=== PATIENT | female | born 1955 | race Caucasian/White ===

== ENCOUNTER 2019-02-25 08:10 | Day surgery (SDC) | payer MEDICARE ==
[2019-02-24 08:35] VITALS: BMI 23.2
[~2019-02-25 08:10] MED LIST: LACTATED RINGERS 1,000 ML IV SCH; TOBRA-DEXAMET 0.3-0.1% OPHTH OINT 3.5 GM TUBE OPHTHALMIC ONE
[2019-02-25] MEDS: CYCLOPENTOLATE 1% OPHTH SOLN 2 ML BTL OP ONE ×3 (09:25→09:44)
[2019-02-25 09:28] VITALS: TEMP 97.8
[2019-02-25] MEDS: PHENYLEPHRINE 10% OPHTH DROPS 5 ML BTL OP ONE ×3 (09:29→09:47)
[2019-02-25] MEDS: KETOROLAC 0.5% OPHTH DROPS 5 ML BTL OP ONE ×3 (09:32→09:50)
[2019-02-25] MEDS ORDERED: PROPOFOL 10 MG/ML 20 ML VIAL IV ONE (09:54)
[2019-02-25] MEDS ORDERED: BALANCED SALT IRRIG SOLN COMB2 15 ML IRRIG.SOLN INTRAOCULA ONE (10:13)
[2019-02-25] MEDS ORDERED: HYALURONATE SODIUM INTRAOCULAR 1 EACH SYRINGE (10MG/ML) INTRAOCULA ONE (10:13)
[2019-02-25] MEDS ORDERED: EPINEPHrine (PF) 0.5 ML in BALANCED SALT IRRIG SOLN COMB2 500 ML IRRIGATION ONE (10:14)
--- NOTE | 2019-02-25 10:25 | P.OP ---
Date of Procedure: 02/25/19 Procedure(s) Performed: PREOPERATIVE DIAGNOSIS: Cataract, left eye. POSTOPERATIVE DIAGNOSIS: Cataract, left eye. OPERATION: Phacoemulsification of cataract, intraocular lens placement, left eye. DESCRIPTION OF PROCEDURE: The patient was taken to the operating room. Intravenous Propofol was given so as to bring about sedation. The following mixture was given for local anesthesia: 5 mL of 2% lidocaine, 5 mL of 0.75% Marcaine, and 1 mL of Wydase. Approximately 4 mL was injected in the retrobulbar space of the surgical eye. Additional 1 mL was then directed to the temporal area of the surgical eye. This was performed to allow adequate neurological block of the facial muscles. The patient was revived. The patient was prepped and draped in the usual sterile manner for the operative eye. A lid speculum was put into position. The conjunctiva was resected back from the limbus in the 12 o'clock position. Bleeding was controlled with electrocautery. A #69 blade was then used and a half-thickness scleral incision approximately 1-mm posterior to the limbus was made on bare sclera. This was shelved in the clear cornea using a crescent knife. Next a 15-degree blade was used to make a stab incision at the 3 o'clock position at the corneolimbal interface. A keratome blade was then used and the superior wound was extended into the anterior chamber. Viscoelastic was injected into the anterior chamber to maintain its form. A cystotome was used and a continuous anterior capsulot sin was made. Hydrodissection of the lens cortex using a blunt cannula and BSS was performed. A phaco probe was then introduced and a groove extending from 12 to 6 o'clock in the lens was created. A Berhane wand was used through the stab incision and used to perform a divide and conquer dismantling of the cataract. An irrigation aspiration probe was utilized and any residual cortex was removed from the eye. Again, viscoelastic was injected into the anterior chamber. An Ian posterior chamber lens implant was placed in a delivery cartridge and injected into the anterior chamber. A Sinskey hook was utilized to spin the lens into position within the capsular bag. The irrigation and aspiration probe was again introduced and any residual viscoelastic was removed from the eye. BSS was injected via blunt canula into the limbal stab incision and the anterior chamber was re-inflated. The conjunctiva was reapproximated using electrocautery. One drop of 0.25% Timoptic was placed over the corneal along with an antibiotic ophthalmic ointment. Two sterile patches and a Fabian eye shield were taped into position. The patient was transported to the recovery room in stable condition. Pathology: none sent Condition: stable Disposition: same day
[2019-02-25 10:43] VITALS: BP 124/74; PULSE 50; RESP 18
[2019-02-25] MEDS ORDERED: TIMOLOL 0.5% OPHTH DROPS 5 ML BTL OP ONE (23:00)
[2019-02-25] MEDS ORDERED: GENTAMICIN/PREDNISOL AC OPHTH OINT 3.5GM OPHTHALMIC ONE (23:00)
[2019-02-25] MEDS ORDERED: BUPIVACAINE (PF) 0.75% 5 ML, HYALURONIDASE, HUMAN RECOMB 150 UNIT, LIDOCAINE 2% (PF) 10... MISCELLANE ONE ×3 (23:00)
== END 2019-02-25 10:54 | disposition home or self-care (01) ==
LOC: OR 08:10
PROVIDERS: ATTEND Ophthalmology
DX: H25.13 Age-related nuclear cataract, bilateral (principal); I47.1 Supraventricular tachycardia; E07.9 Disorder of thyroid, unspecified; F31.9 Bipolar disorder, unspecified; G03.8 Meningitis due to other specified causes; Z79.890 Hormone replacement therapy; Z79.899 Other long term (current) drug therapy; Z90.89 Acquired absence of other organs; Z98.51 Tubal ligation status; Z91.040 Latex allergy status; Z88.5 Allergy status to narcotic agent; Z87.891 Personal history of nicotine dependence
CPT/HCPCS: 66984; V2632; J3470; J2001; J0171; J2704

== ENCOUNTER 2020-06-09 15:19 | Emergency (ER) | payer MEDICARE ==
[2020-06-09 15:29] VITALS: BP 124/64; PULSE 52; RESP 18; TEMP 97.7
--- NOTE | 2020-06-09 15:41 | ED ---
Extremity Problem HPI - General Chief complaint: Extremity Problem,Nontraumatic Stated complaint: left leg pain Time Seen by Provider: 06/09/20 15:31 Source: patient Mode of arrival: ambulatory Limitations: no limitations - History of Present Illness Initial comments: Patient is a 65-year-old female with history of SVT, thyroid disorder, presenting to the emergency Department with complaints of pain in her left calf over the past week. Patient denies any injuries or trauma to her knee or calf. She states the pain seemed to come out of nowhere, located in her upper left calf, behind her left knee. She states over the past week it seems to be increasing and yesterday she felt like she could barely walk on it secondary to the pain. She denies any previous surgeries or injuries of her left lower extremity. She denies any chest pain or shortness of breath. She denies history of blood clots. She is not on a blood thinner. She states only thing that is changed recently as over the past few months she has put on a lot of weight. She denies any other complaints at this time. Upon arrival to the ER, her vitals are stable. - Related Data Home Medications Medication Instructions Recorded Confirmed Cholecalciferol [Vitamin D3 (25 1,000 unit PO DAILY 02/24/19 02/24/19 Mcg = 1000 Iu)] Levothyroxine Sodium [Synthroid] 125 mcg PO MOTUWETHFRSA 02/24/19 02/24/19 Multivitamins, Thera [Multivitamin 1 tab PO DAILY 02/24/19 02/24/19 (formulary)] Oxybutynin Chloride [Ditropan] 5 mg PO DAILY 02/24/19 02/24/19 QUEtiapine [SEROquel] 150 mg PO HS 02/24/19 02/24/19 Allergies Allergy/AdvReac Type Severity Reaction Status Date / Time pentazocine [From Jana] Allergy Swelling Verified 06/09/20 15:29 Review of Systems ROS Statement: Those systems with pertinent positive or pertinent negative responses have been documented in the HPI. ROS Other: All systems not noted in ROS Statement are negative. Past Medical History Past Medical History: Supraventricular Tachycardia (SVT), Thyroid Disorder Additional Past Medical History / Comment(s): spinal meningitis 25 yrs. ago, used to take BB for SVT-no longer needed per pt. History of Any Multi-Drug Resistant Organisms: None Reported Past Surgical History: Tonsillectomy, Tubal Ligation Past Anesthesia/Blood Transfusion Reactions: No Reported Reaction Past Psychological History: Bipolar Smoking Status: Never smoker Past Alcohol Use History: Rare Past Drug Use History: None Reported General Exam - General Exam Comments Initial Comments: GENERAL: Patient is well-developed and well-nourished. Patient is nontoxic and in no acute distress. HEAD: Atraumatic, normocephalic. EYES: Pupils equal round and reactive to light, extraocular movements intact, sclera anicteric, conjunctiva are normal. Eyelids were unremarkable. ENT: TMs normal, nares patent, oropharynx clear without exudates. Moist mucous membranes. NECK: Normal range of motion, supple without lymphadenopathy or JVD. LUNGS: Unlabored respirations. Breath sounds clear to auscultation bilaterally and e qual. No wheezes rales or rhonchi. HEART: Regular rate and rhythm without murmurs, rubs or gallops. ABDOMEN: Soft, nontender, normoactive bowel sounds. No guarding, no rebound. No masses appreciated. : Deferred MUSCULOSKELETAL: Normal extremities with adequate strength and normal range of motion, no pitting or edema. No clubbing or cyanosis. Patient has pain with palpation of the posterior left upper calf area, behind left knee. There is no obvious erythema or swelling noted. She does have varicose veins. NEUROLOGICAL: Patient is alert and oriented x 3. Motor and sensory are also intact. Cranial nerves II through XII grossly intact. Symmetrical smile. Normal speech, normal gait. PSYCH: Normal mood, normal affect. SKIN: Warm, Dry, normal turgor, no rashes or lesions noted. Limitations: no limitations Course Vital Signs 06/09/20 15:27 Temperature 97.7 F Pulse Rate 52 L Respiratory 18 Rate Blood Pressure 124/64 O2 Sat by Pulse 99 Oximetry Medical Decision Making - Medical Decision Making Patient is 65-year-old female here with left lower extremity pain has been increasing over the past week. No history of injuries or trauma, no previous surgeries. No history of blood clots, she is not on a blood thinner. Ultrasound of the left lower extremity reveals no evidence of DVT, she does have a Moon cyst behind the left knee. I discussed these findings with the patient. Recommended ice or heat to the area, ibuprofen or Aleve for any discomfort. I will give her orthopedic follow-up. Patient is stable for discharge. Patient is in agreement with this plan of care. Return parameters were discussed with the patient and they verbalized understanding. Case discussed with Dr. Westbrook. Disposition Clinical Impression: Synovial cyst of popliteal space [Moon], left knee, Pain of left calf Disposition: HOME SELF-CARE Condition: Stable Instructions (If sedation given, give patient instructions): Bakers Cyst (ED) Additional Instructions: Please return to the Emergency Department if symptoms worsen or any other concerns. Trial of ibuprofen or Aleve for any discomfort, may try heat and/or ice to the area. If symptoms persists follow up with orthopedics as discussed. Is patient prescribed a controlled substance at d/c from ED?: No Referrals: Pk Salazar MD [Primary Care Provider] - 1-2 days Giovanny Sotelo MD [STAFF PHYSICIAN] - 1-2 days
--- NOTE | 2020-06-09 16:38 | US ---
EXAMINATION TYPE: US venous doppler duplex LE LT DATE OF EXAM: 06/09/2020 4:10 PM COMPARISON: NONE CLINICAL HISTORY: pain behind the knee x 1 weeks. Pain left leg SIDE PERFORMED: left TECHNIQUE: The lower extremity deep venous system is examined utilizing real time linear array sonog maribel with graded compression, doppler sonography and color-flow sonography. VESSELS IMAGED: Common Femoral Vein Deep Femoral Vein Greater Saphenous Vein * Femoral Vein Popliteal Vein Small Saphenous Vein * Proximal Calf Veins (* superficial vessels) There is normal flow, compressibility, vascular waveforms. Left Leg: no evidence of DVT. complex anechoic area left popliteal fossa = 5.6 x 1.5 x 2.8cm, Moon 's cyst IMPRESSION: No evident deep venous thrombosis at or above the left knee. Incidental note made of prob able semimembranosus gastrocnemius cyst, alternate imaging may be confirmatory.
== END 2020-06-09 17:08 | disposition home or self-care (01) ==
LOC: EC 15:19
DX: M71.22 Synovial cyst of popliteal space [Baker], left knee (principal); E07.9 Disorder of thyroid, unspecified; Z90.09 Acquired absence of other part of head and neck; Z98.51 Tubal ligation status
CPT/HCPCS: 99283

== ENCOUNTER → 2023-11-08 | Outpatient (CLI) | payer MEDICARE ==
[2023-11-08 18:39] LABS: T4, Free (Free Thyroxine) 1.65 ng/dL (0.80-1.80)
== END | disposition home or self-care (01) ==
LOC: LABWHC1 11:29
PROVIDERS: ATTEND Family Medicine
DX: E03.9 Hypothyroidism, unspecified (principal)
CPT/HCPCS: 36415; 84439; 84443

== ENCOUNTER 2024-04-04 12:19 | Emergency (ER) | payer MEDICARE ==
[2024-04-04] MEDS: SODIUM CHLORIDE 0.9% 1,000 ML IV STA (12:58)
[2024-04-04 13:31] LABS: Basophils % (A) 1 %; Eosinophils # (A) 0.1 k/uL (0-0.7); Eosinophils % (A) 3 %; HCT 44.4 % (34.0-46.0); HGB 14.6 gm/dL (11.4-16.0); Lymphocytes # (A) 0.6 k/uL (1.0-4.8); Lymphocytes % (A) 14 %; MCH 32.7 pg (25.0-35.0); MCHC 32.9 g/dL (31.0-37.0); MCV 99.4 fL (80.0-100.0); Mean Platelet Volume 8.4; Monocytes # (A) 0.5 k/uL (0-1.0); Monocytes % (A) 11 %; Neutrophils # (A) 3.3 k/uL (1.3-7.7); Neutrophils % (A) 69 %; Platelet Count 192 k/uL (150-450); RBC 4.46 m/uL (3.80-5.40); RDW 12.6 % (11.5-15.5); WBC 4.8 k/uL (3.8-10.6)
--- NOTE | 2024-04-04 13:31 | ED ---
General Adult HPI - General Chief complaint: Nausea/Vomiting/Diarrhea Stated complaint: Diarrhea Time Seen by Provider: 04/04/24 13:23 Source: patient, RN notes reviewed Mode of arrival: wheelchair Limitations: no limitations - History of Present Illness Initial comments: Patient is a 69-year-old female present to the emergency department with concerns with diarrhea. Onset of symptoms was 3 days ago. Patient is having multiple episodes of watery diarrhea daily. Patient also has nausea without vomiting. Patient has some mild abdominal discomfort with diarrhea. Unclear if she has had fever or not. Patient did have bariatric surgery in November. Patient called her doctor who informed her he did not think this was from the surgery. - Related Data Home Medications Medication Instructions Recorded Confirmed Levothyroxine Sodium [Synthroid] 125 mcg PO DAILY 02/24/19 11/23/21 ALPRAZolam [Xanax] 0.5 mg PO HS 11/23/21 11/23/21 Metoprolol Tartrate [Lopressor] 25 mg PO BID 11/23/21 11/23/21 PARoxetine [Paxil] 10 mg PO DAILY 11/23/21 11/23/21 QUEtiapine [SEROquel] 300 mg PO HS 11/23/21 11/23/21 Previous Rx's Medication Instructions Recorded Amiodarone [Cordarone] 400 mg PO BID 15 Days #30 tab 11/26/21 Apixaban [Eliquis] 10 mg PO BID 7 Days #14 tab 11/26/21 Dicyclomine [Bentyl] 20 mg PO QID PRN #15 tablet 04/04/24 Allergies Allergy/AdvReac Type Severity Reaction Status Date / Time pentazocine [From Jana] Allergy Swelling Verified 04/04/24 12:27 Review of Systems ROS Statement: Those systems with pertinent positive or pertinent negative responses have been documented in the HPI. ROS Other: All systems not noted in ROS Statement are negative. Constitutional: Denies: fever Eyes: Denies: eye pain ENT: Denies: ear pain Respiratory: Denies: cough, dyspnea Cardiovascular: Denies: chest pain Gastrointestinal: Reports: as per HPI, nausea, diarrhea. Denies: vomiting Musculoskeletal: Denies: back pain Skin: Denies: rash Past Medical History Past Medical History: Atrial Fibrillation, Supraventricular Tachycardia (SVT), Thyroid Disorder Additional Past Medical History / Comment(s): spinal meningitis 25 yrs. ago, used to take BB for SVT-no longer needed per pt. History of Any Multi-Drug Resistant Organisms: None Reported Past Surgical History: Bariatric Surgery, Tonsillectomy, Tubal Ligation Past Anesthesia/Blood Transfusion Reactions: No Reported Reaction Past Psychological History: Bipolar Smoking Status: Former smoker Past Alcohol Use History: None Reported Past Drug Use History: None Reported General Exam Limitations: no limitations General appearance: alert, in no apparent distress Head exam: Present: normocephalic Eye exam: Present: normal appearance Neck exam: Present: normal inspection Respiratory exam: Present: normal lung sounds bilaterally Cardiovascular Exam: Present: irregular rhythm GI/Abdominal exam: Present: soft. Absent: distended, tenderness, guarding, rebound, rigid Extremities exam: Present: normal inspection Neurological exam: Present: alert Psychiatric exam: Present: normal affect, normal mood Skin exam: Present: normal color Course Vital Signs 04/04/24 04/04/24 12:27 13:49 Temperature 97.2 F L Pulse Rate 105 H 100 Respiratory 18 17 Rate Blood Pressure 85/54 95/66 O2 Sat by Pulse 98 97 Oximetry EKG Findings - EKG Results: EKG: interpreted by ERMDenise (Nonspecific ST-T), normal axis, normal QRS EKG shows: atrial fibrillation Medical Decision Making - Medical Decision Making Was pt. sent in by a medical professional or institution (TENZIN Aden, FINANCE VICE PRESIDENT, urgent care, hospital, or snf...) When possible be specific @ -No Did you speak to anyone other than the patient for history (EMS, parent, family, police, friend...)? What history was obtained from this source @ -No Did you review nursing and triage notes (agree or disagree)? Why? @ -I reviewed and agree with nursing and triage notes Were old charts reviewed (outside hosp., previous admission, EMS record, old EKG, old radiological studies, urgent care reports/EKG's, snf records)? Report findings @ -No old charts were reviewed Differential Diagnosis (chest pain, altered mental status, abdominal pain women, abdominal pain men, vaginal bleeding, weakness, fever, dyspnea, syncope, headache, dizziness, GI bleed, back pain, seizure, CVA, palpatations, mental he alth, musculoskeletal)? @ -Differential Abdominal Pain Women: Appendicitis, Cholecystitis, diverticulosis, ischemic bowel, pancreatitis, hepatitis, UTI, gastroenteritis, AAA, incarcerated hernia, bowel obstruction, constipation, inflammatory bowel, hepatitis, peptic ulcer disease, splenic infarction, perforated viscus, vulvitis, ovarian torsion, PID, kidney stone, placenta abruption, this is not meant to be an all-inclusive list EKG interpreted by me (3pts min.). @ -As above X-rays interpreted by me (1pt min.). @ -None done CT interpreted by me (1pt min.). @ -None done U/S interpreted by me (1pt. min.). @ -None done What testing was considered but not performed or refused? (CT, X-rays, U/S, labs)? Why? @ -None What meds were considered but not given or refused? Why? @ -None Did you discuss the management of the patient with other professionals (professionals i.e. , PA, FINANCE VICE PRESIDENT, lab, RT, psych nurse, director social, emt dispatcher, teacher, control officer, classification case manager)? Give summary @ -No Was smoking cessation discussed for >3mins.? @ -No Was critical care preformed (if so, how long)? @ -No Were there social determinants of health that impacted care today? How? (Homelessness, low income, unemployed, alcoholism, drug addiction, transportation, low edu. Level, literacy, decrease access to med. care, assisted, rehab)? @ -No Was there de-escalation of care discussed even if they declined (Discuss DNR or withdrawal of care, Hospice)? DNR status @ -No What co-morbidities impacted this encounter? (DM, HTN, Smoking, COPD, CAD, Cancer, CVA, ARF, Chemo, Hep., AIDS, mental health diagnosis, sleep apnea, morbid obesity)? @ -None Was patient admitted / discharged? Hospital course, mention meds given and route, prescriptions, significant lab abnormalities, going to OR and other perti nent info. @ -Patient presents with diarrhea for the past several days. On evaluation patient has mild dehydration and hypokalemia. Patient reevaluated and updated. Abdomen soft and nontender on reevaluation. Patient feels much better and is comfortable with discharge home. Patient will be given additional small fluid bolus prior to discharge. Blood pressure has been stable in the 90s. Undiagnosed new problem with uncertain prognosis? @ -No Drug Therapy requiring intensive monitoring for toxicity (Heparin, Nitro, Insulin, Cardizem)? @ -No Were any procedures done? @ -No Diagnosis/symptom? @ -Diarrhea Acute, or Chronic, or Acute on Chronic? @ -Acute Uncomplicated (without systemic symptoms) or Complicated (systemic symptoms)? @ -Complicated with hypokalemia Side effects of treatment? @ -No Exacerbation, Progression, or Severe Exacerbation? @ -No Poses a threat to life or bodily function? How? (Chest pain, [place], [place], pneumonia, PE, COPD, DKA, ARF, appy, cholecystitis, CVA, Diverticulitis, Homicidal, Suicidal, threat to staff... and all critical care pts) @ -No - Lab Data Result diagrams: 04/04/24 12:57 04/04/24 12:57 Lab Results 04/04/24 04/04/24 04/04/24 Range/Units 12:57 12:57 12:57 WBC 4.8 (3.8-10.6) k/uL RBC 4.46 (3.80-5.40) m/uL Hgb 14.6 (11.4-16.0) gm/dL Hct 44.4 (34.0-46.0) % MCV 99.4 (80.0-100.0) fL MCH 32.7 (25.0-35.0) pg MCHC 32.9 (31.0-37.0) g/dL RDW 12.6 (11.5-15.5) % Plt Count 192 (150-450) k/uL MPV 8.4 Neutrophils % 69 % Lymphocytes % 14 % Monocytes % 11 % Eosinophils % 3 % Basophils % 1 % Neutrophils # 3.3 (1.3-7.7) k/uL Lymphocytes # 0.6 L (1.0-4.8) k/uL Monocytes # 0.5 (0-1.0) k/uL Eosinophils # 0.1 (0-0.7) k/uL Basophils # 0.0 (0-0.2) k/uL Sodium 140 (137-145) mmol/L Potassium 3.2 L (3.5-5.1) mmol/L Chloride 104 (98-107) mmol/L Carbon Dioxide 17 L (22-30) mmol/L Anion Gap 19 mmol/L BUN 19 H (7-17) mg/dL Creatinine 1.17 H (0.52-1.04) mg/dL Est GFR (CKD-EPI)AfAm 55 (>60 ml/min/1.73 sqM) Est GFR (CKD-EPI)NonAf 47 (>60 ml/min/1.73 sqM) Glucose 90 (74-99) mg/dL Plasma Lactic Acid Boyd 1.4 (0.7-2.0) mmol/L Calcium 9.3 (8.4-10.2) mg/dL Total Bilirubin 1.0 (0.2-1.3) mg/dL AST 29 (14-36) U/L ALT 23 (4-34) U/L Alkaline Phosphatase 89 (38-126) U/L Total Protein 7.2 (6.3-8.2) g/dL Albumin 4.4 (3.5-5.0) g/dL Disposition Clinical Impression: Diarrhea Disposition: HOME SELF-CARE Condition: Stable Instructions (If sedation given, give patient instructions): Acute Diarrhea (ED) Additional Instructions: Hold your Lopressor for 36 hours. Prescription sent to pharmacy for Bentyl. Return for fevers, not tolerating oral intake, increased diarrhea, pain, wo rsening or changing symptoms or any other concerns. Prescriptions: Dicyclomine [Bentyl] 20 mg PO QID PRN #15 tablet PRN Reason: Pain Is patient prescribed a controlled substance at d/c from ED?: No Referrals: Pk Salazar MD [Primary Care Provider] - 1-2 days Time of Disposition: 14:52
[2024-04-04 13:35] LABS: ALT 23 U/L (4-34); African American GFR (CKD) 55 (>60 ml/min/1.73 sqM); Albumin 4.4 g/dL (3.5-5.0); Anion Gap 19 mmol/L; Blood Urea Nitrogen 19 mg/dL (7-17); Calcium 9.3 mg/dL (8.4-10.2); Carbon Dioxide 17 mmol/L (22-30); Chloride 104 mmol/L (98-107); Glucose 90 mg/dL (74-99); Non-African American GFR(CKD) 47 (>60 ml/min/1.73 sqM); Sodium 140 mmol/L (137-145); Total Protein 7.2 g/dL (6.3-8.2)
[2024-04-04] MEDS: ONDANSETRON 4 MG/2 ML VIAL IVP STA (13:41)
[2024-04-04] MEDS: DICYCLOMINE 10 MG/ML 2 ML AMP IM STA (13:42)
[2024-04-04] MEDS: FAMOTIDINE 20 MG/2 ML VIAL IV STA (13:44)
[2024-04-04 14:01] LABS: AST 29 U/L (14-36); Alkaline Phosphatase 89 U/L (38-126); Potassium 3.2 mmol/L (3.5-5.1)
[2024-04-04] MEDS: SODIUM CHLORIDE 0.9% 500 ML 500 ML IV STA (15:11)
[2024-04-04] MEDS: POTASSIUM CHLORIDE ER 20 MEQ TAB.ER PO STA (15:11)
[2024-04-04 16:25] VITALS: BP 92/50; PULSE 95; RESP 18; TEMP 97.8
== END 2024-04-04 16:30 | disposition home or self-care (01) ==
LOC: EC 12:19
DX: R19.7 Diarrhea, unspecified (principal); E87.6 Hypokalemia; Z87.891 Personal history of nicotine dependence; Z88.8 Allergy status to other drugs, medicaments and biological substances
CPT/HCPCS: 36415; 93005; 80053; 83605; 85025; 99284; 96372; 96374; 96375; 96361; J0500; J2405; J3490

== ENCOUNTER 2024-04-06 10:58 | Inpatient (IN) | payer MEDICARE ==
--- NOTE | 2024-04-06 11:42 | ED ---
Nausea/Vomiting/Diarrhea HPI - General Stated complaint: Fall Time Seen by Provider: 04/06/24 11:17 Source: patient, RN notes reviewed Mode of arrival: EMS Limitations: no limitations - History of Present Illness Initial comments: This is a 69-year-old female with history of A-fib and SVT presenting with diarrhea x 5 days. Patient states she has been diarrhea with fecal incont inence. Endorses associated diffuse abdominal pain (4/10) and general weakness. Denies blood in stool, nausea/vomiting, recent sick contact, recent antibiotic use, intake of undercooked food. Patient states she received gastric bypass surgery in November 2023 without complication. States she called surgeon who advised current symptoms not related to surgery. States she was seen in this ER [address] Enamorado who provided fluids, corrected hypokalemia and sent Bentyl to the pharmacy with initial improvement before symptoms returned shortly afterwards. Patient states she has not taken Eliquis since her last ER visit 2 days ago. Denies fever, chills, chest pain, dyspnea, dizziness, melena, BRBPR. MD complaint: diarrhea, abdominal pain Onset/Timin -: days(s) Description of Diarrhea: water Associated Abdominal Pain: Yes Location: diffuse Radiation: none Severity scale (1-10): 4 Quality: cramping Consistency: constant Improves with: none Worsens with: eating Context: history of abdominal surgery Associated Symptoms: loss of appetite, weakness - Related Data Home Medications Medication Instructions Recorded Confirmed Levothyroxine Sodium [Synthroid] 125 mcg PO MOTUWETHFRSA 02/24/19 04/06/24 PARoxetine [Paxil] 10 mg PO DAILY 11/23/21 04/06/24 Dicyclomine [Bentyl] 20 mg PO QID PRN 04/06/24 04/06/24 Metoprolol Succinate (ER) [Toprol 25 mg PO HS 04/06/24 04/06/24 Xl] Omeprazole 20 mg PO DAILY 04/06/24 04/06/24 QUEtiapine FUMARATE [SEROquel] 300 mg PO HS 04/06/24 04/06/24 Allergies Allergy/AdvReac Type Severity Reaction Status Date / Time pentazocine [From Jana] Allergy Swelling Verified 04/06/24 11:43 Review of Systems ROS Statement: Those systems with pertinent positive or pertinent negative responses have been documented in the HPI. ROS Other: All systems not noted in ROS Statement are negative. Past Medical History Past Medical History: Atrial Fibrillation, Supraventricular Tachycardia (SVT), Thyroid Disorder Additional Past Medical History / Comment(s): spinal meningitis 25 yrs. ago, use d to take BB for SVT-no longer needed per pt. History of Any Multi-Drug Resistant Organisms: None Reported Past Surgical History: Bariatric Surgery, Tonsillectomy, Tubal Ligation Past Anesthesia/Blood Transfusion Reactions: No Reported Reaction Past Psychological History: Bipolar Smoking Status: Former smoker Past Alcohol Use History: None Reported Past Drug Use History: None Reported General Exam General appearance: alert, in no apparent distress, cachectic Head exam: Present: atraumatic, normocephalic, normal inspection Eye exam: Present: normal appearance, PERRL, EOMI. Absent: scleral icterus, conjunctival injection, periorbital swelling ENT exam: Present: normal exam, mucous membranes moist Neck exam: Present: normal inspection. Absent: tenderness, meningismus, lymphad enopathy Respiratory exam: Present: normal lung sounds bilaterally. Absent: respiratory distress, wheezes, rales, rhonchi, stridor Cardiovascular Exam: Present: regular rate, normal rhythm, normal heart sounds. Absent: systolic murmur, diastolic murmur, rubs, gallop, clicks GI/Abdominal exam: Present: soft, distended (Mild distention), tenderness (Diffuse mild tenderness without tympanic tenderness or rebound), normal bowel sounds. Absent: guarding, rebound, rigid Rectal exam: Present: decreased rectal tone, other (Yellow, watery stool without obvious blood). Absent: black stool, bloody stool, fecal impaction, hemorrhoids, mass, tenderness Extremities exam: Present: normal inspection, full ROM, normal capillary refill. Absent: tenderness, pedal edema, joint swelling, calf tenderness Back exam: Present: normal inspection Neurological exam: Present: alert, oriented X3, CN II-XII intact Psychiatric exam: Present: normal affect, normal mood Skin exam: Present: warm, dry, intact, normal color. Absent: rash Course Vital Signs 04/06/24 04/06/24 04/06/24 11:37 15:34 19:00 Temperature 97.9 F Pulse Rate 103 H 110 H 107 H Respiratory 20 16 18 Rate Blood Pressure 129/80 121/91 113/66 O2 Sat by Pulse 97 98 99 Oximetry Medical Decision Making - Medical Decision Making Was pt. sent in by a medical professional or institution (, PA, FLOOR SPACE ALLOCATOR, urgent care, hospital, or longterm...) When possible be specific @ -No Did you speak to anyone other than the patient for history (EMS, parent, family, police, friend...)? What history was obtained from this source @ -No Did you review nursing and triage notes (agree or disagree)? Why? @ -I reviewed and agree with nursing and triage notes Were old charts reviewed (outside hosp., previous admission, EMS record, old EKG, old radiological studies, urgent care reports/EKG's, longterm records)? Report findings @ -No old charts were reviewed Differential Diagnosis (chest pain, altered mental status, abdominal pain women, abdominal pain men, vaginal bleeding, weakness, fever, dyspnea, syncope, headache, dizziness, GI bleed, back pain, seizure, CVA, palpatations, mental health, musculoskeletal)? @ -Differential Abdominal Pain Women: Appendicitis, Cholecystitis, diverticulosis, ischemic bowel, pancreatitis, hepatitis, UTI, gastroenteritis, AAA, incarcerated hernia, bowel obstruction, constipation, inflammatory bowel, hepatitis, peptic ulcer disease, splenic infarction, perforated viscus, vulvitis, ovarian torsion, PID, kidney stone, placenta abruption, this is not meant to be an all-inclusive list EKG interpreted by me (3pts min.). @ -A-fib with RVR and PVCs. No ST changes or T wave inversion. Ventricular rate 116 bpm, QRS duration 91 ms, QTc 419 ms. X-rays interpreted by me (1pt min.). @ -None done CT interpreted by me (1pt min.). @ -Abdomen/pelvic CT shows moderate stool throughout colon with wall thickening of sigmoid and rectum indicating colitis. U/S interpreted by me (1pt. min.). @ -None done What testing was considered but not performed or refused? (CT, X-rays, U/S, labs)? Why? @ -None What meds were considered but not given or refused? Why? @ -None Did you discuss the management of the patient with other professionals (professionals i.e. , PA, FLOOR SPACE ALLOCATOR, lab, RT, psych nurse, licensed clinical social worker, occupational health nursing director, teacher, psychological operations officer, chef manager)? Give summary @ -Spoke to [facility] physician who advised consult with Dr. Platt regarding symptoms . Was smoking cessation discussed for >3mins.? @ -No Was critical care preformed (if so, how long)? @ -No Were there social determinants of health that impacted care today? How? (Homelessness, low income, unemployed, alcoholism, drug addiction, transportation, low edu. Level, literacy, decrease access to med. care, prison, rehab)? @ -No Was there de-escalation of care discussed even if they declined (Discuss DNR or withdrawal of care, Hospice)? DNR status @ -No What co-morbidities impacted this encounter? (DM, HTN, Smoking, COPD, CAD, Cancer, CVA, ARF, Chemo, Hep., AIDS, mental health diagnosis, sleep apnea, morbid obesity)? @ -A-fib Was patient admitted / discharged? Hospital course, mention meds given and route, prescriptions, significant lab abnormalities, going to OR and other pertinent info. @ - Lab work shows acidotic VBG, critically low CO2 (9) and hypokalemia (2.6). Anion gap 22. Renal dysfunction with elevated BUN and creatinine noted. Liver enzymes slightly elevated as well as CRP (21.4). Cepheid test negative. Stool occult blood and C. difficile negative. Abdomen/pelvic CT shows moderate stool throughout colon with wall thickening of sigmoid and rectum indicating colitis. Patient initially started on normal saline and provided potassium replacement and lactated Ringer's following return of lab work. Spoke to Dr. Carmona who advised consult with Dr. Platt from infectious disease. Undiagnosed new problem with uncertain prognosis? @ -No Drug Therapy requiring intensive monitoring for toxicity (Heparin, Nitro, Insulin, Cardizem)? @ -No Were any procedures done? @ -No Diagnosis/symptom? @ -Metabolic acidosis, hypokalemia, A-fib with RVR, diarrhea Acute, or Chronic, or Acute on Chronic? @ -Acute Uncomplicated (without systemic symptoms) or Complicated (systemic symptoms)? @ -Complicated Side effects of treatment? @ -No Exacerbation, Progression, or Severe Exacerbation? @ -No Poses a threat to life or bodily function? How? (Chest pain, [place], [place], pneumonia, PE, COPD, DKA, ARF, appy, cholecystitis, CVA, Diverticulitis, Homicidal, Suici ivon, threat to staff... and all critical care pts) @ -Metabolic acidosis and hypokalemia - Lab Data Result diagrams: 04/06/24 12:53 04/06/24 12:53 Lab Results 04/06/24 04/06/24 04/06/24 Range/Units 12:00 12:53 12:53 WBC 7.7 (3.8-10.6) k/uL RBC 4.42 (3.80-5.40) m/uL Hgb 14.5 (11.4-16.0) gm/dL Hct 42.8 (34.0-46.0) % MCV 96.8 (80.0-100.0) fL MCH 32.9 (25.0-35.0) pg MCHC 34.0 (31.0-37.0) g/dL RDW 13.2 (11.5-15.5) % Plt Count 227 (150-450) k/uL MPV 8.4 Neutrophils % (Manual) 59 % Band Neuts % (Manual) 14 % Lymphocytes % (Manual) 11 % Monocytes % (Manual) 15 % Eosinophils % (Manual) 1 % Basophils % (Manual) 1 % Metamyelocytes % 1 % Neutrophils # (Manual) 5.60 (1.3-7.7) k/uL Lymphocytes # (Manual) 0.85 L (1.0-4.8) k/uL Monocytes # (Manual) 1.16 H (0-1.0) k/uL Eosinophils # (Manual) 0.08 (0-0.7) k/uL Basophils # (Manual) 0.08 (0-0.2) k/uL Metamyelocytes # (Man) 0.08 H (0) k/uL Nucleated RBCs 0 (0-0) /100 WBC Manual Slide Review Performed Crenated Cell Present Sodium 137 (137-145) mmol/L Potassium 2.6 L* (3.5-5.1) mmol/L Chloride 106 (98-107) mmol/L Carbon Dioxide 9 L* (22-30) mmol/L Anion Gap 22 mmol/L BUN 33 H (7-17) mg/dL Creatinine 1.72 H (0.52-1.04) mg/dL Est GFR (CKD-EPI)AfAm 34 (>60 ml/min/1.73 sqM) Est GFR (CKD-EPI)NonAf 30 (>60 ml/min/1.73 sqM) Glucose 98 (74-99) mg/dL Calcium 10.1 (8.4-10.2) mg/dL Total Bilirubin 0.9 (0.2-1.3) mg/dL AST 113 H (14-36) U/L ALT 53 H (4-34) U/L Alkaline Phosphatase 122 (38-126) U/L C-Reactive Protein 21.4 H (<1.0) mg/dL Total Protein 6.9 (6.3-8.2) g/dL Albumin 4.0 (3.5-5.0) g/dL Influenza Type A (PCR) Not Detected (Not Detectd) Influenza Type B (PCR) Not Detected (Not Detectd) RSV (PCR) Not Detected (Not Detectd) SARS-CoV-2 (PCR) Not Detected (Not Detectd) Disposition Clinical Impression: Hypokalemia, Metabolic acidosis, Diarrhea Disposition: ADMITTED IP TO THIS [facility] Condition: Stable Is patient prescribed a controlled substance at d/c from ED?: No Time of Disposition: 15:27 Decision Date: 04/06/24 Decision Time: 15:27
[2024-04-06 13:04] LABS: HCT 42.8 % (34.0-46.0); HGB 14.5 gm/dL (11.4-16.0); MCH 32.9 pg (25.0-35.0); MCV 96.8 fL (80.0-100.0); Mean Platelet Volume 8.4; Platelet Count 227 k/uL (150-450); RBC 4.42 m/uL (3.80-5.40); RDW 13.2 % (11.5-15.5); WBC 7.7 k/uL (3.8-10.6)
[2024-04-06] MEDS: SODIUM CHLORIDE 0.9% 1,000 ML IV STA ×2 (13:12→16:35)
[2024-04-06 13:16] LABS: ALT 53 U/L (4-34); AST 113 U/L (14-36); African American GFR (CKD) 34 (>60 ml/min/1.73 sqM); Alkaline Phosphatase 122 U/L (38-126); Anion Gap 22 mmol/L; Blood Urea Nitrogen 33 mg/dL (7-17); Calcium 10.1 mg/dL (8.4-10.2); Chloride 106 mmol/L (98-107); Glucose 98 mg/dL (74-99); Non-African American GFR(CKD) 30 (>60 ml/min/1.73 sqM); Sodium 137 mmol/L (137-145); Total Bilirubin 0.9 mg/dL (0.2-1.3); Total Protein 6.9 g/dL (6.3-8.2)
[2024-04-06 13:41] LABS: Carbon Dioxide 9 mmol/L (22-30); Potassium 2.6 mmol/L (3.5-5.1)
[2024-04-06 13:42] LABS: C Reactive Protein 21.4 mg/dL (<1.0)
[2024-04-06 13:59] LABS: Band Neutrophils % 14 %; Basophils # (M) 0.08 k/uL (0-0.2); Crenated RBC Present; Eosinophils # (M) 0.08 k/uL (0-0.7); Lymphocytes # (M) 0.85 k/uL (1.0-4.8); Metamyelocytes # (M) 0.08 k/uL (0); Metamyelocytes % 1 %; Monocytes # (M) 1.16 k/uL (0-1.0); Neutrophils % (M) 59 %; Nucleated Red Blood Cells 0 /100 WBC (0-0); Total Cells Counted 200
[2024-04-06] MEDS ORDERED: NALOXONE 0.4 MG/ML 1 ML VIAL IV PRN (15:06)
[2024-04-06] MEDS: POTASSIUM CHLORIDE 20 MEQ in WATER FOR INJECTION 1 100ML.BAG IVPB STA (15:27)
[2024-04-06] MEDS: POTASSIUM CHLORIDE ER 20 MEQ TAB.ER PO STA (15:28)
[2024-04-06] MEDS: LACTATED RINGERS 1,000 ML BAG IV STA (15:28)
[2024-04-06 16:19] LABS: VBG PH 7.25 (7.31-7.41)
[2024-04-06 16:29] LABS: Amylase 38 U/L (30-110); Lipase <10 U/L (23-300); Magnesium 1.2 mg/dL (1.6-2.3)
[2024-04-06] MEDS: LACTATED RINGERS 1,000 ML BAG IV SCH (16:35)
[2024-04-06] MEDS: LACTATED RINGERS 1,000 ML IV SCH (17:18)
[2024-04-06] MEDS ORDERED: ZINC OXIDE PASTE (Z-GUARD) 1 APPLIC TOPICAL PRN (18:07)
--- NOTE | 2024-04-06 18:32 | CT ---
EXAMINATION TYPE: CT abdomen pelvis w con DATE OF EXAM: 04/06/2024 6:03 PM COMPARISON: None CLINICAL INDICATION: Female, 69 years old with history of abdominal pain, diarrhea; Generalized abdom inal pain and uncontrollable diarrhea. TECHNIQUE: Axial CT abdomen pelvis w con;Sagittal and coronal reformats were created on a separate w orkstation. Contrast used:80cc mL of Isovue 300 with IV Contrast, (none if empty) Oral contrast used: without Oral Contrast (none if empty) CT DLP: 1443.6 mGycm, Automated exposure control for dose reduction was used. FINDINGS: LOWER CHEST: Unremarkable ABDOMEN LIVER: Simple appearing probable cyst in the liver GALLBLADDER AND BILE DUCTS: Dilated gallbladder with gallstone in the gallbladder lumen. PANCREAS: Unremarkable. SPLEEN: Unremarkable. ADRENAL GLANDS: Unremarkable. KIDNEYS AND URETERS: No evidence of hydronephrosis or renal calculus. The ureters are unremarkable. PELVIS BLADDER: No evidence for wall thickening or mass given limitations of exam. REPRODUCTIVE: Unremarkable. ABDOMEN & PELVIS STOMACH AND BOWEL: Water and the colon. Postsurgical changes at the gastric esophageal junction. No evidence of bowel obstruction. Postsurgical changes of the small bowel in the midabdomen. 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 This does not clearly connect to any zachary wel loop. PERITONEUM/RETROPERITONEUM: No evidence of pneumoperitoneum or free fluid. VASCULATURE: No evidence of aortic aneurysm. MUSCULOSKELETAL: No acute osseous abnormalities. Moderate disc degeneration changes are present throu ghout the thoracolumbar spine. LYMPH NODES: No gross evidence for lymphadenopathy. SOFT TISSUE/ABDOMINAL WALL: Unremarkable IMPRESSION: 1. Moderate stool throughout the colon compatible with history of diarrhea with Mild hyperemia with wall thickening of the sigmoid colon and rectum correlate for some mild colitis. 2. Indeterminate Blind-ending structure in the right lower quadrant measuring 21 x 18 mm unclear sheila ology is thought not to be the ovary possibly sequela of prior surgeries. 3. Cholelithiasis. [facility], , 04/06/2024 6:30 PM
[2024-04-06] MEDS ORDERED: Potassium Replacement Protocol 1 EACH MISC MISCELLANE PRN (19:36)
[2024-04-06] MEDS: QUEtiapine 100 MG TAB PO SCH (20:57)
[2024-04-06] MEDS ORDERED: METOPROLOL TARTRATE 5 MG/5 ML VIAL IVP PRN (22:07)
[2024-04-06] MEDS ORDERED: Magnesium Replacement Protocol 1 EACH MISC MISCELLANE PRN (22:20)
[2024-04-06] MEDS ORDERED: MORPHINE SULFATE 4 MG/ML SYRINGE IV PRN (22:22)
[2024-04-06] MEDS: POTASSIUM BICARBONATE/CIT AC 20 MEQ TABLET.EFF PO ONE (22:40)
[2024-04-06] MEDS: POTASSIUM CHLORIDE 20 MEQ in WATER FOR INJECTION 1 100ML.BAG IVPB SCH (22:41)
[2024-04-06] MEDS: SODIUM CHLORIDE 0.9% 1,000 ML IV ONE (22:45)
[2024-04-06] MEDS: metroNIDAZOLE 500 MG TAB PO SCH (22:57)
[2024-04-06] MEDS: MAGNESIUM SULFATE-D5W PMX 1 GM in DEXTROSE/WATER 1 100ML.BAG IVPB SCH (23:43)
[2024-04-07] MEDS: SODIUM CHLORIDE 0.9% 1,000 ML IV SCH (00:04)
[2024-04-07] MEDS: SODIUM CHLORIDE 0.9% 1,000 ML IV ONE (00:04)
[2024-04-07] MEDS: DEXTROSE 5% IN WATER 1,000 ML with SODIUM BICARB (1 MEQ/ML) 150 ML IV SCH (05:13)
[2024-04-07] MEDS: LEVOTHYROXINE 125 MCG TAB PO SCH (05:38)
--- NOTE | 2024-04-07 06:05 | P.CNPUL ---
History of Present Illness Consult date: 04/07/24 Requesting physician: Bull E Sheet Reason for consult: other (Hypotension; ICU evaluation) Chief complaint: Severe diarrheal illness History of present illness: Patient is a 69-year-old female with past medical history significant for atrial fibrillation, hypothyroidism, PE/DVT, previous gastric bypass surgery. Of note, patient had a recent ER visit back on April 04 for severe episodic watery diarrhea. She returns to the emergency department yesterday afternoon with a similar complaint. I am evaluating this patient in the emergency department, room 14. She states that since Sunday she has had severe intractable diarrhea that is watery and brown. She also reports some mild abdominal discomfort, nausea without emesis. She has been very weak at home. Gets lightheaded on lencho sing, but denies losing consciousness or syncopal events. Not able to tolerate much oral intake. Denies recent antibiotic use. Denies recent sick contacts. CBC is unremarkable without leukocytosis. She continues to have fluid loss. She is in a state of anion gap metabolic acidosis. Most recent CMP includes a sodium 137, potassium 2.6, chloride 106, serum bicarb down to 9, anion gap 22, BUN 33, creatinine 1.72, glucose 98. Magnesium was low at 1.2. EKG: Atrial fibrillation wtih RVR and frequent PVCs, rate 116. LFTs mildly elevated. CPK 2694. Stool occult blood was negative. C. difficile negative. We were consulted early this morning as the patient's blood pressure has been borderline hypotensive. She has received a total of 4 L crystalloid fluid bolus. She is also in atrial fibrillation with RVR ranging from 100 to 120 bpm. She continues to have copious amounts of liquid diarrhea, there is an FMS in place. CT of abdomen and pelvis showing moderate liquid stool throughout the colon compatible with history of diarrhea and mild wall thickening of the sigmoid colon and rect um, possible mild colitis. Also, indeterminate blind-ending structure in the right lower quadrant measuring 21 x 18 mm unclear etiology,. No evidence of pneumoperitoneum, free fluid, or bowel obstruction. Postsurgical findings noted. Patient has been empirically covered on a combination of Rocephin and Flagyl. Current vitals: Temperature 98.2 F, heart rate 118 bpm, blood pressure 101/50 mmHg, nontachypneic, SpO2 96% on room air. Review of Systems Constitutional: Reports poor appetite, Denies chills, Denies fever, Denies weight gain, Denies weight loss Ears, nose, mouth and throat: Denies nasal congestion, Denies nasal discharge, Denies post-nasal drip, Denies sinus pain, Denies sinus pressure, Denies sore throat Cardiovascular: Reports lightheadedness, Denies chest pain, Denies dyspnea on exertion, Denies orthopnea, Denies palpitations, Denies paroxysmal nocturnal dyspnea, Denies syncope Respiratory: Denies congestion, Denies cough, Denies dyspnea Gastrointestinal: Reports as per HPI Genitourinary: Denies dysuria, Denies flank pain, Denies hematuria, Denies urinary frequency Musculoskeletal: Denies limitation of motion Integumentary: Denies rash, Denies sores Neurological: Denies seizures, Denies syncope Psychiatric: Denies anxiety, Denies depression Past Medical History Past Medical History: Atrial Fibrillation, Supraventricular Tachycardia (SVT), Thyroid Disorder Additional Past Medical History / Comment(s): spinal meningitis 25 yrs. ago, used to take BB for SVT-no longer needed per pt. History of Any Multi-Drug Resistant Organisms: None Reported Past Surgical History: Bariatric Surgery, Tonsillectomy, Tubal Ligation Past Anesthesia/Blood Transfusion Reactions: No Reported Reaction Past Psychological History: Bipolar Smoking Status: Former smoker Past Alcohol Use History: None Reported Past Drug Use History: None Reported Medications and Allergies Home Medications Medication Instructions Recorded Confirmed Type Levothyroxine Sodium [Synthroid] 125 mcg PO MOTUWETHFRSA 02/24/19 04/06/24 History PARoxetine [Paxil] 10 mg PO DAILY 11/23/21 04/06/24 History Dicyclomine [Bentyl] 20 mg PO QID PRN 04/06/24 04/06/24 History Metoprolol Succinate (ER) [Toprol 25 mg PO HS 04/06/24 04/06/24 History Xl] Omeprazole 20 mg PO DAILY 04/06/24 04/06/24 History QUEtiapine FUMARATE [SEROquel] 300 mg PO HS 04/06/24 04/06/24 History Allergies Allergy/AdvReac Type Severity Reaction Status Date / Time pentazocine [From Jana] Allergy Swelling Verified 04/06/24 11:43 Physical Exam Vitals: Vital Signs Temp Pulse Resp BP Pulse Ox 04/07/24 04:20 118 H 18 89/48 96 04/07/24 01:23 121 H 16 80/52 96 04/06/24 23:49 123 H 18 90/59 96 04/06/24 23:45 98.2 F 131 H 18 90/59 96 04/06/24 22:45 121 H 20 96/59 97 04/06/24 21:45 98.0 F 134 H 18 80/58 95 04/06/24 20:25 108 H 18 104/80 99 04/06/24 19:00 97.9 F 107 H 18 113/66 99 04/06/24 15:34 110 H 16 121/91 98 04/06/24 11:37 103 H 20 129/80 97 Intake and Output 04/06/24 04/06/24 04/07/24 14:59 22:59 06:59 Other: Weight 104.326 kg GENERAL EXAM: Alert, 69-year-old obese female, laying supine, FMS with copious amounts of liquid diarrhea, comfortable in no apparent distress. HEAD: Normocephalic and atraumatic EYES: Normal reaction of pupils, equal size. NOSE: Clear with pink turbinates. THROAT: No erythema or exudates. NECK: No masses, no JVD. CHEST: No chest wall deformity. LUNGS: Equal air entry with no crackles, wheeze, rhonchi or dullness. On room air. No conversational dyspnea or accessory muscle use.. CVS: S1 and S2 normal with no audible murmur, regular rhythm. No extra heart sounds ABDOMEN: No hepatosplenomegaly, active bowel sounds, no guarding or rigidity. SPINE: No scoliosis or deformity SKIN: No rashes CENTRAL NERVOUS SYSTEM: No focal deficits, tone is normal in all 4 extremities. EXTREMITIES: There is no peripheral edema, clubbing, or cyanosis. Peripheral pulses are intact. Results - Laboratory Findings CBC and BMP: 04/06/24 12:53 04/06/24 21:22 Abnormal lab findings: Abnormal Labs 04/06/24 04/06/24 04/06/24 12:53 12:53 12:53 Lymphocytes # (Manual) 0.85 L Monocytes # (Manual) 1.16 H Metamyelocytes # (Man) 0.08 H VBG pH VBG pCO2 VBG HCO3 Potassium 2.6 L* Carbon Dioxide 9 L* BUN 33 H Creatinine 1.72 H Magnesium AST 113 H ALT 53 H Creatine Kinase 2694 H* C-Reactive Protein 21.4 H Lipase 04/06/24 04/06/24 04/06/24 15:57 15:57 21:22 Lymphocytes # (Manual) Monocytes # (Manual) Metamyelocytes # (Man) VBG pH 7.25 L VBG pCO2 31 L VBG HCO3 14 L Potassium 2.7 L* Carbon Dioxide BUN Creatinine Magnesium 1.2 L AST ALT Creatine Kinase C-Reactive Protein Lipase <10 L Assessment and Plan Assessment: Severe diarrheal illness and colitis, CT of abdomen and pelvis showing moderate liquid stool throughout the colon compatible with history of diarrhea and mild wall thickening of the sigmoid colon and rectum, possible mild colitis. Hypotension, secondary to fluid losses and hypovolemia Severe anion gap metabolic acidosis Acute rhabdomyolysis, the CPK 2694 Acute kidney injury, secondary to combination of above Severe hypokalemia and hypomagnesemia, being replaced per protocol Atrial fibrillation with rapid ventricular response History of heart failure with reduced ejection fraction History of PE/DVT History of previous gastric bypass surgery History of hypothyroidism Plan: Patient's medications, labs, imaging reviewed Patient is status post 4 L crystalloid fluid bolus, not requiring vasopressors at the moment. Add 3 A sodium bicarbonate in D5W infusion at 130 mL/h C. difficile negative, stool culture pending, FMS continues to have copious amounts of liquid diarrhea Empirically placed on antibiotics in the emergency department Monitor and replace electrolytes per protocol Consult cardiology for management of a. fib RVR. Unclear why the patient is not chronically anticoagulated, ventricular response currently 100 to 120 bpm. After the above mentioned fluid boluses, patient's blood pressure is currently normotensive. If hypotension worsens, will consider transfer to the intensive care unit for vasopressor support. We will continue to follow the patient closely. I have personally seen and examined the patient, performed the documentation and the assessment and plan as written. Number of minutes spent on the visit:20 Time with Patient: Greater than 30
[2024-04-07 06:52] LABS: ALT 47 U/L (4-34); AST 77 U/L (14-36); African American GFR (CKD) 52 (>60 ml/min/1.73 sqM); Alkaline Phosphatase 88 U/L (38-126); Anion Gap 16 mmol/L; Blood Urea Nitrogen 24 mg/dL (7-17); Calcium 8.8 mg/dL (8.4-10.2); Carbon Dioxide 14 mmol/L (22-30); Chloride 108 mmol/L (98-107); Glucose 107 mg/dL (74-99); HCT 38.6 % (34.0-46.0); HGB 13.2 gm/dL (11.4-16.0); MCH 33.2 pg (25.0-35.0); MCHC 34.2 g/dL (31.0-37.0); MCV 97.3 fL (80.0-100.0); Magnesium 2.2 mg/dL (1.6-2.3); Mean Platelet Volume 8.4; Non-African American GFR(CKD) 45 (>60 ml/min/1.73 sqM); Phosphorus 3.7 mg/dL (2.5-4.5); Platelet Count 212 k/uL (150-450); Potassium 2.8 mmol/L (3.5-5.1); RBC 3.97 m/uL (3.80-5.40); RDW 13.3 % (11.5-15.5); Sodium 138 mmol/L (137-145); Total Bilirubin 0.6 mg/dL (0.2-1.3); Total Protein 5.5 g/dL (6.3-8.2); WBC 7.1 k/uL (3.8-10.6)
[2024-04-07] MEDS: CHOLESTYRAMINE (WITH SUGAR) 4 GM PACKET PO SCH (08:39)
[2024-04-07 08:44] LABS: Band Neutrophils % 18 %; Metamyelocytes # (M) 0.07 k/uL (0); Metamyelocytes % 1 %; Monocytes # (M) 0.57 k/uL (0-1.0); Myelocytes # (M) 0.07 k/uL (0); Myelocytes % 1 %; Neutrophils % (M) 49 %; Nucleated Red Blood Cells 0 /100 WBC (0-0); Total Cells Counted 200
[2024-04-07] MEDS ORDERED: Potassium Replacement Protocol 1 EACH MISC MISCELLANE PRN (11:25)
--- NOTE | 2024-04-07 11:28 | P.CRDCN ---
History of Present Illness Consult date: 04/07/24 History of present illness: History of Present Illness: The patient is a 69-year-old female with a prior history of pulmonary embolism, chronic persistent atrial fibrillation, bipolar disorder, hypertension and hypothyroidism who has been followed by Dr. Hsu and has seen Dr. Collazo in the past who presented with symptoms of not feeling well for the last few days, not eating, weak and not able to ambulate. She had hypotension, diarrhea and was found to have elevated CK enzyme consistent with rhabdomyolysis. She is status post gastric bypass. She was seen in the emergency room recently with watery diarrhea. Cardiology consultation was requested because of the atrial fibrillation. Patient is known to have chronic atrial fibrillation. She was in atrial fibrillation rapid ventricle response. She denies any chest discomfort, dizziness or syncope. She has been feeling weak. Her CT scan showed moderate liquid stool and possible evidence of colitis. Medications: Metoprolol 25 mg daily, Seroquel, omeprazole, Paxil, Bentyl, Synthroid Review of Systems: Respiratory: No recent wheezing or cough. She has a prior history of pulmonary embolism GI: She had the severe diarrhea : No hematuria or dysuria. Nervous System: No stroke or seizure. Physical Examination: 69-year-old female, alert no apparent distress mildly confused,Blood pressure 102/60, Heart rate 120 Head: Normocephalic. Eyes: Sclerae nonicteric. Neck: Good carotid upstroke, no bruit, no jugular venous distention. Lungs: Clear to auscultation. Heart: Irregular rate and rhythm, S1-S2, no S3, no rub. No murmur. Abdomen: Soft nontender, positive bowel sounds no organomegaly. Extremities: No edema, intact distal pulses. Labs: Hemoglobin 14.5, WBC 7.7, potassium 2.6, BUN 33, creatinine 1.72. CK 2694. Heme-negative in the stool. Potassium up to 2.8 today, her BUN/creatinine 24 and 1.22. Magnesium is 2.2 after replacement. EKG: Atrial fibrillation rate of [address]-T wave changes and wide- complex rhythm could be aberrancy or single PVCs Impression: 1. Severe diarrhea with associated weakness and electrolyte imbalance 2. Atrial fibrillation with rapid ventricular response 3. Prior history of cardiomyopathy 4. Acute renal injury improving 5. History of pulmonary embolism 6. History of bipolar disorder 7. Rhabdomyolysis Plan: 1. Adjust the dose of beta-ruben 2. Add anticoagulation 3. Obtain an echocardiogram with Doppler 4. Replace potassium and follow magnesium 5. Depending on her progress further recommendations will be made, thank you for this consult we will follow with you. Past Medical History Past Medical History: Atrial Fibrillation, Supraventricular Tachycardia (SVT), Thyroid Disorder Additional Past Medical History / Comment(s): spinal meningitis 25 yrs. ago, used to take BB for SVT-no longer needed per pt. History of Any Multi-Drug Resistant Organisms: None Reported Past Surgical History: Bariatric Surgery, Tonsillectomy, Tubal Ligation Past Anesthesia/Blood Transfusion Reactions: No Reported Reaction Past Psychological History: Bipolar Smoking Status: Former smoker Past Alcohol Use History: None Reported Past Drug Use History: None Reported Medications and Allergies Home Medications Medication Instructions Recorded Confirmed Type Levothyroxine Sodium [Synthroid] 125 mcg PO [id number] 02/24/19 04/06/24 History PARoxetine [Paxil] 10 mg PO DAILY 11/23/21 04/06/24 History Dicyclomine [Bentyl] 20 mg PO QID PRN 04/06/24 04/06/24 History Metoprolol Succinate (ER) [Toprol 25 mg PO HS 04/06/24 04/06/24 History Xl] Omeprazole 20 mg PO DAILY 04/06/24 04/06/24 History QUEtiapine FUMARATE [SEROquel] 300 mg PO HS 04/06/24 04/06/24 History Allergies Allergy/AdvReac Type Severity Reaction Status Date / Time pentazocine [From Jana] Allergy Swelling Verified 04/06/24 11:43 Physical Exam Vitals: Vital Signs Temp Pulse Resp BP Pulse Ox 04/07/24 11:08 116 H 18 102/64 95 04/07/24 10:34 106 H 16 116/64 95 04/07/24 09:58 116 H 16 102/59 97 04/07/24 09:20 114 H 18 94/59 96 04/07/24 08:44 120 H 18 88/56 96 04/07/24 07:46 101 H 14 99/60 96 04/07/24 06:23 98.1 F 129 H 18 107/65 96 04/07/24 05:50 98.4 F 122 H 18 91/63 95 04/07/24 04:20 118 H 18 89/48 96 04/07/24 01:23 121 H 16 80/52 96 04/06/24 23:49 123 H 18 90/59 96 04/06/24 23:45 98.2 F 131 H 18 90/59 96 04/06/24 22:45 121 H 20 96/59 97 04/06/24 21:45 98.0 F 134 H 18 80/58 95 04/06/24 20:25 108 H 18 104/80 99 04/06/24 19:00 97.9 F 107 H 18 113/66 99 04/06/24 15:34 110 H 16 121/91 98 04/06/24 11:37 103 H 20 129/80 97 Results 04/07/24 06:05 04/07/24 06:05 Cardiac Enzymes 04/06/24 04/07/24 Range/Units 12:53 06:05 AST 113 H 77 H (14-36) U/L CBC 04/06/24 04/07/24 Range/Units 12:53 06:05 WBC 7.7 7.1 (3.8-10.6) k/uL RBC 4.42 3.97 (3.80-5.40) m/uL Hgb 14.5 13.2 (11.4-16.0) gm/dL Hct 42.8 38.6 (34.0-46.0) % Plt Count 227 212 (150-450) k/uL Comprehensive Metabolic Panel 04/06/24 04/06/24 04/07/24 Range/Units 12:53 21:22 06:05 Sodium 137 138 (137-145) mmol/L Potassium 2.6 L* 2.7 L* 2.8 L (3.5-5.1) mmol/L Chloride 106 108 H (98-107) mmol/L Carbon Dioxide 9 L* 14 L (22-30) mmol/L BUN 33 H 24 H (7-17) mg/dL Creatinine 1.72 H 1.22 H (0.52-1.04) mg/dL Glucose 98 107 H (74-99) mg/dL Calcium 10.1 8.8 (8.4-10.2) mg/dL AST 113 H 77 H (14-36) U/L ALT 53 H 47 H (4-34) U/L Alkaline Phosphatase 122 88 (38-126) U/L Total Protein 6.9 5.5 L (6.3-8.2) g/dL Albumin 4.0 3.0 L (3.5-5.0) g/dL Current Medications Generic Name Dose Route Start Last Admin Trade Name Freq PRN Reason Stop Dose Admin Cholestyramine Resin 4 gm 04/07/24 10:00 04/07/24 08:39 Cholestyramine (With Sugar) 4 Gm Packet PO 4 gm BID@1000,1800 CHAD Administration Ceftriaxone Sodium 2 gm/ 50 mls @ 100 mls/hr 04/07/24 09:00 04/07/24 08:35 Sodium Chloride IVPB 100 mls/hr Q24HR CHAD Administration Protocol Sodium Bicarbonate 150 ml/ 1,150 mls @ 130 mls/hr 04/07/24 04:30 04/07/24 05:13 Dextrose/Water IV 130 mls/hr .Q8H51M CHAD Administration Levothyroxine Sodium 125 mcg 04/07/24 06:30 04/07/24 05:38 Levothyroxine 125 Mcg Tab PO 125 mcg [id number] CHAD Administration Metoprolol Tartrate 5 mg 04/06/24 22:07 Metoprolol Tartrate 5 Mg/5 Ml Vial IVP Q6HR PRN Heart Rate - HIGH Metronidazole 500 mg 04/06/24 22:45 04/07/24 08:37 Metronidazole 500 Mg Tab PO 500 mg TID CHAD Administration Protocol Miscellaneous Information 1 each 04/06/24 19:36 Potassium Replacement Protocol 1 Each Misc MISCELLANE DAILY PRN Per Protocol Protocol Miscellaneous Information 1 each 04/06/24 22:20 Magnesium Replacement Protocol 1 Each Misc MISCELLANE DAILY PRN Per Protocol Protocol Morphine Sulfate 4 mg 04/06/24 22:22 Morphine Sulfate 4 Mg/Ml Syringe IV Q4HR PRN Severe Pain (Scale 7 to 10) Naloxone HCl 0.2 mg 04/06/24 15:06 Naloxone 0.4 Mg/Ml 1 Ml Vial IV Q2M PRN Opioid Reversal Ondansetron HCl 4 mg 04/06/24 22:22 Ondansetron 4 Mg/2 Ml Vial IVP Q8HR PRN Nausea And Vomiting Petrolatum 1 applic 04/06/24 18:07 Zinc Oxide Paste (Z-Guard) 1 Applic TOPICAL Q2HR PRN Wound Healing Protocol Quetiapine Fumarate 300 mg 04/06/24 21:00 04/06/24 20:57 Quetiapine 100 Mg Tab PO 300 mg HS CHAD Administration 04/07/24 06:05 04/07/24 06:05
[2024-04-07] MEDS: HYDROcodone/APAP 5-325MG 1 EACH TAB PO PRN (12:47)
[2024-04-07] MEDS: POTASSIUM CHLORIDE ER 20 MEQ TAB.ER PO SCH (12:48)
[2024-04-07] MEDS: METOPROLOL TARTRATE 50 MG TAB PO SCH (14:27)
[2024-04-07] MEDS: APIXABAN 5 MG TAB PO SCH (20:22)
[2024-04-07 20:58] LABS: Appearance,Urine Cloudy (Clear); Bacteria,Urine Rare /hpf; Bilirubin,Urine Negative (Negative); Blood,Urine Small (Negative); Color,Urine Yellow; Glucose,Urine (UA) Negative (Negative); Ketones,Urine 2+ (Negative); Leukocyte Esterase,Urine Large (Negative); Mucus,Urine Rare /hpf; Nitrite,Urine Negative (Negative); Protein,Urine 1+ (Negative); RBC,Urine 13 /hpf (0-5); Specific Gravity,Urine 1.044 (1.001-1.035); Squamous Epithelial Cell,Urine 4 /hpf (0-4); Urobilinogen,Urine <2.0 mg/dL (<2.0); WBC,Urine 80 /hpf (0-5)
--- NOTE | 2024-04-08 01:35 | HP ---
HISTORY AND PHYSICAL CHIEF COMPLAINT: Fall and weakness, atrial fibrillation. HISTORY OF PRESENT ILLNESS: This is a 69-year-old woman with a past medical history of multiple medical problems, including atrial fibrillation and SVT, who was admitted with fall and weakness. The patient is mildly confused. The patient, apparently, had diarrhea for the last 5 days. The patient also had a gastric bypass surgery. The patient was found to be in atrial fibrillation, and also, the patient has been closely monitored at this time. There is no history of any fever, rigors, or chills at this time. PAST MEDICAL HISTORY: Atrial fibrillation, SVT, bipolar; rest of the history and chart is also reviewed. HOME MEDICATIONS: Reviewed include Seroquel; dose and rest of medications noted. ALLERGIES: Pentazocine. FAMILY HISTORY: No history of heart disease or strokes in the family. SOCIAL HISTORY: Previous history of smoking. REVIEW OF SYSTEMS: A 14-point review of systems is negative except as mentioned earlier. PHYSICAL EXAMINATION: VITAL SIGNS: Pulse is 116 and irregular; blood pressure 100/61, respirations 18. HEENT: Conjunctivae normal. CARDIOVASCULAR: S1. S2. RESPIRATIONS: Breath sounds diminished at the bases. A few scattered rhonchi. ABDOMEN: Soft, nontender. LEGS: No edema. NERVOUS SYSTEM: Nonfocal LABORATORY DATA: Potassium 2.2. Rest of the labs noted. ASSESSMENT: 1. Atrial fibrillation with a fast ventricular rate. 2. Fall and weakness. 3. Rhabdomyolysis from the fall. 4. Severe hypokalemia. 5. Gait dysfunction. 6. History of supraventricular tachycardia. 7. History of spinal meningitis. 8. History of gastric bypass. 9. Bipolar. 10.Obesity. RECOMMENDATION AND DISCUSSION: This is a 69-year-old woman, who presented with multiple complex medical issues. We will monitor the patient closely. Continue the current medications, symptomatic treatment, beta blockers. Empiric antibiotics, PT and OT evaluation, possible ECF, rehab eventually. Repeat labs. We will obtain the cultures. We will follow closely with multiple consultants, and I would also order a 2D echo. Workup for the diarrhea. Prognosis guarded. Further recommendations to follow. See orders for details. The viral titers are negative. MMODL / IJN: [id number] /
[2024-04-08] MEDS: POTASSIUM CHLORIDE ER 20 MEQ TAB.ER PO SCH ×2 (03:27→21:43)
[2024-04-08 08:46] LABS: Basophils % (A) 1 %; Eosinophils # (A) 0.3 k/uL (0-0.7); Eosinophils % (A) 3 %; HGB 13.1 gm/dL (11.4-16.0); Lymphocytes # (A) 1.5 k/uL (1.0-4.8); Lymphocytes % (A) 19 %; MCH 32.3 pg (25.0-35.0); MCHC 33.5 g/dL (31.0-37.0); MCV 96.4 fL (80.0-100.0); Mean Platelet Volume 7.6; Monocytes # (A) 0.5 k/uL (0-1.0); Monocytes % (A) 6 %; Neutrophils # (A) 5.5 k/uL (1.3-7.7); Neutrophils % (A) 68 %; Platelet Count 189 k/uL (150-450); RBC 4.05 m/uL (3.80-5.40); RDW 12.8 % (11.5-15.5); WBC 8.1 k/uL (3.8-10.6)
[2024-04-08 09:05] LABS: African American GFR (CKD) 80 (>60 ml/min/1.73 sqM); Anion Gap 8 mmol/L; Blood Urea Nitrogen 16 mg/dL (7-17); Calcium 8.7 mg/dL (8.4-10.2); Carbon Dioxide 28 mmol/L (22-30); Chloride 101 mmol/L (98-107); Glucose 127 mg/dL (74-99); Non-African American GFR(CKD) 69 (>60 ml/min/1.73 sqM); Potassium 3.1 mmol/L (3.5-5.1); Sodium 137 mmol/L (137-145)
[2024-04-08] MEDS: POTASSIUM CHLORIDE ER 20 MEQ TAB.ER PO ONE (09:24)
[2024-04-08] MEDS: SPIRONOLACTONE 25 MG TAB PO SCH (11:43)
--- NOTE | 2024-04-08 12:04 | P.PN ---
Subjective Progress Note Date: 04/08/24 PROGRESS NOTE The patient is a 69-year-old female with a prior history of pulmonary embolism, chronic persistent atrial fibrillation, bipolar disorder, hypertension and hypothyroidism who has been followed by Dr. Hsu and has seen Dr. Collazo in the past who presented with symptoms of not feeling well for the last few days, not eating, weak and not able to ambulate. She had hypotension, diarrhea and was found to have elevated CK enzyme consistent with rhabdomyolysis. She is status post gastric bypass. She was seen in the emergency room recently with watery diarrhea. Cardiology consultation was requested because of the atrial fibrillation. Patient is known to have chronic atrial fibrillation. She was in atrial fibrillation rapid ventricle response. She denies any chest discomfort, dizziness or syncope. She has been feeling weak. Her CT scan showed moderate liquid stool and possible evidence of colitis. April 08 The patient is feeling better but continues to have diarrhea. She denies any chest discomfort, dizziness or palpitations. She continues to be in atrial fibrillation, the rate is under better control. She denies any nausea or vomiting. She continues to feel weak. Her potassium remains on the low side. Medications: Eliquis 5 mg twice a day, metoprolol to tartrate 50 mg twice a day, potassium PHYSICAL EXAMINATION: Blood pressure 103/60 heart rate 90 LUNGS: Clear to auscultation HEART: Irregular rate and rhythm, S1, S2. No S3. Systolic ejection murmur ABDOMEN: Soft, nontender, no organomegaly EXTREMETIES: No edema LAB: Hemoglobin 13.1, potassium 3.0, BUN 16, creatinine 0.86. IMPRESSION: 1. Diarrhea, workup in progress 2. Persistent atrial fibrillation, rate controlled 3. History of pulmonary embolism 4. Acute renal injury resolved 5. Status post gastric bypass PLAN: 1. Add spironolactone for correcting hypokalemia 2. Follow renal functions 3. Continue anticoagulation 4. Physical therapy and increase physical activity Objective - Vital Signs Vital signs: Vital Signs Temp 98 F 04/08/24 07:55 Pulse 95 04/08/24 07:55 Resp 14 04/08/24 07:55 BP 103/68 04/08/24 07:55 Pulse Ox 95 04/08/24 07:55 FiO2 Intake & Output 04/07/24 04/08/24 04/08/24 18:59 06:59 18:59 Output Total 350 Balance -350 Weight 108.6 kg Output: Urine 350 Other: Voiding Method External Catheter External Catheter # Voids 1 - Labs CBC & Chem 7: 04/08/24 08:28 04/08/24 08:28 Labs: Abnormal Lab Results - Last 24 Hours (Table) 04/07/24 04/08/24 04/08/24 Range/Units 20:40 01:49 08:28 Potassium 2.6 L* 3.1 L (3.5-5.1) mmol/L Glucose 127 H (74-99) mg/dL Urine Appearance Cloudy H (Clear) Ur Specific [place] 1.044 H (1.001-1.035) Urine Protein 1+ H (Negative) Urine Ketones 2+ H (Negative) Urine Blood Small H (Negative) Ur Leukocyte Esterase Large H (Negative) Urine RBC 13 H (0-5) /hpf Urine WBC 80 H (0-5) /hpf Urine Bacteria Rare H (None) /hpf Urine Mucus Rare H (None) /hpf 04/08/24 Range/Units 08:28 Potassium 3.0 L (3.5-5.1) mmol/L Glucose (74-99) mg/dL Urine Appearance (Clear) Ur Specific [place] (1.001-1.035) Urine Protein (Negative) Urine Ketones (Negative) Urine Blood (Negative) Ur Leukocyte Esterase (Negative) Urine RBC (0-5) /hpf Urine WBC (0-5) /hpf Urine Bacteria (None) /hpf Urine Mucus (None) /hpf Microbiology - Last 24 Hours (Table) 04/06/24 17:40 Stool Culture - Preliminary Stool Aeromonas hydrophila
--- NOTE | 2024-04-08 12:14 | P.PN ---
Subjective This is a pleasant 69 years old female Who presents because of fall and hypotension and found to have acute gastroenteritis secondary to sigmoid colitis and rhabdomyolysis. Also she has some abnormal urine sample but no evidence of UTI. She has also chronic medical problems like A-fib and history of PE Patient currently sitting in chair, very lethargic and weak but mentation at baseline She has poor diet, she thinks she is n.p.o. but there is a cardiac diet ordered for her. She has mild abdominal pain about 8/10 as per patient. Patient states that her diarrhea is better No urinary symptoms Patient is difficult for her to stop because of her weakness. But denies chest pain or dyspnea. Creatinine is improved down to 1.2, potassium low at 3.0 Blood pressure is still on the low side 97/55 Pro- Calcitonin slightly elevated at 0.39 Creatinine kinase was high at 2699 C-reactive protein was high at 21 Occult blood in stool and C. difficile both were negative COVID and influenza virus were negative CT of the abdomen pelvis showing wall thickening of the sigmoid colon and right lower lobe indeterminate structure could be surgical scar Stool cultures growing Aeromonas hydrophilia. Patient currently covered with ceftriaxone and Flagyl with ID team on the case Review of systems CONSTITUTIONAL: No fever, no malaise, no fatigue. HEENT: No recent visual problems or hearing problems. Denied any sore throat. CARDIOVASCULAR: No orthopnea, PND, no palpitations, no syncope. PULMONARY: No shortness of breath, no cough, no hemoptysis. Active Medications Generic Name Dose Route Start Last Admin Trade Name Freq PRN Reason Stop Dose Admin Hydrocodone Bitart/Acetaminophen 1 each 04/07/24 12:39 04/07/24 21:44 Hydrocodone/Apap 5-325mg 1 Each Tab PO 1 each Q6HR PRN Administration Moderate Pain (Scale 4 to 6) Apixaban 5 mg 04/07/24 21:00 04/08/24 07:57 Apixaban 5 Mg Tab PO 5 mg BID CHAD Administration Protocol Cholestyramine Resin 4 gm 04/07/24 10:00 04/08/24 07:58 Cholestyramine (With Sugar) 4 Gm Packet PO 4 gm BID@1000,1800 CHAD Administration Ceftriaxone Sodium 2 gm/ 50 mls @ 100 mls/hr 04/07/24 09:00 04/08/24 07:57 Sodium Chloride IVPB 100 mls/hr Q24HR CHAD Administration Protocol Sodium Bicarbonate 150 ml/ 1,150 mls @ 130 mls/hr 04/07/24 04:30 04/08/24 09:24 Dextrose/Water IV 130 mls/hr .Q8H51M CHAD Administration Levothyroxine Sodium 125 mcg 04/07/24 06:30 04/08/24 06:07 Levothyroxine 125 Mcg Tab PO 125 mcg [id number]@[id number] CHDA Administration Metoprolol Tartrate 50 mg 04/07/24 11:30 04/08/24 07:58 Metoprolol Tartrate 50 Mg Tab PO 50 mg BID CHAD Administration Metronidazole 500 mg 04/06/24 22:45 04/08/24 07:58 Metronidazole 500 Mg Tab PO 500 mg TID CHAD Administration Protocol Miscellaneous Information 1 each 04/06/24 22:20 Magnesium Replacement Protocol 1 Each Misc MISCELLANE DAILY PRN Per Protocol Protocol Miscellaneous Information 1 each 04/07/24 11:25 Potassium Replacement Protocol 1 Each Misc MISCELLANE DAILY PRN Per Protocol Protocol Morphine Sulfate 4 mg 04/06/24 22:22 Morphine Sulfate 4 Mg/Ml Syringe IV Q4HR PRN Severe Pain (Scale 7 to 10) Naloxone HCl 0.2 mg 04/06/24 15:06 Naloxone 0.4 Mg/Ml 1 Ml Vial IV Q2M PRN Opioid Reversal Ondansetron HCl 4 mg 04/06/24 22:22 Ondansetron 4 Mg/2 Ml Vial IVP Q8HR PRN Nausea And Vomiting Petrolatum 1 applic 04/06/24 18:07 Zinc Oxide Paste (Z-Guard) 1 Applic TOPICAL Q2HR PRN Wound Healing Protocol Quetiapine Fumarate 300 mg 04/06/24 21:00 04/07/24 20:22 Quetiapine 100 Mg Tab PO 300 mg HS CHAD Administration Spironolactone 25 mg 04/08/24 10:30 04/08/24 11:43 Spironolactone 25 Mg Tab PO 25 mg DAILY CHAD Administration HEMATOLOGICAL: Denies any bleeding or petechiae. GENITOURINARY: Denies any burning micturition, frequency, or urgency. MUSCULOSKELETAL/RHEUMATOLOGICAL: Denies any joint pain, swelling, or any muscle pain. ENDOCRINE: Denies any polyuria or polydipsia. Objective - Vital Signs Vital signs: Vital Signs Temp 98 F 04/08/24 07:55 Pulse 95 04/08/24 07:55 Resp 14 04/08/24 07:55 BP 103/68 04/08/24 07:55 Pulse Ox 95 04/08/24 07:55 FiO2 Intake & Output 04/07/24 04/08/24 04/08/24 18:59 06:59 18:59 Output Total 350 Balance -350 Weight 108.6 kg Output: Urine 350 Other: Voiding Method External Catheter External Catheter # Voids 1 - Exam -GENERAL: The patient is alert and oriented x3, not in any acute distress. Well developed, well nourished. Generally weak HEENT: Pupils are round and equally reacting to light. EOMI. No scleral icterus. No conjunctival pallor. Normocephalic, atraumatic. No pharyngeal erythema. No thyromegaly. CARDIOVASCULAR: S1 and S2 present. No murmurs, rubs, or gallops. PULMONARY: Chest is clear to auscultation, no wheezing , no crackles. -ABDOMEN: Soft, n mild periumbilical tenderness, no guarding or rebound tenderness, nondistended, normoactive bowel sounds. No palpable organomegaly. MUSCULOSKELETAL: No joint swelling or deformity. EXTREMITIES: No cyanosis, clubbing, or pedal edema. NEUROLOGICAL: Gross neurological examination did not reveal any focal deficits. SKIN: No rashes. no petechiae. - Labs CBC & Chem 7: 04/08/24 08:28 04/08/24 08:28 Labs: Abnormal Lab Results - Last 24 Hours (Table) 04/07/24 04/08/24 04/08/24 Range/Units 20:40 01:49 08:28 Potassium 2.6 L* 3.1 L (3.5-5.1) mmol/L Glucose 127 H (74-99) mg/dL Urine Appearance Cloudy H (Clear) Ur Specific [place] 1.044 H (1.001-1.035) Urine Protein 1+ H (Negative) Urine Ketones 2+ H (Negative) Urine Blood Small H (Negative) Ur Leukocyte Esterase Large H (Negative) Urine RBC 13 H (0-5) /hpf Urine WBC 80 H (0-5) /hpf Urine Bacteria Rare H (None) /hpf Urine Mucus Rare H (None) /hpf 12/31/24 Range/Units 08:28 Potassium 3.0 L (3.5-5.1) mmol/L Glucose (74-99) mg/dL Urine Appearance (Clear) Ur Specific [place] (1.001-1.035) Urine Protein (Negative) Urine Ketones (Negative) Urine Blood (Negative) Ur Leukocyte Esterase (Negative) Urine RBC (0-5) /hpf Urine WBC (0-5) /hpf Urine Bacteria (None) /hpf Urine Mucus (None) /hpf Microbiology - Last 24 Hours (Table) 04/06/24 17:40 Stool Culture - Preliminary Stool Aeromonas hydrophila Assessment and Plan Assessment: Fall at home without syncope Hypotension, currently improved Acute sigmoid colitis with stool culture growing Aeromonas hydrophilia Rhabdomyolysis Chronic A-fib with RVR on admission, currently controlled History of PE History of bipolar Plan: Continue with normal saline Continue with ceftriaxone and Flagyl Continue with home dose of Eliquis Several consultants on the case including infectious disease, pulmonary and print support specialist Labs and medication were reviewed.. Continue same treatment. Continue with symptomatic treatment. Resume home medication. Monitor labs and vitals. DVT a nd GI prophylaxis. Further recommendations as per clinical course of the patient DVT prophylaxis: Schneider Eliquis GI Prophylaxis: Protonix PT/OT: Pending Prognosis is guarded
[2024-04-08] MEDS: PANTOPRAZOLE 40 MG/10 ML VIAL IVP SCH (14:30)
--- NOTE | 2024-04-08 15:55 | P.PN ---
Subjective Progress Note Date: 04/08/24 Patient is a 69-year-old female with past medical history significant for atrial fibrillation, hypothyroidism, PE/DVT, previous gastric bypass surgery. Of note, patient had a recent ER visit back on April 04 for severe episodic watery diarrhea. She returns to the emergency department yesterday afternoon with a similar complaint. I am evaluating this patient in the emergency department, room 14. She states that since Sunday she has had severe intractable diarrhea that is watery and brown. She also reports some mild abdominal discomfort, nausea without emesis. She has been very weak at home. Gets lightheaded on arising, but denies losing consciousness or syncopal events. Not able to to lerate much oral intake. Denies recent antibiotic use. Denies recent sick contacts. CBC is unremarkable without leukocytosis. She continues to have fluid loss. She is in a state of anion gap metabolic acidosis. Most recent CMP includes a sodium 137, potassium 2.6, chloride 106, serum bicarb down to 9, anion gap 22, BUN 33, creatinine 1.72, glucose 98. Magnesium was low at 1.2. EKG: Atrial fibrillation wtih RVR and frequent PVCs, rate 116. LFTs mildly elevated. CPK 2694. Stool occult blood was negative. C. difficile negative. We were consulted early this morning as the patient's blood pressure has been borderline hypotensive. She has received a total of 4 L crystalloid fluid bolus. She is also in atrial fibrillation with RVR ranging from 100 to 120 bpm. She continues to have copious amounts of liquid diarrhea, there is an FMS in place. CT of abdomen and pelvis showing moderate liquid stool throughout the colon compatible with history of diarrhea and mild wall thickening of the sigmoid colon and rectum, possible mild colitis. Also, indeterminate blind- ending structure in the right lower quadrant measuring 21 x 18 mm unclear etiology,. No evidence of pneumoperitoneum, free fluid, or bowel obstruction. Postsurgical findings noted. Patient has been empirically covered on a combination of Rocephin and Flagyl. Current vitals: Temperature 98.2 F, heart rate 118 bpm, blood pressure 101/50 mmHg, nontachypneic, SpO2 96% on room air. The patient is seen today April 08, 2024 in follow-up on the selective care unit. She is currently resting comfortably in bed. Awake and alert in no acute distress. She is maintaining good O2 saturations in the 90s on room air. She is receiving D5W with 3 A of bicarb at 130 mL/h. Stool culture showing Aeromonas hydrophila. White count 8.1. Hemoglobin 13.1. Platelets 189. Sodium 137. Potassium 3.0. Bicarb 28. BUN 16. Creatinine 0.86. Glucose 127. She remains on Questran and Flagyl. Remains on ceftriaxone. Anticoagulated with Eliquis. Objective - Vital Signs Vital signs: Vital Signs Temp 98.2 F 04/08/24 12:00 Pulse 93 04/08/24 12:00 Resp 14 04/08/24 12:00 BP 99/66 04/08/24 12:00 Pulse Ox 97 04/08/24 12:00 FiO2 Intake & Output 04/07/24 04/08/24 04/08/24 18:59 06:59 18:59 Intake Total 118 Output Total 350 1100 Balance -350 -982 Weight 108.6 kg Intake: Oral 118 Output: Urine 350 250 Stool 850 Other: Voiding Method External Catheter External Catheter # Voids 1 - Exam GENERAL EXAM: Alert, 69-year-old obese female, resting comfortably in bed, on room air, comfortable in no apparent distress. HEAD: Normocephalic and atraumatic EYES: Normal reaction of pupils, equal size. NOSE: Clear with pink turbinates. THROAT: No erythema or exudates. NECK: No masses, no JVD. CHEST: No chest wall deformity. LUNGS: Equal air entry with no crackles, wheeze, rhonchi or dullness. On room air. No conversational dyspnea. CVS: S1 and S2 normal with no audible murmur, regular rhythm. No extra heart sounds ABDOMEN: No hepatosplenomegaly, active bowel sounds, no guarding or rigidity. FMS with copious amounts of liquid diarrhea, SPINE: No scoliosis or deformity SKIN: No rashes CENTRAL NERVOUS SYSTEM: No focal deficits, tone is normal in all 4 extremities. EXTREMITIES: There is no peripheral edema, clubbing, or cyanosis. Peripheral pulses are intact. - Labs CBC & Chem 7: 04/08/24 08:28 04/08/24 08:28 Labs: Abnormal Lab Results - Last 24 Hours (Table) 04/07/24 04/08/24 04/08/24 Range/Units 20:40 01:49 08:28 Potassium 2.6 L* 3.1 L (3.5-5.1) mmol/L Glucose 127 H (74-99) mg/dL Urine Appearance Cloudy H (Clear) Ur Specific Pfeifer 1.044 H (1.001-1.035) Urine Protein 1+ H (Negative) Urine Ketones 2+ H (Negative) Urine Blood Small H (Negative) Ur Leukocyte Esterase Large H (Negative) Urine RBC 13 H (0-5) /hpf Urine WBC 80 H (0-5) /hpf Urine Bacteria Rare H (None) /hpf Urine Mucus Rare H (None) /hpf 04/08/24 Range/Units 08:28 Potassium 3.0 L (3.5-5.1) mmol/L Glucose (74-99) mg/dL Urine Appearance (Clear) Ur Specific Pfeifer (1.001-1.035) Urine Protein (Negative) Urine Ketones (Negative) Urine Blood (Negative) Ur Leukocyte Esterase (Negative) Urine RBC (0-5) /hpf Urine WBC (0-5) /hpf Urine Bacteria (None) /hpf Urine Mucus (None) /hpf Microbiology - Last 24 Hours (Table) 04/06/24 17:40 Stool Culture - Preliminary Stool Aeromonas hydrophila Assessment and Plan Assessment: Severe diarrheal illness and colitis, CT of abdomen and pelvis showing moderate liquid stool throughout the colon compatible with history of diarrhea and mild wall thickening of the sigmoid colon and rectum, possible mild colitis. Stool culture revealing Aeromonas hydrophila Hypotension, secondary to fluid losses and hypovolemia Severe anion gap metabolic acidosis Acute rhabdomyolysis, the CPK 2694 Acute kidney injury, secondary to combination of above Severe hypokalemia and hypomagnesemia, being replaced per protocol Atrial fibrillation with rapid ventricular response anticoagulated with Eliquis History of heart failure with reduced ejection fraction History of PE/DVT History of previous gastric bypass surgery History of hypothyroidism Plan: The patient was seen and evaluated Labs and medications reviewed remains Remains hemodynamically stable Remains on room air Discontinue bicarb drip Anticoagulated with Eliquis Procalcitonin 0.39 Remains on Questran Antibiotics per ID service We will continue to follow I have personally seen and examined the patient, performed the documentation and the assessment and plan as written. Dictation was produced using [employer] dictation software. Please excuse any grammatical, word or spelling errors. This patient was seen in coordination with the pulmonary/critical care physician, Dr. Duke. He did spend greater than 50% of the time evaluating, examining and developing the plan of care. He agrees to the above HPI, physical exam, assessment and plan of care as dictated by the nurse practitioner.
[2024-04-08 16:52] LABS: Glucose,Whole Blood 116 mg/dL (70-110)
--- NOTE | 2024-04-08 17:54 | CA ---
Transthoracic Echo Report Name: Lara Ortiz Age: 69 Gender: F : 1955 Exam Date: 04/08/2024 11:19 Exam Location: [facility] Ht (in): 67 Wt (lb): 250 Ordering Physician: Manjula Xie MD ([id number]) Attending/Referring Phys: Marine Geologist Eneida Cordova RDCS Procedure CPT: Indications: a fib Cardiac Hx: Technical Quality: Fair Contrast 1: Total Dose (mL): Contrast 2: Total Dose (mL): MEASUREMENTS (Male / Female) Normal Values 2D ECHO LV Diastolic Diameter PLAX 5.5 cm 4.2 - 5.9 / 3.9 - 5.3 cm LV Systolic Diameter PLAX 4.2 cm IVS Diastolic Thickness 0.6 cm 0.6 - 1.0 / 0.6 - 0.9 cm LVPW Diastolic Thickness 0.7 cm 0.6 - 1.0 / 0.6 - 0.9 cm LV Relative Wall Thickness 0.2 LVOT Diameter 2.2 cm Aortic Root Diameter 3.0 cm LV Diastolic Volume MOD BP 90.8 cm??? 67 - 155 / 56 - 104 cm??? LV Systolic Volume MOD BP 34.0 cm??? 22 - 58 / 19 - 49 cm??? LV Ejection Fraction MOD BP 62.5 % >= 55 % LV Cardiac Index MOD BP 2157.2 cm???/min???m??? LV Diastolic Volume MOD 4C 81.9 cm??? LV Systolic Volume MOD 4C 30.9 cm??? LV Ejection Fraction MOD 4C 62.2 % LV Cardiac Index MOD 4C 1935.9 cm???/min???m??? LV Diastolic Length 4C 7.6 cm LV Systolic Length 4C 6.4 cm LV Diastolic Volume MOD 2C 96.9 cm??? LV Systolic Volume MOD 2C 37.3 cm??? LV Ejection Fraction MOD 2C 61.5 % LV Cardiac Index MOD 2C 2263.3 cm???/min???m??? LV Diastolic Length 2C 7.9 cm LV Systolic Length 2C 6.5 cm LA Volume 59.3 cm??? 18 - 58 / 22 - 52 cm??? LA Volume Index 25.0 cm???/m??? 16 - 28 cm???/m??? Ascending Aorta Diameter 3.4 cm DOPPLER AV Peak Velocity 106.3 cm/s AV Peak Gradient 4.5 mmHg AV Mean Velocity 80.7 cm/s AV Mean Gradient 2.9 mmHg AV Velocity Time Integral 19.0 cm LVOT Peak Velocity 67.3 cm/s LVOT Peak Gradient 1.8 mmHg LVOT Velocity Time Integral 14.9 cm LVOT Stroke Volume 57.2 cm??? LVOT Stroke Volume Index 25.7 ml/m??? LVOT Cardiac Index 2176.1 cm???/min???m??? AV Area Cont Eq vti 3.0 cm??? AV Area Cont Eq pk 2.4 cm??? TR Peak Velocity 193.1 cm/s TR Peak Gradient 14.9 mmHg Right Atrial Pressure 10.0 mmHg Pulmonary Artery Systolic Pressu 24.9 mmHg Right Ventricular Systolic Press 24.9 mmHg PV Peak Velocity 65.4 cm/s PV Peak Gradient 1.7 mmHg FINDINGS Left Ventricle Left ventricular ejection fraction is estimated at 50-55 %. Mildly increased left ventricular diastolic diameter. Left ventricular wall thickness normal. No obvious regional wall motion abnormalities. Right Ventricle Right ventricular dilatation with mildly reduced function. Right ventricular systolic pressure within normal limits. Right Atrium Right atrium not well visualized. Left Atrium Mildly increased left atrial volume. Mitral Valve Structurally normal mitral valve. No evidence for mitral valve prolapse. No mitral stenosis. Mild mitral regurgitation. Aortic Valve Trileaflet aortic valve. No aortic valve stenosis or regurgitation. Tricuspid Valve Structurally normal tricuspid valve. No tricuspid stenosis. Trace tricuspid regurgitation. Pulmonic Valve Pulmonic valve not well visualized. No pulmonic stenosis. No pulmonic regurgitation. Pericardium No pericardial effusion. Aorta Normal size aortic root and proximal ascending aorta. CONCLUSIONS Overall normal biventricular systolic function Normal pulmonary artery systolic pressure No pericardial effusion No significant valvular abnormalities Previewed by: Dr. Justice Kirkland MD (Electronically Signed) Final Date: 08 April 2024 17:53
[2024-04-09 08:31] LABS: Basophils # (A) 0.1 k/uL (0-0.2); Basophils % (A) 1 %; Eosinophils # (A) 0.3 k/uL (0-0.7); Eosinophils % (A) 3 %; HCT 41.3 % (34.0-46.0); HGB 14.2 gm/dL (11.4-16.0); Lymphocytes # (A) 1.6 k/uL (1.0-4.8); Lymphocytes % (A) 18 %; MCH 33.5 pg (25.0-35.0); MCHC 34.3 g/dL (31.0-37.0); MCV 97.8 fL (80.0-100.0); Mean Platelet Volume 7.7; Monocytes # (A) 0.8 k/uL (0-1.0); Monocytes % (A) 9 %; Neutrophils # (A) 5.7 k/uL (1.3-7.7); Neutrophils % (A) 66 %; Platelet Count 195 k/uL (150-450); RBC 4.23 m/uL (3.80-5.40); RDW 12.8 % (11.5-15.5); WBC 8.6 k/uL (3.8-10.6)
[2024-04-09 08:41] LABS: African American GFR (CKD) 84 (>60 ml/min/1.73 sqM); Anion Gap 10 mmol/L; Blood Urea Nitrogen 13 mg/dL (7-17); Calcium 8.8 mg/dL (8.4-10.2); Carbon Dioxide 24 mmol/L (22-30); Chloride 107 mmol/L (98-107); Glucose 83 mg/dL (74-99); Non-African American GFR(CKD) 73 (>60 ml/min/1.73 sqM); Sodium 141 mmol/L (137-145)
[2024-04-09 08:57] LABS: RBC Morphology Normal
[2024-04-09 09:16] LABS: Potassium 4.1 mmol/L (3.5-5.1)
--- NOTE | 2024-04-09 14:21 | P.PN ---
Subjective This is a pleasant 69 years old female Who presents because of fall and hypotension and found to have acute gastroenteritis secondary to sigmoid colitis and rhabdomyolysis. Also she has some abnormal urine sample but no evidence of UTI. She has also chronic medical problems like A-fib and history of PE Patient currently sitting in chair, very lethargic and weak but mentation at baseline She has poor diet, she thinks she is n.p.o. but there is a cardiac diet ordered for her. She has mild abdominal pain about 8/10 as per patient. Patient states that her diarrhea is better No urinary symptoms Patient is difficult for her to stop because of her weakness. But denies chest pain or dyspnea. Creatinine is improved down to 1.2, potassium low at 3.0 Blood pressure is still on the low side 97/55 Pro- Calcitonin slightly elevated at 0.39 Creatinine kinase was high at 2699 C-reactive protein was high at 21 Occult blood in stool and C. difficile both were negative COVID and influenza virus were negative CT of the abdomen pelvis showing wall thickening of the sigmoid colon and right lower lobe indeterminate structure could be surgical scar Stool cultures growing Aeromonas hydrophilia. Patient currently covered with ceftriaxone and Flagyl with ID team on the case 04/09/24 Patient with improving abdominal pain down from 8 down to 6/10 in severity She still have fecal management system in place she has watery loose diarrhea. No vomiting. She remains on normal saline She is on ceftriaxone and Flagyl with positive stool culture Aeromonas hydrophilia Review of systems CONSTITUTIONAL: No fever, no malaise, no fatigue. HEENT: No recent visual problems or hearing problems. Denied any sore throat. CARDIOVASCULAR: No orthopnea, PND, no palpitations, no syncope. PULMONARY: No shortness of breath, no cough, no hemoptysis. GENITOURINARY: Denies any burning micturition, frequency, or urgency. MUSCULOSKELETAL/RHEUMATOLOGICAL: Denies any joint pain, swelling, or any muscle pain. ENDOCRINE: Denies any polyuria or polydipsia. Active Medications Generic Name Dose Route Start Last Admin Trade Name Freq PRN Reason Stop Dose Admin Hydrocodone Bitart/Acetaminophen 1 each 04/07/24 12:39 04/07/24 21:44 Hydrocodone/Apap 5-325mg 1 Each Tab PO 1 each Q6HR PRN Administration Moderate Pain (Scale 4 to 6) Apixaban 5 mg 04/07/24 21:00 04/09/24 09:27 Apixaban 5 Mg Tab PO 5 mg BID CHAD Administration Protocol Cholestyramine Resin 4 gm 04/07/24 10:00 04/09/24 09:27 Cholestyramine (With Sugar) 4 Gm Packet PO 4 gm BID@1000,1800 CHAD Administration Ceftriaxone Sodium 2 gm/ 50 mls @ 100 mls/hr 04/07/24 09:00 04/09/24 09:27 Sodium Chloride IVPB 100 mls/hr Q24HR CHAD Administration Protocol Levothyroxine Sodium 125 mcg 04/07/24 06:30 04/09/24 06:34 Levothyroxine 125 Mcg Tab PO 125 mcg [id number] CHAD Administration Metoprolol Tartrate 50 mg 04/07/24 11:30 04/09/24 11:14 Metoprolol Tartrate 50 Mg Tab PO 50 mg BID CHAD Administration Metronidazole 500 mg 04/06/24 22:45 04/09/24 09:27 Metronidazole 500 Mg Tab PO 500 mg TID CHAD Administration Protocol Miscellaneous Information 1 each 04/06/24 22:20 Magnesium Replacement Protocol 1 Each Misc MISCELLANE DAILY PRN Per Protocol Protocol Miscellaneous Information 1 each 04/07/24 11:25 Potassium Replacement Protocol 1 Each Misc MISCELLANE DAILY PRN Per Protocol Protocol Morphine Sulfate 4 mg 04/06/24 22:22 Morphine Sulfate 4 Mg/Ml Syringe IV Q4HR PRN Severe Pain (Scale 7 to 10) Naloxone HCl 0.2 mg 04/06/24 15:06 Naloxone 0.4 Mg/Ml 1 Ml Vial IV Q2M PRN Opioid Reversal Ondansetron HCl 4 mg 04/06/24 22:22 Ondansetron 4 Mg/2 Ml Vial IVP Q8HR PRN Nausea And Vomiting Pantoprazole Sodium 40 mg 04/08/24 12:15 04/09/24 09:29 Pantoprazole 40 Mg/10 Ml Vial IVP 40 mg DAILY CHAD Administration Petrolatum 1 applic 04/06/24 18:07 Zinc Oxide Paste (Z-Guard) 1 Applic TOPICAL Q2HR PRN Wound Healing Protocol Quetiapine Fumarate 300 mg 04/06/24 21:00 04/08/24 21:43 Quetiapine 100 Mg Tab PO 300 mg HS CHAD Administration Spironolactone 25 mg 04/08/24 10:30 04/09/24 09:27 Spironolactone 25 Mg Tab PO 25 mg DAILY CHAD Administration Objective - Vital Signs Vital signs: Vital Signs Temp 98.7 F 04/09/24 11:10 Pulse 114 H 04/09/24 11:10 Resp 16 04/09/24 11:10 BP 124/93 04/09/24 11:10 Pulse Ox 97 04/09/24 11:10 FiO2 Intake & Output 04/08/24 04/09/24 04/09/24 18:59 06:59 18:59 Intake Total 118 240 20 Output Total 6916 959 9099 Balance -982 -410 -980 Weight 108.7 kg Intake: IV 20 Invasive Line 1 10 Invasive Line 2 10 Oral 118 240 Output: Urine 250 650 Stool 850 1000 Other: Voiding Method External Catheter External Catheter External Catheter - Exam -GENERAL: The patient is alert and oriented x3, not in any acute distress. Well developed, well nourished. Generally weak HEENT: Pupils are round and equally reacting to light. EOMI. No scleral icterus. No conjunctival pallor. Normocephalic, atraumatic. No pharyngeal erythema. No thyromegaly. CARDIOVASCULAR: S1 and S2 present. No murmurs, rubs, or gallops. PULMONARY: Chest is clear to auscultation, no wheezing , no crackles. -ABDOMEN: Soft, n mild periumbilical tenderness, no guarding or rebound tenderness, nondistended, normoactive bowel sounds. No palpable organomegaly. MUSCULOSKELETAL: No joint swelling or deformity. EXTREMITIES: No cyanosis, clubbing, or pedal edema. NEUROLOGICAL: Gross neurological examination did not reveal any focal deficits. SKIN: No rashes. no petechiae. - Labs CBC & Chem 7: 04/09/24 06:23 04/09/24 06:23 Labs: Abnormal Lab Results - Last 24 Hours (Table) 04/08/24 04/08/24 Range/Units 16:47 20:05 Potassium 2.9 L (3.5-5.1) mmol/L POC Glucose (mg/dL) 116 H (70-110) mg/dL Microbiology - Last 24 Hours (Table) 04/06/24 17:40 Stool Culture - Preliminary Stool Aeromonas hydrophila Assessment and Plan Assessment: Fall at home without syncope Hypotension, currently improved Acute sigmoid colitis with stool culture growing Aeromonas hydrophilia Rhabdomyolysis Chronic A-fib with RVR on admission, currently controlled History of PE History of bipolar Plan: Continue with normal saline Continue with ceftriaxone and Flagyl Continue with home dose of Eliquis Several consultants on the case including infectious disease, pulmonary and media production support manager Labs and medication were reviewed.. Continue same treatment. Continue with symptomatic treatment. Resume home medication. Monitor labs and vitals. DVT and GI prophylaxis. Further recommendations as per clinical course of the patient DVT prophylaxis: Schneider Eliquis GI Prophylaxis: Protonix PT/OT: Pending Prognosis is guarded
--- NOTE | 2024-04-09 14:41 | P.PN ---
Subjective Progress Note Date: 04/09/24 Principal diagnosis: Patient is a 69-year-old female with past medical history significant for atrial fibrillation, hypothyroidism, PE/DVT, previous gastric bypass surgery. Of note, patient had a recent ER visit back on April 04 for severe episodic watery diarrhea. She returns to the emergency department yesterday afternoon with a similar complaint. I am evaluating this patient in the emergency department, room 14. She states that since Sunday she has had severe intractable diarrhea that is watery and brown. She also reports some mild abdominal discomfort, nausea without emesis. She has been very weak at home. Gets lightheaded on arising, but denies losing consciousness or syncopal events. Not able to tolerate much oral intake. Denies recent antibiotic use. Denies recent sick contacts. CBC is unremarkable without leukocytosis. She continues to have f luid loss. She is in a state of anion gap metabolic acidosis. Most recent CMP includes a sodium 137, potassium 2.6, chloride 106, serum bicarb down to 9, anion gap 22, BUN 33, creatinine 1.72, glucose 98. Magnesium was low at 1.2. EKG: Atrial fibrillation wtih RVR and frequent PVCs, rate 116. LFTs mildly elevated. CPK 2694. Stool occult blood was negative. C. difficile negative. We were consulted early this morning as the patient's blood pressure has been borderline hypotensive. She has received a total of 4 L crystalloid fluid bolus. She is also in atrial fibrillation with RVR ranging from 100 to 120 bpm. She continues to have copious amounts of liquid diarrhea, there is an FMS in place. CT of abdomen and pelvis showing moderate liquid stool throughout the colon compatible with history of diarrhea and mild wall thickening of the sigmoid colon and rectum, possible mild colitis. Also, indeterminate blind- ending structure in the right lower quadrant measuring 21 x 18 mm unclear etiology,. No evidence of pneumoperitoneum, free fluid, or bowel obstruction. Postsurgical findings noted. Patient has been empirically covered on a combination of Rocephin and Flagyl. Current vitals: Temperature 98.2 F, heart rate 118 bpm, blood pressure 101/50 mmHg, nontachypneic, SpO2 96% on room air. The patient is seen today April 08, 2024 in follow-up on the selective care unit. She is currently resting comfortably in bed. Awake and alert in no acute distress. She is maintaining good O2 saturations in the 90s on room air. She is receiving D5W with 3 A of bicarb at 130 mL/h. Stool culture showing Aeromonas hydrophila. White count 8.1. Hemoglobin 13.1. Platelets 189. S odium 137. Potassium 3.0. Bicarb 28. BUN 16. Creatinine 0.86. Glucose 127. She remains on Questran and Flagyl. Remains on ceftriaxone. Anticoagulated with Eliquis. Progress note dated April 09, 2024. 69-year-old female seen in room 380. The patient was admitted with a diagnosis of hypotension, secondary to severe watery diarrhea. She does have a history of atrial fibrillation, hypothyroidism, PE/DVT, and gastric bypass surgery. The patient is resting comfortably in bed. She is on room air. No IV fluids. Labs include a white count 8.6, hemoglobin 14.2, hematocrit 41.3, and a normal platelet count. Sodium 141, potassium 4.1, chlorides 107, CO2 24, BUN 13, creatinine 0.82. Calcium is 8.8. Magnesium is 2. Stool cultures are positive for Aeromonas hydrophilia. Objective - Vital Signs Vital signs: Vital Signs Temp 98.7 F 04/09/24 11:10 Pulse 114 H 04/09/24 11:10 Resp 16 04/09/24 11:10 BP 124/93 04/09/24 11:10 Pulse Ox 97 04/09/24 11:10 FiO2 Intake & Output 04/08/24 04/09/24 04/09/24 18:59 06:59 18:59 Intake Total 118 240 20 Output Total 7865 118 5150 Balance -982 -410 -980 Weight 108.7 kg Intake: IV 20 Invasive Line 1 10 Invasive Line 2 10 Oral 118 240 Output: Urine 250 650 Stool 850 1000 Other: Voiding Method External Catheter External Catheter External Catheter - Exam No acute distress, oriented 3. HEENT examination is grossly unremarkable. Mucous membranes are moist. No oral lesions. Neck supple. Full range of motion. No adenopathy thyromegaly or neck vein distention. Cardiovascular examination reveals regular rhythm rate. S1-S2 normal. No S3 or S4. No discernible murmur noted. Lungs reveal clear breath sounds. Breath sounds are equal bilaterally. No adventitious lung sounds including wheezes rhonchi or crackles. Abdomen soft bowel sounds are heard. No masses or tenderness. Extremities are intact. No cyanosis clubbing or edema. Skin is without rash or lesion. Neurologic examination is brief but nonfocal. - Labs CBC & Chem 7: 04/09/24 06:23 04/09/24 06:23 Labs: Abnormal Lab Results - Last 24 Hours (Table) 04/08/24 04/08/24 Range/Units 16:47 20:05 Potassium 2.9 L (3.5-5.1) mmol/L POC Glucose (mg/dL) 116 H (70-110) mg/dL Microbiology - Last 24 Hours (Table) 04/06/24 17:40 Stool Culture - Preliminary Stool Aeromonas hydrophila Assessment and Plan Assessment: Severe diarrheal illness and colitis. Stool culture revealing Aeromonas hydrophila. Hypotension, secondary to fluid losses and hypovolemia. Severe anion gap metabolic acidosis. Acute rhabdomyolysis. Acute kidney injury, secondary to combination of above. Severe hypokalemia and hypomagnesemia. Atrial fibrillation with rapid ventricular response. History of heart failure with reduced ejection fraction. History of PE/DVT. History of previous gastric bypass surgery. History of hypothyroidism. Plan: Plan dated April 09, 2024. The patient is seen in room 380. The patient is on room air. She is not receiving any IV fluids. Labs, x-rays, and medications are reviewed. We will continue to follow. The patient's procalcitonin level was in the normal range at 0.39. Bicarbonate drip was discontinued. She is anticoagulated with Eliquis. We will continue to follow. Prognosis is guarded. Time with Patient: Less than 30
--- NOTE | 2024-04-09 14:52 | P.PN ---
Subjective Progress Note Date: 04/09/24 PROGRESS NOTE The patient is a 69-year-old female with a prior history of pulmonary embolism, chronic persistent atrial fibrillation, bipolar disorder, hypertension and hypothyroidism who has been followed by Dr. Hsu and has seen Dr. Collazo in the past who presented with symptoms of not feeling well for the last few days, not eating, weak and not able to ambulate. She had hypotension, diarrhea and was found to have elevated CK enzyme consistent with rhabdomyolysis. She is status post gastric bypass. She was seen in the emergency room recently with watery diarrhea. Cardiology consultation was requested because of the atrial fibrillation. Patient is known to have chronic atrial fibrillation. She was in atrial fibrillation rapid ventricle response. She denies any chest discomfort, dizziness or syncope. She has been feeling weak. Her CT scan showed moderate liquid stool and possible evidence of colitis. April 08 The patient is feeling better but continues to have diarrhea. She denies any chest discomfort, dizziness or palpitations. She continues to be in atrial fibrillation, the rate is under better control. She denies any nausea or vomiting. She continues to feel weak. Her potassium remains on the low side. Progress note 04/09/2024 Patient was hypotensive in the morning but repeat blood pressure was 124 over 93 mmHg, heart rate was 90 bpm ranging from 90 to 100 bpm. Continues to be in atrial fibrillation. Echocardiogram showed preserved LVEF with no major valvu lar abnormality. Potassium is better. Patient is still having diarrhea Medications: Eliquis 5 mg twice a day, metoprolol to tartrate 50 mg twice a day, potassium PHYSICAL EXAMINATION: Blood pressure 103/60 heart rate 90 LUNGS: Clear to auscultation HEART: Irregular rate and rhythm, S1, S2. No S3. Systolic ejection murmur ABDOMEN: Soft, nontender, no organomegaly EXTREMETIES: No edema IMPRESSION: 1. Diarrhea, workup in progress 2. Persistent atrial fibrillation, rate controlled 3. History of pulmonary embolism 4. Acute renal injury resolved 5. Status post gastric bypass PLAN: Continue current medication Follow-up on electrolytes and renal function Further recommendations to follow Objective - Vital Signs Vital signs: Vital Signs Temp 98.7 F 04/09/24 11:10 Pulse 114 H 04/09/24 11:10 Resp 16 04/09/24 11:10 BP 124/93 04/09/24 11:10 Pulse Ox 97 04/09/24 11:10 FiO2 Intake & Output 12/31/24 01/01/25 01/01/25 18:59 06:59 18:59 Intake Total 118 240 20 Output Total 6881 911 9527 Balance -982 -917 -980 Weight 108.7 kg Intake: IV 20 Invasive Line 1 10 Invasive Line 2 10 Oral 118 240 Output: Urine 250 650 Stool 850 1000 Other: Voiding Method External Catheter External Catheter External Catheter - Labs CBC & Chem 7: 04/09/24 06:23 04/09/24 06:23 Labs: Abnormal Lab Results - Last 24 Hours (Table) 04/08/24 04/08/24 Range/Units 16:47 20:05 Potassium 2.9 L (3.5-5.1) mmol/L POC Glucose (mg/dL) 116 H (70-110) mg/dL Microbiology - Last 24 Hours (Table) 04/06/24 17:40 Stool Culture - Preliminary Stool Aeromonas hydrophila
--- NOTE | 2024-04-10 14:13 | P.PN ---
Subjective Progress Note Date: 04/10/24 Principal diagnosis: Diarrhea and hypotension. Patient is a 69-year-old female with past medical history significant for atrial fibrillation, hypothyroidism, PE/DVT, previous gastric bypass surgery. Of note, patient had a recent ER visit back on April 04 for severe episodic watery diarrhea. She returns to the emergency department yesterday afternoon with a similar complaint. I am evaluating this patient in the emergency department, room 14. She states that since Sunday she has had severe intractable diarrhea that is watery and brown. She also reports some mild abdominal discomfort, nausea without emesis. She has been very weak at home. Gets lightheaded on ar ising, but denies losing consciousness or syncopal events. Not able to tolerate much oral intake. Denies recent antibiotic use. Denies recent sick contacts. CBC is unremarkable without leukocytosis. She continues to have fluid loss. She is in a state of anion gap metabolic acidosis. Most recent CMP includes a sodium 137, potassium 2.6, chloride 106, serum bicarb down to 9, anion gap 22, BUN 33, creatinine 1.72, glucose 98. Magnesium was low at 1.2. EKG: Atrial fibrillation wtih RVR and frequent PVCs, rate 116. LFTs mildly elevated. CPK 2694. Stool occult blood was negative. C. difficile negative. We were consulted early this morning as the patient's blood pressure has been borderline hypotensive. She has received a total of 4 L crystalloid fluid bolus. She is also in atrial fibrillation with RVR ranging from 100 to 120 bpm. She continues to have copious amounts of liquid diarrhea, there is an FMS in place. CT of abdomen and pelvis showing moderate liquid stool throughout the colon compatible with history of diarrhea and mild wall thickening of the sigmoid colon and rec nieves, possible mild colitis. Also, indeterminate blind-ending structure in the right lower quadrant measuring 21 x 18 mm unclear etiology,. No evidence of pneumoperitoneum, free fluid, or bowel obstruction. Postsurgical findings noted. Patient has been empirically covered on a combination of Rocephin and Flagyl. Current vitals: Temperature 98.2 F, heart rate 118 bpm, blood pressure 101/50 mmHg, nontachypneic, SpO2 96% on room air. The patient is seen today April 08, 2024 in follow-up on the selective care unit. She is currently resting comfortably in bed. Awake and alert in no acute distress. She is maintaining good O2 saturations in the 90s on room air. She is receiving D5W with 3 A of bicarb at 130 mL/h. Stool culture showing Aeromonas hydrophila. White count 8.1. Hemoglobin 13.1. Platelets 189. Sodium 137. Potassium 3.0. Bicarb 28. BUN 16. Creatinine 0.86. Glucose 127. She remains on Questran and Flagyl. Remains on ceftriaxone. Anticoagulated with Eliquis. Progress note dated April 09, 2024. 69-year-old female seen in room 380. The patient was admitted with a diagnosis of hypotension, secondary to severe watery diarrhea. She does have a history of atrial fibrillation, hypothyroidism, PE/DVT, and gastric bypass surgery. The patient is resting comfortably in bed. She is on room air. No IV fluids. Labs include a white count 8.6, hemoglobin 14.2, hematocrit 41.3, and a normal platelet count. Sodium 141, potassium 4.1, chlorides 107, CO2 24, BUN 13, creatinine 0.82. Calcium is 8.8. Magnesium is 2. Stool cultures are positive for Aeromonas hydrophilia. Progress note dated April 10, 2024. 69-year-old female seen today in room 380. She was initially admitted with a diagnosis of watery diarrhea, and hypotension. The patient is doing better from that standpoint. Currently, she is on room air. No IV fluids. No new labs today. Labs from April 09 have been reviewed. No major changes in the way she feels, over the last 24 hours. Objective - Vital Signs Vital signs: Vital Signs Temp 98.1 F 04/10/24 08:00 Pulse 93 04/10/24 12:00 Resp 18 04/10/24 08:00 BP 95/67 04/10/24 12:00 Pulse Ox 97 04/10/24 12:00 FiO2 Intake & Output 04/09/24 04/10/24 04/10/24 18:59 06:59 18:59 Intake Total 464 180 Output Total 1000 Balance -536 180 Weight 108.6 kg Intake: IV 20 Invasive Line 1 10 Invasive Line 2 10 Oral 444 180 Output: Stool 1000 Other: Voiding Method External Catheter External Catheter External Catheter # Voids 1 1 # Bowel Movements 2 1 1 - Exam No acute distress, oriented 3. HEENT examination is grossly unremarkable. Mucous membranes are moist. No oral lesions. Neck supple. Full range of motion. No adenopathy thyromegaly or neck vein distention. Cardiovascular examination reveals regular rhythm rate. S1-S2 normal. No S3 or S4. No discernible murmur noted. Lungs reveal clear breath sounds. Breath sounds are equal bilaterally. No adventitious lung sounds including wheezes rhonchi or crackles. Abdomen soft bowel sounds are heard. No masses or tenderness. Extremities are intact. No cyanosis clubbing or edema. Skin is without rash or lesion. Neurologic examination is brief but nonfocal. - Labs CBC & Chem 7: 04/09/24 06:23 04/09/24 06:23 Labs: Microbiology - Last 24 Hours (Table) 04/06/24 17:40 Stool Culture - Final Stool Aeromonas hydrophila Assessment and Plan Assessment: Severe diarrheal illness and colitis. Stool culture revealing Aeromonas hydrophila. Hypotension, secondary to fluid losses and hypovolemia. Severe anion gap metabolic acidosis. Acute rhabdomyolysis. Acute kidney injury, secondary to combination of above. Severe hypokalemia and hypomagnesemia. Atrial fibrillation with rapid ventricular response. History of heart failure with reduced ejection fraction. History of PE/DVT. History of previous gastric bypass surgery. History of hypothyroidism. Plan: Plan dated April 09, 2024. The patient is seen in room 380. The patient is on room air. She is not receiving any IV fluids. Labs, x-rays, and medications are reviewed. We will continue to follow. The patient's procalcitonin level was in the normal range at 0.39. Bicarbonate drip was discontinued. She is anticoagulated with Eliquis. We will continue to follow. Prognosis is guarded. Plan dated April 10, 2024. The patient is seen today in room 380. The patient is currently on room air. No IV fluids. No new labs today. Labs from April 09 have been reviewed. Her blood pressure has been stable. She is on Eliquis for anticoagulation. Bicarbonate drip was discontinued. We will continue to follow the patient, and make recommendations. Prognosis is guarded. Time with Patient: Less than 30
--- NOTE | 2024-04-10 14:18 | P.PN ---
Subjective Progress Note Date: 04/10/24 PROGRESS NOTE The patient is a 69-year-old female with a prior history of pulmonary embolism, chronic persistent atrial fibrillation, bipolar disorder, hypertension and hypothyroidism who has been followed by Dr. Hsu and has seen Dr. Collazo in the past who presented with symptoms of not feeling well for the last few days, not eating, weak and not able to ambulate. She had hypotension, diarrhea and was found to have elevated CK enzyme consistent with rhabdomyolysis. She is status post gastric bypass. She was seen in the emergency room recently with watery diarrhea. Cardiology consultation was requested because of the atrial fibrillation. Patient is known to have chronic atrial fibrillation. She was in atrial fibrillation rapid ventricle response. She denies any chest discomfort, dizziness or syncope. She has been feeling weak. Her CT scan showed moderate liquid stool and possible evidence of colitis. April 08 The patient is feeling better but continues to have diarrhea. She denies any chest discomfort, dizziness or palpitations. She continues to be in atrial fibrillation, the rate is under better control. She denies any nausea or vomiting. She continues to feel weak. Her potassium remains on the low side. Progress note 04/09/2024 Patient was hypotensive in the morning but repeat blood pressure was 124 over 93 mmHg, heart rate was 90 bpm ranging from 90 to 100 bpm. Continues to be in atrial fibrillation. Echocardiogram showed preserved LVEF with no major valvul ar abnormality. Potassium is better. Patient is still having diarrhea 04/10/2024 Patient seen and examined. Patient states that she is feeling better. Diarrhea is improved. She has been maintained on Eliquis and beta-ruben. Telemetry is atrial fibrillation with controlled rate. Blood pressure 99/65, heart rate 99, pulse ox 96% on room air. Medications: Eliquis 5 mg twice a day, metoprolol to tartrate 50 mg twice a day, potassium PHYSICAL EXAMINATION: Blood pressure 103/60 heart rate 90 LUNGS: Clear to auscultation HEART: Irregular rate and rhythm, S1, S2. No S3. Systolic ejection murmur ABDOMEN: Soft, nontender, no organomegaly EXTREMETIES: No edema IMPRESSION: 1. Diarrhea, workup in progress 2. Persistent atrial fibrillation, rate controlled 3. History of pulmonary embolism 4. Acute renal injury resolved 5. Status post gastric bypass PLAN: Continue current medication Patient is cleared for discharge from a cardiology perspective. She may follow- up with her primary pull tab dealer in 1 to 2 weeks. Cardiology will sign off this case and follow on an as-needed basis. Please reconsult for any new concerns. Patient may follow-up in the office in one to 2 weeks. Nurse practitioner note has been reviewed, I agree with documented findings and plan of care. Patient was seen and examined. Objective - Vital Signs Vital signs: Vital Signs Temp 97.7 F 04/10/24 04:00 Pulse 68 04/10/24 04:00 Resp 18 04/10/24 04:00 BP 96/68 04/10/24 04:00 Pulse Ox 96 04/10/24 04:00 FiO2 Intake & Output 04/09/24 04/10/24 04/10/24 18:59 06:59 18:59 Intake Total 464 Output Total 1000 Balance -536 Weight 108.6 kg Intake: IV 20 Invasive Line 1 10 Invasive Line 2 10 Oral 444 Output: Stool 1000 Other: Voiding Method External Catheter External Catheter # Voids 1 # Bowel Movements 2 1 - Labs CBC & Chem 7: 04/09/24 06:23 04/09/24 06:23 Labs: Microbiology - Last 24 Hours (Table) 04/06/24 17:40 Stool Culture - Final Stool Aeromonas hydrophila
--- NOTE | 2024-04-10 15:18 | P.PN ---
Subjective This is a pleasant 69 years old female Who presents because of fall and hypotension and found to have acute gastroenteritis secondary to sigmoid colitis and rhabdomyolysis. Also she has some abnormal urine sample but no evidence of UTI. She has also chronic medical problems like A-fib and history of PE Patient currently sitting in chair, very lethargic and weak but mentation at baseline She has poor diet, she thinks she is n.p.o. but there is a cardiac diet ordered for her. She has mild abdominal pain about 8/10 as per patient. Patient states that her diarrhea is better No urinary symptoms Patient is difficult for her to stop because of her weakness. But denies chest pain or dyspnea. Creatinine is improved down to 1.2, potassium low at 3.0 Blood pressure is still on the low side 97/55 Pro- Calcitonin slightly elevated at 0.39 Creatinine kinase was high at 2699 C-reactive protein was high at 21 Occult blood in stool and C. difficile both were negative COVID and influenza virus were negative CT of the abdomen pelvis showing wall thickening of the sigmoid colon and right lower lobe indeterminate structure could be surgical scar Stool cultures growing Aeromonas hydrophilia. Patient currently covered with ceftriaxone and Flagyl with ID team on the case 04/09/24 Patient with improving abdominal pain down from 8 down to 6/10 in severity She still have fecal management system in place she has watery loose diarrhea. No vomiting. She remains on normal saline She is on ceftriaxone and Flagyl with positive stool culture Aeromonas hydrophilia 1/ Patient improving clinically, diarrhea is improving, but not completely resolved with no abdominal pain and she tolerates diet, she is off IV fluids Her electrolytes is also improvement She remains on antibiotics with ceftriaxone and Flagyl She is continued on home dose of Eliquis for her history of A-fib and history of pulmonary embolism Patient still feels generally weak We will ask for PT/OT evaluation, which is pending Patient has not been since surgeon before therefore she might benefit from evaluation. There is no GI service in this facility Objective - Vital Signs Vital signs: Vital Signs Temp 98.1 F 04/10/24 08:00 Pulse 93 04/10/24 12:00 Resp 18 04/10/24 08:00 BP 95/67 04/10/24 12:00 Pulse Ox 97 04/10/24 12:00 FiO2 Intake & Output 04/09/24 04/10/24 04/10/24 18:59 06:59 18:59 Intake Total 464 180 Output Total 1000 Balance -536 180 Weight 108.6 kg Intake: IV 20 Invasive Line 1 10 Invasive Line 2 10 Oral 444 180 Output: Stool 1000 Other: Voiding Method External Catheter External Catheter External Catheter # Voids 1 1 # Bowel Movements 2 1 1 - Exam -GENERAL: The patient is alert and oriented x3, not in any acute distress. Well developed, well nourished. Generally weak HEENT: Pupils are round and equally reacting to light. EOMI. No scleral icterus. No conjunctival pallor. Normocephalic, atraumatic. No pharyngeal erythema. No thyromegaly. CARDIOVASCULAR: S1 and S2 present. No murmurs, rubs, or gallops. PULMONARY: Chest is clear to auscultation, no wheezing , no crackles. -ABDOMEN: Soft, n mild periumbilical tenderness, no guarding or rebound tenderness, nondistended, normoactive bowel sounds. No palpable organomegaly. MUSCULOSKELETAL: No joint swelling or deformity. EXTREMITIES: No cyanosis, clubbing, or pedal edema. NEUROLOGICAL: Gross neurological examination did not reveal any focal deficits. SKIN: No rashes. no petechiae. - Labs CBC & Chem 7: 04/09/24 06:23 04/09/24 06:23 Labs: Microbiology - Last 24 Hours (Table) 04/06/24 17:40 Stool Culture - Final Stool Aeromonas hydrophila Assessment and Plan Assessment: Fall at home without syncope Hypotension, currently improved Acute sigmoid colitis with stool culture growing Aeromonas hydrophilia Rhabdomyolysis Chronic A-fib with RVR on admission, currently controlled History of PE History of bipolar Plan: No IV fluid Patient tolerates diet PT/OT pending Surgical team consult. No GI coverage in this facility this week Continue with ceftriaxone and Flagyl Continue with home dose of Eliquis Several consultants on the case including infectious disease, pulmonary and bar staff Labs and medication were reviewed.. Continue same treatment. Continue with symptomatic treatment. Resume home medication. Monitor labs and vitals. DVT and GI prophylaxis. Further recommendations as per clinical course of the pat ient DVT prophylaxis: Schneider Eliquis GI Prophylaxis: Protonix PT/OT: Pending Prognosis is guarded
--- NOTE | 2024-04-11 13:16 | P.GSCN ---
History of Present Illness Consult date: 04/11/24 History of present illness: CHIEF COMPLAINT: Diarrhea HISTORY OF PRESENT ILLNESS: This is a 69-year-old female who presents to the hospital with complaints of 5-day history of diarrhea. She was treated for gastroenteritis. Her stool culture was positive for Aeromonas hydrophilia. She is on antibiotics. Patient reports her diarrhea has improved. She was a little nauseous this morning. Appetite is diminished. She denies any abdominal pain. Her last EGD and colonoscopy were in September 2023 and she reports that normal. She has a history of a Rosaura-en-Y gastric bypass in November 2023 at [facility] with Dr. Landa. Patient had a CT scan abdomen and pelvis done on admission on 04/06/24 the results reported moderate stool throughout the colon compatible with history of diarrhea with mild hyperemia with wall thickening of the sigmoid colon and rectum correlate for mild colitis. Also an indeterminant blind-ending structure in the right lower quadrant measuring 21 x 18 mm unclear etiology is thought to be the ovary possibly sequelae of prior surgeries. Cholelithiasis. Patient denies any abdominal pain in the right lower quadrant. Her only other surgery was a tubal ligation. Otherwise she denies any prior abdominal surgeries in the right lower quadrant. PAST MEDICAL HISTORY: See below PAST SURGICAL HISTORY: See below MEDICATIONS: See below ALLERGIES: See below SOCIAL HISTORY: No illicit drug use. REVIEW OF SYSTEMS: CONSTITUTIONAL: Denies fever or chills. HEENT: Denies blurred vision, vision changes, or eye pain. Denies hemoptysis CARDIOVASCULAR: Denies chest pain or pressure. RESPIRATORY: No shortness of breath. GASTROINTESTINAL: See HPI for pertinent findings HEMATOLOGIC: Denies bleeding disorders. GENITOURINARY: Denies any blood in urine or increased urinary frequency. SKIN: Denies pruitis. Denies rash. PHYSICAL EXAM: VITAL SIGNS: Reviewed GENERAL: Well-developed in no acute distress. ABDOMEN: Soft. Nondistended. Nontender NEUROLOGIC: Alert and oriented. Cranial nerves II through XII grossly intact. LABORATORY DATA: WBC 8.6 Hgb 14.2 platelets 195 Sodium is 141 potassium 4.1 creatinine 0.82 IMAGING: CT scan abdomen and pelvis as stated above ASSESSMENT: 1. Gastroenteritis with diarrhea. Improved. 2. Indeterminate blind-ending structure in the right lower quadrant noted on CT scan PLAN: -Will review CT scan findings with surgeon. Further recommendations forthcoming. Physician Freight Service Inspector note has been reviewed by physician. Signing provider agrees with the documented findings, assessment, and plan of care. Past Medical History Past Medical History: Atrial Fibrillation, Supraventricular Tachycardia (SVT), Thyroid Disorder Additional Past Medical History / Comment(s): spinal meningitis 26 yrs. ago History of Any Multi-Drug Resistant Organisms: None Reported Past Surgical History: Bariatric Surgery, Tonsillectomy, Tubal Ligation Additional Past Surgical History / Comment(s): Loop recorder Past Anesthesia/Blood Transfusion Reactions: No Reported Reaction Past Psychological History: Bipolar Smoking Status: Former smoker Past Alcohol Use History: None Reported Additional Past Alcohol Use History / Comment(s): quit smoking 1999, smoked 1ppd started @age of 15 Past Drug Use History: None Reported Medications and Allergies Home Medications Medication Instructions Recorded Confirmed Type Levothyroxine Sodium [Synthroid] 125 mcg PO [id number] 02/24/19 04/06/24 History PARoxetine [Paxil] 10 mg PO DAILY 11/23/21 04/06/24 History Dicyclomine [Bentyl] 20 mg PO QID PRN 04/06/24 04/06/24 History Metoprolol Succinate (ER) [Toprol 25 mg PO HS 04/06/24 04/06/24 History Xl] Omeprazole 20 mg PO DAILY 04/06/24 04/06/24 History QUEtiapine FUMARATE [SEROquel] 300 mg PO HS 04/06/24 04/06/24 History Allergies Allergy/AdvReac Type Severity Reaction Status Date / Time pentazocine [From Jana] Allergy Swelling Verified 04/06/24 11:43 Surgical - Exam Vital Signs Pulse Resp BP Pulse Ox 103 H 20 129/80 97 04/06/24 11:37 04/06/24 11:37 04/06/24 11:37 04/06/24 11:37 Results - Labs 04/09/24 06:23 04/09/24 06:23
--- NOTE | 2024-04-11 15:08 | P.PN ---
Subjective Progress Note Date: 04/11/24 Principal diagnosis: Diarrhea and hypotension. Patient is a 69-year-old female with past medical history significant for atrial fibrillation, hypothyroidism, PE/DVT, previous gastric bypass surgery. Of note, patient had a recent ER visit back on April 04 for severe episodic watery diarrhea. She returns to the emergency department yesterday afternoon with a similar complaint. I am evaluating this patient in the emergency department, room 14. She states that since Sunday she has had severe intractable diarrhea that is watery and brown. She also reports some mild abdominal discomfort, nausea without emesis. She has been very weak at home. Gets lightheaded on ar ising, but denies losing consciousness or syncopal events. Not able to tolerate much oral intake. Denies recent antibiotic use. Denies recent sick contacts. CBC is unremarkable without leukocytosis. She continues to have fluid loss. She is in a state of anion gap metabolic acidosis. Most recent CMP includes a sodium 137, potassium 2.6, chloride 106, serum bicarb down to 9, anion gap 22, BUN 33, creatinine 1.72, glucose 98. Magnesium was low at 1.2. EKG: Atrial fibrillation wtih RVR and frequent PVCs, rate 116. LFTs mildly elevated. CPK 2694. Stool occult blood was negative. C. difficile negative. We were consulted early this morning as the patient's blood pressure has been borderline hypotensive. She has received a total of 4 L crystalloid fluid bolus. She is also in atrial fibrillation with RVR ranging from 100 to 120 bpm. She continues to have copious amounts of liquid diarrhea, there is an FMS in place. CT of abdomen and pelvis showing moderate liquid stool throughout the colon compatible with history of diarrhea and mild wall thickening of the sigmoid colon and rec nieves, possible mild colitis. Also, indeterminate blind-ending structure in the right lower quadrant measuring 21 x 18 mm unclear etiology,. No evidence of pneumoperitoneum, free fluid, or bowel obstruction. Postsurgical findings noted. Patient has been empirically covered on a combination of Rocephin and Flagyl. Current vitals: Temperature 98.2 F, heart rate 118 bpm, blood pressure 101/50 mmHg, nontachypneic, SpO2 96% on room air. The patient is seen today April 08, 2024 in follow-up on the selective care unit. She is currently resting comfortably in bed. Awake and alert in no acute distress. She is maintaining good O2 saturations in the 90s on room air. She is receiving D5W with 3 A of bicarb at 130 mL/h. Stool culture showing Aeromonas hydrophila. White count 8.1. Hemoglobin 13.1. Platelets 189. Sodium 137. Potassium 3.0. Bicarb 28. BUN 16. Creatinine 0.86. Glucose 127. She remains on Questran and Flagyl. Remains on ceftriaxone. Anticoagulated with Eliquis. Progress note dated April 09, 2024. 69-year-old female seen in room 380. The patient was admitted with a diagnosis of hypotension, secondary to severe watery diarrhea. She does have a history of atrial fibrillation, hypothyroidism, PE/DVT, and gastric bypass surgery. The patient is resting comfortably in bed. She is on room air. No IV fluids. Labs include a white count 8.6, hemoglobin 14.2, hematocrit 41.3, and a normal platelet count. Sodium 141, potassium 4.1, chlorides 107, CO2 24, BUN 13, creatinine 0.82. Calcium is 8.8. Magnesium is 2. Stool cultures are positive for Aeromonas hydrophilia. Progress note dated April 10, 2024. 69-year-old female seen today in room 380. She was initially admitted with a diagnosis of watery diarrhea, and hypotension. The patient is doing better from that standpoint. Currently, she is on room air. No IV fluids. No new labs today. Labs from April 09 have been reviewed. No major changes in the way she feels, over the last 24 hours. Progress note dated April 11, 2024. 69-year-old female seen today in room 380. Currently, she is on room air. She is getting saline at 20 cc an hour. She is up in the air about discharge. She states that somebody told her she could be discharged, and somebody told her she was not going to be discharged. On the pulmonary standpoint, she is stable. No new labs today. Objective - Vital Signs Vital signs: Vital Signs Temp 98.3 F 04/11/24 08:20 Pulse 92 04/11/24 12:00 Resp 18 04/11/24 13:24 BP 91/58 04/11/24 12:00 Pulse Ox 97 04/11/24 12:00 FiO2 Intake & Output 04/10/24 04/11/24 04/11/24 18:59 06:59 18:59 Intake Total 417 710 462 Balance 417 710 462 Weight 109.5 kg 109.5 kg Intake: Intake, IV Titration 50 Amount cefTRIAXone 2 gm In 50 Sodium Chloride 0.9% 50 ml @ 100 mls/hr IVPB Q24HR [facility] Rx#:[id number] Oral 417 [id number] Other: Voiding Method External Catheter External Catheter External Catheter # Voids 1 # Bowel Movements 1 - Exam No acute distress, oriented 3. HEENT examination is grossly unremarkable. Mucous membranes are moist. No oral lesions. Neck supple. Full range of motion. No adenopathy thyromegaly or neck vein distention. Cardiovascular examination reveals regular rhythm rate. S1-S2 normal. No S3 or S4. No discernible murmur noted. Lungs reveal clear breath sounds. Breath sounds are equal bilaterally. No adventitious lung sounds including wheezes rhonchi or crackles. Abdomen soft bowel sounds are heard. No masses or tenderness. Extremities are intact. No cyanosis clubbing or edema. Skin is without rash or lesion. Neurologic examination is brief but nonfocal. - Labs CBC & Chem 7: 04/09/24 06:23 04/09/24 06:23 Assessment and Plan Assessment: Severe diarrheal illness and colitis. Stool culture revealing Aeromonas hydrophila. Hypotension, secondary to fluid losses and hypovolemia. Severe anion gap metabolic acidosis. Acute rhabdomyolysis. Acute kidney injury, secondary to combination of above. Severe hypokalemia and hypomagnesemia. Atrial fibrillation with rapid ventricular response. History of heart failure with reduced ejection fraction. History of PE/DVT. History of previous gastric bypass surgery. History of hypothyroidism. Plan: Plan dated April 09, 2024. The patient is seen in room 380. The patient is on room air. She is not receiving any IV fluids. Labs, x-rays, and medications are reviewed. We will continue to follow. The patient's procalcitonin level was in the normal range at 0.39. Bicarbonate drip was discontinued. She is anticoagulated with Eliquis. We will continue to follow. Prognosis is guarded. Plan dated April 10, 2024. The patient is seen today in room 380. The patient is currently on room air. No IV fluids. No new labs today. Labs from April 09 have been reviewed. Her blood pressure has been stable. She is on Eliquis for anticoagulation. Bicarbonate drip was discontinued. We will continue to follow the patient, and make recommendations. Prognosis is guarded. Plan dated April 11, 2024. The patient is stable from the pulmonary standpoint. She is on room air. She denies any shortness of breath, cough, wheezing, chest tightness, or phlegm production. Labs are reviewed. The patient is unclear as to whether or not she will be discharged. Apparently somebody told her she would be, and then somebody told her she was not be discharged. From the pulmonary standpoint, she is very stable, and could be considered for discharge. Time with Patient: Less than 30
[2024-04-11] MEDS: WARFARIN 5 MG TAB PO ONE (17:55)
--- NOTE | 2024-04-11 20:20 | P.PN ---
Subjective This is a pleasant 69 years old female Who presents because of fall and hypotension and found to have acute gastroenteritis secondary to sigmoid colitis and rhabdomyolysis. Also she has some abnormal urine sample but no evidence of UTI. She has also chronic medical problems like A-fib and history of PE Patient currently sitting in chair, very lethargic and weak but mentation at baseline She has poor diet, she thinks she is n.p.o. but there is a cardiac diet ordered for her. She has mild abdominal pain about 8/10 as per patient. Patient states that her diarrhea is better No urinary symptoms Patient is difficult for her to stop because of her weakness. But denies chest pain or dyspnea. Creatinine is improved down to 1.2, potassium low at 3.0 Blood pressure is still on the low side 97/55 Pro- Calcitonin slightly elevated at 0.39 Creatinine kinase was high at 2699 C-reactive protein was high at 21 Occult blood in stool and C. difficile both were negative COVID and influenza virus were negative CT of the abdomen pelvis showing wall thickening of the sigmoid colon and right lower lobe indeterminate structure could be surgical scar Stool cultures growing Aeromonas hydrophilia. Patient currently covered with ceftriaxone and Flagyl with ID team on the case 04/09/24 Patient with improving abdominal pain down from 8 down to 6/10 in severity She still have fecal management system in place she has watery loose diarrhea. No vomiting. She remains on normal saline She is on ceftriaxone and Flagyl with positive stool culture Aeromonas hydrophilia 1/2 Patient improving clinically, diarrhea is improving, but not completely resolved with no abdominal pain and she tolerates diet, she is off IV fluids Her electrolytes is also improvement She remains on antibiotics with ceftriaxone and Flagyl She is continued on home dose of Eliquis for her history of A-fib and history of pulmonary embolism Patient still feels generally weak We will ask for PT/OT evaluation, which is pending Patient has not been since surgeon before therefore she might benefit from evaluation. There is no GI service in this facility 04/11 Patient today was doing well and she was cleared for discharge by all consultants. She had very mild periumbilical discomfort and some nausea but she tolerates diet and she had f formed stool. No other new complaint. 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 Also patient cannot get a free coupon. I discussed with the catalytic case operator, there is no free coupon for Xarelto as well or other alternative. Patient is high risk for stroke therefore we are going to start her on Coumadin with goal INR 2-3. Coumadin would be pharmacy to dose. In the meanwhile patient might require Lovenox bridging. Discussed with the staff Also patient can be downgraded to general medical floor Objective - Vital Signs Vital signs: Vital Signs Temp 98.3 F 04/11/24 08:20 Pulse 92 04/11/24 12:00 Resp 18 04/11/24 13:24 BP 91/58 04/11/24 12:00 Pulse Ox 97 04/11/24 12:00 FiO2 Intake & Output 04/10/24 04/11/24 04/11/24 18:59 06:59 18:59 Intake Total 417 710 462 Balance 417 710 462 Weight 109.5 kg 109.5 kg Intake: Intake, IV Titration 50 Amount cefTRIAXone 2 gm In 50 Sodium Chloride 0.9% 50 ml @ 100 mls/hr IVPB Q24HR [facility] Rx#:[id number] Oral [id number] Other: Voiding Method External Catheter External Catheter External Catheter # Voids 1 # Bowel Movements 1 - Exam -GENERAL: The patient is alert and oriented x3, not in any acute distress. Well developed, well nourished. Generally weak HEENT: Pupils are round and equally reacting to light. EOMI. No scleral icterus. No conjunctival pallor. Normocephalic, atraumatic. No pharyngeal erythema. No thyromegaly. CARDIOVASCULAR: S1 and S2 present. No murmurs, rubs, or gallops. PULMONARY: Chest is clear to auscultation, no wheezing , no crackles. -ABDOMEN: Soft, n mild periumbilical tenderness, no guarding or rebound tenderness, nondistended, normoactive bowel sounds. No palpable organomegaly. MUSCULOSKELETAL: No joint swelling or deformity. EXTREMITIES: No cyanosis, clubbing, or pedal edema. NEUROLOGICAL: Gross neurological examination did not reveal any focal deficits. SKIN: No rashes. no petechiae. - Labs CBC & Chem 7: 04/09/24 06:23 04/09/24 06:23 Assessment and Plan Assessment: Fall at home without syncope Hypotension, currently improved Acute sigmoid colitis with stool culture growing Aeromonas hydrophilia Rhabdomyolysis Chronic A-fib with RVR on admission, currently controlled. Patient has high co- pay for Eliquis and currently she is not covered with anticoagulation when she goes home. Need to start new Coumadin History of PE History of bipolar Plan: No IV fluid Patient tolerates diet PT/OT recommended home health care Surgical team consult. No GI coverage in this facility this week Continue with ceftriaxone and Flagyl Patient was cleared for discharge by all consultants but she has no Eliquis at h ome as her she has high co-pay she cannot afford it. Patient does not safe to go home we have to start Coumadin with Lovenox bridging till INR at goal of 2-3 Several consultants on the case including infectious disease, pulmonary and head filter press tender Labs and medication were reviewed.. Continue same treatment. Continue with symptomatic treatment. Resume home medication. Monitor labs and vitals. DVT and GI prophylaxis. Further recommendations as per clinical course of the patient DVT prophylaxis: Schneider Eliquis GI Prophylaxis: Protonix PT/OT: Pending Prognosis is guarded
[2024-04-11] MEDS: ENOXAPARIN 120 MG/0.8 ML SYRINGE SQ SCH (21:34)
[2024-04-12 06:37] LABS: INR 2.2 (<1.2); Prothrombin Time 21.8 sec (10.0-12.5)
--- NOTE | 2024-04-12 07:02 | P.CONS ---
History of Present Illness - Reason for Consult Consult date: 04/11/24 Colitis Requesting physician: Bull E Sheet - Chief Complaint Abdominal pain and diarrhea x 5 days on admission - History of Present Illness Patient is a 69-year-old female with a past medical history significant for atrial fibrillation SVT hypothyroidism presenting to the hospital about a week ago for evaluation of diarrhea with fecal incontinence symptom has been going on for about 5 days before presentation to the hospital with multiple loose stool no blood or mucus in the stool and the patient was complaining of diffuse lower abdominal pain about 4 out of 10 and generalized weakness patient did not have any antibiotic exposure prior to her diarrhea s tarted patient on presentation to the hospital was afebrile and no fever have been recorded during this hospital stay patient was mildly tachycardic and mild hypotension but no hypoxemia patient did have white count of 7.7 did have elevated BUN and creatinine admission has subsequent normalized liver isms on mild elevated urine was mildly positive influenza RSV COVID testing negative stool for C. difficile negative patient did have abdominal pelvis CT moderate stool throughout the colon with mild hyperemia wall thickening of the sigmoid colon and rectum correlate for colitis stool cultures came back positive with Aeromonas hydrophilia prompting this consultation today Review of Systems Positive point and negatives has been mentioned in the HPI, complete review of systems was performed and all other systems are negative Past Medical History Past Medical History: Atrial Fibrillation, Supraventricular Tachycardia (SVT), Thyroid Disorder Additional Past Medical History / Comment(s): spinal meningitis 27 yrs. ago History of Any Multi-Drug Resistant Organisms: None Reported Past Surgical History: Bariatric Surgery, Tonsillectomy, Tubal Ligation Additional Past Surgical History / Comment(s): Loop recorder Past Anesthesia/Blood Transfusion Reactions: No Reported Reaction Past Psychological History: Bipolar Smoking Status: Former smoker Past Alcohol Use History: None Reported Additional Past Alcohol Use History / Comment(s): quit smoking 1999, smoked 1ppd started @age of 15 Past Drug Use History: None Reported Medications and Allergies Home Medications Medication Instructions Recorded Confirmed Type Levothyroxine Sodium [Synthroid] 125 mcg PO [id number] 02/24/19 04/06/24 History PARoxetine [Paxil] 10 mg PO DAILY 11/23/21 04/06/24 History Dicyclomine [Bentyl] 20 mg PO QID PRN 04/06/24 04/06/24 History QUEtiapine FUMARATE [SEROquel] 300 mg PO HS 04/06/24 04/06/24 History Cholestyramine (with Sugar) 4 gm PO BID@1000,1800 #60 packet 04/11/24 Rx [Questran Packet] Metoprolol Tartrate [Lopressor] 50 mg PO BID #60 tab 04/11/24 Rx Omeprazole 20 mg PO DAILY #30 cap 04/11/24 Rx Spironolactone [Aldactone] 25 mg PO DAILY #30 tab 04/11/24 Rx Allergies Allergy/AdvReac Type Severity Reaction Status Date / Time pentazocine [From Talwin] Allergy Swelling Verified 04/06/24 11:43 Physical Exam Vitals: Vital Signs Temp Pulse Resp BP Pulse Ox 04/11/24 13:24 18 04/11/24 12:00 92 18 91/58 97 04/11/24 08:20 98.3 F 98 17 95/61 94 L 04/11/24 04:00 90 16 115/76 96 04/11/24 00:00 95 16 97/66 95 04/10/24 20:00 98.4 F 113 H 16 91/64 97 04/10/24 16:00 112 H 96/66 96 Intake and Output 04/10/24 04/11/24 04/11/24 22:59 06:59 14:59 Intake Total 407 540 462 Balance 407 540 462 Intake: Intake, IV Titration 50 Amount cefTRIAXone 2 gm In 50 Sodium Chloride 0.9% 50 ml @ 100 mls/hr IVPB Q24HR [facility] Rx#:[id number] Oral [id number] Other: Voiding Method External Catheter External Catheter External Catheter Weight 109.5 kg 109.5 kg GENERAL DESCRIPTION: Elderly female lying in bed, no distress. No tachypnea or accessory muscle of respiration use. HEENT: Shows Pallor , no scleral icterus. Oral mucous membrane is dry. NECK: Trachea central, no thyromegaly. LUNGS: Unlabored breathing. Clear to auscultation anteriorly. No wheeze or crackle. HEART: S1, S2, regular rate and rhythm. No loud murmur ABDOMEN: Soft, mild tenderness EXTREMITIES: No edema of feet. SKIN: No rash, no masses palpable. NEUROLOGICAL: The patient is awake, alert, oriented x3, mood and affect normal. Results CBC & Chem 7: 04/09/24 06:23 04/09/24 06:23 Assessment and Plan (1) Colitis Current Visit: Yes Status: Acute Code(s): K52.9 - NONINFECTIVE GASTROENTERITIS AND COLITIS, UNSPECIFIED SNOMED Code(s): 71752634 Plan: 1patient was in the hospital about a week ago for evaluation of abdominal pain and diarrhea CT shows evidence of colitis in the stool concern ongoing Aeromonas hydrophila likely the pathogen causing her illness she tested negative for C. difficile, initial susceptibility report did not mention Rocephin I did call the micro lab personally to confirm sensitivity of this pathogen Rocephin 2-we will keep the patient on Rocephin as the patient still having some diarrhea and use Questran as needed for symptomatic relief Question concern answered We will follow on clinical condition and cultures to further adjust medication if needed Thank you for this consultation we will follow the patient along with you Dictation was produced using [employer] dictation software. please excuse any grammatical, word or spelling errors. Time with Patient: Greater than 30
[2024-04-12] MEDS: ACETAMINOPHEN TAB 325 MG TAB PO PRN (08:45)
--- NOTE | 2024-04-12 13:42 | P.PN ---
Subjective Progress Note Date: 04/12/24 Principal diagnosis: Diarrhea and hypotension. Patient is a 69-year-old female with past medical history significant for atrial fibrillation, hypothyroidism, PE/DVT, previous gastric bypass surgery. Of note, patient had a recent ER visit back on April 04 for severe episodic watery diarrhea. She returns to the emergency department yesterday afternoon with a similar complaint. I am evaluating this patient in the emergency department, room 14. She states that since Sunday she has had severe intractable diarrhea that is watery and brown. She also reports some mild abdominal discomfort, nausea without emesis. She has been very weak at home. Gets lightheaded on ar ising, but denies losing consciousness or syncopal events. Not able to tolerate much oral intake. Denies recent antibiotic use. Denies recent sick contacts. CBC is unremarkable without leukocytosis. She continues to have fluid loss. She is in a state of anion gap metabolic acidosis. Most recent CMP includes a sodium 137, potassium 2.6, chloride 106, serum bicarb down to 9, anion gap 22, BUN 33, creatinine 1.72, glucose 98. Magnesium was low at 1.2. EKG: Atrial fibrillation wtih RVR and frequent PVCs, rate 116. LFTs mildly elevated. CPK 2694. Stool occult blood was negative. C. difficile negative. We were consulted early this morning as the patient's blood pressure has been borderline hypotensive. She has received a total of 4 L crystalloid fluid bolus. She is also in atrial fibrillation with RVR ranging from 100 to 120 bpm. She continues to have copious amounts of liquid diarrhea, there is an FMS in place. CT of abdomen and pelvis showing moderate liquid stool throughout the colon compatible with history of diarrhea and mild wall thickening of the sigmoid colon and rec nieves, possible mild colitis. Also, indeterminate blind-ending structure in the right lower quadrant measuring 21 x 18 mm unclear etiology,. No evidence of pneumoperitoneum, free fluid, or bowel obstruction. Postsurgical findings noted. Patient has been empirically covered on a combination of Rocephin and Flagyl. Current vitals: Temperature 98.2 F, heart rate 118 bpm, blood pressure 101/50 mmHg, nontachypneic, SpO2 96% on room air. The patient is seen today April 08, 2024 in follow-up on the selective care unit. She is currently resting comfortably in bed. Awake and alert in no acute distress. She is maintaining good O2 saturations in the 90s on room air. She is receiving D5W with 3 A of bicarb at 130 mL/h. Stool culture showing Aeromonas hydrophila. White count 8.1. Hemoglobin 13.1. Platelets 189. Sodium 137. Potassium 3.0. Bicarb 28. BUN 16. Creatinine 0.86. Glucose 127. She remains on Questran and Flagyl. Remains on ceftriaxone. Anticoagulated with Eliquis. Progress note dated April 09, 2024. 69-year-old female seen in room 380. The patient was admitted with a diagnosis of hypotension, secondary to severe watery diarrhea. She does have a history of atrial fibrillation, hypothyroidism, PE/DVT, and gastric bypass surgery. The patient is resting comfortably in bed. She is on room air. No IV fluids. Labs include a white count 8.6, hemoglobin 14.2, hematocrit 41.3, and a normal platelet count. Sodium 141, potassium 4.1, chlorides 107, CO2 24, BUN 13, creatinine 0.82. Calcium is 8.8. Magnesium is 2. Stool cultures are positive for Aeromonas hydrophilia. Progress note dated April 10, 2024. 69-year-old female seen today in room 380. She was initially admitted with a diagnosis of watery diarrhea, and hypotension. The patient is doing better from that standpoint. Currently, she is on room air. No IV fluids. No new labs today. Labs from April 09 have been reviewed. No major changes in the way she feels, over the last 24 hours. Progress note dated April 11, 2024. 69-year-old female seen today in room 380. Currently, she is on room air. She is getting saline at 20 cc an hour. She is up in the air about discharge. She states that somebody told her she could be discharged, and somebody told her she was not going to be discharged. On the pulmonary standpoint, she is stable. No new labs today. Progress note dated April 12, 2024. 69-year-old female seen again in room 380. Currently, the patient is on room air. She is not receiving any IV fluids. She continues on Rocephin. Her procalcitonin level was normal at 0.39. Current labs today include a PT of 21.8 and an INR of 2.2. Stool cultures were positive for Aeromonas hydrophilia. Objective - Vital Signs Vital signs: Vital Signs Temp 98.3 F 04/12/24 12:00 Pulse 81 04/12/24 12:00 Resp 20 04/12/24 12:00 BP 89/60 04/12/24 12:00 Pulse Ox 96 04/12/24 12:00 FiO2 Intake & Output 04/11/24 04/12/24 04/12/24 18:59 06:59 18:59 Intake Total 462 1080 0 Balance 462 1080 0 Weight 109.5 kg 108.5 kg Intake: Oral 462 1080 0 Other: Voiding Method External Catheter External Catheter External Catheter # Voids 1 1 2 - Exam No acute distress, oriented 3. HEENT examination is grossly unremarkable. Mucous membranes are moist. No oral lesions. Neck supple. Full range of motion. No adenopathy thyromegaly or neck vein distention. Cardiovascular examination reveals regular rhythm rate. S1-S2 normal. No S3 or S4. No discernible murmur noted. Lungs reveal clear breath sounds. Breath sounds are equal bilaterally. No adventitious lung sounds including wheezes rhonchi or crackles. Abdomen soft bowel sounds are heard. No masses or tenderness. Extremities are intact. No cyanosis clubbing or edema. Skin is without rash or lesion. Neurologic examination is brief but nonfocal. - Labs CBC & Chem 7: 04/09/24 06:23 04/09/24 06:23 Labs: Abnormal Lab Results - Last 24 Hours (Table) 04/12/24 Range/Units 05:54 PT 21.8 H (10.0-12.5) sec INR 2.2 H (<1.2) Microbiology - Last 24 Hours (Table) 04/06/24 17:40 Stool Culture - Final Stool Aeromonas hydrophila Assessment and Plan Assessment: Severe diarrheal illness and colitis. Stool culture revealing Aeromonas hydrophila. Hypotension, secondary to fluid losses and hypovolemia. Severe anion gap metabolic acidosis. Acute rhabdomyolysis. Acute kidney injury, secondary to combination of above. Severe hypokalemia and hypomagnesemia. Atrial fibrillation with rapid ventricular response. History of heart failure with reduced ejection fraction. History of PE/DVT. History of previous gastric bypass surgery. History of hypothyroidism. Plan: Plan dated April 09, 2024. The patient is seen in room 380. The patient is on room air. She is not receiving any IV fluids. Labs, x-rays, and medications are reviewed. We will continue to follow. The patient's procalcitonin level was in the normal range at 0.39. Bicarbonate drip was discontinued. She is anticoagulated with Eliq uis. We will continue to follow. Prognosis is guarded. Plan dated April 10, 2024. The patient is seen today in room 380. The patient is currently on room air. No IV fluids. No new labs today. Labs from April 09 have been reviewed. Her blood pressure has been stable. She is on Eliquis for anticoagulation. Bicarbonate drip was discontinued. We will continue to follow the patient, and make recommendations. Prognosis is guarded. Plan dated April 11, 2024. The patient is stable from the pulmonary standpoint. She is on room air. She denies any shortness of breath, cough, wheezing, chest tightness, or phlegm production. Labs are reviewed. The patient is unclear as to whether or not she will be discharged. Apparently somebody told her she would be, and then somebody told her she was not be discharged. From the pulmonary standpoint, she is very stable, and could be considered for discharge. Plan dated April 12, 2024. The patient is seen again in room 380. The patient's procalcitonin level was normal at 0.39. She continues on Rocephin. She is not receiving any IV fluids. The patient is on room air. The patient's respiratory status is very stable. Labs, x-rays, and all medications are reviewed. The patient could be considered for possible discharge from the pulmonary standpoint. Time with Patient: Less than 30
--- NOTE | 2024-04-12 15:08 | P.PN ---
Subjective Progress Note Date: 04/12/24 This is a pleasant 69 years old female Who presents because of fall and hypotension and found to have acute gastroenteritis secondary to sigmoid colitis and rhabdomyolysis. Also she has some abnormal urine sample but no evidence of UTI. She has also chronic medical problems like A-fib and history of PE Patient currently sitting in chair, very lethargic and weak but mentation at baseline She has poor diet, she thinks she is n.p.o. but there is a cardiac diet ordered for her. She has mild abdominal pain about 8/10 as per patient. Patient states that her diarrhea is better No urinary symptoms Patient is difficult for her to stop because of her weakness. But denies chest pain or dyspnea. Creatinine is improved down to 1.2, potassium low at 3.0 Blood pressure is still on the low side 97/55 Pro- Calcitonin slightly elevated at 0.39 Creatinine kinase was high at 2699 C-reactive protein was high at 21 Occult blood in stool and C. difficile both were negative COVID and influenza virus were negative CT of the abdomen pelvis showing wall thickening of the sigmoid colon and right lower lobe indeterminate structure could be surgical scar Stool cultures growing Aeromonas hydrophilia. Patient currently covered with ceftriaxone and Flagyl with ID team on the case 04/09/24 Patient with improving abdominal pain down from 8 down to 6/10 in severity She still have fecal management system in place she has watery loose diarrhea. No vomiting. She remains on normal saline She is on ceftriaxone and Flagyl with positive stool culture Aeromonas hydrophilia 1/2 Patient improving clinically, diarrhea is improving, but not completely resolved with no abdominal pain and she tolerates diet, she is off IV fluids Her electrolytes is also improvement She remains on antibiotics with ceftriaxone and Flagyl She is continued on home dose of Eliquis for her history of A-fib and history of pulmonary embolism Patient still feels generally weak We will ask for PT/OT evaluation, which is pending Patient has not been since surgeon before therefore she might benefit from evaluation. There is no GI service in this facility 04/11 Patient today was doing well and she was cleared for discharge by all database consultant s. She had very mild periumbilical discomfort and some nausea but she tolerates diet and she had f formed stool. No other new complaint. 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 Also patient cannot get a free coupon. I discussed with the registered nurse hh case manager, there is no free coupon for Xarelto as well or other alternative. Patient is high risk for stroke therefore we are going to start her on Coumadin with goal INR 2-3. Coumadin would be pharmacy to dose. In the meanwhile patie nt might require Lovenox bridging. Discussed with the staff Also patient can be downgraded to general medical floor 04/12. Patient seen and examined. INR is 2, no need for Lovenox bridging. REVIEW OF SYSTEMS: CONSTITUTIONAL: No fever, no malaise,. CARDIOVASCULAR: No chest pain, no palpitations, no syncope. PULMONARY: No shortness of breath, no cough, GASTROINTESTINAL: No diarrhea, no nausea, no vomiting, no abdominal pain. NEUROLOGICAL: No headaches, no weakness, PHYSICAL EXAMINATION: GENERAL: The patient is alert and oriented x3, not in any acute distress. Well developed, well nourished. HEENT: Pupils are round and equally reacting to light. EOMI. No scleral icterus. No conjunctival pallor. Normocephalic, atraumatic. No pharyngeal erythema. No thyromegaly. CARDIOVASCULAR: S1 and S2 present. No murmurs, rubs, or gallops. PULMONARY: Chest is clear to auscultation, no wheezing or crackles. ABDOMEN: Soft, nontender, nondistended, normoactive bowel sounds. No palpable organomegaly. MUSCULOSKELETAL: No joint swelling or deformity. EXTREMITIES: No cyanosis, clubbing, or pedal edema. NEUROLOGICAL: Gross neurological examination did not reveal any focal deficits. SKIN: No rashes. Assessment and plan Fall at home without syncope Hypotension, currently improved Acute sigmoid colitis with stool culture growing Aeromonas hydrophilia Rhabdomyolysis Chronic A-fib with RVR on admission, currently controlled. Patient has high co- pay for Eliquis and currently she is not covered with anticoagulation when she goes home. Need to start new Coumadin History of PE History of bipolar Monitor vital signs Monitor CBC Monitor CMP Continue telemetry monitoring Continue IV Rocephin Continue pharmacy dose Coumadin stool culture growing Aeromonas hydrophilia ID following Surgery following Labs and medication were reviewed.. Continue same treatment. Continue with symptomatic treatment. Resume home medication. Monitor labs and vitals. DVT and GI prophylaxis. Further recommendations as per clinical course of the patient Dictation was produced using [employer] dictation software. please excuse any grammatical, word or spelling errors. Objective - Vital Signs Vital signs: Vital Signs Temp 100.4 F H 04/12/24 08:00 Pulse 113 H 04/12/24 08:00 Resp 20 04/12/24 08:00 BP 97/65 04/12/24 08:00 Pulse Ox 95 04/12/24 08:00 FiO2 Intake & Output 04/11/24 04/12/24 04/12/24 18:59 06:59 18:59 Intake Total 462 1080 0 Balance 462 1080 0 Weight 109.5 kg 108.5 kg Intake: Oral 462 1080 0 Other: Voiding Method External Catheter External Catheter External Catheter # Voids 1 1 - Labs CBC & Chem 7: 04/09/24 06:23 04/09/24 06:23 Labs: Abnormal Lab Results - Last 24 Hours (Table) 04/12/24 Range/Units 05:54 PT 21.8 H (10.0-12.5) sec INR 2.2 H (<1.2) Microbiology - Last 24 Hours (Table) 04/06/24 17:40 Stool Culture - Final Stool Aeromonas hydrophila
[2024-04-12] MEDS: WARFARIN 2.5 MG TAB PO ONE (18:00)
[2024-04-12] MEDS: ONDANSETRON 4 MG/2 ML VIAL IVP PRN (18:55)
--- NOTE | 2024-04-12 21:51 | P.PN ---
Subjective Progress Note Date: 04/12/24 Principal diagnosis: Reason for follow-up is colitis/Aeromonas hydrophila infection Patient is a 69-year-old female with a past medical history significant for atrial fibrillation SVT hypothyroidism presenting to the hospital about a week ago for evaluation of diarrhea with fecal incontinence symptom has been going on for about 5 days before presentation to the hospital patient CT was suggestive of colitis and stool cultures came back positive with Aeromonas hydrophilia prompting this consultation. On today's evaluation that is 04/12/2024, patient did evaluated for 100.4 F this morning however the patient denies having any chills she is breathing comfortably on room air no chest pain or shortness of breath or cough denies any abdominal pain and diarrhea has resolved no vomiting. Patient did have an INR of 2.2 no CBC was done today Objective - Vital Signs Vital signs: Vital Signs Temp 98.3 F 04/12/24 12:00 Pulse 81 04/12/24 12:00 Resp 20 04/12/24 12:00 BP 89/60 04/12/24 12:00 Pulse Ox 96 04/12/24 12:00 FiO2 Intake & Output 04/11/24 04/12/24 04/12/24 18:59 06:59 18:59 Intake Total 462 1080 0 Balance 462 1080 0 Weight 109.5 kg 108.5 kg Intake: Oral 462 1080 0 Other: Voiding Method External Catheter External Catheter Toilet # Voids 1 1 2 - Exam GENERAL DESCRIPTION: An elderly female lying in bed in no distress RESPIRATORY SYSTEM: Unlabored breathing , decreased breath sounds at bases HEART: S1 S2 regular rate and rhythm , ABDOMEN: Soft , no tenderness EXTREMITIES: No edema feet - Labs CBC & Chem 7: 04/09/24 06:23 04/09/24 06:23 Labs: Abnormal Lab Results - Last 24 Hours (Table) 04/12/24 Range/Units 05:54 PT 21.8 H (10.0-12.5) sec INR 2.2 H (<1.2) Microbiology - Last 24 Hours (Table) 04/06/24 17:40 Stool Culture - Final Stool Aeromonas hydrophila Assessment and Plan (1) Colitis Current Visit: Yes Status: Acute Code(s): K52.9 - NONINFECTIVE GASTROENTERITIS AND COLITIS, UNSPECIFIED SNOMED Code(s): 70810287 (2) Intestinal infection due to Aeromonas hydrophila Current Visit: Yes Status: Acute Code(s): A04.8 - OTHER SPECIFIED BACTERIAL INTESTINAL INFECTIONS SNOMED Code(s): 114448623 Plan: 1patient was in the hospital about a week ago for evaluation of abdominal pain and diarrhea CT shows evidence of colitis in the stool concern ongoing Aeromonas hydrophila likely the pathogen causing her illness she tested negative for C. difficile, initial susceptibility report did not mention Rocephin I did call the micro lab personally to confirm sensitivity of this pathogen Rocephin 2-patient mentioning improvement her symptoms did have low-grade fever which is slightly concerning we will check CBC inflammation markers with a.m. labs continue with Rocephin Dictation was produced using [email or web address] dictation software. please excuse any grammatical, word or spelling errors. Time with Patient: Less than 30
--- NOTE | 2024-04-13 00:18 | P.PN ---
Progress Note - Text Progress Note Date: 04/12/24 Patient seen and examined. She feels much better today. She is not having any diarrhea. Denies nausea and vomiting. She is tolerating diet. She did have low grade fever this AM. PHYSICAL EXAM: VITAL SIGNS: Reviewed GENERAL: Well-developed in no acute distress. ABDOMEN: Soft. Nondistended. Nontender NEUROLOGIC: Alert and oriented. Cranial nerves II through XII grossly intact. ASSESSMENT: 1. Gastroenteritis with diarrhea. Improved. 2. Indeterminate blind-ending structure in the right lower quadrant noted on CT scan PLAN: -CT-AP reviewed. No concerning pathology noted. Patients Efferent, Afferent, and Common Channel Limb of RNY Gastric Bypass appear normal without any evidence of internal hernia. -Ok for Regular Diet -ID and Medical Management of Colitis and Diarrhea -Nausea Control -No acute surgical intervention Nadir Dc DO [facility] [phone]
[2024-04-13 03:58] LABS: INR 2.6 (<1.2)
[2024-04-13 03:59] LABS: Prothrombin Time 26.1 sec (10.0-12.5)
[2024-04-13 11:26] LABS: ALT 47 U/L (8-44); AST 37 U/L (13-35); Albumin 3.2 g/dL (3.8-4.9); Albumin/Globulin Ratio 1.19 Ratio (1.60-3.17); Alkaline Phosphatase 77 U/L (41-126); Blood Urea Nitrogen 8.5 mg/dL (9.0-27.0); Calcium 8.2 mg/dL (8.7-10.3); Carbon Dioxide 23.8 mmol/L (21.6-31.8); Chloride 102 mmol/L (96-109); Globulin 2.7 g/dL (1.6-3.3); Glucose 90 mg/dL (70-110); Sodium 140 mmol/L (135-145); Total Bilirubin 0.3 mg/dL (0.3-1.2); Total Protein 5.9 g/dL (6.2-8.2)
[2024-04-13 11:38] LABS: Basophils # (A) 0.02 X 10*3/uL (0.00-0.10); Basophils % (A) 0.3 %; Eosinophils # (A) 0.01 X 10*3/uL (0.04-0.35); Eosinophils % (A) 0.2 %; HCT 44.7 % (37.2-46.3); HGB 14.8 g/dL (12.0-15.0); Lymphocytes # (A) 1.12 X 10*3/uL (0.90-5.00); Lymphocytes % (A) 17.4 %; MCH 32.3 pg (27.0-32.0); MCHC 33.1 g/dL (32.0-37.0); MCV 97.6 FL (80.0-97.0); Mean Platelet Volume 10.9 FL (9.5-12.2); Monocytes # (A) 0.55 X 10*3/uL (0.20-1.00); Monocytes % (A) 8.5 %; NRBC Per 100 WBC 0 X 10*3/uL (0.00-0.01); Neutrophils # (A) 4.56 X 10*3/uL (1.80-7.70); Neutrophils % (A) 70.7 %; Platelet Count 144 X 10*3/uL (140-440); RBC 4.58 X 10*6/uL (4.10-5.20); RBC Morphology Normal (Normal); RDW 13.6 % (11.5-14.5); WBC 6.45 X 10*3/uL (4.50-10.00)
[2024-04-13] MEDS ORDERED: Potassium Replacement Protocol 1 EACH MISC MISCELLANE PRN (12:51)
--- NOTE | 2024-04-13 12:52 | P.PN ---
Subjective Progress Note Date: 04/13/24 This is a pleasant 69 years old female Who presents because of fall and hypotension and found to have acute gastroenteritis secondary to sigmoid colitis and rhabdomyolysis. Also she has some abnormal urine sample but no evidence of UTI. She has also chronic medical problems like A-fib and history of PE Patient currently sitting in chair, very lethargic and weak but mentation at baseline She has poor diet, she thinks she is n.p.o. but there is a cardiac diet ordered for her. She has mild abdominal pain about 8/10 as per patient. Patient states that her diarrhea is better No urinary symptoms Patient is difficult for her to stop because of her weakness. But denies chest pain or dyspnea. Creatinine is improved down to 1.2, potassium low at 3.0 Blood pressure is still on the low side 97/55 Pro- Calcitonin slightly elevated at 0.39 Creatinine kinase was high at 2699 C-reactive protein was high at 21 Occult blood in stool and C. difficile both were negative COVID and influenza virus were negative CT of the abdomen pelvis showing wall thickening of the sigmoid colon and right lower lobe indeterminate structure could be surgical scar Stool cultures growing Aeromonas hydrophilia. Patient currently covered with ceftriaxone and Flagyl with ID team on the case 04/09/24 Patient with improving abdominal pain down from 8 down to 6/10 in severity She still have fecal management system in place she has watery loose diarrhea. No vomiting. She remains on normal saline She is on ceftriaxone and Flagyl with positive stool culture Aeromonas hydrophilia 1/2 Patient improving clinically, diarrhea is improving, but not completely resolved with no abdominal pain and she tolerates diet, she is off IV fluids Her electrolytes is also improvement She remains on antibiotics with ceftriaxone and Flagyl She is continued on home dose of Eliquis for her history of A-fib and history of pulmonary embolism Patient still feels generally weak We will ask for PT/OT evaluation, which is pending Patient has not been since surgeon before therefore she might benefit from evaluation. There is no GI service in this facility 04/11 Patient today was doing well and she was cleared for discharge by all air quality consultant s. She had very mild periumbilical discomfort and some nausea but she tolerates diet and she had f formed stool. No other new complaint. Will plan was to discharge her home Construction Manager recommended to continue Eliquis for her A-fib However patient although in the beginning was told she has Eliquis alert but with further clarification it looks like she has co-pay of more than $500 per month for her Eliquis which she cannot afford so she depends on her primary telecom sales consultant to get samples, when I asked the patient she does not think or she is not sure she has Eliquis left for her in the house. Also patient cannot get a free coupon. I discussed with the keycase assembler, there is no free coupon for Xarelto as well or other alternative. Patient is high risk for stroke therefore we are going to start her on Coumadin with goal INR 2-3. Coumadin would be pharmacy to dose. In the meanwhile patie nt might require Lovenox bridging. Discussed with the staff Also patient can be downgraded to general medical floor 04/12. Patient seen and examined. INR is 2, no need for Lovenox bridging. 04/13. Patient seen examined. Potassium placement ordered. States she feels better. REVIEW OF SYSTEMS: CONSTITUTIONAL: No fever, no malaise,. CARDIOVASCULAR: No chest pain, no palpitations, no syncope. PULMONARY: No shortness of breath, no cough, GASTROINTESTINAL: No diarrhea, no nausea, no vomiting, no abdominal pain. NEUROLOGICAL: No headaches, no weakness, PHYSICAL EXAMINATION: GENERAL: The patient is alert and oriented x3, not in any acute distress. HEENT: Pupils are round and equally reacting to light. EOMI. No scleral icterus. No conjunctival pallor. Normocephalic, atraumatic. No pharyngeal erythema. No thyromegaly. CARDIOVASCULAR: S1 and S2 present. No murmurs, rubs, or gallops. PULMONARY: Chest is clear to auscultation, no wheezing or crackles. ABDOMEN: Soft, nontender, nondistended, normoactive bowel sounds. No palpable organomegaly. MUSCULOSKELETAL: No joint swelling or deformity. EXTREMITIES: No cyanosis, clubbing, or pedal edema. NEUROLOGICAL: Gross neurological examination did not reveal any focal deficits. SKIN: No rashes. Assessment and plan Fall at home without syncope Hypotension, currently improved Acute sigmoid colitis with stool culture growing Aeromonas hydrophilia Rhabdomyolysis Chronic A-fib with RVR on admission, currently controlled. Patient has high co- pay for Eliquis and currently she is not covered with anticoagulation when she goes home. Need to start new Coumadin History of PE History of bipolar Monitor vital signs Monitor CBC Monitor CMP Continue telemetry monitoring Continue IV Rocephin Continue pharmacy dose Coumadin stool culture growing Aeromonas hydrophilia ID following Surgery following Labs and medication were reviewed.. Continue same treatment. Continue with symptomatic treatment. Resume home medication. Monitor labs and vitals. DVT and GI prophylaxis. Further recommendations as per clinical course of the catie nunn Dictation was produced using [employer] dictation software. please excuse any grammatical, word or spelling errors. Objective - Vital Signs Vital signs: Vital Signs Temp 100.2 F H 04/13/24 06:57 Pulse 101 H 04/13/24 06:57 Resp 19 04/13/24 08:00 BP 92/62 04/13/24 06:57 Pulse Ox 92 L 04/13/24 06:57 FiO2 Intake & Output 04/12/24 04/13/24 04/13/24 18:59 06:59 18:59 Intake Total 0 290 Balance 0 290 Weight 107 kg Intake: Intake, IV Titration 50 Amount cefTRIAXone 2 gm In 50 Sodium Chloride 0.9% 50 ml @ 100 mls/hr IVPB Q24HR [facility] Rx#:[id number] Oral 0 240 Other: Voiding Method Toilet Toilet Diaper # Voids 2 1 1 - Labs CBC & Chem 7: 04/13/24 03:21 04/13/24 03:21 Labs: Abnormal Lab Results - Last 24 Hours (Table) 04/13/24 04/13/24 04/13/24 Range/Units 03:21 03:21 03:21 MCV 97.6 H (80.0-97.0) FL MCH 32.3 H (27.0-32.0) pg Immature Gran # 0.19 H (0.00-0.04) X 10*3/uL Eosinophils # 0.01 L (0.04-0.35) X 10*3/uL PT 26.1 H (10.0-12.5) sec INR 2.6 H (<1.2) Potassium 3.0 L (3.5-5.5) mmol/L Anion Gap 14.20 H (4.00-12.00) mmol/L BUN 8.5 L (9.0-27.0) mg/dL BUN/Creatinine Ratio 8.50 L (12.00-20.00) Ratio Calcium 8.2 L (8.7-10.3) mg/dL AST 37 H (13-35) U/L ALT 47 H (8-44) U/L C-Reactive Protein 5.80 H (0.00-0.80) mg/dL Total Protein 5.9 L (6.2-8.2) g/dL Albumin 3.2 L (3.8-4.9) g/dL Albumin/Globulin Ratio 1.19 L (1.60-3.17) Ratio
[2024-04-13] MEDS: POTASSIUM CHLORIDE ER 20 MEQ TAB.ER PO SCH (13:13)
--- NOTE | 2024-04-13 13:28 | P.PN ---
Subjective Progress Note Date: 04/13/24 Patient is a 69-year-old female with past medical history significant for atrial fibrillation, hypothyroidism, PE/DVT, previous gastric bypass surgery. Of note, patient had a recent ER visit back on April 04 for severe episodic watery diarrhea. She returns to the emergency department yesterday afternoon with a similar complaint. I am evaluating this patient in the emergency department, room 14. She states that since Sunday she has had severe intractable diarrhea that is watery and brown. She also reports some mild abdominal discomfort, nausea without emesis. She has been very weak at home. Gets lightheaded on arising, but denies losing consciousness or syncopal events. Not able to to lerate much oral intake. Denies recent antibiotic use. Denies recent sick contacts. CBC is unremarkable without leukocytosis. She continues to have fluid loss. She is in a state of anion gap metabolic acidosis. Most recent CMP includes a sodium 137, potassium 2.6, chloride 106, serum bicarb down to 9, anion gap 22, BUN 33, creatinine 1.72, glucose 98. Magnesium was low at 1.2. EKG: Atrial fibrillation wtih RVR and frequent PVCs, rate 116. LFTs mildly elevated. CPK 2694. Stool occult blood was negative. C. difficile negative. We were consulted early this morning as the patient's blood pressure has been borderline hypotensive. She has received a total of 4 L crystalloid fluid bolus. She is also in atrial fibrillation with RVR ranging from 100 to 120 bpm. She continues to have copious amounts of liquid diarrhea, there is an FMS in place. CT of abdomen and pelvis showing moderate liquid stool throughout the colon compatible with history of diarrhea and mild wall thickening of the sigmoid colon and rectum, possible mild colitis. Also, indeterminate blind- ending structure in the right lower quadrant measuring 21 x 18 mm unclear etiology,. No evidence of pneumoperitoneum, free fluid, or bowel obstruction. Postsurgical findings noted. Patient has been empirically covered on a combination of Rocephin and Flagyl. Current vitals: Temperature 98.2 F, heart rate 118 bpm, blood pressure 101/50 mmHg, nontachypneic, SpO2 96% on room air. The patient is seen today April 08, 2024 in follow-up on the selective care unit. She is currently resting comfortably in bed. Awake and alert in no acute distress. She is maintaining good O2 saturations in the 90s on room air. She is receiving D5W with 3 A of bicarb at 130 mL/h. Stool culture showing Aeromonas hydrophila. White count 8.1. Hemoglobin 13.1. Platelets 189. Sodium 137. Potassium 3.0. Bicarb 28. BUN 16. Creatinine 0.86. Glucose 127. She remains on Questran and Flagyl. Remains on ceftriaxone. Anticoagulated with Eliquis. The patient is seen today April 13, 2024 in follow-up on the regular medical floor. She is currently resting comfortably in bed. Awake and alert in no acute distress. She still has a somewhat congested cough. She is maintaining good O2 saturations in the 90s on room air. No IV fluids. INR 2.6. Remains on ceftriaxone, Flagyl, Questran. Anticoagulated with warfarin. White count 6.4. Hemoglobin 14.8. Platelets 144. Sodium 140. Potassium 3.0. Bicarb 24. BUN 8. Creatinine 1.0. Glucose 90. Objective - Vital Signs Vital signs: Vital Signs Temp 100.2 F H 04/13/24 06:57 Pulse 101 H 04/13/24 06:57 Resp 19 04/13/24 08:00 BP 92/62 04/13/24 06:57 Pulse Ox 92 L 04/13/24 06:57 FiO2 Intake & Output 04/12/24 04/13/24 04/13/24 18:59 06:59 18:59 Intake Total 0 290 Balance 0 290 Weight 107 kg Intake: Intake, IV Titration 50 Amount cefTRIAXone 2 gm In 50 Sodium Chloride 0.9% 50 ml @ 100 mls/hr IVPB Q24HR [facility] Rx#:[id number] Oral 0 240 Other: Voiding Method Toilet Toilet Diaper # Voids 2 1 1 - Exam GENERAL EXAM: Alert, 69-year-old obese female, resting in bed, on room air, comfortable in no apparent distress. HEAD: Normocephalic and atraumatic EYES: Normal reaction of pupils, equal size. NOSE: Clear with pink turbinates. THROAT: No erythema or exudates. NECK: No masses, no JVD. CHEST: No chest wall deformity. LUNGS: Equal air entry with no crackles, wheeze, rhonchi or dullness. On room air. No conversational dyspnea. CVS: S1 and S2 normal with no audible murmur, regular rhythm. No extra heart sounds ABDOMEN: No hepatosplenomegaly, active bowel sounds, no guarding or rigidity. FMS with copious amounts of liquid diarrhea, SPINE: No scoliosis or deformity SKIN: No rashes CENTRAL NERVOUS SYSTEM: No focal deficits, tone is normal in all 4 extremities. EXTREMITIES: There is no peripheral edema, clubbing, or cyanosis. Peripheral pulses are intact. - Labs CBC & Chem 7: 04/13/24 03:21 04/13/24 03:21 Labs: Abnormal Lab Results - Last 24 Hours (Table) 04/13/24 04/13/24 04/13/24 Range/Units 03:21 03:21 03:21 MCV 97.6 H (80.0-97.0) FL MCH 32.3 H (27.0-32.0) pg Immature Gran # 0.19 H (0.00-0.04) X 10*3/uL Eosinophils # 0.01 L (0.04-0.35) X 10*3/uL PT 26.1 H (10.0-12.5) sec INR 2.6 H (<1.2) Potassium 3.0 L (3.5-5.5) mmol/L Anion Gap 14.20 H (4.00-12.00) mmol/L BUN 8.5 L (9.0-27.0) mg/dL BUN/Creatinine Ratio 8.50 L (12.00-20.00) Ratio Calcium 8.2 L (8.7-10.3) mg/dL AST 37 H (13-35) U/L ALT 47 H (8-44) U/L C-Reactive Protein 5.80 H (0.00-0.80) mg/dL Total Protein 5.9 L (6.2-8.2) g/dL Albumin 3.2 L (3.8-4.9) g/dL Albumin/Globulin Ratio 1.19 L (1.60-3.17) Ratio Assessment and Plan Assessment: Severe diarrheal illness and colitis, CT of abdomen and pelvis showing moderate liquid stool throughout the colon compatible with history of diarrhea and mild wall thickening of the sigmoid colon and rectum, possible mild colitis. Stool culture revealing Aeromonas hydrophila. On ceftriaxone, Flagyl, Questran Hypotension, secondary to fluid losses and hypovolemia hovered Severe anion gap metabolic acidosis, recovered Acute rhabdomyolysis, the CPK 2694, recovered Acute kidney injury, secondary to combination of above Severe hypokalemia and hypomagnesemia, being replaced per protocol Atrial fibrillation with rapid ventricular response anticoagulated with Eliquis History of heart failure with reduced ejection fraction History of PE/DVT History of previous gastric bypass surgery History of hypothyroidism Plan: The patient was seen and evaluated Labs and medications reviewed remains Remains hemodynamically stable Remains on room air oxygen Antibiotics per ID service I have personally seen and examined the patient, performed the documentation and the assessment and plan as written. Time: 10 minutes Dictation was produced using [employer] dictation software. Please excuse any grammatical, word or spelling errors. This patient was seen in coordination with the pulmonary/critical care physician, Dr. Duke. He did spend greater than 50% of the time evaluating, examining and developing the plan of care. He agrees to the above HPI, physical exam, assessment and plan of care as dictated by the nurse practitioner.
--- NOTE | 2024-04-13 13:56 | P.PN ---
Subjective Progress Note Date: 04/13/24 Principal diagnosis: Reason for follow-up is colitis/Aeromonas hydrophila infection Patient is a 69-year-old female with a past medical history significant for atrial fibrillation SVT hypothyroidism presenting to the hospital about a week ago for evaluation of diarrhea with fecal incontinence symptom has been going on for about 5 days before presentation to the hospital patient CT was suggestive of colitis and stool cultures came back positive with Aeromonas hydrophilia prompting this consultation. On today's evaluation that is 04/13/2024, Patient did have low-grade fever 100.2 F this morning patient denies having any chest pain or shortness of breath or cough no abdominal pain and diarrhea has slowed down. Patient white count 6.45, creat is 1.0 Objective - Vital Signs Vital signs: Vital Signs Temp 100.2 F H 04/13/24 06:57 Pulse 101 H 04/13/24 06:57 Resp 19 04/13/24 06:57 BP 92/62 04/13/24 06:57 Pulse Ox 92 L 04/13/24 06:57 FiO2 Intake & Output 04/12/24 04/13/24 04/13/24 18:59 06:59 18:59 Intake Total 0 Balance 0 Weight 107 kg Intake: Oral 0 Other: Voiding Method Toilet Toilet # Voids 2 1 - Exam GENERAL DESCRIPTION: An elderly female lying in bed in no distress RESPIRATORY SYSTEM: Unlabored breathing , decreased breath sounds at bases HEART: S1 S2 regular rate and rhythm , ABDOMEN: Soft , no tenderness EXTREMITIES: No edema feet - Labs CBC & Chem 7: 04/13/24 03:21 04/13/24 03:21 Labs: Abnormal Lab Results - Last 24 Hours (Table) 04/13/24 Range/Units 03:21 PT 26.1 H (10.0-12.5) sec INR 2.6 H (<1.2) Assessment and Plan (1) Colitis Current Visit: Yes Status: Acute Code(s): K52.9 - NONINFECTIVE GASTROENTERITIS AND COLITIS, UNSPECIFIED SNOMED Code(s): 30728751 (2) Intestinal infection due to Aeromonas hydrophila Current Visit: Yes Status: Acute Code(s): A04.8 - OTHER SPECIFIED BACTERIAL INTESTINAL INFECTIONS SNOMED Code(s): 350443322 Plan: 1patient was in the hospital about a week ago for evaluation of abdominal pain and diarrhea CT shows evidence of colitis in the stool concern ongoing Aeromonas hydrophila likely the pathogen causing her illness she tested negative for C. difficile, initial susceptibility report did not mention Rocephin I did call the micro lab personally to confirm sensitivity of this pathogen Rocephin 2-patient did have low-grade fever however white count has been normal and the patient mention clinic appointment continue with Rocephin and Flagyl hopefully transition to oral biotic on discharge Dictation was produced using [employer] dictation software. please excuse any grammatical, word or spelling errors. Time with Patient: Less than 30
[2024-04-13] MEDS: WARFARIN 1.5 MG TAB PO ONE (17:17)
--- NOTE | 2024-04-14 01:05 | P.PN ---
Progress Note - Text Progress Note Date: 04/13/24 Patient seen and examined. She feels much better today. She is not having any diarrhea. Denies nausea and vomiting. She is tolerating diet. PHYSICAL EXAM: VITAL SIGNS: Reviewed GENERAL: Well-developed in no acute distress. ABDOMEN: Soft. Nondistended. Nontender NEUROLOGIC: Alert and oriented. Cranial nerves II through XII grossly intact. ASSESSMENT: 1. Gastroenteritis with diarrhea. Improved. 2. Indeterminate blind-ending structure in the right lower quadrant noted on CT scan PLAN: -CT-AP reviewed. No concerning pathology noted. Patients Efferent, Afferent, and Common Channel Limb of RNY Gastric Bypass appear normal without any evidence of internal hernia. -Regular Diet -ID and Medical Management of Colitis and Diarrhea -Nausea Control -No acute surgical intervention Nadir Dc DO [facility] [phone]
[2024-04-14 04:55] LABS: INR 2.7 (<1.2); Prothrombin Time 26.7 sec (10.0-12.5)
--- NOTE | 2024-04-14 13:32 | US ---
EXAMINATION TYPE: US venous doppler duplex LE BI DATE OF EXAM: 04/14/2024 1:22 PM COMPARISON: 11/24/2021 CLINICAL INDICATION: Female, 69 years old with history of swelling; Hx PE; A-fib; fell and was on jhonny or for two days , Pain TECHNIQUE: The lower extremity deep venous system is examined utilizing real time linear array sonog maribel with graded compression, color doppler sonography, and spectral doppler. SIDE PERFORMED: Bilateral FINDINGS: VESSELS IMAGED: Common Femoral Vein Deep Femoral Vein Greater Saphenous Vein * Femoral Vein Popliteal Vein Small Saphenous Vein * Proximal Calf Veins (* superficial vessels) Right Leg: Negative for DVT, Color Doppler imaging shows patency of the vessels. Spectral waveforms are within normal limits. Left Leg: Negative for DVT, Color Doppler imaging shows patency of the vessels. Spectral waveforms a re within normal limits. IMPRESSION: No ultrasound evidence for deep venous thrombosis. [facility], , 04/14/2024 1:30 PM
--- NOTE | 2024-04-14 14:48 | P.PN ---
Subjective Progress Note Date: 04/14/24 SURGICAL PROGRESS NOTE CHIEF COMPLAINT: Diarrhea HISTORY OF PRESENT ILLNESS: Patient reports she is feeling better. She is no longer having diarrhea. She denies any nausea or vomiting. She is tolerating diet. Denies any abdominal pain. She wants to be discharged. Patient did have a temp of 101 yesterday. PHYSICAL EXAM: VITAL SIGNS: Reviewed. GENERAL: Well-developed in no acute distress. ABDOMEN: Soft. Nondistended. Nontender. NEUROLOGIC: Alert and oriented. Cranial nerves II through XII grossly intact. ASSESSMENT: 1. Colitis with diarrhea. Improved. 2. Indeterminate blind-ending structure in the right lower quadrant noted on CT scan PLAN: -Per surgeon CT-AP reviewed. No concerning pathology noted. Patients Efferent, Afferent, and Common Channel Limb of RNY Gastric Bypass appear normal without any evidence of internal hernia. -No surgical intervention planned -Continue regular diet -Antibiotics per ID service Physician Bus Cleaner note has been reviewed by physician. Signing provider agrees with the documented findings, assessment, and plan of care. Objective - Vital Signs Vital signs: Vital Signs Temp 98.4 F 04/14/24 06:58 Pulse 101 H 04/14/24 06:58 Resp 16 04/14/24 11:35 BP 100/64 04/14/24 06:58 Pulse Ox 94 L 04/14/24 06:58 FiO2 Intake & Output 04/13/24 04/14/24 04/14/24 18:59 06:59 18:59 Intake Total 290 Balance 290 Intake: Intake, IV Titration 50 Amount cefTRIAXone 2 gm In 50 Sodium Chloride 0.9% 50 ml @ 100 mls/hr IVPB Q24HR [facility] Rx#:[id number] Oral 240 Other: Voiding Method Diaper Toilet Toilet # Voids 1 1 - Labs CBC & Chem 7: 04/13/24 03:21 04/13/24 03:21 Labs: Abnormal Lab Results - Last 24 Hours (Table) 04/14/24 04/14/24 Range/Units 04:11 14:00 PT 26.7 H (10.0-12.5) sec INR 2.7 H (<1.2) SARS-CoV-2 (PCR) Detected A (Not Detectd)
--- NOTE | 2024-04-14 18:02 | P.PN ---
Subjective Progress Note Date: 04/14/24 Patient is a 69-year-old female with past medical history significant for atrial fibrillation, hypothyroidism, PE/DVT, previous gastric bypass surgery. Of note, patient had a recent ER visit back on April 04 for severe episodic watery diarrhea. She returns to the emergency department yesterday afternoon with a similar complaint. I am evaluating this patient in the emergency department, room 14. She states that since Sunday she has had severe intractable diarrhea that is watery and brown. She also reports some mild abdominal discomfort, nausea without emesis. She has been very weak at home. Gets lightheaded on arising, but denies losing consciousness or syncopal events. Not able to t olerate much oral intake. Denies recent antibiotic use. Denies recent sick contacts. CBC is unremarkable without leukocytosis. She continues to have fluid loss. She is in a state of anion gap metabolic acidosis. Most recent CMP includes a sodium 137, potassium 2.6, chloride 106, serum bicarb down to 9, anion gap 22, BUN 33, creatinine 1.72, glucose 98. Magnesium was low at 1.2. EKG: Atrial fibrillation wtih RVR and frequent PVCs, rate 116. LFTs mildly elevated. CPK 2694. Stool occult blood was negative. C. difficile negative. We were consulted early this morning as the patient's blood pressure has been borderline hypotensive. She has received a total of 4 L crystalloid fluid bolus . She is also in atrial fibrillation with RVR ranging from 100 to 120 bpm. She continues to have copious amounts of liquid diarrhea, there is an FMS in place. CT of abdomen and pelvis showing moderate liquid stool throughout the colon compatible with history of diarrhea and mild wall thickening of the sigmoid colon and rectum, possible mild colitis. Also, indeterminate blind-ending structure in the right lower quadrant measuring 21 x 18 mm unclear etiology,. No evidence of pneumoperitoneum, free fluid, or bowel obstruction. Postsurgical findings noted. Patient has been empirically covered on a combination of Rocephin and Flagyl. Current vitals: Temperature 98.2 F, heart rate 118 bpm, blood pressure 101/50 mmHg, nontachypneic, SpO2 96% on room air. The patient is seen today April 08, 2024 in follow-up on the selective care unit. She is currently resting comfortably in bed. Awake and alert in no acute distress. She is maintaining good O2 saturations in the 90s on room air. She is receiving D5W with 3 A of bicarb at 130 mL/h. Stool culture showing Aeromonas hydrophila. White count 8.1. Hemoglobin 13.1. Platelets 189. Sodium 137. Potassium 3.0. Bicarb 28. BUN 16. Creatinine 0.86. Glucose 127. She remains on Questran and Flagyl. Remains on ceftriaxone. Anticoagulated with Eliquis. The patient is seen today April 13, 2024 in follow-up on the regular medical floor. She is currently resting comfortably in bed. Awake and alert in no acute distress. She still has a somewhat congested cough. She is maintaining good O2 saturations in the 90s on room air. No IV fluids. INR 2.6. Remains on ceftriaxone, Flagyl, Questran. Anticoagulated with warfarin. White count 6.4. Hemoglobin 14.8. Platelets 144. Sodium 140. Potassium 3.0. Bicarb 24. BUN 8. Creatinine 1.0. Glucose 90. On 04/14/2024, patient is being seen for a follow-up. This patient is 69 years old who presented to us with diarrhea, generalized weakness, and fall. She also had an acute kidney injury and rhabdomyolysis with hypokalemia and hypomagnesemia and atrial fibrillation with rapid ventricular response. Currently, the patient is doing well. She is on room air oxygen. No significant shortness of breath. No chest pain. No active diarrhea. Electrolytes are still pending from today. Potassium from yesterday was at 3.0. Renal function was stable and within normal limits. The white cell count is 6.4 with a hemoglobin 14.8 and a platelet count of 144. Doppler of the lower extremities were negative for DVT. Echocardiogram from 04/08/2024 showed preserved LV function, no significant valvular abnormalities. The patient had a stool culture that was positive for Aeromonas. In terms of therapy, she is on Questran and she is on a combination of Rocephin and Flagyl. Hemodynamically stable. No nausea. No emesis. No abdominal pain. Gastroenteritis and diarrhea has improved. CAT scan of the abdomen and pelvis showed no concerning pathology. The patient is status post Rosaura-en-Y gastric bypass surgery without evidence of any internal hernia. The patient is currently on regular diet. She is still anticoagulation with warfarin with a therapeutic PT/INR. Objective - Vital Signs Vital signs: Vital Signs Temp 98.4 F 04/14/24 06:58 Pulse 101 H 04/14/24 06:58 Resp 16 04/14/24 11:35 BP 100/64 04/14/24 06:58 Pulse Ox 94 L 04/14/24 06:58 FiO2 Intake & Output 04/13/24 04/14/24 04/14/24 18:59 06:59 18:59 Intake Total 290 Balance 290 Intake: Intake, IV Titration 50 Amount cefTRIAXone 2 gm In 50 Sodium Chloride 0.9% 50 ml @ 100 mls/hr IVPB Q24HR [facility] Rx#:[id number] Oral 240 Other: Voiding Method Diaper Toilet Toilet # Voids 1 1 - Exam GENERAL EXAM: Alert, 69-year-old obese female, resting in bed, on room air, comfortable in no apparent distress. HEAD: Normocephalic and atraumatic EYES: Normal reaction of pupils, equal size. NOSE: Clear with pink turbinates. THROAT: No erythema or exudates. NECK: No masses, no JVD. CHEST: No chest wall deformity. LUNGS: Equal air entry with no crackles, wheeze, rhonchi or dullness. On room air. No conversational dyspnea. CVS: S1 and S2 normal with no audible murmur, regular rhythm. No extra heart sounds ABDOMEN: No hepatosplenomegaly, active bowel sounds, no guarding or rigidity. FMS with copious amounts of liquid diarrhea, SPINE: No scoliosis or deformity SKIN: No rashes CENTRAL NERVOUS SYSTEM: No focal deficits, tone is normal in all 4 extremities. EXTREMITIES: There is no peripheral edema, clubbing, or cyanosis. Peripheral pulses are intact. - Labs CBC & Chem 7: 04/13/24 03:21 04/13/24 03:21 Labs: Abnormal Lab Results - Last 24 Hours (Table) 04/14/24 Range/Units 04:11 PT 26.7 H (10.0-12.5) sec INR 2.7 H (<1.2) Assessment and Plan Plan: Severe diarrheal illness and colitis, CT of abdomen and pelvis showing moderate liquid stool throughout the colon compatible with history of diarrhea and mild wall thickening of the sigmoid colon and rectum, possible mild colitis. Stool culture revealing Aeromonas hydrophila. On ceftriaxone, Flagyl, Questran. Symptoms of gastroenteritis and improved Hypotension, secondary to fluid losses and hypovolemia, recovered Severe anion gap metabolic acidosis, recovered Acute rhabdomyolysis, the CPK 2694, recovered Acute kidney injury, secondary to combination of above Severe hypokalemia and hypomagnesemia, being replaced per protocol Atrial fibrillation with rapid ventricular response anticoagulated with Eliquis History of heart failure with reduced ejection fraction History of PE/DVT History of previous gastric bypass surgery History of hypothyroidism Plan: The patient is stable on room air oxygen Patient is on Rocephin and Flagyl Remains hemodynamically stable Remains on anticoagulation with warfarin with a therapeutic PT/INR Antibiotics per ID service
[2024-04-14] MEDS: WARFARIN 1 MG TAB PO ONE (18:34)
--- NOTE | 2024-04-14 22:46 | P.PN ---
Subjective This is a pleasant 69 years old female Who presents because of fall and hypotension and found to have acute gastroenteritis secondary to sigmoid colitis and rhabdomyolysis. Also she has some abnormal urine sample but no evidence of UTI. She has also chronic medical problems like A-fib and history of PE Patient currently sitting in chair, very lethargic and weak but mentation at baseline She has poor diet, she thinks she is n.p.o. but there is a cardiac diet ordered for her. She has mild abdominal pain about 8/10 as per patient. Patient states that her diarrhea is better No urinary symptoms Patient is difficult for her to stop because of her weakness. But denies chest pain or dyspnea. Creatinine is improved down to 1.2, potassium low at 3.0 Blood pressure is still on the low side 97/55 Pro- Calcitonin slightly elevated at 0.39 Creatinine kinase was high at 2699 C-reactive protein was high at 21 Occult blood in stool and C. difficile both were negative COVID and influenza virus were negative CT of the abdomen pelvis showing wall thickening of the sigmoid colon and right lower lobe indeterminate structure could be surgical scar Stool cultures growing Aeromonas hydrophilia. Patient currently covered with ceftriaxone and Flagyl with ID team on the case 04/09/24 Patient with improving abdominal pain down from 8 down to 6/10 in severity She still have fecal management system in place she has watery loose diarrhea. No vomiting. She remains on normal saline She is on ceftriaxone and Flagyl with positive stool culture Aeromonas hydrophilia 1/2 Patient improving clinically, diarrhea is improving, but not completely resolved with no abdominal pain and she tolerates diet, she is off IV fluids Her electrolytes is also improvement She remains on antibiotics with ceftriaxone and Flagyl She is continued on home dose of Eliquis for her history of A-fib and history of pulmonary embolism Patient still feels generally weak We will ask for PT/OT evaluation, which is pending Patient has not been since surgeon before therefore she might benefit from evaluation. There is no GI service in this facility 04/11 Patient today was doing well and she was cleared for discharge by all consultants. She had very mild periumbilical discomfort and some nausea but she tolerates diet and she had f formed stool. No other new complaint. 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 Also patient cannot get a free coupon. I discussed with the case repairer, there is no free coupon for Xarelto as well or other alternative. Patient is high risk for stroke therefore we are going to start her on Coumadin with goal INR 2-3. Coumadin would be pharmacy to dose. In the meanwhile patient might require Lovenox bridging. Discussed with the staff Also patient can be downgraded to general medical floor 04/14, resuming the care of the patient today She is fully awake oriented No confusion no chest pain No specific GI and symptoms looks improved Patient remains on ceftriaxone and Flagyl Sodium bicarb drip at 50 mL/h and Eliquis started in the hospital Objective - Vital Signs Vital signs: Vital Signs Temp 98.4 F 04/14/24 06:58 Pulse 101 H 04/14/24 06:58 Resp 16 04/14/24 11:35 BP 100/64 04/14/24 06:58 Pulse Ox 94 L 04/14/24 06:58 FiO2 Intake & Output 04/13/24 04/14/24 04/14/24 18:59 06:59 18:59 Intake Total 290 Balance 290 Intake: Intake, IV Titration 50 Amount cefTRIAXone 2 gm In 50 Sodium Chloride 0.9% 50 ml @ 100 mls/hr IVPB Q24HR [facility] Rx#:[id number] Oral 240 Other: Voiding Method Diaper Toilet Toilet # Voids 1 1 - Exam -GENERAL: The patient is alert and oriented x3, not in any acute distress. Well developed, well nourished. Generally weak HEENT: Pupils are round and equally reacting to light. EOMI. No scleral icterus. No conjunctival pallor. Normocephalic, atraumatic. No pharyngeal erythema. No thyromegaly. CARDIOVASCULAR: S1 and S2 present. No murmurs, rubs, or gallops. PULMONARY: Chest is clear to auscultation, no wheezing , no crackles. -ABDOMEN: Soft, n mild periumbilical tenderness, no guarding or rebound tenderness, nondistended, normoactive bowel sounds. No palpable organomegaly. MUSCULOSKELETAL: No joint swelling or deformity. EXTREMITIES: No cyanosis, clubbing, or pedal edema. NEUROLOGICAL: Gross neurological examination did not reveal any focal deficits. SKIN: No rashes. no petechiae. - Labs CBC & Chem 7: 04/13/24 03:21 04/13/24 03:21 Labs: Abnormal Lab Results - Last 24 Hours (Table) 04/14/24 Range/Units 04:11 PT 26.7 H (10.0-12.5) sec INR 2.7 H (<1.2) Assessment and Plan Assessment: Fall at home without syncope Hypotension, currently improved Acute sigmoid colitis with stool culture growing Aeromonas hydrophilia Rhabdomyolysis Chronic A-fib with RVR on admission, currently controlled. Patient has high co- pay for Eliquis and currently she is not covered with anticoagulation when she goes home. Need to start new Coumadin History of PE History of bipolar Plan: No IV fluid Patient tolerates diet PT/OT recommended home health care Surgical team consult. No GI coverage in this facility this week Continue with ceftriaxone and Flagyl Patient was cleared for discharge by all consultants but she has no Eliquis at home as her she has high co-pay she cannot afford it. Patient does not safe to go home we have to start Coumadin with Lovenox bridging till INR at goal of 2-3 Several consultants on the case including infectious disease, pulmonary and government teacher Labs and medication were reviewed.. Continue same treatment. Continue with symptomatic treatment. Resume home medication. Monitor labs and vitals. DVT and GI prophylaxis. Further recommendations as per clinical course of the patient DVT prophylaxis: Schneider Eliquis GI Prophylaxis: Protonix PT/OT: Pending Prognosis is guarded
[2024-04-15 05:29] LABS: INR 3.2 (<1.2); Prothrombin Time 31.8 sec (10.0-12.5)
--- NOTE | 2024-04-15 10:31 | P.PN ---
Subjective This is a pleasant 69 years old female Who presents because of fall and hypotension and found to have acute gastroenteritis secondary to sigmoid colitis and rhabdomyolysis. Also she has some abnormal urine sample but no evidence of UTI. She has also chronic medical problems like A-fib and history of PE Patient currently sitting in chair, very lethargic and weak but mentation at baseline She has poor diet, she thinks she is n.p.o. but there is a cardiac diet ordered for her. She has mild abdominal pain about 8/10 as per patient. Patient states that her diarrhea is better No urinary symptoms Patient is difficult for her to stop because of her weakness. But denies chest pain or dyspnea. Creatinine is improved down to 1.2, potassium low at 3.0 Blood pressure is still on the low side 97/55 Pro- Calcitonin slightly elevated at 0.39 Creatinine kinase was high at 2699 C-reactive protein was high at 21 Occult blood in stool and C. difficile both were negative COVID and influenza virus were negative CT of the abdomen pelvis showing wall thickening of the sigmoid colon and right lower lobe indeterminate structure could be surgical scar Stool cultures growing Aeromonas hydrophilia. Patient currently covered with ceftriaxone and Flagyl with ID team on the case 04/09/24 Patient with improving abdominal pain down from 8 down to 6/10 in severity She still have fecal management system in place she has watery loose diarrhea. No vomiting. She remains on normal saline She is on ceftriaxone and Flagyl with positive stool culture Aeromonas hydrophilia 1/2 Patient improving clinically, diarrhea is improving, but not completely resolved with no abdominal pain and she tolerates diet, she is off IV fluids Her electrolytes is also improvement She remains on antibiotics with ceftriaxone and Flagyl She is continued on home dose of Eliquis for her history of A-fib and history of pulmonary embolism Patient still feels generally weak We will ask for PT/OT evaluation, which is pending Patient has not been since surgeon before therefore she might benefit from evaluation. There is no GI service in this facility 04/11 Patient today was doing well and she was cleared for discharge by all consultants. She had very mild periumbilical discomfort and some nausea but she tolerates diet and she had f formed stool. No other new complaint. 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 Also patient cannot get a free coupon. I discussed with the case management specialist, there is no free coupon for Xarelto as well or other alternative. Patient is high risk for stroke therefore we are going to start her on Coumadin with goal INR 2-3. Coumadin would be pharmacy to dose. In the meanwhile patient might require Lovenox bridging. Discussed with the staff Also patient can be downgraded to general medical floor 04/14, resuming the care of the patient today She is fully awake oriented No confusion no chest pain No specific GI and symptoms looks improved Patient remains on ceftriaxone and Flagyl Sodium bicarb drip at 50 mL/h and Eliquis started in the hospital 04/15 Patient is awake and alert, she feels generally weak She is still on antibiotics for her intra-abdominal infection She is also started on Coumadin for her A-fib and currently on room warfarin with INR 3.2. She got 1 mg of Coumadin last night. Explained for the patient the importance of keeping INR between 2-3 and more that it has high risk of bleeding and she verbalized understanding and acceptance to this treatment Also per previous PT evaluation patient might qualify for subacute rehab. Will going to recheck in a talk to the patient and she is acceptable to go to rehab if needed Continue with ceftriaxone and Flagyl Objective - Vital Signs Vital signs: Vital Signs Temp 98.4 F 04/15/24 06:57 Pulse 100 04/15/24 06:57 Resp 16 04/15/24 06:57 BP 97/67 04/15/24 06:57 Pulse Ox 94 L 04/15/24 06:57 FiO2 Intake & Output 04/14/24 04/15/24 04/15/24 18:59 06:59 18:59 Intake Total 200 Balance 200 Intake: Oral 200 Other: Voiding Method Toilet Toilet # Voids 1 1 # Bowel Movements 1 - Exam -GENERAL: The patient is alert and oriented x3, not in any acute distress. Well developed, well nourished. Generally weak HEENT: Pupils are round and equally reacting to light. EOMI. No scleral icterus. No conjunctival pallor. Normocephalic, atraumatic. No pharyngeal erythema. No thyromegaly. CARDIOVASCULAR: S1 and S2 present. No murmurs, rubs, or gallops. PULMONARY: Chest is clear to auscultation, no wheezing , no crackles. -ABDOMEN: Soft, n mild periumbilical tenderness, no guarding or rebound tenderness, nondistended, normoactive bowel sounds. No palpable organomegaly. MUSCULOSKELETAL: No joint swelling or deformity. EXTREMITIES: No cyanosis, clubbing, or pedal edema. NEUROLOGICAL: Gross neurological examination did not reveal any focal deficits. SKIN: No rashes. no petechiae. - Labs CBC & Chem 7: 04/13/24 03:21 04/13/24 03:21 Labs: Abnormal Lab Results - Last 24 Hours (Table) 04/14/24 04/15/24 Range/Units 14:00 04:20 PT 31.8 H (10.0-12.5) sec INR 3.2 H (<1.2) SARS-CoV-2 (PCR) Detected A (Not Detectd) Assessment and Plan Assessment: Fall at home without syncope Hypotension, currently improved Acute sigmoid colitis with stool culture growing Aeromonas hydrophilia Rhabdomyolysis Chronic A-fib with RVR on admission, currently controlled. Patient has high co- pay for Eliquis and currently she is not covered with anticoagulation when she goes home. Need to start new Coumadin History of PE History of bipolar Plan: No IV fluid Patient tolerates diet PT/OT recommendation noted Surgical team consult. No need for surgical intervention Continue with ceftriaxone and Flagyl Continue with Coumadin with goal INR 2-3, explained for the patient and she is agreeable Patient was cleared for discharge by all consultants but she has no Eliquis at home as her she has high co-pay she cannot afford it. Patient does not safe to go home we have to start Coumadin with Lovenox bridging till INR at goal of 2-3 Several consultants on the case including infectious disease, pulmonary and premix concrete batcher Labs and medication were reviewed.. Continue same treatment. Continue with symptomatic treatment. Resume home medication. Monitor labs and vitals. DVT and GI prophylaxis. Further recommendations as per clinical course of the patient DVT prophylaxis: On Coumadin GI Prophylaxis: Protonix PT/OT: Pending Prognosis is guarded
[2024-04-15 11:15] LABS: African American GFR (CKD) >90 (>60 ml/min/1.73 sqM); Anion Gap 4 mmol/L; Blood Urea Nitrogen 8 mg/dL (7-17); Calcium 7.5 mg/dL (8.4-10.2); Carbon Dioxide 31 mmol/L (22-30); Chloride 101 mmol/L (98-107); Glucose 84 mg/dL (74-99); Magnesium 1.8 mg/dL (1.6-2.3); Non-African American GFR(CKD) 87 (>60 ml/min/1.73 sqM); Potassium 3.1 mmol/L (3.5-5.1); Sodium 136 mmol/L (137-145)
--- NOTE | 2024-04-15 13:25 | P.PN ---
Subjective Progress Note Date: 04/14/24 Principal diagnosis: Reason for follow-up is colitis/Aeromonas hydrophila infection Patient is a 69-year-old female with a past medical history significant for atrial fibrillation SVT hypothyroidism presenting to the hospital about a week ago for evaluation of diarrhea with fecal incontinence symptom has been going on for about 5 days before presentation to the hospital patient CT was suggestive of colitis and stool cultures came back positive with Aeromonas hydrophilia prompting this consultation. On today's evaluation that is 04/14/2023, patient did have another fever of 101 F last evening, patient has been afebrile this morning., patient is breathing comfortably and is currently on room air, patient denies having any significant cough no chest pain, patient denies nausea vomiting or diarrhea and no abdominal pain Patient did have INR of 2.7 no CBC was done today Objective - Vital Signs Vital signs: Vital Signs Temp 98.4 F 04/14/24 06:58 Pulse 101 H 04/14/24 06:58 Resp 16 04/14/24 11:35 BP 100/64 04/14/24 06:58 Pulse Ox 94 L 04/14/24 06:58 FiO2 Intake & Output 04/13/24 04/14/24 04/14/24 18:59 06:59 18:59 Intake Total 290 Balance 290 Intake: Intake, IV Titration 50 Amount cefTRIAXone 2 gm In 50 Sodium Chloride 0.9% 50 ml @ 100 mls/hr IVPB Q24HR [facility] Rx#:[id number] Oral 240 Other: Voiding Method Diaper Toilet Toilet # Voids 1 1 - Exam GENERAL DESCRIPTION: An elderly female lying in bed in no distress RESPIRATORY SYSTEM: Unlabored breathing , decreased breath sounds at bases HEART: S1 S2 regular rate and rhythm , ABDOMEN: Soft , no tenderness EXTREMITIES: No edema feet - Labs CBC & Chem 7: 04/13/24 03:21 04/15/24 10:25 Labs: Abnormal Lab Results - Last 24 Hours (Table) 04/14/24 Range/Units 04:11 PT 26.7 H (10.0-12.5) sec INR 2.7 H (<1.2) Assessment and Plan (1) Colitis Current Visit: Yes Status: Acute Code(s): K52.9 - NONINFECTIVE GASTROENTERITIS AND COLITIS, UNSPECIFIED SNOMED Code(s): 00047353 (2) Intestinal infection due to Aeromonas hydrophila Current Visit: Yes Status: Acute Code(s): A04.8 - OTHER SPECIFIED BACTERIAL INTESTINAL INFECTIONS SNOMED Code(s): 456511899 Plan: 1patient was in the hospital about a week ago for evaluation of abdominal pain and diarrhea CT shows evidence of colitis in the stool concern ongoing Aeromonas hydrophila likely the pathogen causing her illness she tested negative for C. difficile, initial susceptibility report did not mention Rocephin I did call the micro lab personally to confirm sensitivity of this pathogen Rocephin 2-patient did have low-grade fever however white count has been normal, we will go ahead and check COVID influenza PCR for now continue with Rocephin Dictation was produced using [employer] dictation software. please excuse any grammatical, word or spelling errors. Time with Patient: Less than 30
--- NOTE | 2024-04-15 13:27 | P.PN ---
Subjective Progress Note Date: 04/15/24 Principal diagnosis: Reason for follow-up is colitis/Aeromonas hydrophila infection Patient is a 69-year-old female with a past medical history significant for atrial fibrillation SVT hypothyroidism presenting to the hospital about a week ago for evaluation of diarrhea with fecal incontinence symptom has been going on for about 5 days before presentation to the hospital patient CT was suggestive of colitis and stool cultures came back positive with Aeromonas hydrophilia prompting this consultation. On today's evaluation that is 04/15/2023, Patient did have resolution of her fever and is afebrile this morning patient denies having any chest pain shortness of breath or cough, the patient is currently on room air, patient denies any abdominal pain no diarrhea no nausea no vomiting. Patient tested positive for COVID-19, creatinine 0.71 Objective - Vital Signs Vital signs: Vital Signs Temp 98.4 F 04/15/24 06:57 Pulse 100 04/15/24 06:57 Resp 16 04/15/24 06:57 BP 97/67 04/15/24 06:57 Pulse Ox 94 L 04/15/24 06:57 FiO2 Intake & Output 04/14/24 04/15/24 04/15/24 18:59 06:59 18:59 Intake Total 200 Balance 200 Intake: Oral 200 Other: Voiding Method Toilet Toilet # Voids 1 1 # Bowel Movements 1 - Exam GENERAL DESCRIPTION: An elderly female lying in bed in no distress RESPIRATORY SYSTEM: Unlabored breathing , decreased breath sounds at bases HEART: S1 S2 regular rate and rhythm , ABDOMEN: Soft , no tenderness EXTREMITIES: No edema feet - Labs CBC & Chem 7: 04/13/24 03:21 04/15/24 10:25 Labs: Abnormal Lab Results - Last 24 Hours (Table) 04/14/24 04/15/24 04/15/24 Range/Units 14:00 04:20 10:25 PT 31.8 H (10.0-12.5) sec INR 3.2 H (<1.2) Sodium 136 L (137-145) mmol/L Potassium 3.1 L (3.5-5.1) mmol/L Carbon Dioxide 31 H (22-30) mmol/L Calcium 7.5 L (8.4-10.2) mg/dL SARS-CoV-2 (PCR) Detected A (Not Detectd) Assessment and Plan (1) Colitis Current Visit: Yes Status: Acute Code(s): K52.9 - NONINFECTIVE GASTROENTERITIS AND COLITIS, UNSPECIFIED SNOMED Code(s): 86988969 (2) Intestinal infection due to Aeromonas hydrophila Current Visit: Yes Status: Acute Code(s): A04.8 - OTHER SPECIFIED BACTERIAL INTESTINAL INFECTIONS SNOMED Code(s): 645151770 (3) COVID-19 Current Visit: Yes Status: Acute Code(s): U07.1 - COVID-19 SNOMED Code(s): 401572190 Plan: 1patient was in the hospital about a week ago for evaluation of abdominal pain and diarrhea CT shows evidence of colitis in the stool concern ongoing Aeromonas hydrophila likely the pathogen causing her illness she tested negative for C. difficile, initial susceptibility report did not mention Rocephin I did call the micro lab personally to confirm sensitivity of this pathogen Rocephin 2-patient did have fever and tested positive for COVID-19 however patient is currently not hypoxic or significant respiratory symptoms treat will be mostly supportive 3for her Aeromonas colitis continue with the Rocephin shot course of Ceftin on discharge Dictation was produced using [employer] dictation software. please excuse any grammatical, word or spelling errors. Time with Patient: Less than 30
[2024-04-15] MEDS: POTASSIUM CHLORIDE ER 20 MEQ TAB.ER PO SCH (15:59)
[2024-04-15] MEDS: WARFARIN 0.5 MG TAB PO ONE (17:49)
--- NOTE | 2024-04-15 22:26 | P.PN ---
Subjective Progress Note Date: 04/15/24 Patient is a 69-year-old female with past medical history significant for atrial fibrillation, hypothyroidism, PE/DVT, previous gastric bypass surgery. Of note, patient had a recent ER visit back on April 04 for severe episodic watery diarrhea. She returns to the emergency department yesterday afternoon with a similar complaint. I am evaluating this patient in the emergency department, room 14. She states that since Sunday she has had severe intractable diarrhea that is watery and brown. She also reports some mild abdominal discomfort, nausea without emesis. She has been very weak at home. Gets lightheaded on arising, but denies losing consciousness or syncopal events. Not able to t olerate much oral intake. Denies recent antibiotic use. Denies recent sick contacts. CBC is unremarkable without leukocytosis. She continues to have fluid loss. She is in a state of anion gap metabolic acidosis. Most recent CMP includes a sodium 137, potassium 2.6, chloride 106, serum bicarb down to 9, anion gap 22, BUN 33, creatinine 1.72, glucose 98. Magnesium was low at 1.2. EKG: Atrial fibrillation wtih RVR and frequent PVCs, rate 116. LFTs mildly elevated. CPK 2694. Stool occult blood was negative. C. difficile negative. We were consulted early this morning as the patient's blood pressure has been borderline hypotensive. She has received a total of 4 L crystalloid fluid bolus . She is also in atrial fibrillation with RVR ranging from 100 to 120 bpm. She continues to have copious amounts of liquid diarrhea, there is an FMS in place. CT of abdomen and pelvis showing moderate liquid stool throughout the colon compatible with history of diarrhea and mild wall thickening of the sigmoid colon and rectum, possible mild colitis. Also, indeterminate blind-ending structure in the right lower quadrant measuring 21 x 18 mm unclear etiology,. No evidence of pneumoperitoneum, free fluid, or bowel obstruction. Postsurgical findings noted. Patient has been empirically covered on a combination of Rocephin and Flagyl. Current vitals: Temperature 98.2 F, heart rate 118 bpm, blood pressure 101/50 mmHg, nontachypneic, SpO2 96% on room air. The patient is seen today April 08, 2024 in follow-up on the selective care unit. She is currently resting comfortably in bed. Awake and alert in no acute distress. She is maintaining good O2 saturations in the 90s on room air. She is receiving D5W with 3 A of bicarb at 130 mL/h. Stool culture showing Aeromonas hydrophila. White count 8.1. Hemoglobin 13.1. Platelets 189. Sodium 137. Potassium 3.0. Bicarb 28. BUN 16. Creatinine 0.86. Glucose 127. She remains on Questran and Flagyl. Remains on ceftriaxone. Anticoagulated with Eliquis. The patient is seen today April 13, 2024 in follow-up on the regular medical floor. She is currently resting comfortably in bed. Awake and alert in no acute distress. She still has a somewhat congested cough. She is maintaining good O2 saturations in the 90s on room air. No IV fluids. INR 2.6. Remains on ceftriaxone, Flagyl, Questran. Anticoagulated with warfarin. White count 6.4. Hemoglobin 14.8. Platelets 144. Sodium 140. Potassium 3.0. Bicarb 24. BUN 8. Creatinine 1.0. Glucose 90. On 04/14/2024, patient is being seen for a follow-up. This patient is 69 years old who presented to us with diarrhea, generalized weakness, and fall. She also had an acute kidney injury and rhabdomyolysis with hypokalemia and hypomagnesemia and atrial fibrillation with rapid ventricular response. Currently, the patient is doing well. She is on room air oxygen. No significant shortness of breath. No chest pain. No active diarrhea. Electrolytes are still pending from today. Potassium from yesterday was at 3.0. Renal function was stable and within normal limits. The white cell count is 6.4 with a hemoglobin 14.8 and a platelet count of 144. Doppler of the lower extremities were negative for DVT. Echocardiogram from 04/08/2024 showed preserved LV function, no significant valvular abnormalities. The patient had a stool culture that was positive for Aeromonas. In terms of therapy, she is on Questran and she is on a combination of Rocephin and Flagyl. Hemodynamically stable. No nausea. No emesis. No abdominal pain. Gastroenteritis and diarrhea has improved. CAT scan of the abdomen and pelvis showed no concerning pathology. The patient is status post Rosaura-en-Y gastric bypass surgery without evidence of any internal hernia. The patient is currently on regular diet. She is still anticoagulation with warfarin with a therapeutic PT/INR. On 04/15/2024, the patient is being seen for a follow-up. Awake and alert and denies having any specific complaints other than generalized weakness. She is working with physical therapy and the patient is seeking subacute rehabilitation. Remains on Rocephin and Flagyl. Remains on warfarin for chronic A-fib. Electrolytes are stable with a sodium level of 136, potassium level of 3.1, bicarb of 31, BUN is 8 with a creatinine of 0.7. COVID-19 was positive on 04/14/2024. Objective - Vital Signs Vital signs: Vital Signs Temp 98.6 F 04/15/24 19:37 Pulse 103 H 04/15/24 19:37 Resp 17 04/15/24 19:37 BP 86/55 04/15/24 19:37 Pulse Ox 92 L 04/15/24 19:37 FiO2 Intake & Output 04/15/24 04/15/24 04/16/24 06:59 18:59 06:59 Other: Voiding Method Toilet Toilet # Voids 1 2 # Bowel Movements 0 - Exam GENERAL EXAM: Alert, 69-year-old obese female, resting in bed, on room air, comfortable in no apparent distress. HEAD: Normocephalic and atraumatic EYES: Normal reaction of pupils, equal size. NOSE: Clear with pink turbinates. THROAT: No erythema or exudates. NECK: No masses, no JVD. CHEST: No chest wall deformity. LUNGS: Equal air entry with no crackles, wheeze, rhonchi or dullness. On room air. No conversational dyspnea. CVS: S1 and S2 normal with no audible murmur, regular rhythm. No extra heart sounds ABDOMEN: No hepatosplenomegaly, active bowel sounds, no guarding or rigidity. FMS with copious amounts of liquid diarrhea, SPINE: No scoliosis or deformity SKIN: No rashes CENTRAL NERVOUS SYSTEM: No focal deficits, tone is normal in all 4 extremities. EXTREMITIES: There is no peripheral edema, clubbing, or cyanosis. Peripheral pulses are intact. - Labs CBC & Chem 7: 04/13/24 03:21 04/15/24 10:25 Labs: Abnormal Lab Results - Last 24 Hours (Table) 04/15/24 04/15/24 Range/Units 04:20 10:25 PT 31.8 H (10.0-12.5) sec INR 3.2 H (<1.2) Sodium 136 L (137-145) mmol/L Potassium 3.1 L (3.5-5.1) mmol/L Carbon Dioxide 31 H (22-30) mmol/L Calcium 7.5 L (8.4-10.2) mg/dL Assessment and Plan Plan: Severe diarrheal illness and colitis, CT of abdomen and pelvis showing moderate liquid stool throughout the colon compatible with history of diarrhea and mild wall thickening of the sigmoid colon and rectum, possible mild colitis. Stool culture revealing Aeromonas hydrophila. On ceftriaxone, Flagyl, Questran. Symptoms of gastroenteritis and improved. Rule out gastrointestinal manifestation of COVID-19 infection as the patient tested positive for COVID-19 on 04/14/2024 COVID-19 infection, tested positive on 04/14/2024 Hypotension, secondary to fluid losses and hypovolemia, recovered Severe anion gap metabolic acidosis, recovered Acute rhabdomyolysis, the CPK 2694, recovered Acute kidney injury, secondary to combination of above Severe hypokalemia and hypomagnesemia, being replaced per protocol Atrial fibrillation with rapid ventricular response anticoagulated History of heart failure with reduced ejection fraction History of PE/DVT History of previous gastric bypass surgery History of hypothyroidism Plan: The patient is stable on room air oxygen Patient is on Rocephin and Flagyl Remains hemodynamically stable Remains on anticoagulation with warfarin with a therapeutic PT/INR Antibiotics per ID service Generalized weakness and debility Will benefit from physical therapy and possible further rehabilitation through ECF.
[2024-04-16 05:03] LABS: INR 3.2 (<1.2); Prothrombin Time 31.4 sec (10.0-12.5)
--- NOTE | 2024-04-16 11:35 | P.PN ---
Subjective This is a pleasant 69 years old female Who presents because of fall and hypotension and found to have acute gastroenteritis secondary to sigmoid colitis and rhabdomyolysis. Also she has some abnormal urine sample but no evidence of UTI. She has also chronic medical problems like A-fib and history of PE Patient currently sitting in chair, very lethargic and weak but mentation at baseline She has poor diet, she thinks she is n.p.o. but there is a cardiac diet ordered for her. She has mild abdominal pain about 8/10 as per patient. Patient states that her diarrhea is better No urinary symptoms Patient is difficult for her to stop because of her weakness. But denies chest pain or dyspnea. Creatinine is improved down to 1.2, potassium low at 3.0 Blood pressure is still on the low side 97/55 Pro- Calcitonin slightly elevated at 0.39 Creatinine kinase was high at 2699 C-reactive protein was high at 21 Occult blood in stool and C. difficile both were negative COVID and influenza virus were negative CT of the abdomen pelvis showing wall thickening of the sigmoid colon and right lower lobe indeterminate structure could be surgical scar Stool cultures growing Aeromonas hydrophilia. Patient currently covered with ceftriaxone and Flagyl with ID team on the case 04/09/24 Patient with improving abdominal pain down from 8 down to 6/10 in severity She still have fecal management system in place she has watery loose diarrhea. No vomiting. She remains on normal saline She is on ceftriaxone and Flagyl with positive stool culture Aeromonas hydrophilia 1/2 Patient improving clinically, diarrhea is improving, but not completely resolved with no abdominal pain and she tolerates diet, she is off IV fluids Her electrolytes is also improvement She remains on antibiotics with ceftriaxone and Flagyl She is continued on home dose of Eliquis for her history of A-fib and history of pulmonary embolism Patient still feels generally weak We will ask for PT/OT evaluation, which is pending Patient has not been since surgeon before therefore she might benefit from evaluation. There is no GI service in this facility 04/11 Patient today was doing well and she was cleared for discharge by all consultants. She had very mild periumbilical discomfort and some nausea but she tolerates diet and she had f formed stool. No other new complaint. Will plan was to discharge her home [employer] [employer] Stamper recommended to continue Eliquis for her A-fib However patient although in the beginning was told she has Eliquis alert but with further clarification it looks like she has co-pay of more than $500 per month for her Eliquis which she cannot afford so she depends on her primary rose grower to get samples, when I asked the patient she does not think or she is not sure she has Eliquis left for her in the house. Also patient cannot get a free coupon. I discussed with the senior case manager, there is no free coupon for Xarelto as well or other alternative. Patient is high risk for stroke therefore we are going to start her on Coumadin with goal INR 2-3. Coumadin would be pharmacy to dose. In the meanwhile patient might require Lovenox bridging. Discussed with the staff Also patient can be downgraded to general medical floor 04/14, resuming the care of the patient today She is fully awake oriented No confusion no chest pain No specific GI and symptoms looks improved Patient remains on ceftriaxone and Flagyl Sodium bicarb drip at 50 mL/h and Eliquis started in the hospital 04/15 Patient is awake and alert, she feels generally weak She is still on antibiotics for her intra-abdominal infection She is also started on Coumadin for her A-fib and currently on room warfarin with INR 3.2. She got 1 mg of Coumadin last night. Explained for the patient the importance of keeping INR between 2-3 and more that it has high risk of bleeding and she verbalized understanding and acceptance to this treatment Also per previous PT evaluation patient might qualify for subacute rehab. Will going to recheck in a talk to the patient and she is acceptable to go to rehab if needed Continue with ceftriaxone and Flagyl 04/16 Patient today was upset she has not been discharge, she has doctors take care of at home therefore she declined going to [facility] today although she agreed yesterday and authorization was submitted Then I called her PCP Dr. Salazar who kindly accepted to see her within 2 to 3 days to check her an INR. Her INR today is 3.2, she did not get any Coumadin last night. We are going to recheck her Coumadin tomorrow as well. As of note since restarting Coumadin she was taking less and less Coumadin 5 mg, 2.5 mg, 1.5 mg, 1 mg and yesterday nothing. Will keep holding of Coumadin today and check INR tomorrow Will give her a bolus of 500 cc She is also on other cardiac medication like metoprolol was need to be continued because of her tachycardia in the morning Because of the episode of hypotension we will check labs today and tomorrow Will keep monitoring for another 24 hours to check stability and then further recommendation based on the clinical course Of note patient told me her brother can help her every day when she goes home however he does not live with her 30/10 Review of systems CONSTITUTIONAL: No fever, no malaise, no fatigue. HEENT: No recent visual problems or hearing problems. Denied any sore throat. CARDIOVASCULAR: No orthopnea, PND, no palpitations, no syncope. GENITOURINARY: Denies any burning micturition, frequency, or urgency. MUSCULOSKELETAL/RHEUMATOLOGICAL: Denies any joint pain, swelling, or any muscle pain. ENDOCRINE: Denies any polyuria or polydipsia. Active Medications Generic Name Dose Route Start Last Admin Trade Name Freq PRN Reason Stop Dose Admin Acetaminophen 650 mg 04/12/24 08:37 04/13/24 19:42 Acetaminophen Tab 325 Mg Tab PO 650 mg Q4HR PRN Administration Fever and/ or Pain Hydrocodone Bitart/Acetaminophen 1 each 04/07/24 12:39 04/07/24 21:44 Hydrocodone/Apap 5-325mg 1 Each Tab PO 1 each Q6HR PRN Administration Moderate Pain (Scale 4 to 6) Cholestyramine Resin 4 gm 04/07/24 10:00 04/16/24 08:10 Cholestyramine (With Sugar) 4 Gm Packet PO 4 gm BID@1000,1800 CHAD Administration Ceftriaxone Sodium 2 gm/ 50 mls @ 100 mls/hr 04/07/24 09:00 04/16/24 08:10 Sodium Chloride IVPB 100 mls/hr Q24HR CHAD Administration Protocol Sodium Chloride 500 mls @ 999 mls/hr 04/16/24 11:32 Saline 0.9% IV 04/16/24 12:02 .Q31M ONE Levothyroxine Sodium 125 mcg 04/07/24 06:30 04/16/24 06:10 Levothyroxine 125 Mcg Tab PO 125 mcg [id number] CHAD Administration Metoprolol Tartrate 50 mg 04/07/24 11:30 04/16/24 08:10 Metoprolol Tartrate 50 Mg Tab PO 50 mg BID CHAD Administration Metronidazole 500 mg 04/06/24 22:45 04/16/24 08:10 Metronidazole 500 Mg Tab PO 500 mg TID CHAD Administration Protocol Miscellaneous Information 1 each 04/06/24 22:20 Magnesium Replacement Protocol 1 Each Misc MISCELLANE DAILY PRN Per Protocol Protocol Miscellaneous Information 1 each 04/11/24 15:34 Warfarin Per Pharmacy MISCELLANE DIRECTED PRN Per Protocol Protocol Miscellaneous Information 1 each 04/13/24 12:51 Potassium Replacement Protocol 1 Each Misc MISCELLANE DAILY PRN Per Protocol Protocol Morphine Sulfate 4 mg 04/06/24 22:22 Morphine Sulfate 4 Mg/Ml Syringe IV Q4HR PRN Severe Pain (Scale 7 to 10) Naloxone HCl 0.2 mg 04/06/24 15:06 Naloxone 0.4 Mg/Ml 1 Ml Vial IV Q2M PRN Opioid Reversal Ondansetron HCl 4 mg 04/06/24 22:22 04/13/24 09:24 Ondansetron 4 Mg/2 Ml Vial IVP 4 mg Q8HR PRN Administration Nausea And Vomiting Pantoprazole Sodium 40 mg 04/08/24 12:15 04/16/24 08:10 Pantoprazole 40 Mg/10 Ml Vial IVP 40 mg DAILY CHAD Administration Petrolatum 1 applic 04/06/24 18:07 Zinc Oxide Paste (Z-Guard) 1 Applic TOPICAL Q2HR PRN Wound Healing Protocol Quetiapine Fumarate 300 mg 04/06/24 21:00 04/15/24 20:56 Quetiapine 100 Mg Tab PO 300 mg HS CHAD Administration Spironolactone 25 mg 04/08/24 10:30 04/16/24 08:10 Spironolactone 25 Mg Tab PO 25 mg DAILY CAHD Administration Warfarin Sodium 0 mg 04/16/24 18:00 Warfarin 0.5 Mg Tab PO 04/16/24 18:01 ONCE@1800 ONE Objective - Vital Signs Vital signs: Vital Signs Temp 98.0 F 04/16/24 08:05 Pulse 100 04/16/24 08:05 Resp 18 04/16/24 09:47 BP 94/65 04/16/24 08:05 Pulse Ox 91 L 04/16/24 08:05 FiO2 Intake & Output 04/15/24 04/16/24 04/16/24 18:59 06:59 18:59 Intake Total 120 Output Total 2200 Balance -2080 Intake: Oral 120 Output: Urine 200 Stool 2000 Other: Voiding Method Toilet Toilet Toilet # Voids 2 1 1 # Bowel Movements 0 - Exam -GENERAL: The patient is alert and oriented x3, not in any acute distress. Well developed, well nourished. Generally weak HEENT: Pupils are round and equally reacting to light. EOMI. No scleral icterus. No conjunctival pallor. Normocephalic, atraumatic. No pharyngeal erythema. No thyromegaly. CARDIOVASCULAR: S1 and S2 present. No murmurs, rubs, or gallops. PULMONARY: Chest is clear to auscultation, no wheezing , no crackles. -ABDOMEN: Soft, n mild periumbilical tenderness, no guarding or rebound tenderness, nondistended, normoactive bowel sounds. No palpable organomegaly. MUSCULOSKELETAL: No joint swelling or deformity. EXTREMITIES: No cyanosis, clubbing, or pedal edema. NEUROLOGICAL: Gross neurological examination did not reveal any focal deficits. SKIN: No rashes. no petechiae. - Labs CBC & Chem 7: 04/13/24 03:21 04/15/24 10:25 Labs: Abnormal Lab Results - Last 24 Hours (Table) 04/16/24 Range/Units 03:35 PT 31.4 H (10.0-12.5) sec INR 3.2 H (<1.2) Assessment and Plan Assessment: Fall at home without syncope Hypotension, currently improved Acute sigmoid colitis with stool culture growing Aeromonas hydrophilia Rhabdomyolysis Chronic A-fib with RVR on admission, currently controlled. Patient has high co- pay for Eliquis and currently she is not covered with anticoagulation when she goes home. Need to start new Coumadin History of PE History of bipolar Plan: No IV fluid Bolus of 500 cc for episodes of low blood pressure Hold Coumadin today I talked to Dr. Salazar who kindly asked great to follow-up with her for checking her INR Also patient will be discharged on home health care Patient tolerates diet PT/OT recommendation noted Surgical team consult. No need for surgical intervention Continue with ceftriaxone and Flagyl Continue with Coumadin with goal INR 2-3, explained for the patient and she is agreeable Patient was cleared for discharge by all consultants but she has no Eliquis at home as her she has high co-pay she cannot afford it. Patient does not safe to go home we have to start Coumadin with Lovenox bridging till INR at goal of 2-3 Several consultants on the case including infectious disease, pulmonary and rose grower Labs and medication were reviewed.. Continue same treatment. Continue with symptomatic treatment. Resume home medication. Monitor labs and vitals. DVT and GI prophylaxis. Further recommendations as per clinical course of the patient DVT prophylaxis: On Coumadin GI Prophylaxis: Protonix PT/OT: Pending Prognosis is guarded
[2024-04-16] MEDS: SODIUM CHLORIDE 0.9% 500 ML 500 ML IV ONE (11:36)
[2024-04-16 11:48] LABS: Magnesium 1.9 mg/dL (1.6-2.3)
[2024-04-16 11:59] LABS: Basophils % (A) 0 %; Eosinophils # (A) 0.1 k/uL (0-0.7); Eosinophils % (A) 2 %; HCT 35.1 % (34.0-46.0); HGB 11.9 gm/dL (11.4-16.0); Lymphocytes # (A) 0.8 k/uL (1.0-4.8); Lymphocytes % (A) 15 %; MCH 33.5 pg (25.0-35.0); MCHC 33.8 g/dL (31.0-37.0); MCV 99.1 fL (80.0-100.0); Monocytes # (A) 0.3 k/uL (0-1.0); Monocytes % (A) 5 %; Neutrophils # (A) 3.9 k/uL (1.3-7.7); Neutrophils % (A) 76 %; Platelet Count 156 k/uL (150-450); RBC 3.54 m/uL (3.80-5.40); WBC 5.2 k/uL (3.8-10.6)
[2024-04-16] MEDS: POTASSIUM CHLORIDE ER 20 MEQ TAB.ER PO SCH (12:47)
[2024-04-16 12:52] LABS: African American GFR (CKD) >90 (>60 ml/min/1.73 sqM); Anion Gap 7 mmol/L; Blood Urea Nitrogen 7 mg/dL (7-17); Calcium 7.8 mg/dL (8.4-10.2); Carbon Dioxide 27 mmol/L (22-30); Chloride 102 mmol/L (98-107); Glucose 120 mg/dL (74-99); Non-African American GFR(CKD) 90 (>60 ml/min/1.73 sqM); Sodium 136 mmol/L (137-145)
--- NOTE | 2024-04-16 14:22 | P.PN ---
Subjective Progress Note Date: 04/16/24 Patient is a 69-year-old female with past medical history significant for atrial fibrillation, hypothyroidism, PE/DVT, previous gastric bypass surgery. Of note, patient had a recent ER visit back on April 04 for severe episodic watery diarrhea. She returns to the emergency department yesterday afternoon with a similar complaint. I am evaluating this patient in the emergency department, room 14. She states that since Sunday she has had severe intractable diarrhea that is watery and brown. She also reports some mild abdominal discomfort, nausea without emesis. She has been very weak at home. Gets lightheaded on arising, but denies losing consciousness or syncopal events. Not able to t olerate much oral intake. Denies recent antibiotic use. Denies recent sick contacts. CBC is unremarkable without leukocytosis. She continues to have fluid loss. She is in a state of anion gap metabolic acidosis. Most recent CMP includes a sodium 137, potassium 2.6, chloride 106, serum bicarb down to 9, anion gap 22, BUN 33, creatinine 1.72, glucose 98. Magnesium was low at 1.2. EKG: Atrial fibrillation wtih RVR and frequent PVCs, rate 116. LFTs mildly elevated. CPK 2694. Stool occult blood was negative. C. difficile negative. We were consulted early this morning as the patient's blood pressure has been borderline hypotensive. She has received a total of 4 L crystalloid fluid bolus . She is also in atrial fibrillation with RVR ranging from 100 to 120 bpm. She continues to have copious amounts of liquid diarrhea, there is an FMS in place. CT of abdomen and pelvis showing moderate liquid stool throughout the colon compatible with history of diarrhea and mild wall thickening of the sigmoid colon and rectum, possible mild colitis. Also, indeterminate blind-ending structure in the right lower quadrant measuring 21 x 18 mm unclear etiology,. No evidence of pneumoperitoneum, free fluid, or bowel obstruction. Postsurgical findings noted. Patient has been empirically covered on a combination of Rocephin and Flagyl. Current vitals: Temperature 98.2 F, heart rate 118 bpm, blood pressure 101/50 mmHg, nontachypneic, SpO2 96% on room air. The patient is seen today April 08, 2024 in follow-up on the selective care unit. She is currently resting comfortably in bed. Awake and alert in no acute distress. She is maintaining good O2 saturations in the 90s on room air. She is receiving D5W with 3 A of bicarb at 130 mL/h. Stool culture showing Aeromonas hydrophila. White count 8.1. Hemoglobin 13.1. Platelets 189. Sodium 137. Potassium 3.0. Bicarb 28. BUN 16. Creatinine 0.86. Glucose 127. She remains on Questran and Flagyl. Remains on ceftriaxone. Anticoagulated with Eliquis. The patient is seen today April 13, 2024 in follow-up on the regular medical floor. She is currently resting comfortably in bed. Awake and alert in no acute distress. She still has a somewhat congested cough. She is maintaining good O2 saturations in the 90s on room air. No IV fluids. INR 2.6. Remains on ceftriaxone, Flagyl, Questran. Anticoagulated with warfarin. White count 6.4. Hemoglobin 14.8. Platelets 144. Sodium 140. Potassium 3.0. Bicarb 24. BUN 8. Creatinine 1.0. Glucose 90. On 04/14/2024, patient is being seen for a follow-up. This patient is 69 years old who presented to us with diarrhea, generalized weakness, and fall. She also had an acute kidney injury and rhabdomyolysis with hypokalemia and hypomagnesemia and atrial fibrillation with rapid ventricular response. Currently, the patient is doing well. She is on room air oxygen. No significant shortness of breath. No chest pain. No active diarrhea. Electrolytes are still pending from today. Potassium from yesterday was at 3.0. Renal function was stable and within normal limits. The white cell count is 6.4 with a hemoglobin 14.8 and a platelet count of 144. Doppler of the lower extremities were negative for DVT. Echocardiogram from 04/08/2024 showed preserved LV function, no significant valvular abnormalities. The patient had a stool culture that was positive for Aeromonas. In terms of therapy, she is on Questran and she is on a combination of Rocephin and Flagyl. Hemodynamically stable. No nausea. No emesis. No abdominal pain. Gastroenteritis and diarrhea has improved. CAT scan of the abdomen and pelvis showed no concerning pathology. The patient is status post Rosaura-en-Y gastric bypass surgery without evidence of any internal hernia. The patient is currently on regular diet. She is still anticoagulation with warfarin with a therapeutic PT/INR. On 04/15/2024, the patient is being seen for a follow-up. Awake and alert and denies having any specific complaints other than generalized weakness. She is working with physical therapy and the patient is seeking subacute rehabilitation. Remains on Rocephin and Flagyl. Remains on warfarin for chronic A-fib. Electrolytes are stable with a sodium level of 136, potassium level of 3.1, bicarb of 31, BUN is 8 with a creatinine of 0.7. COVID-19 was positive on 04/14/2024. 04/16/2024, patient is being seen for a follow-up. No new complaints. Resting comfortably in bed. She is awake and alert. No respiratory distress. No nausea or emesis. Maintained on anticoagulation. She is on warfarin. INR is at 3.2. Rest of electrolytes are within normal limits. Sodium level is at 136, potassium level is to be replaced at 3.0. BUN is 7 with a creatinine of 0.6. White cell count is at 5.2 with a hemoglobin of 11.9. The patient is awaiting authorization to be released to [facility]. Objective - Vital Signs Vital signs: Vital Signs Temp 98.0 F 04/16/24 08:05 Pulse 100 04/16/24 08:05 Resp 18 04/16/24 09:47 BP 94/65 04/16/24 08:05 Pulse Ox 91 L 04/16/24 08:05 FiO2 Intake & Output 04/15/24 04/16/24 04/16/24 18:59 06:59 18:59 Intake Total 120 Output Total 2200 Balance -2079 Intake: Oral 120 Output: Urine 200 Stool 2000 Other: Voiding Method Toilet Toilet Toilet # Voids 2 1 1 # Bowel Movements 0 - Exam GENERAL EXAM: Alert, 69-year-old obese female, resting in bed, on room air, comfortable in no apparent distress. HEAD: Normocephalic and atraumatic EYES: Normal reaction of pupils, equal size. NOSE: Clear with pink turbinates. THROAT: No erythema or exudates. NECK: No masses, no JVD. CHEST: No chest wall deformity. LUNGS: Equal air entry with no crackles, wheeze, rhonchi or dullness. On room air. No conversational dyspnea. CVS: S1 and S2 normal with no audible murmur, regular rhythm. No extra heart sounds ABDOMEN: No hepatosplenomegaly, active bowel sounds, no guarding or rigidity. FMS with copious amounts of liquid diarrhea, SPINE: No scoliosis or deformity SKIN: No rashes CENTRAL NERVOUS SYSTEM: No focal deficits, tone is normal in all 4 extremities. EXTREMITIES: There is no peripheral edema, clubbing, or cyanosis. Peripheral pulses are intact. - Labs CBC & Chem 7: 04/16/24 11:39 04/16/24 11:39 Labs: Abnormal Lab Results - Last 24 Hours (Table) 04/16/24 04/16/24 04/16/24 Range/Units 03:35 03:35 11:39 RBC 3.54 L (3.80-5.40) m/uL Lymphocytes # 0.8 L (1.0-4.8) k/uL PT 31.4 H (10.0-12.5) sec INR 3.2 H (<1.2) Potassium 3.0 L (3.5-5.1) mmol/L Assessment and Plan Plan: Severe diarrheal illness and colitis, CT of abdomen and pelvis showing moderate liquid stool throughout the colon compatible with history of diarrhea and mild wall thickening of the sigmoid colon and rectum, possible mild colitis. Stool culture revealing Aeromonas hydrophila. On ceftriaxone, Flagyl, Questran. Symptoms of gastroenteritis and improved. Rule out gastrointestinal manifestation of COVID-19 infection as the patient tested positive for COVID-19 on 04/14/2024 clinically stable COVID-19 infection, tested positive on 04/14/2024 Hypotension, secondary to fluid losses and hypovolemia, recovered Severe anion gap metabolic acidosis, recovered Acute rhabdomyolysis, the CPK 2694, recovered Acute kidney injury, secondary to combination of above Severe hypokalemia and hypomagnesemia, being replaced per protocol Atrial fibrillation with rapid ventricular response anticoagulated History of heart failure with reduced ejection fraction History of PE/DVT History of previous gastric bypass surgery History of hypothyroidism Plan: Clinically stable No diarrhea Replace potassium The patient is stable on room air oxygen Antibiotics can be discontinued Possibly diarrhea was related to COVID-19 viral infection Remains hemodynamically stable Remains on anticoagulation with warfarin, PT/INR is being managed and adjusted by the medical team Generalized weakness and debility rehabilitation through ECF.
[2024-04-16] MEDS: MAGNESIUM OXIDE 400 MG TAB PO SCH (14:27)
[2024-04-16] MEDS: DEXTROSE 5%-0.9% NACL 1,000 ML IV SCH (16:40)
[2024-04-16] MEDS ORDERED: CALCIUM CARBONATE 500 MG CHEWABLE PO PRN (17:10)
[2024-04-16] MEDS: WARFARIN 0.5 MG TAB PO ONE (17:13)
[2024-04-16] MEDS: POTASSIUM CHLORIDE ER 20 MEQ TAB.ER PO ONE (20:43)
[2024-04-17] MEDS: METOPROLOL TARTRATE 25 MG TAB PO SCH ×2 (08:48→17:11)
[2024-04-17 08:59] LABS: INR 2.58 sec (0.93-1.11); Prothrombin Time 26.9 sec (9.9-11.9)
[2024-04-17 09:02] LABS: HCT 32.8 % (37.2-46.3); HGB 10.6 g/dL (12.0-15.0); MCH 31.5 pg (27.0-32.0); MCHC 32.3 g/dL (32.0-37.0); MCV 97.3 FL (80.0-97.0); Mean Platelet Volume 10.6 FL (9.5-12.2); NRBC Per 100 WBC 0 X 10*3/uL (0.00-0.01); Platelet Count 183 X 10*3/uL (140-440); RBC 3.37 X 10*6/uL (4.10-5.20); RDW 13.5 % (11.5-14.5); WBC 4.05 X 10*3/uL (4.50-10.00)
--- NOTE | 2024-04-17 09:33 | P.PN ---
Subjective This is a pleasant 69 years old female Who presents because of fall and hypotension and found to have acute gastroenteritis secondary to sigmoid colitis and rhabdomyolysis. Also she has some abnormal urine sample but no evidence of UTI. She has also chronic medical problems like A-fib and history of PE Patient currently sitting in chair, very lethargic and weak but mentation at baseline She has poor diet, she thinks she is n.p.o. but there is a cardiac diet ordered for her. She has mild abdominal pain about 8/10 as per patient. Patient states that her diarrhea is better No urinary symptoms Patient is difficult for her to stop because of her weakness. But denies chest pain or dyspnea. Creatinine is improved down to 1.2, potassium low at 3.0 Blood pressure is still on the low side 97/55 Pro- Calcitonin slightly elevated at 0.39 Creatinine kinase was high at 2699 C-reactive protein was high at 21 Occult blood in stool and C. difficile both were negative COVID and influenza virus were negative CT of the abdomen pelvis showing wall thickening of the sigmoid colon and right lower lobe indeterminate structure could be surgical scar Stool cultures growing Aeromonas hydrophilia. Patient currently covered with ceftriaxone and Flagyl with ID team on the case 04/09/24 Patient with improving abdominal pain down from 8 down to 6/10 in severity She still have fecal management system in place she has watery loose diarrhea. No vomiting. She remains on normal saline She is on ceftriaxone and Flagyl with positive stool culture Aeromonas hydrophilia 1/2 Patient improving clinically, diarrhea is improving, but not completely resolved with no abdominal pain and she tolerates diet, she is off IV fluids Her electrolytes is also improvement She remains on antibiotics with ceftriaxone and Flagyl She is continued on home dose of Eliquis for her history of A-fib and history of pulmonary embolism Patient still feels generally weak We will ask for PT/OT evaluation, which is pending Patient has not been since surgeon before therefore she might benefit from evaluation. There is no GI service in this facility 04/11 Patient today was doing well and she was cleared for discharge by all consultants. She had very mild periumbilical discomfort and some nausea but she tolerates diet and she had f formed stool. No other new complaint. Will plan was to discharge her home Prototype Model Maker recommended to continue Eliquis for her A-fib However patient although in the beginning was told she has Eliquis alert but with further clarification it looks like she has co-pay of more than $500 per month for her Eliquis which she cannot afford so she depends on her primary web content & social media manager to get samples, when I asked the patient she does not think or she is not sure she has Eliquis left for her in the house. Also patient cannot get a free coupon. I discussed with the child welfare caseworker, there is no free coupon for Xarelto as well or other alternative. Patient is high risk for stroke therefore we are going to start her on Coumadin with goal INR 2-3. Coumadin would be pharmacy to dose. In the meanwhile patient might require Lovenox bridging. Discussed with the staff Also patient can be downgraded to general medical floor 04/14, resuming the care of the patient today She is fully awake oriented No confusion no chest pain No specific GI and symptoms looks improved Patient remains on ceftriaxone and Flagyl Sodium bicarb drip at 50 mL/h and Eliquis started in the hospital 04/15 Patient is awake and alert, she feels generally weak She is still on antibiotics for her intra-abdominal infection She is also started on Coumadin for her A-fib and currently on room warfarin with INR 3.2. She got 1 mg of Coumadin last night. Explained for the patient the importance of keeping INR between 2-3 and more that it has high risk of bleeding and she verbalized understanding and acceptance to this treatment Also per previous PT evaluation patient might qualify for subacute rehab. Will going to recheck in a talk to the patient and she is acceptable to go to rehab if needed Continue with ceftriaxone and Flagyl 04/16 Patient today was upset she has not been discharge, she has doctors take care of at home therefore she declined going to [facility] today although she agreed yesterday and authorization was submitted Then I called her PCP Dr. Salazar who kindly accepted to see her within 2 to 3 days to check her an INR. Her INR today is 3.2, she did not get any Coumadin last night. We are going to recheck her Coumadin tomorrow as well. As of note since restarting Coumadin she was taking less and less Coumadin 5 mg, 2.5 mg, 1.5 mg, 1 mg and yesterday nothing. Will keep holding of Coumadin today and check INR tomorrow Will give her a bolus of 500 cc She is also on other cardiac medication like metoprolol was need to be continued because of her tachycardia in the morning Because of the episode of hypotension we will check labs today and tomorrow Will keep monitoring for another 24 hours to check stability and then further recommendation based on the clinical course Of note patient told me her brother can help her every day when she goes home however he does not live with her 30/10 04/17 yesterday patient was adamant to go home rather than [facility] for rehab , However patient developed hypotension and we had to give him and give her bolus of 500 cc and start her on normal saline 75 mL/h This morning she agrees to go to rehab and stated that her brother will help her with taking care of her dogs at home however her blood pressure still on the low side and she is mildly tachycardic, we lowered her metoprolol dose 50 mg twice daily down to 25 mg twice daily while keeping her dose of Aldactone to 25 mg daily. Also will give her another bolus of fluid with close monitoring Patient has been complaining from cough We will order chest x-ray She is hemodynamically stable She feels generally weak and high risk of fall and explained that to her and she is aware of the risk of bleeding given her her INR is now therapeutic at 2.5. Continue with Coumadin pharmacy to dose. Possible discharge soon to rehab. Discussed with child welfare caseworker, prior authorization application to insurance company provider is already submitted Review of systems CONSTITUTIONAL: No fever, no malaise, no fatigue. HEENT: No recent visual problems or hearing problems. Denied any sore throat. CARDIOVASCULAR: No orthopnea, PND, no palpitations, no syncope. GENITOURINARY: Denies any burning micturition, frequency, or urgency. MUSCULOSKELETAL/RHEUMATOLOGICAL: Denies any joint pain, swelling, or any muscle pain. ENDOCRINE: Denies any polyuria or polydipsia. Active Medications Generic Name Dose Route Start Last Admin Trade Name Freq PRN Reason Stop Dose Admin Acetaminophen 650 mg 04/12/24 08:37 04/13/24 19:42 Acetaminophen Tab 325 Mg Tab PO 650 mg Q4HR PRN Administration Fever and/ or Pain Hydrocodone Bitart/Acetaminophen 1 each 04/07/24 12:39 04/17/24 08:48 Hydrocodone/Apap 5-325mg 1 Each Tab PO 1 each Q6HR PRN Administration Moderate Pain (Scale 4 to 6) Calcium Carbonate/Glycine 500 mg 04/16/24 17:10 Calcium Carbonate 500 Mg Chewable PO QID PRN Heartburn Cholestyramine Resin 4 gm 04/07/24 10:00 04/17/24 08:31 Cholestyramine (With Sugar) 4 Gm Packet PO Not Given BID@1000,1800 CHAD Ceftriaxone Sodium 2 gm/ 50 mls @ 100 mls/hr 04/07/24 09:00 04/17/24 08:42 Sodium Chloride IVPB 100 mls/hr Q24HR CHAD Administration Protocol Levothyroxine Sodium 125 mcg 04/07/24 06:30 04/17/24 06:52 Levothyroxine 125 Mcg Tab PO 125 mcg [id number] CHAD Administration Magnesium Oxide 400 mg 04/16/24 14:05 04/17/24 08:41 Magnesium Oxide 400 Mg Tab PO 400 mg BID CHAD Administration Metoprolol Tartrate 25 mg 04/17/24 09:00 04/17/24 08:48 Metoprolol Tartrate 25 Mg Tab PO 25 mg BID CHAD Administration Metronidazole 500 mg 04/06/24 22:45 04/17/24 08:41 Metronidazole 500 Mg Tab PO 500 mg TID CHAD Administration Protocol Miscellaneous Information 1 each 04/06/24 22:20 Magnesium Replacement Protocol 1 Each Misc MISCELLANE DAILY PRN Per Protocol Protocol Miscellaneous Information 1 each 04/11/24 15:34 Warfarin Per Pharmacy MISCELLANE DIRECTED PRN Per Protocol Protocol Miscellaneous Information 1 each 04/13/24 12:51 Potassium Replacement Protocol 1 Each Misc MISCELLANE DAILY PRN Per Protocol Protocol Morphine Sulfate 4 mg 04/06/24 22:22 Morphine Sulfate 4 Mg/Ml Syringe IV Q4HR PRN Severe Pain (Scale 7 to 10) Naloxone HCl 0.2 mg 04/06/24 15:06 Naloxone 0.4 Mg/Ml 1 Ml Vial IV Q2M PRN Opioid Reversal Ondansetron HCl 4 mg 04/06/24 22:22 04/13/24 09:24 Ondansetron 4 Mg/2 Ml Vial IVP 4 mg Q8HR PRN Administration Nausea And Vomiting Pantoprazole Sodium 40 mg 04/08/24 12:15 04/17/24 08:42 Pantoprazole 40 Mg/10 Ml Vial IVP 40 mg DAILY CHAD Administration Petrolatum 1 applic 04/06/24 18:07 Zinc Oxide Paste (Z-Guard) 1 Applic TOPICAL Q2HR PRN Wound Healing Protocol Quetiapine Fumarate 300 mg 04/06/24 21:00 04/16/24 20:44 Quetiapine 100 Mg Tab PO 300 mg HS CHAD Administration Spironolactone 25 mg 04/08/24 10:30 04/17/24 08:41 Spironolactone 25 Mg Tab PO 25 mg DAILY CHAD Administration Objective - Vital Signs Vital signs: Vital Signs Temp 98.4 F 04/17/24 07:15 Pulse 106 H 04/17/24 07:15 Resp 17 04/17/24 07:15 BP 91/56 04/17/24 07:15 Pulse Ox 91 L 04/17/24 07:15 FiO2 Intake & Output 04/16/24 04/17/24 04/17/24 18:59 06:59 18:59 Intake Total 120 Output Total 2200 Balance -2079 Intake: Oral 120 Output: Urine 200 Stool 2000 Other: Voiding Method Toilet Toilet # Voids 2 2 - Exam -GENERAL: The patient is alert and oriented x3, not in any acute distress. Well developed, well nourished. Generally weak HEENT: Pupils are round and equally reacting to light. EOMI. No scleral icterus. No conjunctival pallor. Normocephalic, atraumatic. No pharyngeal erythema. No thyromegaly. CARDIOVASCULAR: S1 and S2 present. No murmurs, rubs, or gallops. PULMONARY: Chest is clear to auscultation, no wheezing , no crackles. -ABDOMEN: Soft, n mild periumbilical tenderness, no guarding or rebound tenderness, nondistended, normoactive bowel sounds. No palpable organomegaly. MUSCULOSKELETAL: No joint swelling or deformity. EXTREMITIES: No cyanosis, clubbing, or pedal edema. NEUROLOGICAL: Gross neurological examination did not reveal any focal deficits. SKIN: No rashes. no petechiae. - Labs CBC & Chem 7: 04/17/24 05:10 04/16/24 11:39 Labs: Abnormal Lab Results - Last 24 Hours (Table) 04/16/24 04/16/24 04/16/24 Range/Units 03:35 11:39 11:39 WBC (4.50-10.00) X 10*3/uL RBC 3.54 L (3.80-5.40) m/uL Hgb (12.0-15.0) g/dL Hct (37.2-46.3) % MCV (80.0-97.0) FL Lymphocytes # 0.8 L (1.0-4.8) k/uL PT (9.9-11.9) sec INR (0.93-1.11) sec Sodium 136 L (137-145) mmol/L Potassium 3.0 L 3.0 L (3.5-5.1) mmol/L Glucose 120 H (74-99) mg/dL Calcium 7.8 L (8.4-10.2) mg/dL 04/17/24 04/17/24 Range/Units 05:10 05:10 WBC 4.05 L (4.50-10.00) X 10*3/uL RBC 3.37 L (3.80-5.40) m/uL Hgb 10.6 L (12.0-15.0) g/dL Hct 32.8 L (37.2-46.3) % MCV 97.3 H (80.0-97.0) FL Lymphocytes # (1.0-4.8) k/uL PT 26.9 H (9.9-11.9) sec INR 2.58 H (0.93-1.11) sec Sodium (137-145) mmol/L Potassium (3.5-5.1) mmol/L Glucose (74-99) mg/dL Calcium (8.4-10.2) mg/dL Assessment and Plan Assessment: Fall at home without syncope Hypotension, currently improved Acute sigmoid colitis with stool culture growing Aeromonas hydrophilia Rhabdomyolysis Chronic A-fib with RVR on admission, currently controlled. Patient has high co- pay for Eliquis and currently she is not covered with anticoagulation when she goes home. Need to start new Coumadin History of PE History of bipolar Plan: restart IV fluid normal saline at 75 mL/h and keep for another 24-hour Lower dose of metoprolol 50 mg twice daily down to 25 mg 3 times daily Bolus of 500 cc for episodes of low blood pressure Coumadin pharmacy to dose I talked to Dr. Salazar who kindly asked great to follow-up with her for checking her INR Also patient will be discharged on home health care Patient tolerates diet PT/OT recommendation noted Surgical team consult. No need for surgical intervention Continue with ceftriaxone and Flagyl Continue with Coumadin with goal INR 2-3, explained for the patient and she is agreeable Patient was cleared for discharge by all consultants but she has no Eliquis at home as her she has high co-pay she cannot afford it. Patient does not safe to go home we have to start Coumadin with Lovenox bridging till INR at goal of 2-3 Several consultants on the case including infectious disease, pulmonary and web content & social media manager Labs and medication were reviewed.. Continue same treatment. Continue with symptomatic treatment. Resume home medication. Monitor labs and vitals. DVT and GI prophylaxis. Further recommendations as per clinical course of the patient DVT prophylaxis: On Coumadin GI Prophylaxis: Protonix PT/OT: Pending Prognosis is guarded
[2024-04-17 09:36] LABS: Blood Urea Nitrogen 4.8 mg/dL (9.0-27.0); Glucose 93 mg/dL (70-110); Magnesium 1.9 mg/dL (1.5-2.4)
[2024-04-17 09:37] LABS: Calcium 7.6 mg/dL (8.7-10.3); Carbon Dioxide 25.9 mmol/L (21.6-31.8); Chloride 107 mmol/L (96-109); Potassium 3.7 mmol/L (3.5-5.5); Sodium 141 mmol/L (135-145)
[2024-04-17 10:10] LABS: Basophils # (A) 0.04 X 10*3/uL (0.00-0.10); Eosinophils # (A) 0.17 X 10*3/uL (0.04-0.35); Eosinophils % (A) 4.2 %; Lymphocytes % (A) 27.2 %; Monocytes # (A) 0.32 X 10*3/uL (0.20-1.00); Monocytes % (A) 7.9 %; Neutrophils # (A) 2.38 X 10*3/uL (1.80-7.70); Neutrophils % (A) 58.7 %
--- NOTE | 2024-04-17 10:39 | XR ---
EXAMINATION TYPE: XR chest 2V DATE OF EXAM: 04/17/2024 10:33 AM COMPARISON: Chest x-ray November 23, 2021 CLINICAL INDICATION: Female, 69 years old with history of coughing and hypotension, TECHNIQUE: Frontal and lateral views of the chest are obtained. FINDINGS: Improved inspiration. There is no focal air space opacity, pleural effusion, or pneumothora x seen. Stable mild cardiomegaly with overlying loop recorder.. The osseous structures are intact. IMPRESSION: Mild cardiomegaly without acute pulmonary process. [facility], , 04/17/2024 10:37 AM
[2024-04-17] MEDS: SODIUM CHLORIDE 0.9% 500 ML 250 ML IV ONE (10:56)
--- NOTE | 2024-04-17 16:03 | P.PN ---
Subjective Progress Note Date: 04/16/24 Principal diagnosis: Reason for follow-up is colitis/Aeromonas hydrophila infection Patient is a 69-year-old female with a past medical history significant for atrial fibrillation SVT hypothyroidism presenting to the hospital about a week ago for evaluation of diarrhea with fecal incontinence symptom has been going on for about 5 days before presentation to the hospital patient CT was suggestive of colitis and stool cultures came back positive with Aeromonas hydrophilia prompting this consultation. On today's evaluation that is 04/16/2024,the patient denies any fever or any chills, patient is breathing comfortably on room air, the patient denies chest pain shortness of breath and no significant cough, patient denies abdominal pain, no nausea vomiting or diarrhea. Patient white count is 5.2, creatinine 0.66 Objective - Vital Signs Vital signs: Vital Signs Temp 98.0 F 04/16/24 08:05 Pulse 100 04/16/24 08:05 Resp 18 04/16/24 09:47 BP 94/65 04/16/24 08:05 Pulse Ox 91 L 04/16/24 08:05 FiO2 Intake & Output 04/15/24 04/16/24 04/16/24 18:59 06:59 18:59 Intake Total 120 Output Total 2200 Balance -2079 Intake: Oral 120 Output: Urine 200 Stool 2000 Other: Voiding Method Toilet Toilet Toilet # Voids 2 1 1 # Bowel Movements 0 - Exam GENERAL DESCRIPTION: An elderly female lying in bed in no distress RESPIRATORY SYSTEM: Unlabored breathing , decreased breath sounds at bases HEART: S1 S2 regular rate and rhythm , ABDOMEN: Soft , no tenderness EXTREMITIES: No edema feet - Labs CBC & Chem 7: 04/17/24 05:10 04/17/24 05:10 Labs: Abnormal Lab Results - Last 24 Hours (Table) 04/16/24 04/16/24 04/16/24 Range/Units 03:35 03:35 11:39 RBC 3.54 L (3.80-5.40) m/uL Lymphocytes # 0.8 L (1.0-4.8) k/uL PT 31.4 H (10.0-12.5) sec INR 3.2 H (<1.2) Potassium 3.0 L (3.5-5.1) mmol/L Assessment and Plan (1) Colitis Current Visit: Yes Status: Acute Code(s): K52.9 - NONINFECTIVE GASTROENTERITIS AND COLITIS, UNSPECIFIED SNOMED Code(s): 44476797 (2) Intestinal infection due to Aeromonas hydrophila Current Visit: Yes Status: Acute Code(s): A04.8 - OTHER SPECIFIED BACTERIAL INTESTINAL INFECTIONS SNOMED Code(s): 176129722 (3) COVID-19 Current Visit: Yes Status: Acute Code(s): U07.1 - COVID-19 SNOMED Code(s): 196598783 Plan: 1patient was in the hospital about a week ago for evaluation of abdominal pain and diarrhea CT shows evidence of colitis in the stool concern ongoing Aeromonas hydrophila likely the pathogen causing her illness she tested negative for C. difficile, initial susceptibility report did not mention Rocephin I did call the micro lab personally to confirm sensitivity of this pathogen Rocephin 2-patient did have fever and tested positive for COVID-19 however patient is currently not hypoxic or significant respiratory symptoms treat will be mostly supportive 3patient did have evidence of colitis on CT, stool culture with Aeromonas patient responded to Rocephin to continue Dictation was produced using [employer] dictation software. please excuse any grammatical, word or spelling errors. Time with Patient: Less than 30
--- NOTE | 2024-04-17 16:04 | P.PN ---
Subjective Progress Note Date: 04/17/24 Principal diagnosis: Reason for follow-up is colitis/Aeromonas hydrophila infection Patient is a 69-year-old female with a past medical history significant for atrial fibrillation SVT hypothyroidism presenting to the hospital about a week ago for evaluation of diarrhea with fecal incontinence symptom has been going on for about 5 days before presentation to the hospital patient CT was suggestive of colitis and stool cultures came back positive with Aeromonas hydrophilia prompting this consultation. On today's evaluation that is 04/17/2024,the patient remains to be afebrile, patient is on room air not requiring supplemental oxygen and denies any shortness of breath no chest pain, did have occasional dry cough.Patient denies having any nausea or vomiting, no abdominal pain and 1 episode of diarrhea this morning. Patient white count is 4.05, creatinine 0.6 chest x-ray no acute pulmonary process Objective - Vital Signs Vital signs: Vital Signs Temp 98.1 F 04/17/24 12:47 Pulse 96 04/17/24 12:47 Resp 18 04/17/24 12:47 BP 85/67 04/17/24 12:47 Pulse Ox 92 L 04/17/24 12:47 FiO2 Intake & Output 04/16/24 04/17/24 04/17/24 18:59 06:59 18:59 Intake Total 120 100 Output Total 2200 Balance -2079 100 Intake: Oral 120 100 Output: Urine 200 Stool 2000 Other: Voiding Method Toilet Toilet Toilet # Voids 2 2 - Exam GENERAL DESCRIPTION: An elderly female lying in bed in no distress RESPIRATORY SYSTEM: Unlabored breathing , decreased breath sounds at bases HEART: S1 S2 regular rate and rhythm , ABDOMEN: Soft , no tenderness EXTREMITIES: No edema feet - Labs CBC & Chem 7: 04/17/24 05:10 04/17/24 05:10 Labs: Abnormal Lab Results - Last 24 Hours (Table) 04/17/24 04/17/24 04/17/24 Range/Units 05:10 05:10 05:10 WBC 4.05 L (4.50-10.00) X 10*3/uL RBC 3.37 L (4.10-5.20) X 10*6/uL Hgb 10.6 L (12.0-15.0) g/dL Hct 32.8 L (37.2-46.3) % MCV 97.3 H (80.0-97.0) FL PT 26.9 H (9.9-11.9) sec INR 2.58 H (0.93-1.11) sec BUN 4.8 L (9.0-27.0) mg/dL BUN/Creatinine Ratio 8.00 L (12.00-20.00) Ratio Calcium 7.6 L (8.7-10.3) mg/dL Assessment and Plan (1) Colitis Current Visit: Yes Status: Acute Code(s): K52.9 - NONINFECTIVE GAS TROENTERITIS AND COLITIS, UNSPECIFIED SNOMED Code(s): 42510247 (2) Intestinal infection due to Aeromonas hydrophila Current Visit: Yes Status: Acute Code(s): A04.8 - OTHER SPECIFIED BACTERIAL INTESTINAL INFECTIONS SNOMED Code(s): 890489522 (3) COVID-19 Current Visit: Yes Status: Acute Code(s): U07.1 - COVID-19 SNOMED Code(s): 950385282 Plan: 1patient was in the hospital about a week ago for evaluation of abdominal pain and diarrhea CT shows evidence of colitis in the stool concern ongoing Aeromonas hydrophila likely the pathogen causing her illness she tested negative for C. difficile, initial susceptibility report did not mention Rocephin I did call the micro lab personally to confirm sensitivity of this pathogen Rocephin 2-patient did have fever and tested positive for COVID-19 however patient is currently not hypoxic or significant respiratory symptoms treat will be mostly supportive 3patient did have evidence of colitis on CT, stool culture with Aeromonas patient has received adequate IV Rocephin during this hospital stay Dictation was produced using [employer] dictation software. please excuse any grammatical, word or spelling errors. Time with Patient: Less than 30
--- NOTE | 2024-04-17 17:36 | P.PN ---
Subjective Progress Note Date: 04/17/24 Patient is a 69-year-old female with past medical history significant for atrial fibrillation, hypothyroidism, PE/DVT, previous gastric bypass surgery. Of note, patient had a recent ER visit back on April 04 for severe episodic watery diarrhea. She returns to the emergency department yesterday afternoon with a similar complaint. I am evaluating this patient in the emergency department, room 14. She states that since Sunday she has had severe intractable diarrhea that is watery and brown. She also reports some mild abdominal discomfort, nausea without emesis. She has been very weak at home. Gets lightheaded on arising, but denies losing consciousness or syncopal events. Not able to t olerate much oral intake. Denies recent antibiotic use. Denies recent sick contacts. CBC is unremarkable without leukocytosis. She continues to have fluid loss. She is in a state of anion gap metabolic acidosis. Most recent CMP includes a sodium 137, potassium 2.6, chloride 106, serum bicarb down to 9, anion gap 22, BUN 33, creatinine 1.72, glucose 98. Magnesium was low at 1.2. EKG: Atrial fibrillation wtih RVR and frequent PVCs, rate 116. LFTs mildly elevated. CPK 2694. Stool occult blood was negative. C. difficile negative. We were consulted early this morning as the patient's blood pressure has been borderline hypotensive. She has received a total of 4 L crystalloid fluid bolus . She is also in atrial fibrillation with RVR ranging from 100 to 120 bpm. She continues to have copious amounts of liquid diarrhea, there is an FMS in place. CT of abdomen and pelvis showing moderate liquid stool throughout the colon compatible with history of diarrhea and mild wall thickening of the sigmoid colon and rectum, possible mild colitis. Also, indeterminate blind-ending structure in the right lower quadrant measuring 21 x 18 mm unclear etiology,. No evidence of pneumoperitoneum, free fluid, or bowel obstruction. Postsurgical findings noted. Patient has been empirically covered on a combination of Rocephin and Flagyl. Current vitals: Temperature 98.2 F, heart rate 118 bpm, blood pressure 101/50 mmHg, nontachypneic, SpO2 96% on room air. The patient is seen today April 08, 2024 in follow-up on the selective care unit. She is currently resting comfortably in bed. Awake and alert in no acute distress. She is maintaining good O2 saturations in the 90s on room air. She is receiving D5W with 3 A of bicarb at 130 mL/h. Stool culture showing Aeromonas hydrophila. White count 8.1. Hemoglobin 13.1. Platelets 189. Sodium 137. Potassium 3.0. Bicarb 28. BUN 16. Creatinine 0.86. Glucose 127. She remains on Questran and Flagyl. Remains on ceftriaxone. Anticoagulated with Eliquis. The patient is seen today April 13, 2024 in follow-up on the regular medical floor. She is currently resting comfortably in bed. Awake and alert in no acute distress. She still has a somewhat congested cough. She is maintaining good O2 saturations in the 90s on room air. No IV fluids. INR 2.6. Remains on ceftriaxone, Flagyl, Questran. Anticoagulated with warfarin. White count 6.4. Hemoglobin 14.8. Platelets 144. Sodium 140. Potassium 3.0. Bicarb 24. BUN 8. Creatinine 1.0. Glucose 90. On 04/14/2024, patient is being seen for a follow-up. This patient is 69 years old who presented to us with diarrhea, generalized weakness, and fall. She also had an acute kidney injury and rhabdomyolysis with hypokalemia and hypomagnesemia and atrial fibrillation with rapid ventricular response. Currently, the patient is doing well. She is on room air oxygen. No significant shortness of breath. No chest pain. No active diarrhea. Electrolytes are still pending from today. Potassium from yesterday was at 3.0. Renal function was stable and within normal limits. The white cell count is 6.4 with a hemoglobin 14.8 and a platelet count of 144. Doppler of the lower extremities were negative for DVT. Echocardiogram from 04/08/2024 showed preserved LV function, no significant valvular abnormalities. The patient had a stool culture that was positive for Aeromonas. In terms of therapy, she is on Questran and she is on a combination of Rocephin and Flagyl. Hemodynamically stable. No nausea. No emesis. No abdominal pain. Gastroenteritis and diarrhea has improved. CAT scan of the abdomen and pelvis showed no concerning pathology. The patient is status post Rosaura-en-Y gastric bypass surgery without evidence of any internal hernia. The patient is currently on regular diet. She is still anticoagulation with warfarin with a therapeutic PT/INR. On 04/15/2024, the patient is being seen for a follow-up. Awake and alert and denies having any specific complaints other than generalized weakness. She is working with physical therapy and the patient is seeking subacute rehabilitation. Remains on Rocephin and Flagyl. Remains on warfarin for chronic A-fib. Electrolytes are stable with a sodium level of 136, potassium level of 3.1, bicarb of 31, BUN is 8 with a creatinine of 0.7. COVID-19 was positive on 04/14/2024. 04/16/2024, patient is being seen for a follow-up. No new complaints. Resting comfortably in bed. She is awake and alert. No respiratory distress. No nausea or emesis. Maintained on anticoagulation. She is on warfarin. INR is at 3.2. Rest of electrolytes are within normal limits. Sodium level is at 136, potassium level is to be replaced at 3.0. BUN is 7 with a creatinine of 0.6. White cell count is at 5.2 with a hemoglobin of 11.9. The patient is awaiting authorization to be released to [facility]. On 04/17/2024, the patient is being seen for a follow-up. She has developed oropharyngeal candidiasis. The patient will be started on Diflucan and I am going to go ahead and discontinue the IV Solu-Medrol. No other specific complaints otherwise for now. The patient is adamant to go home rather than goi ng to a rehabilitation facility. Earlier this morning, the blood pressure was quite soft and based on that the patient was given a bolus of 500 cc of normal saline and she was placed on normal saline at rate of 75 cc an hour. She has some limited cough. No significant sputum production. Overall, feeling better. The white cell count is at 4 with a hemoglobin 10.6 and a platelet count of 183. INR is therapeutic at 2.5. BUN is 4 with a creatinine of 0.6 and a sodium level is 141. Remains on IV Rocephin. Remains on Flagyl. Remains on anticoagulation with warfarin. Remains on metoprolol 25 mg p.o. 3 times daily and Synthroid. Objective - Vital Signs Vital signs: Vital Signs Temp 98.4 F 04/17/24 07:15 Pulse 106 H 04/17/24 07:15 Resp 20 04/17/24 10:50 BP 91/56 04/17/24 07:15 Pulse Ox 91 L 04/17/24 07:15 FiO2 Intake & Output 04/16/24 04/17/24 04/17/24 18:59 06:59 18:59 Intake Total 120 100 Output Total 2200 Balance -2079 100 Intake: Oral 120 100 Output: Urine 200 Stool 2000 Other: Voiding Method Toilet Toilet Toilet # Voids 2 2 - Exam GENERAL EXAM: Alert, 69-year-old obese female, resting in bed, on room air, comfortable in no apparent distress. HEAD: Normocephalic and atraumatic EYES: Normal reaction of pupils, equal size. NOSE: Clear with pink turbinates. THROAT: No erythema or exudates. NECK: No masses, no JVD. CHEST: No chest wall deformity. LUNGS: Equal air entry with no crackles, wheeze, rhonchi or dullness. On room air. No conversational dyspnea. CVS: S1 and S2 normal with no audible murmur, regular rhythm. No extra heart sounds ABDOMEN: No hepatosplenomegaly, active bowel sounds, no guarding or rigidity. FMS with copious amounts of liquid diarrhea, SPINE: No scoliosis or deformity SKIN: No rashes CENTRAL NERVOUS SYSTEM: No focal deficits, tone is normal in all 4 extremities. EXTREMITIES: There is no peripheral edema, clubbing, or cyanosis. Peripheral pulses are intact. - Labs CBC & Chem 7: 04/17/24 05:10 04/17/24 05:10 Labs: Abnormal Lab Results - Last 24 Hours (Table) 04/16/24 04/16/24 04/16/24 Range/Units 03:35 11:39 11:39 WBC (4.50-10.00) X 10*3/uL RBC 3.54 L (3.80-5.40) m/uL Hgb (12.0-15.0) g/dL Hct (37.2-46.3) % MCV (80.0-97.0) FL Lymphocytes # 0.8 L (1.0-4.8) k/uL PT (9.9-11.9) sec INR (0.93-1.11) sec Sodium 136 L (137-145) mmol/L Potassium 3.0 L 3.0 L (3.5-5.1) mmol/L BUN (9.0-27.0) mg/dL BUN/Creatinine Ratio (12.00-20.00) Ratio Glucose 120 H (74-99) mg/dL Calcium 7.8 L (8.4-10.2) mg/dL 04/17/24 04/17/24 04/17/24 Range/Units 05:10 05:10 05:10 WBC 4.05 L (4.50-10.00) X 10*3/uL RBC 3.37 L (3.80-5.40) m/uL Hgb 10.6 L (12.0-15.0) g/dL Hct 32.8 L (37.2-46.3) % MCV 97.3 H (80.0-97.0) FL Lymphocytes # (1.0-4.8) k/uL PT 26.9 H (9.9-11.9) sec INR 2.58 H (0.93-1.11) sec Sodium (137-145) mmol/L Potassium (3.5-5.1) mmol/L BUN 4.8 L (9.0-27.0) mg/dL BUN/Creatinine Ratio 8.00 L (12.00-20.00) Ratio Glucose (74-99) mg/dL Calcium 7.6 L (8.4-10.2) mg/dL Assessment and Plan Plan: Severe diarrheal illness and colitis, CT of abdomen and pelvis showing moderate liquid stool throughout the colon compatible with history of diarrhea and mild wall thickening of the sigmoid colon and rectum, possible mild colitis. Stool culture revealing Aeromonas hydrophila. On ceftriaxone, Flagyl, Questran. Sy mptoms of gastroenteritis and improved. Rule out gastrointestinal manifestation of COVID-19 infection as the patient tested positive for COVID-19 on 04/14/2024 clinically stable COVID-19 infection, tested positive on 04/14/2024 Hypotension, secondary to fluid losses and hypovolemia, recovered. The patient was given another bolus of 500 cc of normal saline today. Severe anion gap metabolic acidosis, recovered Acute rhabdomyolysis, the CPK 2694, recovered Acute kidney injury, secondary to combination of above Severe hypokalemia and hypomagnesemia, being replaced per protocol Atrial fibrillation with rapid ventricular response anticoagulated History of heart failure with reduced ejection fraction History of PE/DVT History of previous gastric bypass surgery History of hypothyroidism Plan: Clinically stable Patient is on room air oxygen No diarrhea Monitor the blood pressure The patient is stable on room air oxygen Antibiotics can be discontinued Possibly diarrhea was related to COVID-19 viral infection Remains hemodynamically stable Remains on anticoagulation with warfarin, PT/INR is being managed and adjusted by the medical team, the INR is therapeutic at this point in time Generalized weakness and debility rehabilitation through ECF is recommended
[2024-04-17] MEDS: WARFARIN 0.5 MG TAB PO ONE (17:51)
[2024-04-18 07:00] LABS: INR 2.8 (<1.2); Prothrombin Time 27.8 sec (10.0-12.5)
[2024-04-18] MEDS: ALBUTEROL HFA INHALER INHALATION SCH (12:14)
[2024-04-18] MEDS: guaiFENesin-DM 600/30MG 1 EACH TAB.ER.12H PO SCH (12:20)
[2024-04-18 13:13] VITALS: BMI 36.9
--- NOTE | 2024-04-18 15:17 | P.PN ---
Subjective Progress Note Date: 04/18/24 This is a pleasant 69 years old female Who presents because of fall and hypotension and found to have acute gastroenteritis secondary to sigmoid colitis and rhabdomyolysis. Also she has some abnormal urine sample but no evidence of UTI. She has also chronic medical problems like A-fib and history of PE Patient currently sitting in chair, very lethargic and weak but mentation at baseline She has poor diet, she thinks she is n.p.o. but there is a cardiac diet ordered for her. She has mild abdominal pain about 8/10 as per patient. Patient states that her diarrhea is better No urinary symptoms Patient is difficult for her to stop because of her weakness. But denies chest pain or dyspnea. Creatinine is improved down to 1.2, potassium low at 3.0 Blood pressure is still on the low side 97/55 Pro- Calcitonin slightly elevated at 0.39 Creatinine kinase was high at 2699 C-reactive protein was high at 21 Occult blood in stool and C. difficile both were negative COVID and influenza virus were negative CT of the abdomen pelvis showing wall thickening of the sigmoid colon and right lower lobe indeterminate structure could be surgical scar Stool cultures growing Aeromonas hydrophilia. Patient currently covered with ceftriaxone and Flagyl with ID team on the case 04/09/24 Patient with improving abdominal pain down from 8 down to 6/10 in severity She still have fecal management system in place she has watery loose diarrhea. No vomiting. She remains on normal saline She is on ceftriaxone and Flagyl with positive stool culture Aeromonas hydrophilia 1/2 Patient improving clinically, diarrhea is improving, but not completely resolved with no abdominal pain and she tolerates diet, she is off IV fluids Her electrolytes is also improvement She remains on antibiotics with ceftriaxone and Flagyl She is continued on home dose of Eliquis for her history of A-fib and history of pulmonary embolism Patient still feels generally weak We will ask for PT/OT evaluation, which is pending Patient has not been since surgeon before therefore she might benefit from evaluation. There is no GI service in this facility 04/11 Patient today was doing well and she was cleared for discharge by all health care consultant s. She had very mild periumbilical discomfort and some nausea but she tolerates diet and she had f formed stool. No other new complaint. Will plan was to discharge her home Selling Underwriter recommended to continue Eliquis for her A-fib However patient although in the beginning was told she has Eliquis alert but with further clarification it looks like she has co-pay of more than $500 per month for her Eliquis which she cannot afford so she depends on her primary livestock trader to get samples, when I asked the patient she does not think or she is not sure she has Eliquis left for her in the house. Also patient cannot get a free coupon. I discussed with the case managers, there is no free coupon for Xarelto as well or other alternative. Patient is high risk for stroke therefore we are going to start her on Coumadin with goal INR 2-3. Coumadin would be pharmacy to dose. In the meanwhile patie nt might require Lovenox bridging. Discussed with the staff Also patient can be downgraded to general medical floor 04/12. Patient seen and examined. INR is 2, no need for Lovenox bridging. 04/13. Patient seen examined. Potassium placement ordered. States she feels better. 04/14, She is fully awake oriented No confusion no chest pain No specific GI and symptoms looks improved Patient remains on ceftriaxone and Flagyl Sodium bicarb drip at 50 mL/h and Eliquis started in the hospital 04/15 Patient is awake and alert, she feels generally weak She is still on antibiotics for her intra-abdominal infection She is also started on Coumadin for her A-fib and currently on room warfarin with INR 3.2. She got 1 mg of Coumadin last night. Explained for the patient the importance of keeping INR between 2-3 and more that it has high risk of bleeding and she verbalized understanding and acceptance to this treatment Also per previous PT evaluation patient might qualify for subacute rehab. Will going to recheck in a talk to the patient and she is acceptable to go to rehab if needed Continue with ceftriaxone and Flagyl 04/16 Patient today was upset she has not been discharge, she has doctors take care of at home therefore she declined going to [facility] today although she agreed yesterday and authorization was submitted Then I called her PCP Dr. Salazar who kindly accepted to see her within 2 to 3 days to check her an INR. Her INR today is 3.2, she did not get any Coumadin last night. We are going to recheck her Coumadin tomorrow as well. As of note since restarting Coumadin she was taking less and less Coumadin 5 mg, 2.5 mg, 1.5 mg, 1 mg and yesterday nothing. Will keep holding of Coumadin today and check INR tomorrow Will give her a bolus of 500 cc She is also on other cardiac medication like metoprolol was need to be continued because of her tachycardia in the morning Because of the episode of hypotension we will check labs today and tomorrow Will keep monitoring for another 24 hours to check stability and then further recommendation based on the clinical course Of note patient told me her brother can help her every day when she goes home however he does not live with her 30/10 04/17 yesterday patient was adamant to go home rather than care home for rehab , However patient developed hypotension and we had to give him and give her bolus of 500 cc and start her on normal saline 75 mL/h This morning she agrees to go to rehab and stated that her brother will help her with taking care of her dogs at home however her blood pressure still on the low side and she is mildly tachycardic, we lowered her metoprolol dose 50 mg twice daily down to 25 mg twice daily while keeping her dose of Aldactone to 25 mg daily. Also will give her another bolus of fluid with close monitoring Patient has been complaining from cough We will order chest x-ray She is hemodynamically stable She feels generally weak and high risk of fall and explained that to her and she is aware of the risk of bleeding given her her INR is now therapeutic at 2.5. Continue with Coumadin pharmacy to dose. Possible discharge soon to rehab. Discussed with case managers, prior authorization application to insurance company provider is already submitted 04/18. Patient seen and examined. Still complaining of shortness of breath. REVIEW OF SYSTEMS: CONSTITUTIONAL: No fever, no malaise,. CARDIOVASCULAR: No chest pain, no palpitations, no syncope. PULMONARY: As mentioned above GASTROINTESTINAL: No diarrhea, no nausea, no vomiting, no abdominal pain. NEUROLOGICAL: No headaches, no weakness, PHYSICAL EXAMINATION: GENERAL: The patient is alert and oriented x3, not in any acute distress. HEENT: Pupils are round and equally reacting to light. EOMI. No scleral icterus. No conjunctival pallor. Normocephalic, atraumatic. No pharyngeal erythema. No thyromegaly. CARDIOVASCULAR: S1 and S2 present. No murmurs, rubs, or gallops. PULMONARY: Coarse breath sound bilaterally, no wheezing or crackles. ABDOMEN: Soft, nontender, nondistended, normoactive bowel sounds. No palpable organomegaly. MUSCULOSKELETAL: No joint swelling or deformity. EXTREMITIES: No cyanosis, clubbing, or pedal edema. NEUROLOGICAL: Gross neurological examination did not reveal any focal deficits. SKIN: No rashes. Assessment and plan Fall at home without syncope Hypotension, currently improved Acute sigmoid colitis with stool culture growing Aeromonas hydrophilia Rhabdomyolysis Chronic A-fib with RVR on admission, currently controlled. Patient has high co- pay for Eliquis and currently she is not covered with anticoagulation when she goes home. Need to start new Coumadin History of PE History of bipolar Monitor vital signs Monitor CBC Monitor CMP Continue telemetry monitoring Completed course of antibiotics Continue pharmacy dose Coumadin ID following Surgery following Waiting on placement to rehab facility Labs and medication were reviewed.. Continue same treatment. Continue with symptomatic treatment. Resume home medication. Monitor labs and vitals. DVT and GI prophylaxis. Further recommendations as per clinical course of the patient Dictation was produced using [employer] dictation software. please excuse any grammatical, word or spelling errors. Objective - Vital Signs Vital signs: Vital Signs Temp 97.9 F 04/18/24 13:23 Pulse 105 H 04/18/24 13:23 Resp 19 04/18/24 13:23 BP 102/65 04/18/24 13:23 Pulse Ox 96 04/18/24 13:23 FiO2 Intake & Output 04/17/24 04/18/24 04/18/24 18:59 06:59 18:59 Intake Total 300 Balance 300 Weight 107 kg Intake: Oral 300 Other: Voiding Method Toilet Toilet Toilet # Voids 4 2 - Labs CBC & Chem 7: 04/17/24 05:10 04/17/24 05:10 Labs: Abnormal Lab Results - Last 24 Hours (Table) 04/18/24 Range/Units 05:44 PT 27.8 H (10.0-12.5) sec INR 2.8 H (<1.2)
--- NOTE | 2024-04-18 16:02 | P.PN ---
Subjective Progress Note Date: 04/18/24 Patient is a 69-year-old female with past medical history significant for atrial fibrillation, hypothyroidism, PE/DVT, previous gastric bypass surgery. Of note, patient had a recent ER visit back on April 04 for severe episodic watery diarrhea. She returns to the emergency department yesterday afternoon with a similar complaint. I am evaluating this patient in the emergency department, room 14. She states that since Sunday she has had severe intractable diarrhea that is watery and brown. She also reports some mild abdominal discomfort, nausea without emesis. She has been very weak at home. Gets lightheaded on arising, but denies losing consciousness or syncopal events. Not able to t olerate much oral intake. Denies recent antibiotic use. Denies recent sick contacts. CBC is unremarkable without leukocytosis. She continues to have fluid loss. She is in a state of anion gap metabolic acidosis. Most recent CMP includes a sodium 137, potassium 2.6, chloride 106, serum bicarb down to 9, anion gap 22, BUN 33, creatinine 1.72, glucose 98. Magnesium was low at 1.2. EKG: Atrial fibrillation wtih RVR and frequent PVCs, rate 116. LFTs mildly elevated. CPK 2694. Stool occult blood was negative. C. difficile negative. We were consulted early this morning as the patient's blood pressure has been borderline hypotensive. She has received a total of 4 L crystalloid fluid bolus . She is also in atrial fibrillation with RVR ranging from 100 to 120 bpm. She continues to have copious amounts of liquid diarrhea, there is an FMS in place. CT of abdomen and pelvis showing moderate liquid stool throughout the colon compatible with history of diarrhea and mild wall thickening of the sigmoid colon and rectum, possible mild colitis. Also, indeterminate blind-ending structure in the right lower quadrant measuring 21 x 18 mm unclear etiology,. No evidence of pneumoperitoneum, free fluid, or bowel obstruction. Postsurgical findings noted. Patient has been empirically covered on a combination of Rocephin and Flagyl. Current vitals: Temperature 98.2 F, heart rate 118 bpm, blood pressure 101/50 mmHg, nontachypneic, SpO2 96% on room air. The patient is seen today April 08, 2024 in follow-up on the selective care unit. She is currently resting comfortably in bed. Awake and alert in no acute distress. She is maintaining good O2 saturations in the 90s on room air. She is receiving D5W with 3 A of bicarb at 130 mL/h. Stool culture showing Aeromonas hydrophila. White count 8.1. Hemoglobin 13.1. Platelets 189. Sodium 137. Potassium 3.0. Bicarb 28. BUN 16. Creatinine 0.86. Glucose 127. She remains on Questran and Flagyl. Remains on ceftriaxone. Anticoagulated with Eliquis. The patient is seen today April 13, 2024 in follow-up on the regular medical floor. She is currently resting comfortably in bed. Awake and alert in no acute distress. She still has a somewhat congested cough. She is maintaining good O2 saturations in the 90s on room air. No IV fluids. INR 2.6. Remains on ceftriaxone, Flagyl, Questran. Anticoagulated with warfarin. White count 6.4. Hemoglobin 14.8. Platelets 144. Sodium 140. Potassium 3.0. Bicarb 24. BUN 8. Creatinine 1.0. Glucose 90. On 04/14/2024, patient is being seen for a follow-up. This patient is 69 years old who presented to us with diarrhea, generalized weakness, and fall. She also had an acute kidney injury and rhabdomyolysis with hypokalemia and hypomagnesemia and atrial fibrillation with rapid ventricular response. Currently, the patient is doing well. She is on room air oxygen. No significant shortness of breath. No chest pain. No active diarrhea. Electrolytes are still pending from today. Potassium from yesterday was at 3.0. Renal function was stable and within normal limits. The white cell count is 6.4 with a hemoglobin 14.8 and a platelet count of 144. Doppler of the lower extremities were negative for DVT. Echocardiogram from 04/08/2024 showed preserved LV function, no significant valvular abnormalities. The patient had a stool culture that was positive for Aeromonas. In terms of therapy, she is on Questran and she is on a combination of Rocephin and Flagyl. Hemodynamically stable. No nausea. No emesis. No abdominal pain. Gastroenteritis and diarrhea has improved. CAT scan of the abdomen and pelvis showed no concerning pathology. The patient is status post Rosaura-en-Y gastric bypass surgery without evidence of any internal hernia. The patient is currently on regular diet. She is still anticoagulation with warfarin with a therapeutic PT/INR. On 04/15/2024, the patient is being seen for a follow-up. Awake and alert and denies having any specific complaints other than generalized weakness. She is working with physical therapy and the patient is seeking subacute rehabilitation. Remains on Rocephin and Flagyl. Remains on warfarin for chronic A-fib. Electrolytes are stable with a sodium level of 136, potassium level of 3.1, bicarb of 31, BUN is 8 with a creatinine of 0.7. COVID-19 was positive on 04/14/2024. 04/16/2024, patient is being seen for a follow-up. No new complaints. Resting comfortably in bed. She is awake and alert. No respiratory distress. No nausea or emesis. Maintained on anticoagulation. She is on warfarin. INR is at 3.2. Rest of electrolytes are within normal limits. Sodium level is at 136, potassium level is to be replaced at 3.0. BUN is 7 with a creatinine of 0.6. White cell count is at 5.2 with a hemoglobin of 11.9. The patient is awaiting authorization to be released to [facility]. On 04/17/2024, the patient is being seen for a follow-up. She has developed oropharyngeal candidiasis. The patient will be started on Diflucan and I am going to go ahead and discontinue the IV Solu-Medrol. No other specific complaints otherwise for now. The patient is adamant to go home rather than goi ng to a rehabilitation facility. Earlier this morning, the blood pressure was quite soft and based on that the patient was given a bolus of 500 cc of normal saline and she was placed on normal saline at rate of 75 cc an hour. She has some limited cough. No significant sputum production. Overall, feeling better. The white cell count is at 4 with a hemoglobin 10.6 and a platelet count of 183. INR is therapeutic at 2.5. BUN is 4 with a creatinine of 0.6 and a sodium level is 141. Remains on IV Rocephin. Remains on Flagyl. Remains on anticoagulation with warfarin. Remains on metoprolol 25 mg p.o. 3 times daily and Synthroid. On 04/18/2024, the patient is being seen for a follow-up. On today's evaluation, the patient is still complaining of some ongoing shortness of breath. The pat ient is also feeling quite weak. No significant hypoxemia the patient remains on a pulse ox of 96% on room air oxygen. She has a congested cough. As mentioned earlier, the patient has a positive COVID-19 infection. Nevertheless, her chest x-ray showed no acute cardiopulmonary process and there was also mild cardiomegaly. Doppler of the lower extremities were essentially negative for DVT. Her blood work from today shows an INR of 2.8 with a PT of 27. Based on her ongoing cough and congestion, the patient was started on Mucinex DM twice a day. She will provide incentive spirometer. Rest of the medications are essentially unchanged. She remains on Aldactone 25 mg p.o. daily. She remains on metoprolol 25 mg 3 times daily and anticoagulation with warfarin. PT/INR therapeutic for now. She is awaiting placement to a rehabilitation facility. Objective - Vital Signs Vital signs: Vital Signs Temp 98 F 04/18/24 07:31 Pulse 91 04/18/24 08:30 Resp 18 04/18/24 08:30 BP 91/61 04/18/24 07:31 Pulse Ox 95 04/18/24 07:31 FiO2 Intake & Output 04/17/24 04/18/24 04/18/24 18:59 06:59 18:59 Intake Total 300 Balance 300 Intake: Oral 300 Other: Voiding Method Toilet Toilet Toilet # Voids 4 2 - Exam GENERAL EXAM: Alert, 69-year-old obese female, resting in bed, on room air, comfortable in no apparent distress. HEAD: Normocephalic and atraumatic EYES: Normal reaction of pupils, equal size. NOSE: Clear with pink turbinates. THROAT: No erythema or exudates. NECK: No masses, no JVD. CHEST: No chest wall deformity. LUNGS: Equal air entry with no crackles, wheeze, rhonchi or dullness. On room air. No conversational dyspnea. CVS: S1 and S2 normal with no audible murmur, regular rhythm. No extra heart sounds ABDOMEN: No hepatosplenomegaly, active bowel sounds, no guarding or rigidity. FM S with copious amounts of liquid diarrhea, SPINE: No scoliosis or deformity SKIN: No rashes CENTRAL NERVOUS SYSTEM: No focal deficits, tone is normal in all 4 extremities. EXTREMITIES: There is no peripheral edema, clubbing, or cyanosis. Peripheral pulses are intact. - Labs CBC & Chem 7: 04/17/24 05:10 04/17/24 05:10 Labs: Abnormal Lab Results - Last 24 Hours (Table) 04/18/24 Range/Units 05:44 PT 27.8 H (10.0-12.5) sec INR 2.8 H (<1.2) Assessment and Plan Plan: Severe diarrheal illness and colitis, CT of abdomen and pelvis showing moderate liquid stool throughout the colon compatible with history of diarrhea and mild wall thickening of the sigmoid colon and rectum, possible mild colitis. Stool culture revealing Aeromonas hydrophila. On ceftriaxone, Flagyl, Questran. Symptoms of gastroenteritis and improved. Rule out gastrointestinal manifestation of COVID-19 infection as the patient tested positive for COVID-19 on 04/14/2024 clinically stable COVID-19 infection, tested positive on 04/14/2024, respiratory status remained stable and the patient remains on room air oxygen. Continues to have some congested cough. Hypotension, secondary to fluid losses and hypovolemia, recovered and the patient is currently normotensive Severe anion gap metabolic acidosis, recovered Acute rhabdomyolysis, the CPK 2694, recovered Acute kidney injury, secondary to combination of above Severe hypokalemia and hypomagnesemia, being replaced per protocol Atrial fibrillation with rapid ventricular response anticoagulated and the PT/INR is therapeutic History of heart failure with reduced ejection fraction History of PE/DVT History of previous gastric bypass surgery History of hypothyroidism Plan: Clinically stable Patient is on room air oxygen No diarrhea Monitor the blood pressure The patient is stable on room air oxygen Antibiotics can be discontinued Mucinex DM twice a day for cough and congestion Possibly diarrhea was related to COVID-19 viral infection, improved Remains hemodynamically stable Remains on anticoagulation with warfarin, PT/INR is being managed and adjusted by the medical team, the INR is therapeutic at this point in time Generalized weakness and debility rehabilitation through ECF is recommended
[2024-04-18] MEDS: WARFARIN 0.5 MG TAB PO ONE (17:05)
[2024-04-19 04:37] LABS: Prothrombin Time 29.7 sec (10.0-12.5)
[2024-04-19] MEDS: predniSONE 20 MG TAB PO SCH (11:08)
--- NOTE | 2024-04-19 13:20 | P.PN ---
Subjective Progress Note Date: 04/19/24 Patient is a 69-year-old female with past medical history significant for atrial fibrillation, hypothyroidism, PE/DVT, previous gastric bypass surgery. Of note, patient had a recent ER visit back on April 04 for severe episodic watery diarrhea. She returns to the emergency department yesterday afternoon with a similar complaint. I am evaluating this patient in the emergency department, room 14. She states that since Sunday she has had severe intractable diarrhea that is watery and brown. She also reports some mild abdominal discomfort, nausea without emesis. She has been very weak at home. Gets lightheaded on arising, but denies losing consciousness or syncopal events. Not able to t olerate much oral intake. Denies recent antibiotic use. Denies recent sick contacts. CBC is unremarkable without leukocytosis. She continues to have fluid loss. She is in a state of anion gap metabolic acidosis. Most recent CMP includes a sodium 137, potassium 2.6, chloride 106, serum bicarb down to 9, anion gap 22, BUN 33, creatinine 1.72, glucose 98. Magnesium was low at 1.2. EKG: Atrial fibrillation wtih RVR and frequent PVCs, rate 116. LFTs mildly elevated. CPK 2694. Stool occult blood was negative. C. difficile negative. We were consulted early this morning as the patient's blood pressure has been borderline hypotensive. She has received a total of 4 L crystalloid fluid bolus . She is also in atrial fibrillation with RVR ranging from 100 to 120 bpm. She continues to have copious amounts of liquid diarrhea, there is an FMS in place. CT of abdomen and pelvis showing moderate liquid stool throughout the colon compatible with history of diarrhea and mild wall thickening of the sigmoid colon and rectum, possible mild colitis. Also, indeterminate blind-ending structure in the right lower quadrant measuring 21 x 18 mm unclear etiology,. No evidence of pneumoperitoneum, free fluid, or bowel obstruction. Postsurgical findings noted. Patient has been empirically covered on a combination of Rocephin and Flagyl. Current vitals: Temperature 98.2 F, heart rate 118 bpm, blood pressure 101/50 mmHg, nontachypneic, SpO2 96% on room air. The patient is seen today April 08, 2024 in follow-up on the selective care unit. She is currently resting comfortably in bed. Awake and alert in no acute distress. She is maintaining good O2 saturations in the 90s on room air. She is receiving D5W with 3 A of bicarb at 130 mL/h. Stool culture showing Aeromonas hydrophila. White count 8.1. Hemoglobin 13.1. Platelets 189. Sodium 137. Potassium 3.0. Bicarb 28. BUN 16. Creatinine 0.86. Glucose 127. She remains on Questran and Flagyl. Remains on ceftriaxone. Anticoagulated with Eliquis. The patient is seen today April 13, 2024 in follow-up on the regular medical floor. She is currently resting comfortably in bed. Awake and alert in no acute distress. She still has a somewhat congested cough. She is maintaining good O2 saturations in the 90s on room air. No IV fluids. INR 2.6. Remains on ceftriaxone, Flagyl, Questran. Anticoagulated with warfarin. White count 6.4. Hemoglobin 14.8. Platelets 144. Sodium 140. Potassium 3.0. Bicarb 24. BUN 8. Creatinine 1.0. Glucose 90. On 04/14/2024, patient is being seen for a follow-up. This patient is 69 years old who presented to us with diarrhea, generalized weakness, and fall. She also had an acute kidney injury and rhabdomyolysis with hypokalemia and hypomagnesemia and atrial fibrillation with rapid ventricular response. Currently, the patient is doing well. She is on room air oxygen. No significant shortness of breath. No chest pain. No active diarrhea. Electrolytes are still pending from today. Potassium from yesterday was at 3.0. Renal function was stable and within normal limits. The white cell count is 6.4 with a hemoglobin 14.8 and a platelet count of 144. Doppler of the lower extremities were negative for DVT. Echocardiogram from 04/08/2024 showed preserved LV function, no significant valvular abnormalities. The patient had a stool culture that was positive for Aeromonas. In terms of therapy, she is on Questran and she is on a combination of Rocephin and Flagyl. Hemodynamically stable. No nausea. No emesis. No abdominal pain. Gastroenteritis and diarrhea has improved. CAT scan of the abdomen and pelvis showed no concerning pathology. The patient is status post Rosaura-en-Y gastric bypass surgery without evidence of any internal hernia. The patient is currently on regular diet. She is still anticoagulation with warfarin with a therapeutic PT/INR. On 04/15/2024, the patient is being seen for a follow-up. Awake and alert and denies having any specific complaints other than generalized weakness. She is working with physical therapy and the patient is seeking subacute rehabilitation. Remains on Rocephin and Flagyl. Remains on warfarin for chronic A-fib. Electrolytes are stable with a sodium level of 136, potassium level of 3.1, bicarb of 31, BUN is 8 with a creatinine of 0.7. COVID-19 was positive on 04/14/2024. 04/16/2024, patient is being seen for a follow-up. No new complaints. Resting comfortably in bed. She is awake and alert. No respiratory distress. No nausea or emesis. Maintained on anticoagulation. She is on warfarin. INR is at 3.2. Rest of electrolytes are within normal limits. Sodium level is at 136, potassium level is to be replaced at 3.0. BUN is 7 with a creatinine of 0.6. White cell count is at 5.2 with a hemoglobin of 11.9. The patient is awaiting authorization to be released to [facility]. On 04/17/2024, the patient is being seen for a follow-up. She has developed oropharyngeal candidiasis. The patient will be started on Diflucan and I am going to go ahead and discontinue the IV Solu-Medrol. No other specific complaints otherwise for now. The patient is adamant to go home rather than goi ng to a rehabilitation facility. Earlier this morning, the blood pressure was quite soft and based on that the patient was given a bolus of 500 cc of normal saline and she was placed on normal saline at rate of 75 cc an hour. She has some limited cough. No significant sputum production. Overall, feeling better. The white cell count is at 4 with a hemoglobin 10.6 and a platelet count of 183. INR is therapeutic at 2.5. BUN is 4 with a creatinine of 0.6 and a sodium level is 141. Remains on IV Rocephin. Remains on Flagyl. Remains on anticoagulation with warfarin. Remains on metoprolol 25 mg p.o. 3 times daily and Synthroid. On 04/18/2024, the patient is being seen for a follow-up. On today's evaluation, the patient is still complaining of some ongoing shortness of breath. The pat ient is also feeling quite weak. No significant hypoxemia the patient remains on a pulse ox of 96% on room air oxygen. She has a congested cough. As mentioned earlier, the patient has a positive COVID-19 infection. Nevertheless, her chest x-ray showed no acute cardiopulmonary process and there was also mild cardiomegaly. Doppler of the lower extremities were essentially negative for DVT. Her blood work from today shows an INR of 2.8 with a PT of 27. Based on her ongoing cough and congestion, the patient was started on Mucinex DM twice a day. She will provide incentive spirometer. Rest of the medications are essentially unchanged. She remains on Aldactone 25 mg p.o. daily. She remains on metoprolol 25 mg 3 times daily and anticoagulation with warfarin. PT/INR therapeutic for now. She is awaiting placement to a rehabilitation facility. On 04/19/2024, the patient is being seen for a follow-up. The patient continues to have some loose diarrhea. No respiratory difficulties. Continues to have a congested cough. Unable to bring up white sputum. PT/INR is therapeutic for no w. No new labs are available from today. No other significant events overnight. No nausea. No vomiting. No abdominal pain. She is currently on Mucinex DM twice a day and she is also provide incentive spirometer. Objective - Vital Signs Vital signs: Vital Signs Temp 98.1 F 04/19/24 07:05 Pulse 95 04/19/24 07:05 Resp 16 04/19/24 07:05 BP 94/67 04/19/24 07:05 Pulse Ox 93 L 04/19/24 07:05 FiO2 Intake & Output 04/18/24 04/19/24 04/19/24 18:59 06:59 18:59 Weight 107 kg Other: Voiding Method Toilet Toilet # Voids 4 1 - Exam GENERAL EXAM: Alert, 69-year-old obese female, resting in bed, on room air, comfortable in no apparent distress. HEAD: Normocephalic and atraumatic EYES: Normal reaction of pupils, equal size. NOSE: Clear with pink turbinates. THROAT: No erythema or exudates. NECK: No masses, no JVD. CHEST: No chest wall deformity. LUNGS: Equal air entry with no crackles, wheeze, rhonchi or dullness. On room air. No conversational dyspnea. CVS: S1 and S2 normal with no audible murmur, regular rhythm. No extra heart sounds ABDOMEN: No hepatosplenomegaly, active bowel sounds, no guarding or rigidity. FMS with copious amounts of liquid diarrhea, SPINE: No scoliosis or deformity SKIN: No rashes CENTRAL NERVOUS SYSTEM: No focal deficits, tone is normal in all 4 extremities. EXTREMITIES: There is no peripheral edema, clubbing, or cyanosis. Peripheral pulses are intact. - Labs CBC & Chem 7: 04/17/24 05:10 04/17/24 05:10 Labs: Abnormal Lab Results - Last 24 Hours (Table) 04/19/24 Range/Units 04:00 PT 29.7 H (10.0-12.5) sec INR 3.0 H (<1.2) Assessment and Plan Plan: Severe diarrheal illness and colitis, CT of abdomen and pelvis showing moderate liquid stool throughout the colon compatible with history of diarrhea and mild wall thickening of the sigmoid colon and rectum, possible mild colitis. Stool culture revealing Aeromonas hydrophila. On ceftriaxone, Flagyl, Questran. Symptoms of gastroenteritis and improved. Rule out gastrointestinal manif estation of COVID-19 infection as the patient tested positive for COVID-19 on 04/14/2024 clinically stable COVID-19 infection, tested positive on 04/14/2024, respiratory status remained stable and the patient remains on room air oxygen. Continues to have some congested cough. Hypotension, secondary to fluid losses and hypovolemia, recovered and the patient is currently normotensive Severe anion gap metabolic acidosis, recovered Acute rhabdomyolysis, the CPK 2694, recovered Acute kidney injury, secondary to combination of above Severe hypokalemia and hypomagnesemia, being replaced per protocol Atrial fibrillation with rapid ventricular response anticoagulated and the PT/INR is therapeutic History of heart failure with reduced ejection fraction History of PE/DVT History of previous gastric bypass surgery History of hypothyroidism Plan: Clinically stable Patient is on room air oxygen No diarrhea Monitor the blood pressure The patient is stable on room air oxygen Antibiotics can be discontinued Start the patient on prednisone 40 mg p.o. daily as the patient continues to have congested cough Mucinex DM twice a day for cough and congestion Possibly diarrhea was related to COVID-19 viral infection, improving although not completely recovered Remains hemodynamically stable Remains on anticoagulation with warfarin, PT/INR is being managed and adjusted by the medical team, the INR is therapeutic at this point in time Generalized weakness and debility rehabilitation through ECF is recommended
--- NOTE | 2024-04-19 13:28 | P.PN ---
Subjective Progress Note Date: 04/19/24 This is a pleasant 69 years old female Who presents because of fall and hypotension and found to have acute gastroenteritis secondary to sigmoid colitis and rhabdomyolysis. Also she has some abnormal urine sample but no evidence of UTI. She has also chronic medical problems like A-fib and history of PE Patient currently sitting in chair, very lethargic and weak but mentation at baseline She has poor diet, she thinks she is n.p.o. but there is a cardiac diet ordered for her. She has mild abdominal pain about 8/10 as per patient. Patient states that her diarrhea is better No urinary symptoms Patient is difficult for her to stop because of her weakness. But denies chest pain or dyspnea. Creatinine is improved down to 1.2, potassium low at 3.0 Blood pressure is still on the low side 97/55 Pro- Calcitonin slightly elevated at 0.39 Creatinine kinase was high at 2699 C-reactive protein was high at 21 Occult blood in stool and C. difficile both were negative COVID and influenza virus were negative CT of the abdomen pelvis showing wall thickening of the sigmoid colon and right lower lobe indeterminate structure could be surgical scar Stool cultures growing Aeromonas hydrophilia. Patient currently covered with ceftriaxone and Flagyl with ID team on the case 04/09/24 Patient with improving abdominal pain down from 8 down to 6/10 in severity She still have fecal management system in place she has watery loose diarrhea. No vomiting. She remains on normal saline She is on ceftriaxone and Flagyl with positive stool culture Aeromonas hydrophilia 1/2 Patient improving clinically, diarrhea is improving, but not completely resolved with no abdominal pain and she tolerates diet, she is off IV fluids Her electrolytes is also improvement She remains on antibiotics with ceftriaxone and Flagyl She is continued on home dose of Eliquis for her history of A-fib and history of pulmonary embolism Patient still feels generally weak We will ask for PT/OT evaluation, which is pending Patient has not been since surgeon before therefore she might benefit from evaluation. There is no GI service in this facility 04/11 Patient today was doing well and she was cleared for discharge by all specialty sales consultant s. She had very mild periumbilical discomfort and some nausea but she tolerates diet and she had f formed stool. No other new complaint. Will plan was to discharge her home Paid Search Marketing Strategist recommended to continue Eliquis for her A-fib However patient although in the beginning was told she has Eliquis alert but with further clarification it looks like she has co-pay of more than $500 per month for her Eliquis which she cannot afford so she depends on her primary occup therapist to get samples, when I asked the patient she does not think or she is not sure she has Eliquis left for her in the house. Also patient cannot get a free coupon. I discussed with the caseworker protective services, there is no free coupon for Xarelto as well or other alternative. Patient is high risk for stroke therefore we are going to start her on Coumadin with goal INR 2-3. Coumadin would be pharmacy to dose. In the meanwhile patie nt might require Lovenox bridging. Discussed with the staff Also patient can be downgraded to general medical floor 04/12. Patient seen and examined. INR is 2, no need for Lovenox bridging. 04/13. Patient seen examined. Potassium placement ordered. States she feels better. 04/14, She is fully awake oriented No confusion no chest pain No specific GI and symptoms looks improved Patient remains on ceftriaxone and Flagyl Sodium bicarb drip at 50 mL/h and Eliquis started in the hospital 04/15 Patient is awake and alert, she feels generally weak She is still on antibiotics for her intra-abdominal infection She is also started on Coumadin for her A-fib and currently on room warfarin with INR 3.2. She got 1 mg of Coumadin last night. Explained for the patient the importance of keeping INR between 2-3 and more that it has high risk of bleeding and she verbalized understanding and acceptance to this treatment Also per previous PT evaluation patient might qualify for subacute rehab. Will going to recheck in a talk to the patient and she is acceptable to go to rehab if needed Continue with ceftriaxone and Flagyl 04/16 Patient today was upset she has not been discharge, she has doctors take care of at home therefore she declined going to [facility] today although she agreed yesterday and authorization was submitted Then I called her PCP Dr. Salazar who kindly accepted to see her within 2 to 3 days to check her an INR. Her INR today is 3.2, she did not get any Coumadin last night. We are going to recheck her Coumadin tomorrow as well. As of note since restarting Coumadin she was taking less and less Coumadin 5 mg, 2.5 mg, 1.5 mg, 1 mg and yesterday nothing. Will keep holding of Coumadin today and check INR tomorrow Will give her a bolus of 500 cc She is also on other cardiac medication like metoprolol was need to be continued because of her tachycardia in the morning Because of the episode of hypotension we will check labs today and tomorrow Will keep monitoring for another 24 hours to check stability and then further recommendation based on the clinical course Of note patient told me her brother can help her every day when she goes home however he does not live with her 30/10 04/17 yesterday patient was adamant to go home rather than assisted for rehab , However patient developed hypotension and we had to give him and give her bolus of 500 cc and start her on normal saline 75 mL/h This morning she agrees to go to rehab and stated that her brother will help her with taking care of her dogs at home however her blood pressure still on the low side and she is mildly tachycardic, we lowered her metoprolol dose 50 mg twice daily down to 25 mg twice daily while keeping her dose of Aldactone to 25 mg daily. Also will give her another bolus of fluid with close monitoring Patient has been complaining from cough We will order chest x-ray She is hemodynamically stable She feels generally weak and high risk of fall and explained that to her and she is aware of the risk of bleeding given her her INR is now therapeutic at 2.5. Continue with Coumadin pharmacy to dose. Possible discharge soon to rehab. Discussed with caseworker protective services, prior authorization application to insurance company provider is already submitted 04/18. Patient seen and examined. Still complaining of shortness of breath. 04/15. Patient seen and examined. INR this morning is 3. Patient diarrhea has improved. Patient continues to complain lethargic and weakness REVIEW OF SYSTEMS: CONSTITUTIONAL: No fever, no malaise,. CARDIOVASCULAR: No chest pain, no palpitations, no syncope. PULMONARY: As mentioned above GASTROINTESTINAL: no nausea, no vomiting, no abdominal pain. NEUROLOGICAL: No headaches, no weakness, PHYSICAL EXAMINATION: GENERAL: The patient is alert and oriented x3, not in any acute distress. HEENT: Pupils are round and equally reacting to light. EOMI. No scleral icterus. No conjunctival pallor. Normocephalic, atraumatic. No pharyngeal erythema. No thyromegaly. CARDIOVASCULAR: S1 and S2 present. No murmurs, rubs, or gallops. PULMONARY: Coarse breath sound bilaterally, no wheezing or crackles. ABDOMEN: Soft, nontender, nondistended, normoactive bowel sounds. No palpable organomegaly. MUSCULOSKELETAL: No joint swelling or deformity. EXTREMITIES: No cyanosis, clubbing, or pedal edema. NEUROLOGICAL: Gross neurological examination did not reveal any focal deficits. SKIN: No rashes. Assessment and plan Fall at home without syncope Hypotension, currently improved Acute sigmoid colitis with stool culture growing Aeromonas hydrophilia Rhabdomyolysis Chronic A-fib with RVR on admission, currently controlled. Patient has high co- pay for Eliquis and currently she is not covered with anticoagulation when she goes home. Need to start new Coumadin History of PE History of bipolar Monitor vital signs Monitor CBC Monitor CMP Continue telemetry monitoring Completed course of antibiotics Continue pharmacy dose Coumadin ID following Surgery following Waiting on placement to rehab facility Labs and medication were reviewed.. Continue same treatment. Continue with symptomatic treatment. Resume home medication. Monitor labs and vitals. DVT and GI prophylaxis. Further recommendations as per clinical course of the patient Dictation was produced using [employer] dictation software. please excuse any grammatical, word or spelling errors. Objective - Vital Signs Vital signs: Vital Signs Temp 98.1 F 04/19/24 07:05 Pulse 95 04/19/24 07:05 Resp 16 04/19/24 07:05 BP 94/67 04/19/24 07:05 Pulse Ox 93 L 04/19/24 07:05 FiO2 Intake & Output 04/18/24 04/19/24 04/19/24 18:59 06:59 18:59 Weight 107 kg Other: Voiding Method Toilet Toilet # Voids 4 1 - Labs CBC & Chem 7: 04/17/24 05:10 04/17/24 05:10 Labs: Abnormal Lab Results - Last 24 Hours (Table) 04/19/24 Range/Units 04:00 PT 29.7 H (10.0-12.5) sec INR 3.0 H (<1.2)
--- NOTE | 2024-04-19 15:31 | P.PN ---
Subjective Progress Note Date: 04/18/24 Principal diagnosis: Reason for follow-up is colitis/Aeromonas hydrophila infection Patient is a 69-year-old female with a past medical history significant for atrial fibrillation SVT hypothyroidism presenting to the hospital about a week ago for evaluation of diarrhea with fecal incontinence symptom has been going on for about 5 days before presentation to the hospital patient CT was suggestive of colitis and stool cultures came back positive with Aeromonas hydrophilia prompting this consultation. On today's evaluation that is 04/18/2024, the patient continues to be afebrile, the patient is on room air however has been complaining of more shortness of breath denies any chest pain or worsening cough no nausea vomiting no abdominal pain or any further diarrhea. Patient did have a INR of 2.8 Objective - Vital Signs Vital signs: Vital Signs Temp 98 F 04/18/24 07:31 Pulse 91 04/18/24 08:30 Resp 18 04/18/24 08:30 BP 91/61 04/18/24 07:31 Pulse Ox 95 04/18/24 07:31 FiO2 Intake & Output 04/17/24 04/18/24 04/18/24 18:59 06:59 18:59 Intake Total 300 Balance 300 Intake: Oral 300 Other: Voiding Method Toilet Toilet Toilet # Voids 4 2 - Exam GENERAL DESCRIPTION: An elderly female lying in bed in no distress RESPIRATORY SYSTEM: Unlabored breathing , decreased breath sounds at bases HEART: S1 S2 regular rate and rhythm , ABDOMEN: Soft , no tenderness EXTREMITIES: No edema feet - Labs CBC & Chem 7: 04/17/24 05:10 04/17/24 05:10 Labs: Abnormal Lab Results - Last 24 Hours (Table) 04/18/24 Range/Units 05:44 PT 27.8 H (10.0-12.5) sec INR 2.8 H (<1.2) Assessment and Plan (1) Colitis Current Visit: Yes Status: Acute Code(s): K52.9 - NONINFECTIVE GASTROENTERITIS AND COLITIS, UNSPECIFIED SNOMED Code(s): 23892864 (2) Intestinal infection due to Aeromonas hydrophila Current Visit: Yes Status: Acute Code(s): A04.8 - OTHER SPECIFIED BACTERIAL INTESTINAL INFECTIONS SNOMED Code(s): 593890662 (3) COVID-19 Current Visit: Yes Status: Acute Code(s): U07.1 - COVID-19 SNOMED Code(s): 049369669 Plan: 1patient was in the hospital about a week ago for evaluation of abdominal pain and diarrhea CT shows evidence of colitis in the stool concern ongoing Aeromonas hydrophila likely the pathogen causing her illness she tested negative for C. difficile, initial susceptibility report did not mention Rocephin I did call the micro lab personally to confirm sensitivity of this pathogen Rocephin 2-patient did have fever and tested positive for COVID-19 however patient is currently not hypoxic complaining of some shortness of breath, continue the current supportive treatment pulmonary is following the patient 3patient did have evidence of colitis on CT, stool culture with Aeromonas pa tient to continue with IV Rocephin while inpatient Dictation was produced using [employer] dictation software. please excuse any grammatical, word or spelling errors.
--- NOTE | 2024-04-19 15:32 | P.PN ---
Subjective Progress Note Date: 04/19/24 Principal diagnosis: Reason for follow-up is colitis/Aeromonas hydrophila infection Patient is a 69-year-old female with a past medical history significant for atrial fibrillation SVT hypothyroidism presenting to the hospital about a week ago for evaluation of diarrhea with fecal incontinence symptom has been going on for about 5 days before presentation to the hospital patient CT was suggestive of colitis and stool cultures came back positive with Aeromonas hydrophilia prompting this consultation. On today's evaluation that is 04/19/2024, patient did not have any fever and denies any chills, patient is breathing comfortably on room air, patient with no chest pain and cough is decreased intensity denies any nausea vomiting no abdominal pain or diarrhea. No CBC was done today patient did have a INR of 3.0 Objective - Vital Signs Vital signs: Vital Signs Temp 98.1 F 04/19/24 07:05 Pulse 95 04/19/24 07:05 Resp 16 04/19/24 07:05 BP 94/67 04/19/24 07:05 Pulse Ox 93 L 04/19/24 07:05 FiO2 Intake & Output 04/18/24 04/19/24 04/19/24 18:59 06:59 18:59 Weight 107 kg Other: Voiding Method Toilet Toilet # Voids 4 1 - Exam GENERAL DESCRIPTION: An elderly female lying in bed in no distress RESPIRATORY SYSTEM: Unlabored breathing , decreased breath sounds at bases HEART: S1 S2 regular rate and rhythm , ABDOMEN: Soft , no tenderness EXTREMITIES: No edema feet - Labs CBC & Chem 7: 04/17/24 05:10 04/17/24 05:10 Labs: Abnormal Lab Results - Last 24 Hours (Table) 04/19/24 Range/Units 04:00 PT 29.7 H (10.0-12.5) sec INR 3.0 H (<1.2) Assessment and Plan (1) Colitis Current Visit: Yes Status: Acute Code(s): K52.9 - NONINFECTIVE GASTROENTERITIS AND COLITIS, UNSPECIFIED SNOMED Code(s): 36652221 (2) Intestinal infection due to Aeromonas hydrophila Current Visit: Yes Status: Acute Code(s): A04.8 - OTHER SPECIFIED BACTERIAL INTESTINAL INFECTIONS SNOMED Code(s): 161194025 (3) COVID-19 Current Visit: Yes Status: Acute Code(s): U07.1 - COVID-19 SNOMED Code(s): 774157674 Plan: 1patient was in the hospital about a week ago for evaluation of abdominal pain and diarrhea CT shows evidence of colitis in the stool concern ongoing Aeromonas hydrophila likely the pathogen causing her illness she tested negative for C. difficile, initial susceptibility report did not mention Rocephin I did call the micro lab personally to confirm sensitivity of this pathogen Rocephin 2-patient did have fever and tested positive for COVID-19 however patient is currently not hypoxic and did have improvement her respiratory status, continue the current supportive treatment 3patient did have evidence of colitis on CT, stool culture with Aeromonas patient has received adequate IV Rocephin which has been discontinued yesterday will monitor the patient clinical course closely Dictation was produced using [email or web address] dictation software. please excuse any grammatical, word or spelling errors. Time with Patient: Less than 30
[2024-04-19] MEDS: WARFARIN 0.5 MG TAB PO ONE (17:15)
[2024-04-20 05:10] LABS: INR 2.4 (<1.2); Prothrombin Time 23.9 sec (10.0-12.5)
[2024-04-20 09:29] LABS: Basophils # (A) 0.02 X 10*3/uL (0.00-0.10); Basophils % (A) 0.5 %; Eosinophils # (A) 0.01 X 10*3/uL (0.04-0.35); Eosinophils % (A) 0.2 %; HGB 10.9 g/dL (12.0-15.0); Lymphocytes # (A) 0.88 X 10*3/uL (0.90-5.00); Lymphocytes % (A) 20.7 %; MCH 32.2 pg (27.0-32.0); MCV 97.3 FL (80.0-97.0); Mean Platelet Volume 10.3 FL (9.5-12.2); Monocytes # (A) 0.36 X 10*3/uL (0.20-1.00); Monocytes % (A) 8.5 %; NRBC Per 100 WBC 0 X 10*3/uL (0.00-0.01); Neutrophils # (A) 2.97 X 10*3/uL (1.80-7.70); Neutrophils % (A) 69.6 %; Platelet Count 303 X 10*3/uL (140-440); RBC 3.39 X 10*6/uL (4.10-5.20); RDW 13.5 % (11.5-14.5); WBC 4.26 X 10*3/uL (4.50-10.00)
[2024-04-20 11:31] LABS: ALT 24 U/L (8-44); AST 26 U/L (13-35); Albumin 2.9 g/dL (3.8-4.9); Albumin/Globulin Ratio 1.21 Ratio (1.60-3.17); Alkaline Phosphatase 51 U/L (41-126); BUN/Creat Ratio 8.17 Ratio (12.00-20.00); Blood Urea Nitrogen 4.9 mg/dL (9.0-27.0); Calcium 8.2 mg/dL (8.7-10.3); Carbon Dioxide 22.5 mmol/L (21.6-31.8); Chloride 110 mmol/L (96-109); Globulin 2.4 g/dL (1.6-3.3); Glucose 100 mg/dL (70-110); Potassium 4.4 mmol/L (3.5-5.5); Sodium 142 mmol/L (135-145); Total Bilirubin 0.3 mg/dL (0.3-1.2); Total Protein 5.3 g/dL (6.2-8.2)
--- NOTE | 2024-04-20 12:49 | P.PN ---
Subjective Progress Note Date: 04/20/24 This is a pleasant 69 years old female Who presents because of fall and hypotension and found to have acute gastroenteritis secondary to sigmoid colitis and rhabdomyolysis. Also she has some abnormal urine sample but no evidence of UTI. She has also chronic medical problems like A-fib and history of PE Patient currently sitting in chair, very lethargic and weak but mentation at baseline She has poor diet, she thinks she is n.p.o. but there is a cardiac diet ordered for her. She has mild abdominal pain about 8/10 as per patient. Patient states that her diarrhea is better No urinary symptoms Patient is difficult for her to stop because of her weakness. But denies chest pain or dyspnea. Creatinine is improved down to 1.2, potassium low at 3.0 Blood pressure is still on the low side 97/55 Pro- Calcitonin slightly elevated at 0.39 Creatinine kinase was high at 2699 C-reactive protein was high at 21 Occult blood in stool and C. difficile both were negative COVID and influenza virus were negative CT of the abdomen pelvis showing wall thickening of the sigmoid colon and right lower lobe indeterminate structure could be surgical scar Stool cultures growing Aeromonas hydrophilia. Patient currently covered with ceftriaxone and Flagyl with ID team on the case 04/09/24 Patient with improving abdominal pain down from 8 down to 6/10 in severity She still have fecal management system in place she has watery loose diarrhea. No vomiting. She remains on normal saline She is on ceftriaxone and Flagyl with positive stool culture Aeromonas hydrophilia 1/2 Patient improving clinically, diarrhea is improving, but not completely resolved with no abdominal pain and she tolerates diet, she is off IV fluids Her electrolytes is also improvement She remains on antibiotics with ceftriaxone and Flagyl She is continued on home dose of Eliquis for her history of A-fib and history of pulmonary embolism Patient still feels generally weak We will ask for PT/OT evaluation, which is pending Patient has not been since surgeon before therefore she might benefit from evaluation. There is no GI service in this facility 04/11 Patient today was doing well and she was cleared for discharge by all resourcing consultant s. She had very mild periumbilical discomfort and some nausea but she tolerates diet and she had f formed stool. No other new complaint. Will plan was to discharge her home [facility] Sawyer recommended to continue Eliquis for her A-fib However patient although in the beginning was told she has Eliquis alert but with further clarification it looks like she has co-pay of more than $500 per month for her Eliquis which she cannot afford so she depends on her primary gelatin powder mixer to get samples, when I asked the patient she does not think or she is not sure she has Eliquis left for her in the house. Also patient cannot get a free coupon. I discussed with the shoe caser, there is no free coupon for Xarelto as well or other alternative. Patient is high risk for stroke therefore we are going to start her on Coumadin with goal INR 2-3. Coumadin would be pharmacy to dose. In the meanwhile patie nt might require Lovenox bridging. Discussed with the staff Also patient can be downgraded to general medical floor 04/12. Patient seen and examined. INR is 2, no need for Lovenox bridging. 04/13. Patient seen examined. Potassium placement ordered. States she feels better. 04/14, She is fully awake oriented No confusion no chest pain No specific GI and symptoms looks improved Patient remains on ceftriaxone and Flagyl Sodium bicarb drip at 50 mL/h and Eliquis started in the hospital 04/15 Patient is awake and alert, she feels generally weak She is still on antibiotics for her intra-abdominal infection She is also started on Coumadin for her A-fib and currently on room warfarin with INR 3.2. She got 1 mg of Coumadin last night. Explained for the patient the importance of keeping INR between 2-3 and more that it has high risk of bleeding and she verbalized understanding and acceptance to this treatment Also per previous PT evaluation patient might qualify for subacute rehab. Will going to recheck in a talk to the patient and she is acceptable to go to rehab if needed Continue with ceftriaxone and Flagyl 04/16 Patient today was upset she has not been discharge, she has doctors take care of at home therefore she declined going to [facility] today although she agreed yesterday and authorization was submitted Then I called her PCP Dr. Salazar who kindly accepted to see her within 2 to 3 days to check her an INR. Her INR today is 3.2, she did not get any Coumadin last night. We are going to recheck her Coumadin tomorrow as well. As of note since restarting Coumadin she was taking less and less Coumadin 5 mg, 2.5 mg, 1.5 mg, 1 mg and yesterday nothing. Will keep holding of Coumadin today and check INR tomorrow Will give her a bolus of 500 cc She is also on other cardiac medication like metoprolol was need to be continued because of her tachycardia in the morning Because of the episode of hypotension we will check labs today and tomorrow Will keep monitoring for another 24 hours to check stability and then further recommendation based on the clinical course Of note patient told me her brother can help her every day when she goes home however he does not live with her 30/10 04/17 yesterday patient was adamant to go home rather than [facility] for rehab , However patient developed hypotension and we had to give him and give her bolus of 500 cc and start her on normal saline 75 mL/h This morning she agrees to go to rehab and stated that her brother will help her with taking care of her dogs at home however her blood pressure still on the low side and she is mildly tachycardic, we lowered her metoprolol dose 50 mg twice daily down to 25 mg twice daily while keeping her dose of Aldactone to 25 mg daily. Also will give her another bolus of fluid with close monitoring Patient has been complaining from cough We will order chest x-ray She is hemodynamically stable She feels generally weak and high risk of fall and explained that to her and she is aware of the risk of bleeding given her her INR is now therapeutic at 2.5. Continue with Coumadin pharmacy to dose. Possible discharge soon to rehab. Discussed with shoe caser, prior authorization application to insurance company provider is already submitted 04/18. Patient seen and examined. Still complaining of shortness of breath. 04/19. Patient seen and examined. INR this morning is 3. Patient diarrhea has improved. Patient continues to complain lethargic and weakness 04/20. Patient seen and examined. Currently off antibiotics, waiting on rehab placement REVIEW OF SYSTEMS: CONSTITUTIONAL: No fever, no malaise,. CARDIOVASCULAR: No chest pain, no palpitations, no syncope. PULMONARY: As mentioned above GASTROINTESTINAL: no nausea, no vomiting, no abdominal pain. NEUROLOGICAL: No headaches, no weakness, PHYSICAL EXAMINATION: GENERAL: The patient is alert and oriented x3, not in any acute distress. HEENT: Pupils are round and equally reacting to light. EOMI. No scleral icterus. No conjunctival pallor. Normocephalic, atraumatic. No pharyngeal erythema. No thyromegaly. CARDIOVASCULAR: S1 and S2 present. No murmurs, rubs, or gallops. PULMONARY: Coarse breath sound bilaterally, no wheezing or crackles. ABDOMEN: Soft, nontender, nondistended, normoactive bowel sounds. No palpable organomegaly. MUSCULOSKELETAL: No joint swelling or deformity. EXTREMITIES: No cyanosis, clubbing, or pedal edema. NEUROLOGICAL: Gross neurological examination did not reveal any focal deficits. SKIN: No rashes. Assessment and plan Fall at home without syncope Hypotension, currently improved Acute sigmoid colitis with stool culture growing Aeromonas hydrophilia Rhabdomyolysis Chronic A-fib with RVR on admission, currently controlled. Patient has high co- pay for Eliquis and currently she is not covered with anticoagulation when she goes home. Need to start new Coumadin History of PE History of bipolar Monitor vital signs Monitor CBC Monitor CMP Continue telemetry monitoring Completed course of antibiotics Continue pharmacy dose Coumadin ID following Surgery following Waiting on placement to rehab facility Labs and medication were reviewed.. Continue same treatment. Continue with symptomatic treatment. Resume home medication. Monitor labs and vitals. DVT and GI prophylaxis. Further recommendations as per clinical course of the patient Dictation was produced using [employer] dictation software. please excuse any grammatical, word or spelling errors. Objective - Vital Signs Vital signs: Vital Signs Temp 97.9 F 04/20/24 07:25 Pulse 87 04/20/24 07:25 Resp 16 04/20/24 07:25 BP 98/64 04/20/24 07:25 Pulse Ox 94 L 04/20/24 07:25 FiO2 Intake & Output 04/19/24 04/20/24 04/20/24 18:59 06:59 18:59 Other: Voiding Method Toilet # Voids 2 - Labs CBC & Chem 7: 04/20/24 03:23 04/20/24 03:23 Labs: Abnormal Lab Results - Last 24 Hours (Table) 04/20/24 04/20/24 04/20/24 Range/Units 03:23 03:23 03:23 WBC 4.26 L (4.50-10.00) X 10*3/uL RBC 3.39 L (4.10-5.20) X 10*6/uL Hgb 10.9 L (12.0-15.0) g/dL Hct 33.0 L (37.2-46.3) % MCV 97.3 H (80.0-97.0) FL MCH 32.2 H (27.0-32.0) pg Lymphocytes # 0.88 L (0.90-5.00) X 10*3/uL Eosinophils # 0.01 L (0.04-0.35) X 10*3/uL PT 23.9 H (10.0-12.5) sec INR 2.4 H (<1.2) Chloride 110 H (96-109) mmol/L BUN 4.9 L (9.0-27.0) mg/dL BUN/Creatinine Ratio 8.17 L (12.00-20.00) Ratio Calcium 8.2 L (8.7-10.3) mg/dL Total Protein 5.3 L (6.2-8.2) g/dL Albumin 2.9 L (3.8-4.9) g/dL Albumin/Globulin Ratio 1.21 L (1.60-3.17) Ratio
--- NOTE | 2024-04-20 13:17 | P.PN ---
Subjective Progress Note Date: 04/20/24 Patient is a 69-year-old female with past medical history significant for atrial fibrillation, hypothyroidism, PE/DVT, previous gastric bypass surgery. Of note, patient had a recent ER visit back on April 04 for severe episodic watery diarrhea. She returns to the emergency department yesterday afternoon with a similar complaint. I am evaluating this patient in the emergency department, room 14. She states that since Sunday she has had severe intractable diarrhea that is watery and brown. She also reports some mild abdominal discomfort, nausea without emesis. She has been very weak at home. Gets lightheaded on arising, but denies losing consciousness or syncopal events. Not able to t olerate much oral intake. Denies recent antibiotic use. Denies recent sick contacts. CBC is unremarkable without leukocytosis. She continues to have fluid loss. She is in a state of anion gap metabolic acidosis. Most recent CMP includes a sodium 137, potassium 2.6, chloride 106, serum bicarb down to 9, anion gap 22, BUN 33, creatinine 1.72, glucose 98. Magnesium was low at 1.2. EKG: Atrial fibrillation wtih RVR and frequent PVCs, rate 116. LFTs mildly elevated. CPK 2694. Stool occult blood was negative. C. difficile negative. We were consulted early this morning as the patient's blood pressure has been borderline hypotensive. She has received a total of 4 L crystalloid fluid bolus . She is also in atrial fibrillation with RVR ranging from 100 to 120 bpm. She continues to have copious amounts of liquid diarrhea, there is an FMS in place. CT of abdomen and pelvis showing moderate liquid stool throughout the colon compatible with history of diarrhea and mild wall thickening of the sigmoid colon and rectum, possible mild colitis. Also, indeterminate blind-ending structure in the right lower quadrant measuring 21 x 18 mm unclear etiology,. No evidence of pneumoperitoneum, free fluid, or bowel obstruction. Postsurgical findings noted. Patient has been empirically covered on a combination of Rocephin and Flagyl. Current vitals: Temperature 98.2 F, heart rate 118 bpm, blood pressure 101/50 mmHg, nontachypneic, SpO2 96% on room air. The patient is seen today April 08, 2024 in follow-up on the selective care unit. She is currently resting comfortably in bed. Awake and alert in no acute distress. She is maintaining good O2 saturations in the 90s on room air. She is receiving D5W with 3 A of bicarb at 130 mL/h. Stool culture showing Aeromonas hydrophila. White count 8.1. Hemoglobin 13.1. Platelets 189. Sodium 137. Potassium 3.0. Bicarb 28. BUN 16. Creatinine 0.86. Glucose 127. She remains on Questran and Flagyl. Remains on ceftriaxone. Anticoagulated with Eliquis. The patient is seen today April 13, 2024 in follow-up on the regular medical floor. She is currently resting comfortably in bed. Awake and alert in no acute distress. She still has a somewhat congested cough. She is maintaining good O2 saturations in the 90s on room air. No IV fluids. INR 2.6. Remains on ceftriaxone, Flagyl, Questran. Anticoagulated with warfarin. White count 6.4. Hemoglobin 14.8. Platelets 144. Sodium 140. Potassium 3.0. Bicarb 24. BUN 8. Creatinine 1.0. Glucose 90. On 04/14/2024, patient is being seen for a follow-up. This patient is 69 years old who presented to us with diarrhea, generalized weakness, and fall. She also had an acute kidney injury and rhabdomyolysis with hypokalemia and hypomagnesemia and atrial fibrillation with rapid ventricular response. Currently, the patient is doing well. She is on room air oxygen. No significant shortness of breath. No chest pain. No active diarrhea. Electrolytes are still pending from today. Potassium from yesterday was at 3.0. Renal function was stable and within normal limits. The white cell count is 6.4 with a hemoglobin 14.8 and a platelet count of 144. Doppler of the lower extremities were negative for DVT. Echocardiogram from 04/08/2024 showed preserved LV function, no significant valvular abnormalities. The patient had a stool culture that was positive for Aeromonas. In terms of therapy, she is on Questran and she is on a combination of Rocephin and Flagyl. Hemodynamically stable. No nausea. No emesis. No abdominal pain. Gastroenteritis and diarrhea has improved. CAT scan of the abdomen and pelvis showed no concerning pathology. The patient is status post Rosaura-en-Y gastric bypass surgery without evidence of any internal hernia. The patient is currently on regular diet. She is still anticoagulation with warfarin with a therapeutic PT/INR. On 04/15/2024, the patient is being seen for a follow-up. Awake and alert and denies having any specific complaints other than generalized weakness. She is working with physical therapy and the patient is seeking subacute rehabilitation. Remains on Rocephin and Flagyl. Remains on warfarin for chronic A-fib. Electrolytes are stable with a sodium level of 136, potassium level of 3.1, bicarb of 31, BUN is 8 with a creatinine of 0.7. COVID-19 was positive on 04/14/2024. 04/16/2024, patient is being seen for a follow-up. No new complaints. Resting comfortably in bed. She is awake and alert. No respiratory distress. No nausea or emesis. Maintained on anticoagulation. She is on warfarin. INR is at 3.2. Rest of electrolytes are within normal limits. Sodium level is at 136, potassium level is to be replaced at 3.0. BUN is 7 with a creatinine of 0.6. White cell count is at 5.2 with a hemoglobin of 11.9. The patient is awaiting authorization to be released to [facility]. On 04/17/2024, the patient is being seen for a follow-up. She has developed oropharyngeal candidiasis. The patient will be started on Diflucan and I am going to go ahead and discontinue the IV Solu-Medrol. No other specific complaints otherwise for now. The patient is adamant to go home rather than goi ng to a rehabilitation facility. Earlier this morning, the blood pressure was quite soft and based on that the patient was given a bolus of 500 cc of normal saline and she was placed on normal saline at rate of 75 cc an hour. She has some limited cough. No significant sputum production. Overall, feeling better. The white cell count is at 4 with a hemoglobin 10.6 and a platelet count of 183. INR is therapeutic at 2.5. BUN is 4 with a creatinine of 0.6 and a sodium level is 141. Remains on IV Rocephin. Remains on Flagyl. Remains on anticoagulation with warfarin. Remains on metoprolol 25 mg p.o. 3 times daily and Synthroid. On 04/18/2024, the patient is being seen for a follow-up. On today's evaluation, the patient is still complaining of some ongoing shortness of breath. The pat ient is also feeling quite weak. No significant hypoxemia the patient remains on a pulse ox of 96% on room air oxygen. She has a congested cough. As mentioned earlier, the patient has a positive COVID-19 infection. Nevertheless, her chest x-ray showed no acute cardiopulmonary process and there was also mild cardiomegaly. Doppler of the lower extremities were essentially negative for DVT. Her blood work from today shows an INR of 2.8 with a PT of 27. Based on her ongoing cough and congestion, the patient was started on Mucinex DM twice a day. She will provide incentive spirometer. Rest of the medications are essentially unchanged. She remains on Aldactone 25 mg p.o. daily. She remains on metoprolol 25 mg 3 times daily and anticoagulation with warfarin. PT/INR therapeutic for now. She is awaiting placement to a rehabilitation facility. On 04/19/2024, the patient is being seen for a follow-up. The patient continues to have some loose diarrhea. No respiratory difficulties. Continues to have a congested cough. Unable to bring up white sputum. PT/INR is therapeutic for no w. No new labs are available from today. No other significant events overnight. No nausea. No vomiting. No abdominal pain. She is currently on Mucinex DM twice a day and she is also provide incentive spirometer. 04/20/2024, patient remains on room air oxygen. Limited congested cough. No significant sputum production. No interval worsening shortness of breath. Awaiting rehabilitation placement. She is also on prednisone 40 mg p.o. daily as part of a burst taper. Rest of the medications remain unchanged. She remains anticoagulation with warfarin. INR is at 2.4. Objective - Vital Signs Vital signs: Vital Signs Temp 97.9 F 04/20/24 07:25 Pulse 87 04/20/24 07:25 Resp 16 04/20/24 07:25 BP 98/64 04/20/24 07:25 Pulse Ox 94 L 04/20/24 07:25 FiO2 Intake & Output 04/19/24 04/20/24 04/20/24 18:59 06:59 18:59 Other: Voiding Method Toilet # Voids 2 - Exam GENERAL EXAM: Alert, 69-year-old obese female, resting in bed, on room air, comfortable in no apparent distress. HEAD: Normocephalic and atraumatic EYES: Normal reaction of pupils, equal size. NOSE: Clear with pink turbinates. THROAT: No erythema or exudates. NECK: No masses, no JVD. CHEST: No chest wall deformity. LUNGS: Equal air entry with no crackles, wheeze, rhonchi or dullness. On room air. No conversational dyspnea. CVS: S1 and S2 normal with no audible murmur, regular rhythm. No extra heart sounds ABDOMEN: No hepatosplenomegaly, active bowel sounds, no guarding or rigidity. FMS with copious amounts of liquid diarrhea, SPINE: No scoliosis or deformity SKIN: No rashes CENTRAL NERVOUS SYSTEM: No focal deficits, tone is normal in all 4 extremities. EXTREMITIES: There is no peripheral edema, clubbing, or cyanosis. Peripheral pulses are intact. - Labs CBC & Chem 7: 04/20/24 03:23 04/20/24 03:23 Labs: Abnormal Lab Results - Last 24 Hours (Table) 04/20/24 04/20/24 Range/Units 03:23 03:23 WBC 4.26 L (4.50-10.00) X 10*3/uL RBC 3.39 L (4.10-5.20) X 10*6/uL Hgb 10.9 L (12.0-15.0) g/dL Hct 33.0 L (37.2-46.3) % MCV 97.3 H (80.0-97.0) FL MCH 32.2 H (27.0-32.0) pg Lymphocytes # 0.88 L (0.90-5.00) X 10*3/uL Eosinophils # 0.01 L (0.04-0.35) X 10*3/uL PT 23.9 H (10.0-12.5) sec INR 2.4 H (<1.2) Assessment and Plan Plan: Severe diarrheal illness and colitis, CT of abdomen and pelvis showing moderate liquid stool throughout the colon compatible with history of diarrhea and mild wall thickening of the sigmoid colon and rectum, possible mild colitis. Stool culture revealing Aeromonas hydrophila. On ceftriaxone, Flagyl, Questran. Symptoms of gastroenteritis and improved. Rule out gastrointestinal manifestation of COVID-19 infection as the patient tested positive for COVID-19 on 04/14/2024 clinically stable COVID-19 infection, tested positive on 04/14/2024, respiratory status remained stable and the patient remains on room air oxygen. Continues to have some congested cough. Hypotension, secondary to fluid losses and hypovolemia, recovered and the patient is currently normotensive Severe anion gap metabolic acidosis, recovered Acute rhabdomyolysis, the CPK 2694, recovered Acute kidney injury, secondary to combination of above Severe hypokalemia and hypomagnesemia, being replaced per protocol Atrial fibrillation with rapid ventricular response anticoagulated and the PT/INR is therapeutic History of heart failure with reduced ejection fraction History of PE/DVT History of previous gastric bypass surgery History of hypothyroidism Plan: Clinically stable Patient is on room air oxygen No diarrhea Monitor the blood pressure The patient is stable on room air oxygen Antibiotics can be discontinued Continue prednisone 40 mg p.o. daily as the patient continues to have congested cough Mucinex DM twice a day for cough and congestion Possibly diarrhea was related to COVID-19 viral infection, improving although not completely recovered Remains hemodynamically stable Remains on anticoagulation with warfarin, PT/INR is being managed and adjusted by the medical team, the INR is therapeutic at this point in time Generalized weakness and debility rehabilitation through ECF is recommended, awaiting ECF transfer
--- NOTE | 2024-04-20 14:31 | P.PN ---
Subjective Progress Note Date: 04/20/24 Principal diagnosis: Reason for follow-up is colitis/Aeromonas hydrophila infection Patient is a 69-year-old female with a past medical history significant for atrial fibrillation SVT hypothyroidism presenting to the hospital about a week ago for evaluation of diarrhea with fecal incontinence symptom has been going on for about 5 days before presentation to the hospital patient CT was suggestive of colitis and stool cultures came back positive with Aeromonas hydrophilia prompting this consultation. On today's evaluation that is 04/20/2024, Patient is afebrile patient is currently on room air and denies having any shortness of breath, the patient denies any chest pain or cough, the patient denies any nausea vomiting did not have any abdominal pain did have 1 loose stool this morning has been complaining of mostly excoriation bilateral gluteal area and pain associated with it. Patient white count is 4.26 creatinine 0.6 INR is 2.4 Objective - Vital Signs Vital signs: Vital Signs Temp 97.9 F 04/20/24 07:25 Pulse 87 04/20/24 07:25 Resp 16 04/20/24 07:25 BP 98/64 04/20/24 07:25 Pulse Ox 94 L 04/20/24 07:25 FiO2 Intake & Output 04/19/24 04/20/24 04/20/24 18:59 06:59 18:59 Other: Voiding Method Toilet # Voids 2 - Exam GENERAL DESCRIPTION: An elderly female lying in bed in no distress RESPIRATORY SYSTEM: Unlabored breathing , decreased breath sounds at bases HEART: S1 S2 regular rate and rhythm , ABDOMEN: Soft , no tenderness EXTREMITIES: No edema feet - Labs CBC & Chem 7: 04/20/24 03:23 04/20/24 03:23 Labs: Abnormal Lab Results - Last 24 Hours (Table) 04/20/24 04/20/24 04/20/24 Range/Units 03:23 03:23 03:23 WBC 4.26 L (4.50-10.00) X 10*3/uL RBC 3.39 L (4.10-5.20) X 10*6/uL Hgb 10.9 L (12.0-15.0) g/dL Hct 33.0 L (37.2-46.3) % MCV 97.3 H (80.0-97.0) FL MCH 32.2 H (27.0-32.0) pg Lymphocytes # 0.88 L (0.90-5.00) X 10*3/uL Eosinophils # 0.01 L (0.04-0.35) X 10*3/uL PT 23.9 H (10.0-12.5) sec INR 2.4 H (<1.2) Chloride 110 H (96-109) mmol/L BUN 4.9 L (9.0-27.0) mg/dL BUN/Creatinine Ratio 8.17 L (12.00-20.00) Ratio Calcium 8.2 L (8.7-10.3) mg/dL Total Protein 5.3 L (6.2-8.2) g/dL Albumin 2.9 L (3.8-4.9) g/dL Albumin/Globulin Ratio 1.21 L (1.60-3.17) Ratio Assessment and Plan (1) Colitis Current Visit: Yes Status: Acute Code(s): K52.9 - NONINFECTIVE GASTROENTERITIS AND COLITIS, UNSPECIFIED SNOMED Code(s): 55716699 (2) Intestinal infection due to Aeromonas hydrophila Current Visit: Yes Status: Acute Code(s): A04.8 - OTHER SPECIFIED BACTERIAL INTESTINAL INFECTIONS SNOMED Code(s): 651957999 (3) COVID-19 Current Visit: Yes Status: Acute Code(s): U07.1 - COVID-19 SNOMED Code(s): 032450621 Plan: 1patient was in the hospital about a week ago for evaluation of abdominal pain and diarrhea CT shows evidence of colitis in the stool concern ongoing Aeromonas hydrophila likely the pathogen causing her illness she tested negative for C. difficile, initial susceptibility report did not mention Rocephin I did call the micro lab personally to confirm sensitivity of this pathogen Rocephin 2-patient did have fever and tested positive for COVID-19 however patient is currently not hypoxic and did have improvement her respiratory status, continue the current supportive treatment 3patient did have evidence of colitis on CT, stool culture with Aeromonas patient has received adequate IV Rocephin which has been discontinued we will monitor closely off antibiotic 4perirectal excoriation, nursing staff has been advised to apply zinc cream and keep the area of the pressure Dictation was produced using [employer] dictation software. please excuse any grammatical, word or spelling errors. Time with Patient: Less than 30
[2024-04-20] MEDS: WARFARIN 0.5 MG TAB PO ONE (17:10)
[2024-04-21 04:23] LABS: Prothrombin Time 20.5 sec (10.0-12.5)
--- NOTE | 2024-04-21 13:57 | P.PN ---
Subjective Progress Note Date: 04/21/24 Patient is a 69-year-old female with past medical history significant for atrial fibrillation, hypothyroidism, PE/DVT, previous gastric bypass surgery. Of note, patient had a recent ER visit back on April 04 for severe episodic watery diarrhea. She returns to the emergency department yesterday afternoon with a similar complaint. I am evaluating this patient in the emergency department, room 14. She states that since Sunday she has had severe intractable diarrhea that is watery and brown. She also reports some mild abdominal discomfort, nausea without emesis. She has been very weak at home. Gets lightheaded on arising, but denies losing consciousness or syncopal events. Not able to to lerate much oral intake. Denies recent antibiotic use. Denies recent sick contacts. CBC is unremarkable without leukocytosis. She continues to have fluid loss. She is in a state of anion gap metabolic acidosis. Most recent CMP includes a sodium 137, potassium 2.6, chloride 106, serum bicarb down to 9, anion gap 22, BUN 33, creatinine 1.72, glucose 98. Magnesium was low at 1.2. EKG: Atrial fibrillation wtih RVR and frequent PVCs, rate 116. LFTs mildly elevated. CPK 2694. Stool occult blood was negative. C. difficile negative. We were consulted early this morning as the patient's blood pressure has been borderline hypotensive. She has received a total of 4 L crystalloid fluid bolus. She is also in atrial fibrillation with RVR ranging from 100 to 120 bpm. She continues to have copious amounts of liquid diarrhea, there is an FMS in place. CT of abdomen and pelvis showing moderate liquid stool throughout the colon compatible with history of diarrhea and mild wall thickening of the sigmoid colon and rectum, possible mild colitis. Also, indeterminate blind- ending structure in the right lower quadrant measuring 21 x 18 mm unclear etiology,. No evidence of pneumoperitoneum, free fluid, or bowel obstruction. Postsurgical findings noted. Patient has been empirically covered on a combination of Rocephin and Flagyl. Current vitals: Temperature 98.2 F, heart rate 118 bpm, blood pressure 101/50 mmHg, nontachypneic, SpO2 96% on room air. The patient is seen today April 08, 2024 in follow-up on the selective care unit. She is currently resting comfortably in bed. Awake and alert in no acute distress. She is maintaining good O2 saturations in the 90s on room air. She is receiving D5W with 3 A of bicarb at 130 mL/h. Stool culture showing Aeromonas hydrophila. White count 8.1. Hemoglobin 13.1. Platelets 189. Sodium 137. Potassium 3.0. Bicarb 28. BUN 16. Creatinine 0.86. Glucose 127. She remains on Questran and Flagyl. Remains on ceftriaxone. Anticoagulated with Eliquis. The patient is seen today April 13, 2024 in follow-up on the regular medical floor. She is currently resting comfortably in bed. Awake and alert in no acute distress. She still has a somewhat congested cough. She is maintaining good O2 saturations in the 90s on room air. No IV fluids. INR 2.6. Remains on ceftriaxone, Flagyl, Questran. Anticoagulated with warfarin. White count 6.4. Hemoglobin 14.8. Platelets 144. Sodium 140. Potassium 3.0. Bicarb 24. BUN 8. Creatinine 1.0. Glucose 90. The patient is seen today April 21, 2024 in follow-up on the regular medical floor. She is currently sitting up in a chair at the bedside. Awake and alert in no acute distress. Maintaining O2 saturation in the 90s on room air. She did end up testing positive for COVID on April 14, 2024. She remains on albuterol, prednisone taper. Anticoagulated with warfarin. Objective - Vital Signs Vital signs: Vital Signs Temp 97.7 F 04/21/24 07:23 Pulse 85 04/21/24 07:23 Resp 18 04/21/24 07:23 BP 104/66 04/21/24 07:23 Pulse Ox 94 L 04/21/24 07:23 FiO2 Intake & Output 04/20/24 04/21/24 04/21/24 18:59 06:59 18:59 Output Total 200 Balance -200 Output: Urine 200 Other: Voiding Method Toilet # Voids 3 0 - Exam GENERAL EXAM: Alert, 69-year-old obese female, up in a chair, on room air, in no apparent distress. HEAD: Normocephalic and atraumatic EYES: Normal reaction of pupils, equal size. NOSE: Clear with pink turbinates. THROAT: No erythema or exudates. NECK: No masses, no JVD. CHEST: No chest wall deformity. LUNGS: Equal air entry with no crackles, wheeze, rhonchi or dullness. CVS: S1 and S2 normal with no audible murmur, regular rhythm. No extra heart sounds ABDOMEN: No hepatosplenomegaly, active bowel sounds, no guarding or rigidity. SPINE: No scoliosis or deformity SKIN: No rashes CENTRAL NERVOUS SYSTEM: No focal deficits, tone is normal in all 4 extremities. EXTREMITIES: There is no peripheral edema, clubbing, or cyanosis. Peripheral pulses are intact. - Labs CBC & Chem 7: 04/20/24 03:23 04/20/24 03:23 Labs: Abnormal Lab Results - Last 24 Hours (Table) 04/21/24 Range/Units 03:40 PT 20.5 H (10.0-12.5) sec INR 2.0 H (<1.2) Assessment and Plan Assessment: Severe diarrheal illness and colitis, CT of abdomen and pelvis showing moderate liquid stool throughout the colon compatible with history of diarrhea and mild wall thickening of the sigmoid colon and rectum, possible mild colitis. Stool culture revealing Aeromonas hydrophila. On ceftriaxone, Flagyl, Questran CoVid 19 infection, tested + April 14, 2024 Hypotension, secondary to fluid losses and hypovolemia recovered Severe anion gap metabolic acidosis, recovered Acute rhabdomyolysis, the CPK 2694, recovered Acute kidney injury, secondary to combination of above, recovered Severe hypokalemia and hypomagnesemia, being replaced per protocol, recovered Atrial fibrillation with rapid ventricular response anticoagulated with Eliquis History of heart failure with reduced ejection fraction History of PE/DVT History of previous gastric bypass surgery History of hypothyroidism Plan: The patient was seen and evaluated Medications reviewed Stable and on room air [facility] I have personally seen and examined the patient, performed the documentation and the assessment and plan as written. Time: 10 minutes Dictation was produced using [employer] software. Please excuse any grammatical, word or spelling errors.
[2024-04-21] MEDS: WARFARIN 0.5 MG TAB PO ONE (17:24)
[2024-04-21] MEDS: CHOLESTYRAMINE (WITH SUGAR) 4 GM PACKET PO SCH (20:41)
[2024-04-22 03:24] LABS: INR 1.6 (<1.2); Prothrombin Time 16.7 sec (10.0-12.5)
--- NOTE | 2024-04-22 06:02 | P.PN ---
Subjective Progress Note Date: 04/21/24 This is a pleasant 69 years old female Who presents because of fall and hypotension and found to have acute gastroenteritis secondary to sigmoid colitis and rhabdomyolysis. Also she has some abnormal urine sample but no evidence of UTI. She has also chronic medical problems like A-fib and history of PE Patient currently sitting in chair, very lethargic and weak but mentation at baseline She has poor diet, she thinks she is n.p.o. but there is a cardiac diet ordered for her. She has mild abdominal pain about 8/10 as per patient. Patient states that her diarrhea is better No urinary symptoms Patient is difficult for her to stop because of her weakness. But denies chest pain or dyspnea. Creatinine is improved down to 1.2, potassium low at 3.0 Blood pressure is still on the low side 97/55 Pro- Calcitonin slightly elevated at 0.39 Creatinine kinase was high at 2699 C-reactive protein was high at 21 Occult blood in stool and C. difficile both were negative COVID and influenza virus were negative CT of the abdomen pelvis showing wall thickening of the sigmoid colon and right lower lobe indeterminate structure could be surgical scar Stool cultures growing Aeromonas hydrophilia. Patient currently covered with ceftriaxone and Flagyl with ID team on the case 04/09/24 Patient with improving abdominal pain down from 8 down to 6/10 in severity She still have fecal management system in place she has watery loose diarrhea. No vomiting. She remains on normal saline She is on ceftriaxone and Flagyl with positive stool culture Aeromonas hydrophilia 1/2 Patient improving clinically, diarrhea is improving, but not completely resolved with no abdominal pain and she tolerates diet, she is off IV fluids Her electrolytes is also improvement She remains on antibiotics with ceftriaxone and Flagyl She is continued on home dose of Eliquis for her history of A-fib and history of pulmonary embolism Patient still feels generally weak We will ask for PT/OT evaluation, which is pending Patient has not been since surgeon before therefore she might benefit from evaluation. There is no GI service in this facility 04/11 Patient today was doing well and she was cleared for discharge by all consult ants. She had very mild periumbilical discomfort and some nausea but she tolerates diet and she had f formed stool. No other new complaint. Will plan was to discharge her home Novelty Maker recommended to continue Eliquis for her A-fib However patient although in the beginning was told she has Eliquis alert but with further clarification it looks like she has co-pay of more than $500 per month for her Eliquis which she cannot afford so she depends on her primary chainstitch pants outseamer to get samples, when I asked the patient she does not think or she is not sure she has Eliquis left for her in the house. Also patient cannot get a free coupon. I discussed with the case sealer, there is no free coupon for Xarelto as well or other alternative. Patient is high risk for stroke therefore we are going to start her on Coumadin with goal INR 2-3. Coumadin would be pharmacy to dose. In the meanwhile pa edouard might require Lovenox bridging. Discussed with the staff Also patient can be downgraded to general medical floor 04/12. Patient seen and examined. INR is 2, no need for Lovenox bridging. 04/13. Patient seen examined. Potassium placement ordered. States she feels better. 04/14, She is fully awake oriented No confusion no chest pain No specific GI and symptoms looks improved Patient remains on ceftriaxone and Flagyl Sodium bicarb drip at 50 mL/h and Eliquis started in the hospital 04/15 Patient is awake and alert, she feels generally weak She is still on antibiotics for her intra-abdominal infection She is also started on Coumadin for her A-fib and currently on room warfarin with INR 3.2. She got 1 mg of Coumadin last night. Explained for the patient the importance of keeping INR between 2-3 and more that it has high risk of bleeding and she verbalized understanding and acceptanc e to this treatment Also per previous PT evaluation patient might qualify for subacute rehab. Will going to recheck in a talk to the patient and she is acceptable to go to rehab if needed Continue with ceftriaxone and Flagyl 04/16 Patient today was upset she has not been discharge, she has doctors take care of at home therefore she declined going to [facility] today although she agreed yesterday and authorization was submitted Then I called her PCP Dr. Salazar who kindly accepted to see her within 2 to 3 days to check her an INR. Her INR today is 3.2, she did not get any Coumadin last night. We are going to recheck her Coumadin tomorrow as well. As of note since restarting Coumadin she was taking less and less Coumadin 5 mg, 2.5 mg, 1.5 mg, 1 mg and yesterday nothing. Will keep holding of Coumadin today and check INR tomorrow Will give her a bolus of 500 cc She is also on other cardiac medication like metoprolol was need to be continued because of her tachycardia in the morning Because of the episode of hypotension we will check labs today and tomorrow Will keep monitoring for another 24 hours to check stability and then further recommendation based on the clinical course Of note patient told me her brother can help her every day when she goes home however he does not live with her 30/10 04/17 yesterday patient was adamant to go home rather than retirement for rehab , However patient developed hypotension and we had to give him and give her bolus of 500 cc and start her on normal saline 75 mL/h This morning she agrees to go to rehab and stated that her brother will help her with taking care of her dogs at home however her blood pressure still on the low side and she is mildly tachycardic, we lowered her metoprolol dose 50 mg twice daily down to 25 mg twice daily while keeping her dose of Aldactone to 25 mg daily. Also will give her another bolus of fluid with close monitoring Patient has been complaining from cough We will order chest x-ray She is hemodynamically stable She feels generally weak and high risk of fall and explained that to her and she is aware of the risk of bleeding given her her INR is now therapeutic at 2.5. Continue with Coumadin pharmacy to dose. Possible discharge soon to rehab. Discussed with case sealer, prior authorization application to insurance company provider is already submitted 04/18. Patient seen and examined. Still complaining of shortness of breath. 04/19. Patient seen and examined. INR this morning is 3. Patient diarrhea has improved. Patient continues to complain lethargic and weakness 04/20. Patient seen and examined. Currently off antibiotics, waiting on rehab placement 04/21/2024 Patient is seen and evaluated in follow-up today being monitored off antibiotic therapy awaiting updated PT/OT therapy notes. Insurance requiring peer to peer which was done and needed updated therapy notes to determine if patient was eligible for EC. Case management following and will follow-up with liaison from [facility] regarding insurance authorization. Patient reports if she ends up going home she does have support with the brother and will arrange for home care outpatient. Patient is afebrile with no reports of chest pain or shortness of breath. Patient would like to go home. REVIEW OF SYSTEMS: CONSTITUTIONAL: No fever, no malaise,. CARDIOVASCULAR: No chest pain, no palpitations, no syncope. PULMONARY: As mentioned above GASTROINTESTINAL: no nausea, no vomiting, no abdominal pain. NEUROLOGICAL: No headaches, reports of generalized weakness PHYSICAL EXAMINATION: GENERAL: The patient is alert and oriented x3, not in any acute distress. Well- developed, elderly appearing, obese HEENT: Pupils are round and equally reacting to light. EOMI. No scleral icterus. No conjunctival pallor. Normocephalic, atraumatic. No pharyngeal erythema. No thyromegaly. CARDIOVASCULAR: S1 and S2 muffled PULMONARY: Diminished breath sounds bilaterally with coarse breath sound bilaterally, no wheezing or crackles. ABDOMEN: Soft, obese, nontender, nondistended, normoactive bowel sounds. No palpable organomegaly. MUSCULOSKELETAL: No joint swelling or deformity. EXTREMITIES: No cyanosis, clubbing, or pedal edema. NEUROLOGICAL: Gross neurological examination did not reveal any focal deficits. Diffusely weak SKIN: No rashes. Assessment: Fall at home without syncope Hypotension, currently improved Acute sigmoid colitis with stool culture growing Aeromonas hydrophilia, has completed antibiotic course Rhabdomyolysis, traumatic with prolonged downtime, improved Chronic A-fib with RVR on admission, currently controlled. Patient has high co- pay for Eliquis and currently she is not covered with anticoagulation when she goes home. Need to start new Coumadin History of PE History of bipolar Obesity with a BMI of 36.9 GI prophylaxis DVT prophylaxis Full code Plan: Patient being followed by multiple consultations and awaiting insurance authorization. Peer to peer was requested and was done awaiting updated PT/OT therapy notes. Case management following awaiting updated notes to submit for insurance authorization. Will follow-up with liaison if authorization is obtained and if not we will discuss further with case management is plans on getting support from her brother and will have home care outpatient Continue current regimen and will discuss possible discharge planning in the next 24 hours, currently awaiting insurance authorization The impression and plan of care has been dictated by Wen Massey, Nurse Practitioner as directed. Dr. Mathew MD I have performed a history and examination and MDM of this patient, discussed the same with the dictator, and agree with the dictator's assessment and plan as written ,documented as a scribe. Based on total visit time, I have performed more than 50% of the visit. Objective - Vital Signs Vital signs: Vital Signs Temp 97.7 F 04/21/24 07:23 Pulse 85 04/21/24 07:23 Resp 18 04/21/24 07:23 BP 104/66 04/21/24 07:23 Pulse Ox 94 L 04/21/24 07:23 FiO2 Intake & Output 04/20/24 04/21/24 04/21/24 18:59 06:59 18:59 Output Total 200 Balance -200 Output: Urine 200 Other: Voiding Method Toilet # Voids 3 0 - Labs CBC & Chem 7: 04/20/24 03:23 04/20/24 03:23 Labs: Abnormal Lab Results - Last 24 Hours (Table) 04/20/24 04/21/24 Range/Units 03:23 03:40 PT 20.5 H (10.0-12.5) sec INR 2.0 H (<1.2) Chloride 110 H (96-109) mmol/L BUN 4.9 L (9.0-27.0) mg/dL BUN/Creatinine Ratio 8.17 L (12.00-20.00) Ratio Calcium 8.2 L (8.7-10.3) mg/dL Total Protein 5.3 L (6.2-8.2) g/dL Albumin 2.9 L (3.8-4.9) g/dL Albumin/Globulin Ratio 1.21 L (1.60-3.17) Ratio
[2024-04-22] MEDS: PANTOPRAZOLE 40 MG TABLET PO SCH (10:56)
--- NOTE | 2024-04-22 11:53 | P.PN ---
Subjective Progress Note Date: 04/22/24 Patient is a 69-year-old female with past medical history significant for atrial fibrillation, hypothyroidism, PE/DVT, previous gastric bypass surgery. Of note, patient had a recent ER visit back on April 04 for severe episodic watery diarrhea. She returns to the emergency department yesterday afternoon with a similar complaint. I am evaluating this patient in the emergency department, room 14. She states that since Sunday she has had severe intractable diarrhea that is watery and brown. She also reports some mild abdominal discomfort, nausea without emesis. She has been very weak at home. Gets lightheaded on arising, but denies losing consciousness or syncopal events. Not able to to lerate much oral intake. Denies recent antibiotic use. Denies recent sick contacts. CBC is unremarkable without leukocytosis. She continues to have fluid loss. She is in a state of anion gap metabolic acidosis. Most recent CMP includes a sodium 137, potassium 2.6, chloride 106, serum bicarb down to 9, anion gap 22, BUN 33, creatinine 1.72, glucose 98. Magnesium was low at 1.2. EKG: Atrial fibrillation wtih RVR and frequent PVCs, rate 116. LFTs mildly elevated. CPK 2694. Stool occult blood was negative. C. difficile negative. We were consulted early this morning as the patient's blood pressure has been borderline hypotensive. She has received a total of 4 L crystalloid fluid bolus. She is also in atrial fibrillation with RVR ranging from 100 to 120 bpm. She continues to have copious amounts of liquid diarrhea, there is an FMS in place. CT of abdomen and pelvis showing moderate liquid stool throughout the colon compatible with history of diarrhea and mild wall thickening of the sigmoid colon and rectum, possible mild colitis. Also, indeterminate blind- ending structure in the right lower quadrant measuring 21 x 18 mm unclear etiology,. No evidence of pneumoperitoneum, free fluid, or bowel obstruction. Postsurgical findings noted. Patient has been empirically covered on a combination of Rocephin and Flagyl. Current vitals: Temperature 98.2 F, heart rate 118 bpm, blood pressure 101/50 mmHg, nontachypneic, SpO2 96% on room air. The patient is seen today April 08, 2024 in follow-up on the selective care unit. She is currently resting comfortably in bed. Awake and alert in no acute distress. She is maintaining good O2 saturations in the 90s on room air. She is receiving D5W with 3 A of bicarb at 130 mL/h. Stool culture showing Aeromonas hydrophila. White count 8.1. Hemoglobin 13.1. Platelets 189. Sodium 137. Potassium 3.0. Bicarb 28. BUN 16. Creatinine 0.86. Glucose 127. She remains on Questran and Flagyl. Remains on ceftriaxone. Anticoagulated with Eliquis. The patient is seen today April 13, 2024 in follow-up on the regular medical floor. She is currently resting comfortably in bed. Awake and alert in no acute distress. She still has a somewhat congested cough. She is maintaining good O2 saturations in the 90s on room air. No IV fluids. INR 2.6. Remains on ceftriaxone, Flagyl, Questran. Anticoagulated with warfarin. White count 6.4. Hemoglobin 14.8. Platelets 144. Sodium 140. Potassium 3.0. Bicarb 24. BUN 8. Creatinine 1.0. Glucose 90. The patient is seen today April 21, 2024 in follow-up on the regular medical floor. She is currently sitting up in a chair at the bedside. Awake and alert in no acute distress. Maintaining O2 saturation in the 90s on room air. She did end up testing positive for COVID on April 14, 2024. She remains on albuterol, prednisone taper. Anticoagulated with warfarin. The patient is seen today April 22, 2024 in follow-up on the regular medical floor. She is awake and alert in no acute distress. Currently resting comfortably in bed. Denies any worsening shortness of breath, cough or congestion. Maintaining good O2 saturations in the 90s on room air. She is afebrile. Hemodynamically stable. INR 1.6. Remains on warfarin. Continued on albuterol, prednisone taper. Objective - Vital Signs Vital signs: Vital Signs Temp 98.0 F 04/22/24 08:09 Pulse 87 04/22/24 08:09 Resp 18 04/22/24 08:09 BP 97/62 04/22/24 08:09 Pulse Ox 96 04/22/24 08:09 FiO2 Intake & Output 04/21/24 04/22/24 04/22/24 18:59 06:59 18:59 Weight 107 kg Other: Voiding Method Toilet Diaper # Voids 2 1 1 # Bowel Movements 1 - Exam GENERAL EXAM: Alert, 69-year-old female, resting comfortably in bed, on room a ir, in no apparent distress. HEAD: Normocephalic and atraumatic EYES: Normal reaction of pupils, equal size. NOSE: Clear with pink turbinates. THROAT: No erythema or exudates. NECK: No masses, no JVD. CHEST: No chest wall deformity. LUNGS: Equal air entry with no crackles, wheeze, rhonchi or dullness. CVS: S1 and S2 normal with no audible murmur, regular rhythm. No extra heart sounds ABDOMEN: No hepatosplenomegaly, active bowel sounds, no guarding or rigidity. SPINE: No scoliosis or deformity SKIN: No rashes CENTRAL NERVOUS SYSTEM: No focal deficits, tone is normal in all 4 extremities. EXTREMITIES: There is no peripheral edema, clubbing, or cyanosis. Peripheral pulses are intact. - Labs CBC & Chem 7: 04/20/24 03:23 04/20/24 03:23 Labs: Abnormal Lab Results - Last 24 Hours (Table) 04/22/24 Range/Units 02:30 PT 16.7 H (10.0-12.5) sec INR 1.6 H (<1.2) Assessment and Plan Assessment: Severe diarrheal illness and colitis, CT of abdomen and pelvis showing moderate liquid stool throughout the colon compatible with history of diarrhea and mild wall thickening of the sigmoid colon and rectum, possible mild colitis. Stool culture revealing Aeromonas hydrophila. On Questran. Completed ceftriaxone, Flagyl CoVid 19 infection, tested + April 14, 2024 Hypotension, secondary to fluid losses and hypovolemia, recovered Severe anion gap metabolic acidosis, recovered Acute rhabdomyolysis, the CPK 2694, recovered Acute kidney injury, secondary to combination of above, recovered Severe hypokalemia and hypomagnesemia, being replaced per protocol, recovered Atrial fibrillation with rapid ventricular response anticoagulated with Eliquis History of heart failure with reduced ejection fraction History of PE/DVT History of previous gastric bypass surgery History of hypothyroidism Plan: The patient was seen and evaluated Medications and labs reviewed Stable and on room air Cleared for discharge Plan is for home with home care today This patient was seen independently by the pulmonary nurse practitioner addressing pulmonary/critical care issues I have personally seen and examined the patient, performed the documentation and the assessment and plan as written. Time: 25 minutes Dictation was produced using [employer] software. Please excuse any grammatical, word or spelling errors.
[2024-04-22 15:20] VITALS: BP 93/66; PULSE 84; RESP 17; TEMP 97.6
--- NOTE | 2024-04-22 15:42 | P.PN ---
Subjective Progress Note Date: 04/21/24 Principal diagnosis: Reason for follow-up is colitis/Aeromonas hydrophila infection Patient is a 69-year-old female with a past medical history significant for atrial fibrillation SVT hypothyroidism presenting to the hospital about a week ago for evaluation of diarrhea with fecal incontinence symptom has been going on for about 5 days before presentation to the hospital patient CT was suggestive of colitis and stool cultures came back positive with Aeromonas hydrophilia prompting this consultation. On today's evaluation that is 04/21/2023, patient has been afebrile, patient is breathing comfortably and is currently on room air, patient denies having any significant cough no chest pain, patient denies nausea vomiting or diarrhea and no abdominal pain has been complaining of mostly pain to the perirectal area from excoriation. Patient did have INR of 2.0 no CBC was done today Objective - Vital Signs Vital signs: Vital Signs Temp 97.7 F 04/21/24 07:23 Pulse 85 04/21/24 07:23 Resp 18 04/21/24 07:23 BP 104/66 04/21/24 07:23 Pulse Ox 94 L 04/21/24 07:23 FiO2 Intake & Output 04/20/24 04/21/24 04/21/24 18:59 06:59 18:59 Output Total 200 Balance -200 Output: Urine 200 Other: Voiding Method Toilet # Voids 3 0 - Exam GENERAL DESCRIPTION: An elderly female lying in bed in no distress RESPIRATORY SYSTEM: Unlabored breathing , decreased breath sounds at bases HEART: S1 S2 regular rate and rhythm , ABDOMEN: Soft , no tenderness EXTREMITIES: No edema feet - Labs CBC & Chem 7: 04/20/24 03:23 04/20/24 03:23 Labs: Abnormal Lab Results - Last 24 Hours (Table) 04/21/24 Range/Units 03:40 PT 20.5 H (10.0-12.5) sec INR 2.0 H (<1.2) Assessment and Plan (1) Colitis Current Visit: Yes Status: Acute Code(s): K52.9 - NONINFECTIVE GASTROENTERITIS AND COLITIS, UNSPECIFIED SNOMED Code(s): 14933847 (2) Intestinal infection due to Aeromonas hydrophila Current Visit: Yes Status: Acute Code(s): A04.8 - OTHER SPECIFIED BACTERIAL INTESTINAL INFECTIONS SNOMED Code(s): 628609629 (3) COVID-19 Current Visit: Yes Status: Acute Code(s): U07.1 - COVID-19 SNOMED Code(s): 986384249 Plan: 1patient was in the hospital about a week ago for evaluation of abdominal pain and diarrhea CT shows evidence of colitis in the stool concern ongoing Aeromonas hydrophila likely the pathogen causing her illness she tested negative for C. difficile, initial susceptibility report did not mention Rocephin I did call the micro lab personally to confirm sensitivity of this pathogen Rocephin 2-patient did have fever and tested positive for COVID-19 however patient is currently not hypoxic and did have improvement her respiratory status, continue the current supportive treatment 3patient did have evidence of colitis on CT, stool culture with Aeromonas patient has received adequate IV Rocephin which has been discontinued we will monitor closely off antibiotic 4perirectal excoriation, once again discussed with the nursing staff to apply zinc cream and keep the area of the pressure, will monitor clinical course closely Dictation was produced using [employer] dictation software. please excuse any g rammatical, word or spelling errors. Time with Patient: Less than 30
--- NOTE | 2024-04-22 15:43 | P.PN ---
Subjective Progress Note Date: 04/22/24 Principal diagnosis: Reason for follow-up is colitis/Aeromonas hydrophila infection Patient is a 69-year-old female with a past medical history significant for atrial fibrillation SVT hypothyroidism presenting to the hospital about a week ago for evaluation of diarrhea with fecal incontinence symptom has been going on for about 5 days before presentation to the hospital patient CT was suggestive of colitis and stool cultures came back positive with Aeromonas hydrophilia prompting this consultation. On today's evaluation that is 04/22/2023, Patient is afebrile this morning patient denies having any chest pain shortness of breath or cough, the patient is currently on room air, patient denies any abdominal pain no diarrhea no nausea no vomiting, patient mention feeling better. No CBC or BMP was done today Objective - Vital Signs Vital signs: Vital Signs Temp 97.6 F 04/22/24 15:03 Pulse 84 04/22/24 15:03 Resp 17 04/22/24 15:03 BP 93/66 04/22/24 15:03 Pulse Ox 98 04/22/24 15:03 FiO2 Intake & Output 04/21/24 04/22/24 04/22/24 18:59 06:59 18:59 Weight 107 kg Other: Voiding Method Toilet Diaper # Voids 2 1 1 # Bowel Movements 1 - Exam GENERAL DESCRIPTION: An elderly female lying in bed in no distress RESPIRATORY SYSTEM: Unlabored breathing , decreased breath sounds at bases HEART: S1 S2 regular rate and rhythm , ABDOMEN: Soft , no tenderness EXTREMITIES: No edema feet - Labs CBC & Chem 7: 04/20/24 03:23 04/20/24 03:23 Labs: Abnormal Lab Results - Last 24 Hours (Table) 04/22/24 Range/Units 02:30 PT 16.7 H (10.0-12.5) sec INR 1.6 H (<1.2) Assessment and Plan (1) Colitis Current Visit: Yes Status: Acute Code(s): K52.9 - NONINFECTIVE GASTROENTERITIS AND COLITIS, UNSPECIFIED SNOMED Code(s): 74112708 (2) Intestinal infection due to Aeromonas hydrophila Current Visit: Yes Status: Acute Code(s): A04.8 - OTHER SPECIFIED BACTERIAL INTESTINAL INFECTIONS SNOMED Code(s): 102088695 (3) COVID-19 Current Visit: Yes Status: Acute Code(s): U07.1 - COVID-19 SNOMED Code(s): 766993920 Plan: 1patient was in the hospital about a week ago for evaluation of abdominal pain and diarrhea CT shows evidence of colitis in the stool concern ongoing Aeromonas hydrophila likely the pathogen causing her illness she tested negative for C. difficile, initial susceptibility report did not mention Rocephin I did call the micro lab personally to confirm sensitivity of this pathogen Rocephin 2-patient did have fever and tested positive for COVID-19 however patient is currently not hypoxic and did have improvement her respiratory status, continue the current supportive treatment 3patient did have evidence of colitis on CT, stool culture with Aeromonas patient has received adequate IV Rocephin and will not need an antibiotic on discharge 4perirectal excoriation, advised apply zinc cream and keep the area of the pressure, Dictation was produced using [employer] dictation software. please excuse any grammatical, word or spelling errors.
[2024-04-22] MEDS ORDERED: WARFARIN 1 MG TAB PO ONE (18:00)
== END 2024-04-22 16:06 | disposition home health service (06) | DRG 371 ==
LOC: EC 10:58 → 3SCARD 14:20 → 4SSUR 04-12 17:08
PROVIDERS: ADMIT Internal Medicine; ATTEND Internal Medicine
DX: A04.8 Other specified bacterial intestinal infections (principal); U07.1 COVID-19; B37.0 Candidal stomatitis; E87.20 Acidosis, unspecified; I48.19 Other persistent atrial fibrillation; N17.9 Acute kidney failure, unspecified; I50.22 Chronic systolic (congestive) heart failure; I47.10 Supraventricular tachycardia, unspecified; T79.6XXA Traumatic ischemia of muscle, initial encounter; I11.0 Hypertensive heart disease with heart failure; F31.9 Bipolar disorder, unspecified; E03.9 Hypothyroidism, unspecified; Z68.36 Body mass index [BMI] 36.0-36.9, adult; E66.9 Obesity, unspecified; E87.6 Hypokalemia; E86.1 Hypovolemia; I95.9 Hypotension, unspecified; E83.42 Hypomagnesemia; E86.0 Dehydration; I49.3 Ventricular premature depolarization; K80.20 Calculus of gallbladder without cholecystitis without obstruction; W19.XXXA Unspecified fall, initial encounter; Y92.009 Unspecified place in unspecified non-institutional (private) residence as the place of occurrence of the external cause; Z98.84 Bariatric surgery status; Z86.61 Personal history of infections of the central nervous system; Z86.711 Personal history of pulmonary embolism; Z75.1 Person awaiting admission to adequate facility elsewhere; Z79.890 Hormone replacement therapy; Z79.899 Other long term (current) drug therapy; Z86.718 Personal history of other venous thrombosis and embolism; Z87.891 Personal history of nicotine dependence; Z91.81 History of falling; Z86.79 Personal history of other diseases of the circulatory system
CPT/HCPCS: 36415; 71046; 74177; 80048; 80053; 81001; 82150; 82272; 82550; 82803; 83605; 83690; 83735; 84100; 84132; 84145; 85025; 85610; 86140; 87045; 87046; 87077; 87186; 87324; 87636; 93005; 93306; 93970; 94640; 96361; 96365; 96366; 96367; 96368; 99285

== ENCOUNTER 2024-08-10 09:48 | Inpatient (IN) | payer MEDICARE ==
--- NOTE | 2024-08-10 10:51 | ED ---
General Adult HPI - General Chief complaint: Nausea/Vomiting/Diarrhea Stated complaint: diarrhea Time Seen by Provider: 08/10/24 09:57 Source: patient Mode of arrival: ambulatory Limitations: no limitations - History of Present Illness Initial comments: Patient is a 69-year-old female past medical history atrial fibrillation on Eliquis presenting today for abdominal pain, diarrhea. Patient states that she has had about 3 to 4 days of watery loose stools that intermittently between green and black in color. States that the loose stools feel continuous. She was seen at [facility] yesterday, had a CT abdomen pelvis done without contrast, was apparently told she may have a mild bowel obstruction and was discharged home. Patient states that she was previously on oral vancomycin started by her doctor about 3 days ago however left her purse at [facility] and therefore does not any longer have her oral antibiotic. Pat ient endorses associated lightheadedness and dizziness with ambulation. Endorses generalized weakness. - Related Data Home Medications Medication Instructions Recorded Confirmed Levothyroxine Sodium [Synthroid] 125 mcg PO MOTUWETHFRSA 02/24/19 08/10/24 QUEtiapine FUMARATE [SEROquel] 300 mg PO HS 04/06/24 08/10/24 Apixaban [Eliquis] 5 mg PO BID 08/10/24 08/10/24 Biotin [Biotin Disolve] 10,000 mcg PO DAILY 08/10/24 08/10/24 Cyanocobalamin [Vitamin B-12] 500 mcg PO DAILY 08/10/24 08/10/24 Multivitamins, Thera [Multivitamin 1 tab PO DAILY 08/10/24 08/10/24 (formulary)] PARoxetine [Paxil] 10 mg PO DAILY 08/10/24 08/10/24 Vancomycin HCl [Vancocin HCl] 125 mg PO Q6H 08/10/24 08/10/24 Previous Rx's Medication Instructions Recorded Omeprazole 20 mg PO DAILY #30 cap 04/11/24 Allergies Allergy/AdvReac Type Severity Reaction Status Date / Time pentazocine [From Jana] Allergy Swelling Verified 08/10/24 16:30 Review of Systems ROS Statement: Those systems with pertinent positive or pertinent negative responses have been documented in the HPI. ROS Other: All systems not noted in ROS Statement are negative. Past Medical History Past Medical History: Atrial Fibrillation, Supraventricular Tachycardia (SVT), Thyroid Disorder Additional Past Medical History / Comment(s): spinal meningitis 27 yrs. ago, C- Diff History of Any Multi-Drug Resistant Organisms: None Reported Past Surgical History: Bariatric Surgery, Tonsillectomy, Tubal Ligation Additional Past Surgical History / Comment(s): Loop recorder Past Anesthesia/Blood Transfusion Reactions: No Reported Reaction Past Psychological History: Bipolar Smoking Status: Former smoker Past Alcohol Use History: None Reported Past Drug Use History: None Reported General Exam - General Exam Comments Initial Comments: PE: CONSTITUTIONAL: No apparent distress, well appearing SKIN: Warm, dry, no jaundice, hives or petechiae EYES: Pupils are equally round, extraocular movements intact without nystagmus, clear conjunctiva, non-icteric sclera HENT: Normocephalic, atraumatic, dry mucus membranes, oropharynx clear without exudates NECK: , Full range of motion, normal appearance PULMONARY: Clear to auscultation without wheezes, rhonchi, or rales, normal excursion, no accessory muscle use and no stridor CARDIOVASCULAR: Tachycardia, irregularly irregular rate and rhythm normal S1 and S2. No appreciated murmurs, rubs or gallops. Strong radial pulses with intact distal perfusion. No lower extremity edema GASTROINTESTINAL: Soft, hyper active bowel sounds throughout, mild tenderness to palpation of the epigastrium non-distended, no palpable masses, no rebound or guarding. No hepatosplenomegaly, rectal exam was performed with MELANIE Swartz as retail manager, showed light brown-green stool GENITOURINARY: MUSCULOSKELETAL: Extremities have no gross deformity, no edema, redness, or swelling. No calf swelling NEUROLOGIC:_a/o x 3, GCS 15, normal mentation and speech. Moves all extremities x 4 without motor or sensory deficit PSYCHIATRIC:_normal mood and affect, thought process is clear and linear Limitations: no limitations Course Vital Signs 08/10/24 08/10/24 08/10/24 09:52 10:05 10:30 Temperature 97.4 F L Pulse Rate 77 134 H Respiratory 18 29 H 20 Rate Blood Pressure 94/66 94/65 O2 Sat by Pulse 99 97 Oximetry 08/10/24 08/10/24 08/10/24 11:30 12:00 12:30 Temperature Pulse Rate 129 H 124 H 121 H Respiratory 11 L 13 16 Rate Blood Pressure 106/60 O2 Sat by Pulse Oximetry 08/10/24 08/10/24 08/10/24 13:00 13:30 14:00 Temperature Pulse Rate 92 99 Respiratory 16 12 Rate Blood Pressure 94/82 83/60 97/63 O2 Sat by Pulse 96 Oximetry 08/10/24 08/10/24 08/10/24 14:30 15:00 15:30 Temperature Pulse Rate 98 97 97 Respiratory 18 20 18 Rate Blood Pressure 99/58 106/46 104/58 O2 Sat by Pulse 92 L 92 L 98 Oximetry 08/10/24 08/10/24 08/10/24 16:00 16:30 17:00 Temperature Pulse Rate 89 82 89 Respiratory 14 17 19 Rate Blood Pressure 97/60 100/71 107/61 O2 Sat by Pulse 98 95 95 Oximetry EKG Findings - EKG Comments: EKG Findings:: A-fib with RVR, rate 130 bpm, QT/QTc within normal limits, normal axis, PVC present, no clear ST elevations or depressions, no STEMI Medical Decision Making - Medical Decision Making Was pt. sent in by a medical professional or institution (, PA, EVENT SET UP SPECIALIST, urgent care, hospital, or fci...) When possible be specific @ -No Did you speak to anyone other than the patient for history (EMS, parent, family, police, friend...)? What history was obtained from this source @ -No Did you review nursing and triage notes (agree or disagree)? Why? @ -I reviewed nursing and triage notes Were old charts reviewed (outside hosp., previous admission, EMS record, old EKG, old radiological studies, urgent care reports/EKG's, fci records)? Report findings @ -Medical records reviewed-patient presents with a discharge summary from [facility] where she presented yesterday for similar symptoms, patient's discharge vitals at that time showed patient was tachycardic at time of discharge, it showed that she had a CT abdomen pelvis without contrast performed but did not detail the results Differential Diagnosis (chest pain, altered mental status, abdominal pain women, abdominal pain men, vaginal bleeding, weakness, fever, dyspnea, syncope, headache, dizziness, GI bleed, back pain, seizure, CVA, palpatations, mental health, musculoskeletal)? @Differential Abdominal Pain Women: Appendicitis, Cholecystitis, diverticulosis, ischemic bowel, pancreatitis, UTI, gastroenteritis, partial bowel obstruction, constipation, inflammatory bowel, hepatitis, peptic ulcer disease, diverticulitis PID, kidney stone this is not meant to be an all-inclusive list EKG interpreted by me (3pts min.). @ -As above X-rays interpreted by me (1pt min.). @ -Personally reviewed chest XR, I see no evidence of consolidations or pleural effusions, radiologist notes cardiomegaly, I agree with radiologist interpretation CT interpreted by me (1pt min.). @ -Personally reviewed CT abdomen pelvis, I do not see evidence of appendicitis, I see no evidence of intra-abdominal abscess, no evidence of volvulus or obstruction, fluid-filled bowel loops noted, Impression by radiologist read is fluid throughout the colon has an abnormal finding suggesting acute uncomplicated colitis and/or diarrhea, cannot exclude acute enteritis involving the terminal ileum, I agree with radiologist interpretation U/S interpreted by me (1pt. min.). @ -None done What testing was considered but not performed or refused? (CT, X-rays, U/S, labs)? Why? @ -None What meds were considered but not given or refused? Why? @ -None Did you discuss the management of the patient with other professionals (professionals i.e. , PA, EVENT SET UP SPECIALIST, lab, RT, psych nurse, social insurance adviser, lockstitch machine operator, teacher, nuclear medicine officer, case packer)? Give summary @ -No Was smoking cessation discussed for >3mins.? @ -No Was critical care preformed (if so, how long)? @Yes, 45 minutes Were there social determinants of health that impacted care today? How? (Homelessness, low income, unemployed, alcoholism, drug addiction, transportation, low edu. Level, literacy, decrease access to med. care, shelter, rehab)? @ -No Was there de-escalation of care discussed even if they declined (Discuss DNR or withdrawal of care, Hospice)? @ -No What co-morbidities impacted this encounter? (DM, HTN, Smoking, COPD, CAD, Cancer, CVA, ARF, Chemo, Hep., AIDS, mental health diagnosis, sleep apnea, morbid obesity)? @ -History of C. difficile, atrial fibrillation Was patient admitted / discharged? Hospital course, mention meds given and route, prescriptions, significant lab abnormalities, going to OR and other pert inent info. @Admission-this is a pleasant 69-year-old female history of atrial fibrillation, prior admission for C. difficile colitis presenting today for persistent diarrhea and abdominal pain. Patient is well-appearing in no acute distress on assessment, she is in A-fib with RVR, she has mild epigastric tenderness palpation of the abdomen. Hypoactive bowel sounds are noted. Plan for weight-based Cardizem bolus, Cardizem infusion, IV fluids, pain control , occult blood, C. difficile testing, comprehensive labs and CT abdomen pelvis. Patient agreeable plan of care. C. difficile testing was negative. Patient's rate became controlled after first Cardizem bolus, on Cardizem infusion.Labs are significant for hypomagnesemia with a magnesium level 1.5, JER with GFR 44, previously on 04/16/2024 was 90, creatinine 1.25, previously on 04/20/2024 was 0.6, a suspect prerenal JER due to volume depletion. Stool occult blood was negative. IV magnesium replacement was ordered. Updated patient to findings, discussed plan for admission for further treatment and fluid resuscitation. Patient agreeable plan of care. Case discussed with Dr. Solis who kindly accepted patient for admission. Undiagnosed new problem with uncertain prognosis? @ -No Drug Therapy requiring intensive monitoring for toxicity (Heparin, Nitro, Insulin, Cardizem)? @ -No Were any procedures done? @ -No Diagnosis/symptom? @Diarrhea, hypomagnesemia, JER, atrial fibrillation with RvR, dehydration Acute, or Chronic, or Acute on Chronic? @ -acute Uncomplicated (without systemic symptoms) or Complicated (systemic symptoms)? @complicated Side effects of treatment? @ -No Exacerbation, Progression, or Severe Exacerbation? @ -No Poses a threat to life or bodily function? How? (Chest pain, USA, MD, pneumonia, PE, COPD, DKA, ARF, appy, cholecystitis, CVA, Diverticulitis, Homicidal, Suicidal, threat to staff... and all critical care pts) @ -yes if left untreated could progress to fulminant renal or cardiac failure or hypovolemic shock - Lab Data Result diagrams: 08/12/24 05:36 08/13/24 05:49 Lab Results 08/10/24 08/10/24 08/10/24 Range/Units 11:03 11:03 11:30 WBC 4.44 L (4.50-10.00) 10*3/uL RBC 4.32 (4.10-5.20) 10*6/uL Hgb 14.3 (12.0-15.0) g/dL Hct 41.0 (37.2-46.3) % MCV 94.9 (80.0-97.0) fL MCH 33.1 H (27.0-32.0) pg MCHC 34.9 (32.0-37.0) g/dL Plt Count 186 (140-440) 10*3/uL MPV 9.9 (9.5-12.2) fL Immature Gran % (Auto) 0.5 % Neutrophils % 67.3 % Lymphocytes % 15.1 % Monocytes % 14.9 % Eosinophils % 1.1 % Basophils % 1.1 % Immature Gran # 0.02 (0.00-0.04) 10*3/uL Neutrophils # 2.99 (1.80-7.70) 10*3/uL Lymphocytes # 0.67 L (0.90-5.00) 10*3/uL Monocytes # 0.66 (0.20-1.00) 10*3/uL Eosinophils # 0.05 (0.04-0.35) 10*3/uL Basophils # 0.05 (0.00-0.10) 10*3/uL PT (10.0-12.5) sec INR (<1.2) APTT (22.0-30.0) sec Sodium (137-145) mmol/L Potassium (3.5-5.1) mmol/L Chloride (98-107) mmol/L Carbon Dioxide (22-30) mmol/L Anion Gap mmol/L BUN (7-17) mg/dL Creatinine (0.52-1.04) mg/dL Est GFR (CKD-EPI)AfAm (>60 ml/min/1.73 sqM) Est GFR (CKD-EPI)NonAf (>60 ml/min/1.73 sqM) Glucose (74-99) mg/dL Calcium (8.4-10.2) mg/dL Magnesium (1.6-2.3) mg/dL Total Bilirubin (0.2-1.3) mg/dL AST (14-36) U/L ALT (4-34) U/L Alkaline Phosphatase (38-126) U/L Troponin I (0.000-0.034) ng/mL Total Protein (6.3-8.2) g/dL Albumin (3.5-5.0) g/dL Lipase (23-300) U/L Stool Occult Blood Negative (Negative) C. difficile (EIA) Intrp Negative (Negative) 08/10/24 08/10/24 08/10/24 Range/Units 11:30 12:18 12:18 WBC (4.50-10.00) 10*3/uL RBC (4.10-5.20) 10*6/uL Hgb (12.0-15.0) g/dL Hct (37.2-46.3) % MCV (80.0-97.0) fL MCH (27.0-32.0) pg MCHC (32.0-37.0) g/dL Plt Count (140-440) 10*3/uL MPV (9.5-12.2) fL Immature Gran % (Auto) % Neutrophils % % Lymphocytes % % Monocytes % % Eosinophils % % Basophils % % Immature Gran # (0.00-0.04) 10*3/uL Neutrophils # (1.80-7.70) 10*3/uL Lymphocytes # (0.90-5.00) 10*3/uL Monocytes # (0.20-1.00) 10*3/uL Eosinophils # (0.04-0.35) 10*3/uL Basophils # (0.00-0.10) 10*3/uL PT 13.5 H (10.0-12.5) sec INR 1.3 H (<1.2) APTT 26.4 (22.0-30.0) sec Sodium 137 (137-145) mmol/L Potassium 4.5 (3.5-5.1) mmol/L Chloride 100 (98-107) mmol/L Carbon Dioxide 18 L (22-30) mmol/L Anion Gap 19 mmol/L BUN 20 H (7-17) mg/dL Creatinine 1.25 H (0.52-1.04) mg/dL Est GFR (CKD-EPI)AfAm 51 (>60 ml/min/1.73 sqM) Est GFR (CKD-EPI)NonAf 44 (>60 ml/min/1.73 sqM) Glucose 113 H (74-99) mg/dL Calcium 9.5 (8.4-10.2) mg/dL Magnesium 1.5 L (1.6-2.3) mg/dL Total Bilirubin 1.1 (0.2-1.3) mg/dL AST 35 (14-36) U/L ALT 19 (4-34) U/L Alkaline Phosphatase 61 (38-126) U/L Troponin I <0.012 (0.000-0.034) ng/mL Total Protein 8.2 (6.3-8.2) g/dL Albumin 4.7 (3.5-5.0) g/dL Lipase 23 (23-300) U/L Stool Occult Blood (Negative) C. difficile (EIA) Intrp (Negative) Disposition Clinical Impression: Diarrhea, Dehydration, Hypomagnesemia, JER (acute kidney injury), Atrial fibri llation with rapid ventricular response Disposition: ADMITTED IP TO THIS HOSP Condition: Stable
[2024-08-10 11:39] LABS: Basophils # (A) 0.05 10*3/uL (0.00-0.10); Basophils % (A) 1.1 %; Eosinophils # (A) 0.05 10*3/uL (0.04-0.35); Eosinophils % (A) 1.1 %; HGB 14.3 g/dL (12.0-15.0); Lymphocytes # (A) 0.67 10*3/uL (0.90-5.00); Lymphocytes % (A) 15.1 %; MCH 33.1 pg (27.0-32.0); MCHC 34.9 g/dL (32.0-37.0); MCV 94.9 fL (80.0-97.0); Mean Platelet Volume 9.9 fL (9.5-12.2); Monocytes # (A) 0.66 10*3/uL (0.20-1.00); Monocytes % (A) 14.9 %; Neutrophils # (A) 2.99 10*3/uL (1.80-7.70); Neutrophils % (A) 67.3 %; Platelet Count 186 10*3/uL (140-440); RBC 4.32 10*6/uL (4.10-5.20); RDW 11.9 % (11.5-14.5); WBC 4.44 10*3/uL (4.50-10.00)
[2024-08-10 11:52] LABS: ALT 19 U/L (4-34); African American GFR (CKD) 51 (>60 ml/min/1.73 sqM); Anion Gap 19 mmol/L; Blood Urea Nitrogen 20 mg/dL (7-17); Calcium 9.5 mg/dL (8.4-10.2); Carbon Dioxide 18 mmol/L (22-30); Chloride 100 mmol/L (98-107); Glucose 113 mg/dL (74-99); Lipase 23 U/L (23-300); Non-African American GFR(CKD) 44 (>60 ml/min/1.73 sqM); Sodium 137 mmol/L (137-145)
[2024-08-10 12:09] LABS: Magnesium 1.5 mg/dL (1.6-2.3); Potassium 4.5 mmol/L (3.5-5.1); Total Protein 8.2 g/dL (6.3-8.2)
[2024-08-10 12:10] LABS: AST 35 U/L (14-36); Albumin 4.7 g/dL (3.5-5.0); Alkaline Phosphatase 61 U/L (38-126); Total Bilirubin 1.1 mg/dL (0.2-1.3)
[2024-08-10] MEDS: SODIUM CHLORIDE 0.9% 1,000 ML IV STA (12:23)
[2024-08-10] MEDS: MAGNESIUM SULFATE-D5W PMX 1 GM in DEXTROSE/WATER 1 100ML.BAG IVPB SCH ×2 (12:24→15:29)
[2024-08-10] MEDS: DILTIAZEM 125 MG in DEXTROSE 5% IN WATER 100 ML IV SCH (12:27)
[2024-08-10] MEDS: DILTIAZEM 5 MG/ML 5 ML VIAL IVP STA (12:29)
[2024-08-10 12:48] LABS: INR 1.3 (<1.2); Partial Thromboplastin Time 26.4 sec (22.0-30.0); Prothrombin Time 13.5 sec (10.0-12.5)
--- NOTE | 2024-08-10 13:17 | XR ---
EXAMINATION TYPE: XR chest 2V DATE OF EXAM: 08/10/2024 CLINICAL INDICATION: Female, 69 years old with history of dysrhythmia, TECHNIQUE: Frontal and lateral views of the chest are obtained. COMPARISON: Chest x-ray April 17, 2024 FINDINGS: There is no focal air space opacity, pleural effusion, or pneumothorax seen. Mild cardiome edwin with a overlying loop recorder is redemonstrated. The osseous structures are intact. IMPRESSION: Mild cardiomegaly without acute pulmonary process. [facility], , 08/10/2024 1:15 PM
[2024-08-10] MEDS: MORPHINE SULFATE 4 MG/ML SYRINGE IVP STA (14:02)
[2024-08-10] MEDS: ONDANSETRON 4 MG/2 ML VIAL IVP STA (14:03)
[2024-08-10] MEDS: SODIUM CHLORIDE 0.9% 500 ML 500 ML IV ONE (14:05)
--- NOTE | 2024-08-10 14:16 | CT ---
EXAMINATION TYPE: CT abdomen pelvis w con DATE OF EXAM: 08/10/2024 COMPARISON: Prior CT April 06, 2024 CLINICAL INDICATION: Female, 69 years old with history of 3 days diarrhea, thinks c diff, Diarrhea, h istory of C-diff, TECHNIQUE: CT scan of the abdomen and pelvis is performed with IV Contrast, patient injected with 80 mL of Isovu e 300., (none if empty) Oral contrast used: without Oral Contrast (none if empty) CT DLP: 866.5 mGycm, Automated exposure control for dose reduction was used. FINDINGS: LUNG BASES: No significant abnormality is appreciated. LIVER/GB: Liver is heterogeneously hypodense consistent with diffuse fatty infiltration or hepatocell ular disease. Gallbladder has distended margins with 1.3 cm dependent gallstone redemonstrated. PANCREAS: No significant abnormality is seen. SPLEEN: No significant abnormality is seen. ADRENALS: No significant abnormality is seen. KIDNEYS: No significant abnormality is seen. BOWEL: With prominent bowel loops in the right abdomen are seen. Fluid also seen in distal colon. Marshall gical changes from gastric bypass are redemonstrated. Mild wall thickening of the terminal ileum. Marshall gical changes involving the left lower quadrant are redemonstrated. UTERUS/ADNEXA: No gross abnormality seen. LYMPH NODES: No greater than 1cm abdominal or pelvic lymph nodes are appreciated. OSSEOUS STRUCTURES: [id number] disc space narrowing with vacuum phenomenon at the lumbosacral junction. OTHER: No significant additional abnormality is seen. IMPRESSION: Fluid throughout the colon is abnormal finding suggesting acute uncomplicated colitis and /or diarrhea. Cannot exclude acute enteritis involving the terminal ileum on current study. [facility], , 08/10/2024 2:14 PM
[2024-08-10] MEDS ORDERED: CALCIUM CARBONATE 500 MG CHEWABLE PO PRN (15:46)
[2024-08-10] MEDS ORDERED: NALOXONE 0.4 MG/ML 1 ML VIAL IV PRN (15:46)
[2024-08-10] MEDS ORDERED: ONDANSETRON 4 MG/2 ML VIAL IVP PRN (15:46)
[2024-08-10] MEDS ORDERED: MAG HYDROX/AL HYDROX/SIMETH 30 ML CUP PO PRN (15:46)
[2024-08-10] MEDS: SODIUM CHLORIDE 0.9% 1,000 ML IV SCH (19:23)
[2024-08-10] MEDS: FAMOTIDINE 20 MG TAB PO SCH (19:48)
[2024-08-10] MEDS: HYDROmorphone 0.5 MG/0.5 ML SYRINGE IVP PRN (19:48)
[2024-08-10] MEDS: MAGNESIUM SULFATE-D5W PMX 1 GM in DEXTROSE/WATER 1 100ML.BAG IVPB ONE (20:44)
[2024-08-10] MEDS: APIXABAN 5 MG TAB PO SCH (20:46)
[2024-08-10] MEDS: QUEtiapine 100 MG TAB PO SCH (20:46)
[2024-08-11] MEDS: LEVOTHYROXINE 125 MCG TAB PO SCH (06:19)
[2024-08-11 07:09] LABS: HCT 34.9 % (37.2-46.3); HGB 12.3 g/dL (12.0-15.0); MCH 33.4 pg (27.0-32.0); MCHC 35.2 g/dL (32.0-37.0); MCV 94.8 fL (80.0-97.0); Mean Platelet Volume 10.4 fL (9.5-12.2); Platelet Count 185 10*3/uL (140-440); RBC 3.68 10*6/uL (4.10-5.20); RDW 11.7 % (11.5-14.5); WBC 3.73 10*3/uL (4.50-10.00)
[2024-08-11 07:12] LABS: African American GFR (CKD) 71 (>60 ml/min/1.73 sqM); Anion Gap 12 mmol/L; Blood Urea Nitrogen 16 mg/dL (7-17); Calcium 8.5 mg/dL (8.4-10.2); Carbon Dioxide 19 mmol/L (22-30); Chloride 106 mmol/L (98-107); Glucose 104 mg/dL (74-99); Magnesium 1.8 mg/dL (1.6-2.3); Non-African American GFR(CKD) 62 (>60 ml/min/1.73 sqM); Sodium 137 mmol/L (137-145)
[2024-08-11 07:13] LABS: Potassium 2.5 mmol/L (3.5-5.1)
[2024-08-11] MEDS: METOPROLOL TARTRATE 25 MG TAB PO SCH (08:45)
[2024-08-11] MEDS: PARoxetine 10 MG TAB PO SCH (08:45)
[2024-08-11 09:20] LABS: Spherocytes Present
[2024-08-11 09:21] LABS: Tear Drop Cells Present
[2024-08-11 09:33] LABS: Band Neutrophils % 5 %; Eosinophils # (M) 0.11 k/uL (0-0.7); Monocytes # (M) 0.41 k/uL (0-1.0); Neutrophils # (M) 2.34 k/uL (1.3-7.7); Neutrophils % (M) 58 %; Nucleated Red Blood Cells 0 /100 WBC (0-0); Total Cells Counted 200
[2024-08-11] MEDS: POTASSIUM CHLORIDE ER 20 MEQ TAB.ER PO SCH ×2 (09:41→14:35)
[2024-08-11] MEDS: MAGNESIUM SULFATE-D5W PMX 1 GM in DEXTROSE/WATER 1 100ML.BAG IVPB SCH (09:42)
--- NOTE | 2024-08-11 12:23 | P.CRDCN ---
History of Present Illness Consult date: 08/11/24 Reason for Consult (text): Atrial fibrillation with RVR History of present illness: This is 69-year-old female patient of Dr. Collazo last seen in the office in November 2021 with past medical history of persistent atrial fibrillation, pulmonary embolism, bipolar disorder, hypertension, hypothyroidism. We have been asked to evaluate the patient for A-fib with RVR. Patient states that she came into the hospital because she has had diarrhea for the past 3 days including blood in her stools. Patient was found to be in A-fib with RVR and s tarted on Cardizem and IV fluids. She denies palpitations, no chest pain, no chest pressure. Blood pressure 94/60, heart rate 103, pulse ox 97% on room air. Potassium and magnesium have been replaced. Patient has been started on Cardizem drip currently at 5 mg/h. -EKG: Atrial fibrillation 130 bpm, telemetry is currently running 103 bpm -Chest x-ray: Mild cardiomegaly without acute process. -CT abdomen pelvis revealed fluid throughout the colon suggesting acute uncomplicated colitis or diarrhea. -Laboratory studies: WBC 3.7, hemoglobin 12.3. Sodium 137, potassium 2.5, initial creatinine 1.25 and repeat 0.94. Troponin negative x 1. Magnesium 1.5. Stool for occult blood and C. difficile negative. -Home cardiac medications: Eliquis 5 mg twice daily, also on levothyroxine -Echocardiogram performed at [facility] 04/07/2024 revealed overall normal biventricular systolic function, EF 50 to 55%, normal pulmonary artery systolic pressure, no pericardial effusion, no significant valvular abnormalities. Review Of Systems: At the time of my exam: CONSTITUTIONAL: Denies fever or chills. HEENT: Denies blurred vision, vision changes, or eye pain. Denies hemoptysis CARDIOVASCULAR: Denies chest pain. Denies orthopnea. Denies PND. Denies palpitations RESPIRATORY: Denies shortness of breath. GASTROINTESTINAL: Denies abdominal pain. Denies nausea or vomiting. HEMATOLOGIC: Denies bleeding disorders. GENITOURINARY: Denies any blood in urine. SKIN: Denies puritis. Denies rash. Physical examination: Gen: This is 69-year-old female in no acute respiratory distress. VS: reviewed HEENT: Head is atraumatic, normocephalic. Pupils equal, round. Sclerae is anicteric. NECK: Supple. No JVD. LUNGS: Clear to auscultation. No wheezes or rhonchi. No intercostal retractions. HEART: Irregular rate and rhythm. No murmur. ABDOMEN: Soft No tenderness. EXTREMITIES: No pedal edema. No calf tenderness. NEUROLOGICAL: Patient is awake, alert and oriented x3. Assessment: Diarrhea Persistent atrial fibrillation with RVR, currently rate controlled Hypokalemia Hypomagnesemia Acute kidney injury History of pulmonary embolism Bipolar disorder Hypertension Hypothyroidism Cardiomyopathy with previous EF 40 to 45% possibly tachycardic induced Plan: Resume Eliquis Start patient on metoprolol 25 mg 3 times daily Discontinue Cardizem drip Discontinue IV fluids Admitting physician to address electrolyte abnormalities Further recommendations to follow based upon clinical course Thank you kindly for this consultation. Nurse practitioner note has been reviewed, I agree with documented findings and plan of care. Patient was seen and examined. Past Medical History Past Medical History: Atrial Fibrillation, Supraventricular Tachycardia (SVT), Thyroid Disorder Additional Past Medical History / Comment(s): spinal meningitis 27 yrs. ago, C- Diff History of Any Multi-Drug Resistant Organisms: None Reported Past Surgical History: Bariatric Surgery, Tonsillectomy, Tubal Ligation Additional Past Surgical History / Comment(s): Loop recorder Past Anesthesia/Blood Transfusion Reactions: No Reported Reaction Past Psychological History: Bipolar Smoking Status: Former smoker Past Alcohol Use History: None Reported Additional Past Alcohol Use History / Comment(s): quit smoking 1999, smoked 1ppd started @age of 15 Past Drug Use History: None Reported Medications and Allergies Home Medications Medication Instructions Recorded Confirmed Type Levothyroxine Sodium [Synthroid] 125 mcg PO MOTUWETHFRSA 02/24/19 08/10/24 History QUEtiapine FUMARATE [SEROquel] 300 mg PO HS 04/06/24 08/10/24 History Omeprazole 20 mg PO DAILY #30 cap 04/11/24 08/10/24 Rx Apixaban [Eliquis] 5 mg PO BID 08/10/24 08/10/24 History Biotin [Biotin Disolve] 10,000 mcg PO DAILY 08/10/24 08/10/24 History Cyanocobalamin [Vitamin B-12] 500 mcg PO DAILY 08/10/24 08/10/24 History Multivitamins, Thera [Multivitamin 1 tab PO DAILY 08/10/24 08/10/24 History (formulary)] PARoxetine [Paxil] 10 mg PO DAILY 08/10/24 08/10/24 History Vancomycin HCl [Vancocin HCl] 125 mg PO Q6H 08/10/24 08/10/24 History Allergies Allergy/AdvReac Type Severity Reaction Status Date / Time pentazocine [From Talwin] Allergy Swelling Verified 08/10/24 16:30 Physical Exam Vitals: Vital Signs Temp Pulse Pulse Resp BP BP Pulse Ox 08/11/24 03:37 98 F 103 H 16 94/56 96 08/11/24 02:15 88/51 08/11/24 00:58 101/60 08/11/24 00:15 89/55 08/10/24 23:48 108 H 16 77/45 95 08/10/24 23:35 88/57 08/10/24 23:34 110 H 58/41 08/10/24 23:21 98 F 105 H 18 56/37 94 L 08/10/24 19:40 98.7 F 88 18 96/62 98 08/10/24 18:36 90 18 106/72 98 08/10/24 18:32 18 08/10/24 17:00 89 19 107/61 95 08/10/24 16:30 82 17 100/71 95 08/10/24 16:00 89 14 97/60 98 08/10/24 15:30 97 18 104/58 98 08/10/24 15:00 97 20 106/46 92 L 08/10/24 14:30 98 18 99/58 92 L 08/10/24 14:00 99 12 97/63 96 08/10/24 13:30 83/60 08/10/24 13:00 92 16 94/82 08/10/24 12:30 121 H 16 106/60 08/10/24 12:00 124 H 13 08/10/24 11:30 129 H 11 L 08/10/24 10:30 134 H 20 94/65 97 08/10/24 10:05 29 H 08/10/24 09:52 97.4 F L 77 18 94/66 99 Intake and Output 08/10/24 08/11/24 08/11/24 22:59 06:59 14:59 Intake Total 500 Balance 500 Intake: Oral 500 Other: Voiding Method Toilet Toilet # Voids 1 1 # Bowel Movements 1 1 Weight 86.183 kg Results 08/11/24 05:59 08/11/24 05:59 Cardiac Enzymes 08/10/24 08/10/24 Range/Units 11:30 12:18 AST 35 (14-36) U/L Troponin I <0.012 (0.000-0.034) ng/mL Coagulation 08/10/24 Range/Units 12:18 PT 13.5 H (10.0-12.5) sec APTT 26.4 (22.0-30.0) sec CBC 08/10/24 08/11/24 Range/Units 11:30 05:59 WBC 4.44 L 3.73 L (4.50-10.00) 10*3/uL RBC 4.32 3.68 L (4.10-5.20) 10*6/uL Hgb 14.3 12.3 (12.0-15.0) g/dL Hct 41.0 34.9 L (37.2-46.3) % Plt Count 186 185 (140-440) 10*3/uL Comprehensive Metabolic Panel 08/10/24 08/11/24 Range/Units 11:30 05:59 Sodium 137 137 (137-145) mmol/L Potassium 4.5 2.5 L* (3.5-5.1) mmol/L Chloride 100 106 (98-107) mmol/L Carbon Dioxide 18 L 19 L (22-30) mmol/L BUN 20 H 16 (7-17) mg/dL Creatinine 1.25 H 0.94 (0.52-1.04) mg/dL Glucose 113 H 104 H (74-99) mg/dL Calcium 9.5 8.5 (8.4-10.2) mg/dL AST 35 (14-36) U/L ALT 19 (4-34) U/L Alkaline Phosphatase 61 (38-126) U/L Total Protein 8.2 (6.3-8.2) g/dL Albumin 4.7 (3.5-5.0) g/dL Current Medications Generic Name Dose Route Start Last Admin Trade Name Freq PRN Reason Stop Dose Admin Acetaminophen 650 mg 08/10/24 15:46 Acetaminophen Tab 325 Mg Tab PO Q6HR PRN Mild Pain or Fever > 100.5 Al Hydroxide/Mg Hydroxide 15 ml 08/10/24 15:46 Mag Hydrox/Al Hydrox/Simeth 30 Ml Cup PO Q6HR PRN Indigestion Apixaban 5 mg 08/10/24 21:00 08/10/24 20:46 Apixaban 5 Mg Tab PO 5 mg BID CHAD Administration Protocol Calcium Carbonate/Glycine 1,000 mg 08/10/24 15:46 Calcium Carbonate 500 Mg Chewable PO Q4HR PRN Dyspepsia Famotidine 20 mg 08/10/24 21:00 08/10/24 19:48 Famotidine 20 Mg Tab PO 20 mg HS CHAD Administration Hydromorphone HCl 0.5 mg 08/10/24 15:46 08/10/24 19:48 Hydromorphone 0.5 Mg/0.5 Ml Syringe IVP 0.5 mg Q3HR PRN Administration Moderate Pain (Scale 4 to 6) Levothyroxine Sodium 125 mcg 08/11/24 06:30 08/11/24 06:19 Levothyroxine 125 Mcg Tab PO 125 mcg [id number] CHAD Administration Metoprolol Tartrate 25 mg 08/11/24 09:00 Metoprolol Tartrate 25 Mg Tab PO TID CHAD Naloxone HCl 0.2 mg 08/10/24 15:46 Naloxone 0.4 Mg/Ml 1 Ml Vial IV Q2M PRN Opioid Reversal Ondansetron HCl 4 mg 08/10/24 15:46 Ondansetron 4 Mg/2 Ml Vial IVP Q8HR PRN Nausea And Vomiting Paroxetine HCl 10 mg 08/11/24 09:00 Paroxetine 10 Mg Tab PO DAILY CHAD Quetiapine Fumarate 300 mg 08/10/24 21:00 08/10/24 20:46 Quetiapine 100 Mg Tab PO 300 mg HS CHAD Administration Intake and Output 08/10/24 08/11/24 08/11/24 22:59 06:59 14:59 Intake Total 500 Balance 500 Intake: Oral 500 Other: Voiding Method Toilet Toilet # Voids 1 1 # Bowel Movements 1 1 Weight 86.183 kg 08/11/24 05:59 08/11/24 05:59
[2024-08-11] MEDS: DIPHENOX-ATROP 2.5-0.025 MG 1 EACH TAB PO PRN (13:17)
--- NOTE | 2024-08-11 14:07 | P.HPIM ---
History of Present Illness Patient pleasant 69-year-old female came in with complaints of diarrhea multiple episodes a day led to dehydration acute renal failure with creatinine of 1.2 with baseline is within normal limits. Patient also found to be in atrial fi brillation with rapid infiltrate secondary to dehydration patient was started on Cardizem and IV fluids which are presently discontinued. Patient heart rate is presently fairly well-controlled patient had cardiomyopathy EF of around 40 to 45%. Patient received IV fluids with improvement in serum creatinine. IV fluids were discontinued. Patient C. difficile is negative. CT of the abdomen showed complete uncomplicated colitis REVIEW OF SYSTEMS: All other systems are negative except those mentioned in the HPI PHYSICAL EXAMINATION: GENERAL: The patient is alert and oriented x3, not in any acute distress. Well developed, well nourished. HEENT: Pupils are round and equally reacting to light. EOMI. No scleral icterus. No conjunctival pallor. Normocephalic, atraumatic. No pharyngeal erythema. No thyromegaly. CARDIOVASCULAR: S1 and S2 present. No murmurs, rubs, or gallops. PULMONARY: Chest is clear to auscultation, no wheezing or crackles. ABDOMEN: Soft, nontender, nondistended, normoactive bowel sounds. No palpable organomegaly. MUSCULOSKELETAL: No joint swelling or deformity. EXTREMITIES: No cyanosis, clubbing, or pedal edema. NEUROLOGICAL: Gross neurological examination did not reveal any focal deficits. SKIN: No rashes. Assessment and plan -Atrial fibrillation with rapid growth rate presently rate controlled patient is on oral medications for that atrial fibrillation is secondary to dehydration which improved at this time - Diarrhea rule out C. difficile patient appears to have gastroenteritis and colitis probably viral etiology patient will not be started on any antibiotics will use symptomatic treatment for diarrhea - Acute renal failure resolved at this time creatinine improved - Congestive heart failure chronic systolic function EF of around 40 to 45% presently not in heart failure exacerbation - History of PE in the past - Hypokalemia secondary to diarrhea and hypomagnesemia secondary to diarrhea both will be replaced - Hypertension Bipolar disorder - Hypothyroidism DVT prophylaxis: Patient is on Eliquis which was resumed Past Medical History Past Medical History: Atrial Fibrillation, Supraventricular Tachycardia (SVT), Thyroid Disorder Additional Past Medical History / Comment(s): spinal meningitis 27 yrs. ago, C- Diff History of Any Multi-Drug Resistant Organisms: None Reported Past Surgical History: Bariatric Surgery, Tonsillectomy, Tubal Ligation Additional Past Surgical History / Comment(s): Loop recorder Past Anesthesia/Blood Transfusion Reactions: No Reported Reaction Past Psychological History: Bipolar Smoking Status: Former smoker Past Alcohol Use History: None Reported Additional Past Alcohol Use History / Comment(s): quit smoking 1999, smoked 1ppd started @age of 15 Past Drug Use History: None Reported Medications and Allergies Home Medications Medication Instructions Recorded Confirmed Type Levothyroxine Sodium [Synthroid] 125 mcg PO MOTUWETHFRSA 02/24/19 08/10/24 History QUEtiapine FUMARATE [SEROquel] 300 mg PO HS 04/06/24 08/10/24 History Omeprazole 20 mg PO DAILY #30 cap 04/11/24 08/10/24 Rx Apixaban [Eliquis] 5 mg PO BID 08/10/24 08/10/24 History Biotin [Biotin Disolve] 10,000 mcg PO DAILY 08/10/24 08/10/24 History Cyanocobalamin [Vitamin B-12] 500 mcg PO DAILY 08/10/24 08/10/24 History Multivitamins, Thera [Multivitamin 1 tab PO DAILY 08/10/24 08/10/24 History (formulary)] PARoxetine [Paxil] 10 mg PO DAILY 08/10/24 08/10/24 History Vancomycin HCl [Vancocin HCl] 125 mg PO Q6H 08/10/24 08/10/24 History Allergies Allergy/AdvReac Type Severity Reaction Status Date / Time pentazocine [From Jana] Allergy Swelling Verified 08/10/24 16:30 Physical Exam Vitals: Vital Signs Temp Pulse Pulse Resp BP BP Pulse Ox 08/11/24 12:00 98.6 F 85 18 94/62 95 08/11/24 08:00 98.6 F 103 H 18 94/60 97 08/11/24 03:37 98 F 103 H 16 94/56 96 08/11/24 02:15 88/51 08/11/24 00:58 101/60 08/11/24 00:15 89/55 08/10/24 23:48 108 H 16 77/45 95 08/10/24 23:35 88/57 08/10/24 23:34 110 H 58/41 08/10/24 23:21 98 F 105 H 18 56/37 94 L 08/10/24 19:40 98.7 F 88 18 96/62 98 08/10/24 18:36 90 18 106/72 98 08/10/24 18:32 18 08/10/24 17:00 89 19 107/61 95 08/10/24 16:30 82 17 100/71 95 08/10/24 16:00 89 14 97/60 98 08/10/24 15:30 97 18 104/58 98 08/10/24 15:00 97 20 106/46 92 L 08/10/24 14:30 98 18 99/58 92 L Intake and Output 08/10/24 08/11/24 08/11/24 22:59 06:59 14:59 Intake Total 500 240 Balance 500 240 Intake: Oral 500 240 Other: Voiding Method Toilet Toilet Toilet # Voids 1 1 # Bowel Movements 1 1 Weight 86.183 kg Results CBC & Chem 7: 08/11/24 05:59 08/11/24 05:59 Labs: Abnormal Lab Results - Last 24 Hours (Table) 08/11/24 08/11/24 Range/Units 05:59 05:59 WBC 3.73 L (4.50-10.00) 10*3/uL RBC 3.68 L (4.10-5.20) 10*6/uL Hct 34.9 L (37.2-46.3) % MCH 33.4 H (27.0-32.0) pg Lymphocytes # (Manual) 0.90 L (1.0-4.8) k/uL Potassium 2.5 L* (3.5-5.1) mmol/L Carbon Dioxide 19 L (22-30) mmol/L Glucose 104 H (74-99) mg/dL Thrombosis Risk Factor Assmnt - Choose All That Apply Any of the Below Risk Factors Present?: Yes Each Factor Represents 1 point: Obesity (BMI >25) Other Risk Factors: Yes Each Risk Factor Represents 2 Points: Age 61-74 years Other congenital or acquired thrombophilia - If yes, enter type in comment: No Thrombosis Risk Factor Assessment Total Risk Factor Score: 3 Thrombosis Risk Factor Assessment Level: Moderate Risk
[2024-08-11 18:31] LABS: HCT 38.2 % (37.2-46.3); MCH 32.5 pg (27.0-32.0); MCV 95.5 fL (80.0-97.0); Mean Platelet Volume 9.9 fL (9.5-12.2); Platelet Count 215 10*3/uL (140-440); RDW 11.9 % (11.5-14.5); WBC 6.67 10*3/uL (4.50-10.00)
[2024-08-11] MEDS: SODIUM CHLORIDE 0.9% 1,000 ML IV ONE ×2 (18:34→21:21)
[2024-08-11 19:21] LABS: Band Neutrophils % 25 %; Eosinophils # (M) 0.13 k/uL (0-0.7); Lymphocytes # (M) 1.93 k/uL (1.0-4.8); Metamyelocytes # (M) 0.33 k/uL (0); Metamyelocytes % 5 %; Monocytes # (M) 0.73 k/uL (0-1.0); Myelocytes # (M) 0.13 k/uL (0); Myelocytes % 2 %; Neutrophils # (M) 3.46 k/uL (1.3-7.7); Neutrophils % (M) 27 %; Nucleated Red Blood Cells 0 /100 WBC (0-0); Total Cells Counted 200; Toxic Vacuolation Present
[2024-08-11] MEDS: SODIUM CHLORIDE 0.9% 1,000 ML IV SCH ×2 (19:55→23:18)
[2024-08-11] MEDS: PANTOPRAZOLE 40 MG/10 ML VIAL IVP SCH (21:16)
[2024-08-12 06:24] LABS: HCT 36.5 % (37.2-46.3); HGB 12.3 g/dL (12.0-15.0); MCH 32.8 pg (27.0-32.0); MCHC 33.7 g/dL (32.0-37.0); MCV 97.3 fL (80.0-97.0); Mean Platelet Volume 10.4 fL (9.5-12.2); Platelet Count 187 10*3/uL (140-440); RBC 3.75 10*6/uL (4.10-5.20)
[2024-08-12 06:43] LABS: African American GFR (CKD) 71 (>60 ml/min/1.73 sqM); Anion Gap 11 mmol/L; Blood Urea Nitrogen 16 mg/dL (7-17); Carbon Dioxide 14 mmol/L (22-30); Chloride 116 mmol/L (98-107); Glucose 84 mg/dL (74-99); Magnesium 2.1 mg/dL (1.6-2.3); Non-African American GFR(CKD) 62 (>60 ml/min/1.73 sqM); Potassium 2.9 mmol/L (3.5-5.1); Sodium 141 mmol/L (137-145)
[2024-08-12] MEDS: DIGOXIN 125 MCG TAB PO SCH (10:25)
[2024-08-12] MEDS: METOPROLOL TARTRATE 25 MG TAB PO SCH (10:34)
[2024-08-12] MEDS: DIGOXIN 250 MCG TAB PO SCH (10:34)
--- NOTE | 2024-08-12 12:22 | P.CONS ---
History of Present Illness - Reason for Consult Consult date: 08/12/24 GI bleed Requesting physician: Tereza Maldonado - Chief Complaint Diarrhea - History of Present Illness This a pleasant 69-year-old female with a history of atrial fibrillation on Eliquis, Rosaura-en-Y gastric bypass, SVT and thyroid disorder who presented to the emergency department 2 days ago with complaints of abdominal pain and diarrhea. She had a CT of the abdomen and pelvis with contrast that reported fluid throughout the colon abnormal findings suggesting acute uncomplicated colitis and/or diarrhea. Cannot exclude acute enteritis involving the terminal ileum on current study. Diarrhea started about 4 days ago. She went to see her primary care doctor and he had started her on vancomycin. She took that for 1 to 2 days continued to have diarrhea came into the emergency department for further evaluation. She states that she has been having the diarrhea for 3 to 4 days it is not watery, apparently yesterday when she had a bowel movement there was some pink tinge in the toilet and therefore gastroenterology was consulted for GI bleed. Stool occult was negative, stool C. difficile negative. She denies any previous history of GI bleed. States she had a recent hospitalization in March 2024 for diarrhea and was in the hospital for nearly 30 days diagnosed with Aeromonas hydrophila and seen by infectious disease and treated with Rocephin. She had an EGD and colonoscopy in September 2023, which she states was normal, however cannot tell me where she had endoscopy done. Denies any history of ulcerative colitis or Crohn's disease. Denies any fevers or chills. She currently has a fecal management system in place which is watery light green in color. There is no blood noted. Denies any abdominal pain at this time. No nausea or vomiting. She denies any new medications started recently other than the vancomycin post start of diarrhea. Review of Systems REVIEW OF SYSTEMS: CARDIOPULMONARY: No chest pain or shortness of breath. Gastrointestinal: Abdominal pain. No nausea or vomiting. No hematemesis, coffee-ground emesis. No rectal bleeding, or melena. Diarrhea for multiple days, watery, multiple episodes. GENITOURINARY: No dysuria or hematuria. MUSCULOSKELETAL: Reports normal range of motion., Joint pain. SKIN: No rashes. No jaundice. ENDOCRINE: No chills, fevers. No excessive weight gain or loss. No polydipsia or polyuria. PSYCHIATRIC: Unremarkable. NEUROLOGY: No change in mental status. Denies dizziness, headache. ENT: Vision unremarkable. CONSTITUTIONAL: No recent weight loss. No fever, chills, night sweats. Past Medical History Past Medical History: Atrial Fibrillation, Supraventricular Tachycardia (SVT), Thyroid Disorder Additional Past Medical History / Comment(s): spinal meningitis 27 yrs. ago, C- Diff History of Any Multi-Drug Resistant Organisms: None Reported Past Surgical History: Bariatric Surgery, Tonsillectomy, Tubal Ligation Additional Past Surgical History / Comment(s): Loop recorder Past Anesthesia/Blood Transfusion Reactions: No Reported Reaction Past Psychological History: Bipolar Smoking Status: Former smoker Past Alcohol Use History: None Reported Additional Past Alcohol Use History / Comment(s): quit smoking 1999, smoked 1ppd started @age of 15 Past Drug Use History: None Reported Medications and Allergies Home Medications Medication Instructions Recorded Confirmed Type Levothyroxine Sodium [Synthroid] 125 mcg PO MOTUWETHFRSA 02/24/19 08/10/24 History QUEtiapine FUMARATE [SEROquel] 300 mg PO HS 04/06/24 08/10/24 History Omeprazole 20 mg PO DAILY #30 cap 04/11/24 08/10/24 Rx Apixaban [Eliquis] 5 mg PO BID 08/10/24 08/10/24 History Biotin [Biotin Disolve] 10,000 mcg PO DAILY 08/10/24 08/10/24 History Cyanocobalamin [Vitamin B-12] 500 mcg PO DAILY 08/10/24 08/10/24 History Multivitamins, Thera [Multivitamin 1 tab PO DAILY 08/10/24 08/10/24 History (formulary)] PARoxetine [Paxil] 10 mg PO DAILY 08/10/24 08/10/24 History Vancomycin HCl [Vancocin HCl] 125 mg PO Q6H 08/10/24 08/10/24 History Allergies Allergy/AdvReac Type Severity Reaction Status Date / Time pentazocine [From Jana] Allergy Swelling Verified 08/10/24 16:30 Physical Exam Vitals: Vital Signs Temp Pulse Resp BP Pulse Ox 08/12/24 07:47 101 H 18 08/12/24 07:46 97.8 F 101 H 18 87/58 97 08/12/24 04:00 97.6 F 80 18 86/54 95 08/12/24 02:00 86 18 08/12/24 00:00 97.9 F 86 18 88/55 96 08/11/24 21:30 86/57 08/11/24 21:06 93 87/53 08/11/24 20:37 88/57 08/11/24 20:00 97.5 F L 86 18 85/54 97 08/11/24 16:00 98.3 F 89 18 87/58 94 L 08/11/24 14:00 85 18 08/11/24 12:00 98.6 F 85 18 94/62 95 Intake and Output 08/11/24 08/12/24 08/12/24 22:59 06:59 14:59 Intake Total 1999 Output Total 1949 1099 Balance 1999 Intake: Intake, IV Titration 2000 Amount Sodium Chloride 0.9% 1, 1000 000 ml @ 999 mls/hr IV . Q1H1M ONE Rx#:[id number] Sodium Chloride 0.9% 1, 1000 000 ml @ 999 mls/hr IV . Q1H1M ONE Rx#:[id number] Output: Urine 850 Straight 425 Stool 1100 1100 Other: Voiding Method External Catheter External Catheter External Catheter # Voids 1 # Bowel Movements 2 Weight 88 kg General appearance: The patient is alert, oriented, appears in no acute distress. HET: Head is normocephalic and atraumatic. Conjunctiva pink. Sclera anicteric. Neck: Supple without lymphadenopathy. Trachea midline. Heart: Regular. Lungs: Equal expansion, normal respiratory effort. Abdomen: Soft, nontender, nondistended. Skin: No rashes. No jaundice. Extremities: Normal skin color and turgor. No pedal edema. Neurological: No focal deficits. Alert and oriented x3. Results CBC & Chem 7: 08/12/24 05:36 08/12/24 05:36 Labs: Abnormal Lab Results - Last 24 Hours (Table) 08/11/24 08/11/24 08/12/24 Range/Units 05:59 18:17 05:36 RBC 4.00 L 3.75 L (4.10-5.20) 10*6/uL Hct 36.5 L (37.2-46.3) % MCV 97.3 H (80.0-97.0) fL MCH 32.5 H 32.8 H (27.0-32.0) pg Immature Gran # 0.07 H (0.00-0.04) 10*3/uL Lymphocytes # (Manual) 0.90 L (1.0-4.8) k/uL Metamyelocytes # (Man) 0.33 H (0) k/uL Myelocytes # (Manual) 0.13 H (0) k/uL Potassium (3.5-5.1) mmol/L Chloride (98-107) mmol/L Carbon Dioxide (22-30) mmol/L 05/06/25 Range/Units 05:36 RBC (4.10-5.20) 10*6/uL Hct (37.2-46.3) % MCV (80.0-97.0) fL MCH (27.0-32.0) pg Immature Gran # (0.00-0.04) 10*3/uL Lymphocytes # (Manual) (1.0-4.8) k/uL Metamyelocytes # (Man) (0) k/uL Myelocytes # (Manual) (0) k/uL Potassium 2.9 L (3.5-5.1) mmol/L Chloride 116 H (98-107) mmol/L Carbon Dioxide 14 L (22-30) mmol/L CT scan - abdomen: report reviewed Assessment and Plan (1) Acute diarrhea Narrative/Plan: 69-year-old female presenting to the hospital with acute onset diarrhea about 4 to 5 days ago with multiple episodes of watery stool. Apparently patient had reported that there was some pink tinge in her stool yesterday and GI was consulted for GI bleed. However hemoglobin is stable and patient is not had any further bleeding and actually has a fecal management system in place with light- colored green watery stool. Patient was recently hospitalized end of March and April for similar complaints. Stool culture at that time had come back with Aeromonas hydrophilia which was treated by infectious disease with Rocephin. Currently C. difficile is negative, stool cultures are pending. Occult stool is negative. No plans for colonoscopy at this time. Await stool cultures, and recommendations from infectious disease. Can start Questran. Current Visit: Yes Status: Acute Code(s): R19.7 - DIARRHEA, UNSPECIFIED SNOMED Code(s): 417339178 (2) Atrial fibrillation Current Visit: No Status: Acute Code(s): I48.91 - UNSPECIFIED ATRIAL FIBRILLATION SNOMED Code(s): 05490343 (3) Hypokalemia Current Visit: No Status: Acute Code(s): E87.6 - HYPOKALEMIA SNOMED Code(s): 13578215 Plan: 1. Continue symptomatic and supportive care 2. Replace potassium per protocol 3. May advance diet as tolerated 4. Cryptosporidium and Giardia stool samples ordered 5. Stool culture currently pending 6. Would recommend adding Questran, hold off on antidiarrheal until stool c ultures are back 7. Appreciate recommendations from infectious disease 8. No plans on colonoscopy at this time, however if stool cultures are negative and diarrhea continues may need to consider 9. Rest of medical management per primary medical team Thank you for this consultation, we will continue to follow. Dr. Paramjit Muir I agree with the dictator's note, documented as a scribe by Shirlene Menard.
[2024-08-12] MEDS: POTASSIUM CHLORIDE ER 20 MEQ TAB.ER PO SCH (12:46)
--- NOTE | 2024-08-12 13:00 | P.PN ---
Subjective Progress Note Date: 08/12/24 Reason for Consult (text): Atrial fibrillation with RVR History of present illness: This is 69-year-old female patient of Dr. Collazo last seen in the office in November 2021 with past medical history of persistent atrial fibrillation, pulmonary embolism, bipolar disorder, hypertension, hypothyroidism. We have been asked to evaluate the patient for A-fib with RVR. Patient states that she came into the hospital because she has had diarrhea for the past 3 days including blood in her stools. Patient was found to be in A-fib with RVR and started on Cardizem and IV fluids. She denies palpitations, no chest pain, no chest pressure. Blood pressure 94/60, heart rate 103, pulse ox 97% on room air. Potassium and magnesium have been replaced. Patient has been started on Cardizem drip currently at 5 mg/h. -EKG: Atrial fibrillation 130 bpm, telemetry is currently running 103 bpm -Chest x-ray: Mild cardiomegaly without acute process. -CT abdomen pelvis revealed fluid throughout the colon suggesting acute uncomplicated colitis or diarrhea. -Laboratory studies: WBC 3.7, hemoglobin 12.3. Sodium 137, potassium 2.5, initial creatinine 1.25 and repeat 0.94. Troponin negative x 1. Magnesium 1.5. Stool for occult blood and C. difficile negative. -Home cardiac medications: Eliquis 5 mg twice daily, also on levothyroxine -Echocardiogram performed at [facility] 04/07/2024 revealed overall normal biventricular systolic function, EF 50 to 55%, normal pulmonary artery systolic pressure, no pericardial effusion, no significant valvular abnormalities. 5/6 Patient seen and examined. Heart rate running in the low 100s, blood pressure 87/58, pulse ox 97% on room air. Patient states that she has been taken off beta-ruben in the past due to low heart rate. Repeat blood work reveals hemoglobin 12.3, potassium 2.9 and admitting physician is managing, BUN 16 creatinine 0.94. Noted that Eliquis was discontinued. Do not know why and discussed with the patient's nurse. She will check with the admitting physician. Physical examination: Gen: This is 69-year-old female in no acute respiratory distress. VS: reviewed HEENT: Head is atraumatic, normocephalic. Pupils equal, round. Sclerae is anicteric. NECK: Supple. No JVD. LUNGS: Clear to auscultation. No wheezes or rhonchi. No intercostal retractions. HEART: Irregular rate and rhythm. No murmur. ABDOMEN: Soft No tenderness. EXTREMITIES: No pedal edema. No calf tenderness. NEUROLOGICAL: Patient is awake, alert and oriented x3. Assessment: Diarrhea Persistent atrial fibrillation with RVR, currently rate controlled Hypokalemia Hypomagnesemia Acute kidney injury History of pulmonary embolism Bipolar disorder Hypertension Hypothyroidism Cardiomyopathy with previous EF 40 to 45% possibly tachycardic induced Plan: Continue Eliquis Add digoxin 250 mcg daily Decrease frequency of metoprolol 25 mg to twice daily Admitting physician to address electrolyte abnormalities Further recommendations to follow based upon clinical course Thank you kindly for this consultation. Nurse practitioner note has been reviewed, I agree with documented findings and plan of care. Patient was seen and examined. Objective - Vital Signs Vital signs: Vital Signs Temp 97.8 F 08/12/24 07:46 Pulse 101 H 08/12/24 07:47 Resp 18 08/12/24 07:47 BP 87/58 08/12/24 07:46 Pulse Ox 97 08/12/24 07:46 FiO2 Intake & Output 08/11/24 08/12/24 08/12/24 18:59 06:59 18:59 Intake Total 480 2000 942 Output Total 1950 1100 Balance 480 50 -158 Weight 88 kg Intake: Intake, IV Titration 2000 Amount Sodium Chloride 0.9% 1, 1000 000 ml @ 999 mls/hr IV . Q1H1M ONE Rx#:[id number] Sodium Chloride 0.9% 1, 1000 000 ml @ 999 mls/hr IV . Q1H1M ONE Rx#:[id number] Oral 480 942 Output: Urine 850 Straight 425 Stool 1100 1100 Other: Voiding Method Toilet External Catheter External Catheter # Voids 1 # Bowel Movements 4 2 - Labs CBC & Chem 7: 08/12/24 05:36 08/12/24 05:36 Labs: Abnormal Lab Results - Last 24 Hours (Table) 08/11/24 08/11/24 08/12/24 Range/Units 05:59 18:17 05:36 RBC 4.00 L 3.75 L (4.10-5.20) 10*6/uL Hct 36.5 L (37.2-46.3) % MCV 97.3 H (80.0-97.0) fL MCH 32.5 H 32.8 H (27.0-32.0) pg Immature Gran # 0.07 H (0.00-0.04) 10*3/uL Lymphocytes # (Manual) 0.90 L (1.0-4.8) k/uL Metamyelocytes # (Man) 0.33 H (0) k/uL Myelocytes # (Manual) 0.13 H (0) k/uL Potassium (3.5-5.1) mmol/L Chloride (98-107) mmol/L Carbon Dioxide (22-30) mmol/L /10/01 Range/Units 05:36 RBC (4.10-5.20) 10*6/uL Hct (37.2-46.3) % MCV (80.0-97.0) fL MCH (27.0-32.0) pg Immature Gran # (0.00-0.04) 10*3/uL Lymphocytes # (Manual) (1.0-4.8) k/uL Metamyelocytes # (Man) (0) k/uL Myelocytes # (Manual) (0) k/uL Potassium 2.9 L (3.5-5.1) mmol/L Chloride 116 H (98-107) mmol/L Carbon Dioxide 14 L (22-30) mmol/L
--- NOTE | 2024-08-12 13:03 | P.PN ---
Subjective Patient pleasant 69-year-old female came in with complaints of diarrhea multiple episodes a day led to dehydration acute renal failure with creatinine of 1.2 with baseline is within normal limits. Patient also found to be in atrial fibri llation with rapid infiltrate secondary to dehydration patient was started on Cardizem and IV fluids which are presently discontinued. Patient heart rate is presently fairly well-controlled patient had cardiomyopathy EF of around 40 to 45%. Patient received IV fluids with improvement in serum creatinine. IV fluids were discontinued. Patient C. difficile is negative. CT of the abdomen showed complete uncomplicated colitis 08/12/2024 Patient is still having quite a bit of diarrhea patient is a fecal management system in place. Stool studies were ordered including Cryptosporidium Isospora. Patient apparently had Aeromonas in the stool which was treated with Rocephin during her previous hospitalization. Infectious disease was consulted gastroenterology evaluated the patient as well holding off antidiarrheals until we get the stool studies sent Questran was ordered. Patient was started on IV normal saline as patient started having tachycardia again. Patient was started on digoxin by cardiology for heart rate control REVIEW OF SYSTEMS: All other systems are negative except those mentioned in the HPI PHYSICAL EXAMINATION: GENERAL: The patient is alert and oriented x3, not in any acute distress. Well developed, well nourished. HEENT: Pupils are round and equally reacting to light. EOMI. No scleral icterus. No conjunctival pallor. Normocephalic, atraumatic. No pharyngeal erythema. No thyromegaly. CARDIOVASCULAR: S1 and S2 present. No murmurs, rubs, or gallops. PULMONARY: Chest is clear to auscultation, no wheezing or crackles. ABDOMEN: Soft, nontender, nondistended, normoactive bowel sounds. No palpable organomegaly. MUSCULOSKELETAL: No joint swelling or deformity. EXTREMITIES: No cyanosis, clubbing, or pedal edema. NEUROLOGICAL: Gross neurological examination did not reveal any focal deficits. SKIN: No rashes. Assessment and plan -Atrial fibrillation with rapid growth rate presently rate controlled patient is on oral medications for that atrial fibrillation is secondary to dehydration which improved at this time. As patient is still having quite a bit of diarrhea patient was started on IV normal saline - Diarrhea rule out C. difficile, continues to have significant diarrhea stool studies were ordered as mentioned above hold off on antidiarrheals Questran was added patient was started on IV normal saline at 100 cc/h. Gastroenterology was consulted infectious disease was consulted - Acute renal failure resolved at this time creatinine improved - Congestive heart failure chronic systolic function EF of around 40 to 45% presently not in heart failure exacerbation - History of PE in the past - Hypokalemia secondary to diarrhea and hypomagnesemia secondary to diarrhea both will be replaced - Hypertension Bipolar disorder - Hypothyroidism DVT prophylaxis: Patient is on Eliquis Objective - Vital Signs Vital signs: Vital Signs Temp 97.9 F 08/12/24 10:32 Pulse 103 H 08/12/24 10:32 Resp 18 08/12/24 10:32 BP 93/61 08/12/24 10:32 Pulse Ox 95 08/12/24 10:32 FiO2 Intake & Output 08/11/24 08/12/24 08/12/24 18:59 06:59 18:59 Intake Total 480 2000 942 Output Total 1950 1100 Balance 480 50 -158 Weight 88 kg Intake: Intake, IV Titration 2000 Amount Sodium Chloride 0.9% 1, 1000 000 ml @ 999 mls/hr IV . Q1H1M ONE Rx#:[id number] Sodium Chloride 0.9% 1, 1000 000 ml @ 999 mls/hr IV . Q1H1M ONE Rx#:[id number] Oral 480 942 Output: Urine 850 Straight 425 Stool 1100 1100 Other: Voiding Method Toilet External Catheter External Catheter # Voids 1 # Bowel Movements 4 2 - Labs CBC & Chem 7: 08/12/24 05:36 08/12/24 05:36 Labs: Abnormal Lab Results - Last 24 Hours (Table) 08/11/24 08/12/24 08/12/24 Range/Units 18:17 05:36 05:36 RBC 4.00 L 3.75 L (4.10-5.20) 10*6/uL Hct 36.5 L (37.2-46.3) % MCV 97.3 H (80.0-97.0) fL MCH 32.5 H 32.8 H (27.0-32.0) pg Immature Gran # 0.07 H (0.00-0.04) 10*3/uL Metamyelocytes # (Man) 0.33 H (0) k/uL Myelocytes # (Manual) 0.13 H (0) k/uL Potassium 2.9 L (3.5-5.1) mmol/L Chloride 116 H (98-107) mmol/L Carbon Dioxide 14 L (22-30) mmol/L
[2024-08-12] MEDS: LOPERAMIDE 2 MG CAP PO PRN (15:42)
[2024-08-12] MEDS: SODIUM CHLORIDE 0.9% 500 ML 500 ML IV ONE (16:43)
[2024-08-12] MEDS: POTASSIUM CHLORIDE ER 20 MEQ TAB.ER PO ONE (16:44)
[2024-08-12] MEDS: CHOLESTYRAMINE (WITH SUGAR) 4 GM PACKET PO SCH (16:44)
[2024-08-12 17:33] LABS: Appearance,Urine Clear (Clear); Bilirubin,Urine Negative (Negative); Blood,Urine Moderate (Negative); Color,Urine Yellow; Glucose,Urine (UA) Negative (Negative); Hyaline Casts,Urine 4 /lpf (0-2); Ketones,Urine Trace (Negative); Leukocyte Esterase,Urine Negative (Negative); Mucus,Urine Rare /hpf; Nitrite,Urine Negative (Negative); Protein,Urine 1+ (Negative); RBC,Urine 36 /hpf (0-5); Specific Gravity,Urine 1.026 (1.001-1.035); Squamous Epithelial Cell,Urine <1 /hpf (0-4); Urobilinogen,Urine <2.0 mg/dL (<2.0); WBC,Urine 3 /hpf (0-5)
[2024-08-12 18:25] LABS: Cryptosporidium Antigen Negative (Negative)
[2024-08-12] MEDS: cefTRIAXone 2 GM in DEXTROSE 5% IN WATER 50 ML IVPB SCH (23:19)
[2024-08-13] MEDS: SODIUM CHLORIDE 0.9% 1,000 ML IV ONE ×2 (00:24→10:00)
[2024-08-13 01:53] LABS: Glucose,Whole Blood 90 mg/dL (70-110)
[2024-08-13 06:45] LABS: African American GFR (CKD) 73 (>60 ml/min/1.73 sqM); Anion Gap 16 mmol/L; Blood Urea Nitrogen 14 mg/dL (7-17); Calcium 9.3 mg/dL (8.4-10.2); Chloride 115 mmol/L (98-107); Glucose 74 mg/dL (74-99); Magnesium 1.6 mg/dL (1.6-2.3); Non-African American GFR(CKD) 63 (>60 ml/min/1.73 sqM); Potassium 2.8 mmol/L (3.5-5.1); Sodium 139 mmol/L (137-145)
[2024-08-13 06:53] LABS: Carbon Dioxide 8 mmol/L (22-30)
--- NOTE | 2024-08-13 07:25 | P.CONS ---
History of Present Illness - Reason for Consult Consult date: 08/12/24 Diarrhea Requesting physician: Tereza Maldonado - Chief Complaint Abdominal pain and diarrhea x 4 days - History of Present Illness Patient is a 69-year-old female with a past medical history significant for atrial fibrillation SVT thyroid disorder spinal meningitis C. difficile colitis as well as an episode of colitis secondary to Aeromonas hydrophilia back in March 2024 presenting to the hospital for evaluation of abdominal pain and diarrhea in this patient symptom has been going on for about 3 to 4 days before presenting to the hospital patient complaining of multiple loose stools which has been between green and black color for the patient was ev aluated at [facility] did have a CT of abdominal pelvis apparently was mild bowel obstruction the patient was subsidy discharged home with persistent symptoms of abdominal pain describing it to be crampy moderate to severe intensity without any radiation associated diarrhea with multiple loose stool denies any blood in the stool nausea but no vomiting patient presented the hospital on arrival to the ER the patient was afebrile and no fever have been called subsequently patient was not tachycardic mildly hypotensive not hypoxic patient did have a white count of 5.30 BUN and creat inine was mild elevated on admission subsequently has improved urine has been negative stool for C. difficile has been negative stool occult blood negative Cryptosporidium and Giardia antigen has been negative, stool cultures are pending CT abdominal pelvis did shows evidence of uncomplicated coliti s/enteritis, infectious disease was consulted for further management Review of Systems Positive point and negatives has been mentioned in the HPI, complete review of systems was performed and all other systems are negative Past Medical History Past Medical History: Atrial Fibrillation, Supraventricular Tachycardia (SVT), Thyroid Disorder Additional Past Medical History / Comment(s): spinal meningitis 27 yrs. ago, C- Diff History of Any Multi-Drug Resistant Organisms: None Reported Past Surgical History: Bariatric Surgery, Tonsillectomy, Tubal Ligation Additional Past Surgical History / Comment(s): Loop recorder Past Anesthesia/Blood Transfusion Reactions: No Reported Reaction Past Psychological History: Bipolar Smoking Status: Former smoker Past Alcohol Use History: None Reported Additional Past Alcohol Use History / Comment(s): quit smoking 1999, smoked 1ppd started @age of 15 Past Drug Use History: None Reported Medications and Allergies Home Medications Medication Instructions Recorded Confirmed Type Levothyroxine Sodium [Synthroid] 125 mcg PO MOTUWETHFRSA 02/24/19 08/10/24 History QUEtiapine FUMARATE [SEROquel] 300 mg PO HS 04/06/24 08/10/24 History Omeprazole 20 mg PO DAILY #30 cap 04/11/24 08/10/24 Rx Apixaban [Eliquis] 5 mg PO BID 08/10/24 08/10/24 History Biotin [Biotin Disolve] 10,000 mcg PO DAILY 08/10/24 08/10/24 History Cyanocobalamin [Vitamin B-12] 500 mcg PO DAILY 08/10/24 08/10/24 History Multivitamins, Thera [Multivitamin 1 tab PO DAILY 08/10/24 08/10/24 History (formulary)] PARoxetine [Paxil] 10 mg PO DAILY 08/10/24 08/10/24 History Vancomycin HCl [Vancocin HCl] 125 mg PO Q6H 08/10/24 08/10/24 History Allergies Allergy/AdvReac Type Severity Reaction Status Date / Time pentazocine [From Jana] Allergy Swelling Verified 08/10/24 16:30 Physical Exam Vitals: Vital Signs Temp Pulse Resp BP Pulse Ox 08/12/24 10:32 97.9 F 103 H 18 93/61 95 08/12/24 07:47 101 H 18 08/12/24 07:46 97.8 F 101 H 18 87/58 97 08/12/24 04:00 97.6 F 80 18 86/54 95 08/12/24 02:00 86 18 08/12/24 00:00 97.9 F 86 18 88/55 96 08/11/24 21:30 86/57 08/11/24 21:06 93 87/53 08/11/24 20:37 88/57 08/11/24 20:00 97.5 F L 86 18 85/54 97 08/11/24 16:00 98.3 F 89 18 87/58 94 L 08/11/24 14:00 85 18 Intake and Output 08/11/24 08/12/24 08/12/24 22:59 06:59 14:59 Intake Total 1999 942 Output Total 1949 1100 Balance 1999 Intake: Intake, IV Titration 1999 Amount Sodium Chloride 0.9% 1, 1000 000 ml @ 999 mls/hr IV . Q1H1M ONE Rx#:[id number] Sodium Chloride 0.9% 1, 1000 000 ml @ 999 mls/hr IV . Q1H1M ONE Rx#:[id number] Oral 942 Output: Urine 850 Straight 425 Stool 1100 1100 Other: Voiding Method External Catheter External Catheter External Catheter # Voids 1 # Bowel Movements 2 Weight 88 kg GENERAL DESCRIPTION: Elderly female lying in bed, no distress. No tachypnea or accessory muscle of respiration use. HEENT: Shows Pallor , no scleral icterus. Oral mucous membrane is dry. NECK: Trachea central, no thyromegaly. LUNGS: Unlabored breathing. Clear to auscultation anteriorly. No wheeze or crackle. HEART: S1, S2, regular rate and rhythm. No loud murmur ABDOMEN: Soft, mild tenderness , no guarding or rigidity EXTREMITIES: No edema of feet. SKIN: No rash, no masses palpable. NEUROLOGICAL: The patient is awake, alert, oriented x3, mood and affect normal. Results CBC & Chem 7: 08/12/24 05:36 08/13/24 05:49 Labs: Abnormal Lab Results - Last 24 Hours (Table) 08/11/24 08/12/24 08/12/24 Range/Units 18:17 05:36 05:36 RBC 4.00 L 3.75 L (4.10-5.20) 10*6/uL Hct 36.5 L (37.2-46.3) % MCV 97.3 H (80.0-97.0) fL MCH 32.5 H 32.8 H (27.0-32.0) pg Immature Gran # 0.07 H (0.00-0.04) 10*3/uL Metamyelocytes # (Man) 0.33 H (0) k/uL Myelocytes # (Manual) 0.13 H (0) k/uL Potassium 2.9 L (3.5-5.1) mmol/L Chloride 116 H (98-107) mmol/L Carbon Dioxide 14 L (22-30) mmol/L Assessment and Plan (1) Colitis Current Visit: No Status: Acute Code(s): K52.9 - NONINFECTIVE GASTROENTERITIS AND COLITIS, UNSPECIFIED SNOMED Code(s): 69108885 (2) Intestinal infection due to Aeromonas hydrophila Current Visit: No Status: Acute Code(s): A04.8 - OTHER SPECIFIED BACTERIAL INTESTINAL INFECTIONS SNOMED Code(s): 393485109 Plan: 1patient presents to hospital with abdominal pain and diarrhea that has been going on for about 3 to 4 days before presentation the hospital patient did have a abdominal pelvis CT fluid throughout the colon suggestive of acute uncomplicated colitis and no diarrhea cannot exclude acute enteritis in this patient who did have a similar presentation in the hospital in March and ended up having Aeromonas hydrophilic could be related to the same pathogen 2-we will wait for the stool cultures to finalize 3-patient empirically treated with Rocephin 2 g daily 4-avoid antimotility agent Questran can be used for symptomatic relief We will follow on clinical condition and cultures to further adjust medication if needed Thank you for this consultation we will follow the patient along with you Dictation was produced using [employer] dictation software. please excuse any grammatical, word or spelling errors. Time with Patient: Greater than 30
[2024-08-13] MEDS: POTASSIUM CHLORIDE ER 20 MEQ TAB.ER PO SCH (08:18)
[2024-08-13] MEDS: POTASSIUM CHLORIDE 20 MEQ in WATER FOR INJECTION 1 100ML.BAG IVPB STA (08:19)
[2024-08-13] MEDS: MAGNESIUM SULFATE-D5W PMX 1 GM in DEXTROSE/WATER 1 100ML.BAG IVPB SCH (08:26)
[2024-08-13] MEDS: 0.9% NACL WITH KCL 20 MEQ/L 1,000 ML IV SCH (08:26)
[2024-08-13] MEDS: APIXABAN 5 MG TAB PO SCH (10:04)
[2024-08-13] MEDS: D5-0.45% NACL WITH KCL 40MEQ/L 1,000 ML IV SCH (10:46)
[2024-08-13] MEDS: POTASSIUM CHLORIDE 20 MEQ in WATER FOR INJECTION 1 100ML.BAG IVPB ONE (10:46)
--- NOTE | 2024-08-13 11:05 | P.PN ---
Subjective Progress Note Date: 08/13/24 Principal diagnosis: Diarrhea This a pleasant 69-year-old female with a history of atrial fibrillation on Eliquis, Rosaura-en-Y gastric bypass, SVT and thyroid disorder who presented to the emergency department 2 days ago with complaints of abdominal pain and diarrhea. She had a CT of the abdomen and pelvis with contrast that reported fluid throughout the colon abnormal findings suggesting acute uncomplicated colitis and/or diarrhea. Cannot exclude acute enteritis involving the terminal ileum on current study. Diarrhea started about 4 days ago. She went to see her primary care doctor and he had started her on vancomycin. She took that for 1 to 2 days continued to have diarrhea came into the emergency department for further evaluation. She states that she has been having the diarrhea for 3 to 4 days it is not watery, apparently yesterday when she had a bowel movement there was some pink tinge in the toilet and therefore gastroenterology was consulted for GI bleed. Stool occult was negative, stool C. difficile negative. She denies any previous history of GI bleed. States she had a recent hospitalization in March 2024 for diarrhea and was in the hospital for nearly 30 days diagnosed with Aeromonas hydrophila and seen by infectious disease and treated with Rocephin. She had an EGD and colonoscopy in September 2023, which she states was normal, however cannot tell me where she had endoscopy done. Denies any history of ulcerative colitis or Crohn's disease. Denies any fevers or chills. She currently has a fecal management system in place which is watery light green in color. There is no blood noted. Denies any abdominal pain at this time. No nausea or vomiting. She denies any new medications started recently other than the vancomycin post start of diarrhea. 08/13/2024 Patient is seen and examined today as a follow-up. She continues with the fecal management system and reportedly had 2 full bags of watery diarrhea that is having some gelatin consistency. No blood in the stool. Stool culture resulted and shows same pathogen as previous. Positive culture with Aeromonas hydrophilia caviae. Patient states she has a little nausea but no vomiting. Tolerating full liquid diet. Patient is afebrile. She has been hypotensive throughout the night. Potassium this morning is 2.8. Stool Cryptosporidium and Giardia antigen negative. Patient states she has city water, does not eat unpasteurized eggs or milk. Not around multiple animals. Objective - Vital Signs Vital signs: Vital Signs Temp 97.9 F 08/13/24 07:45 Pulse 79 08/13/24 07:45 Resp 15 08/13/24 07:45 BP 84/54 08/13/24 07:45 Pulse Ox 95 08/13/24 07:45 FiO2 Intake & Output 08/12/24 08/13/24 08/13/24 18:59 06:59 18:59 Intake Total 1957 1700 Output Total 240 2400 Balance -442 -700 Weight 79 kg Intake: Intake, IV Titration 1700 Amount Sodium Chloride 0.9% 1, 600 000 ml @ 100 mls/hr IV . Q10H [facility] Rx#:[id number] Sodium Chloride 0.9% 1, 1000 000 ml @ 999 mls/hr IV . Q1H1M ONE Rx#:[id number] cefTRIAXone 2 gm In 100 Dextrose 5% in Water 50 ml @ 100 mls/hr IVPB Q24H [facility] Rx#:[id number] Oral 1957 Output: Urine 400 300 Stool 2000 2100 Other: Voiding Method External Catheter External Catheter - Exam General appearance: The patient is alert, oriented, appears in no acute distress. HET: Head is normocephalic and atraumatic. Conjunctiva pink. Sclera anicteric. Neck: Supple without lymphadenopathy. Abdomen: Soft, mild tenderness right lower abdomen, nondistended. Extremities: Normal skin color and turgor. No pedal edema Skin: No rashes, no jaundice Neurological: No focal deficits. Alert and oriented. - Labs CBC & Chem 7: 08/12/24 05:36 08/13/24 05:49 Labs: Abnormal Lab Results - Last 24 Hours (Table) 08/12/24 08/13/24 Range/Units 17:15 05:49 Potassium 2.8 L (3.5-5.1) mmol/L Chloride 115 H (98-107) mmol/L Carbon Dioxide 8 L* (22-30) mmol/L Urine Protein 1+ H (Negative) Urine Ketones Trace H (Negative) Urine Blood Moderate H (Negative) Urine RBC 36 H (0-5) /hpf Hyaline Casts 4 H (0-2) /lpf Urine Mucus Rare H (None) /hpf Microbiology - Last 24 Hours (Table) 08/10/24 11:03 Stool Culture - Preliminary Stool Aeromonas hydrophila caviae co Assessment and Plan (1) Acute diarrhea Narrative/Plan: 69-year-old female presenting to the hospital with acute onset diarrhea about 4 to 5 days ago with multiple episodes of watery stool. Apparently patient had r eported that there was some pink tinge in her stool yesterday and GI was consulted for GI bleed. However hemoglobin is stable and patient is not had any further bleeding and actually has a fecal management system in place with light- colored green watery stool. Patient was recently hospitalized end of March and April for similar complaints. Stool culture at that time had come back with Aeromonas hydrophilia which was treated by infectious disease with Rocephin. Currently C. difficile is negative, stool cultures are pending. Occult stool is negative. No plans for colonoscopy at this time. Stool cultures resulted with patient stool positive for Aeromonas hydrophila. She continues with diarrhea, IV Rocephin was started yesterday by infectious disease. I will hold off on antidiarrheal, continue with Questran for stool bulking. Replace electrolytes per protocol. Current Visit: Yes Status: Acute Code(s): R19.7 - DIARRHEA, UNSPECIFIED SNOMED Code(s): 381549399 (2) Intestinal infection due to Aeromonas hydrophila Current Visit: No Status: Acute Code(s): A04.8 - OTHER SPECIFIED BACTERIAL INTESTINAL INFECTIONS SNOMED Code(s): 813496573 (3) Atrial fibrillation Current Visit: No Status: Acute Code(s): I48.91 - UNSPECIFIED ATRIAL FIBRILLATION SNOMED Code(s): 97776000 (4) Hypokalemia Current Visit: No Status: Acute Code(s): E87.6 - HYPOKALEMIA SNOMED Code(s): 55514028 (5) Hypotension Current Visit: No Status: Acute Code(s): I95.9 - HYPOTENSION, UNSPECIFIED SNOMED Code(s): 69831742 Plan: 1. Continue symptomatic and supportive care 2. Continue Questran avoid antidiarrheal 3. Continue with antibiotic recommendations from infectious disease 4. Daily electrolytes, replace per protocol 5. Continue full liquid diet for now, advance as tolerated when diarrhea improves 6. Continue with further recommendations from infectious disease secondary to recurrent pathogen/infection 7. No plans on colonoscopy at this time. 8. Rest of medical management per primary medical team Thank you for this consultation, we will continue to follow. Dr. Paramjit Muir I agree with the dictator's note, documented as a scribe by Shirlene Menard.
--- NOTE | 2024-08-13 11:15 | P.PN ---
Subjective Progress Note Date: 08/13/24 Reason for Consult (text): Atrial fibrillation with RVR History of present illness: This is 69-year-old female patient of Dr. Collazo last seen in the office in November 2021 with past medical history of persistent atrial fibrillation, pulmonary embolism, bipolar disorder, hypertension, hypothyroidism. We have been asked to evaluate the patient for A-fib with RVR. Patient states that she came into the hospital because she has had diarrhea for the past 3 days including blood in her stools. Patient was found to be in A-fib with RVR and started on Cardizem and IV fluids. She denies palpitations, no chest pain, no chest pressure. Blood pressure 94/60, heart rate 103, pulse ox 97% on room air. Potassium and magnesium have been replaced. Patient has been started on Cardizem drip currently at 5 mg/h. -EKG: Atrial fibrillation 130 bpm, telemetry is currently running 103 bpm -Chest x-ray: Mild cardiomegaly without acute process. -CT abdomen pelvis revealed fluid throughout the colon suggesting acute uncomplicated colitis or diarrhea. -Laboratory studies: WBC 3.7, hemoglobin 12.3. Sodium 137, potassium 2.5, initial creatinine 1.25 and repeat 0.94. Troponin negative x 1. Magnesium 1.5. Stool for occult blood and C. difficile negative. -Home cardiac medications: Eliquis 5 mg twice daily, also on levothyroxine -Echocardiogram performed at [facility] 04/07/2024 revealed overall normal biventricular systolic function, EF 50 to 55%, normal pulmonary artery systolic pressure, no pericardial effusion, no significant valvular abnormalities. 08/12 Patient seen and examined. Heart rate running in the low 100s, blood pressure 87/58, pulse ox 97% on room air. Patient states that she has been taken off beta-ruben in the past due to low heart rate. Repeat blood work reveals hemoglobin 12.3, potassium 2.9 and admitting physician is managing, BUN 16 creatinine 0.94. Noted that Eliquis was discontinued. Do not know why and discussed with the patient's nurse. She will check with the admitting physician. 08/13 Patient seen and examined. Her heart rates are running in the 80s and atrial fibrillation. She did have a drop in her blood pressure down to 60 systolic last night after she received Lopressor but could be related to the profuse diarrhea that she is still having. Patient has significant electrolyte abnormalities and is being moved into the intensive care unit. At this time blood pressure 81/56, heart rate in the 80s, pulse ox 96% on room air. Yesterday we added digoxin 250 mcg daily and change frequency of metoprolol 25 to twice daily.. Physical examination: Gen: This is 69-year-old female in no acute respiratory distress. VS: reviewed HEENT: Head is atraumatic, normocephalic. Pupils equal, round. Sclerae is anicteric. NECK: Supple. No JVD. LUNGS: Clear to auscultation. No wheezes or rhonchi. No intercostal retractions. HEART: Irregular rate and rhythm. No murmur. ABDOMEN: Soft No tenderness. EXTREMITIES: No pedal edema. No calf tenderness. NEUROLOGICAL: Patient is awake, alert and oriented x3. Assessment: Diarrhea Persistent atrial fibrillation with RVR, currently rate controlled Hypokalemia Hypomagnesemia Metabolic acidosis Acute kidney injury History of pulmonary embolism Bipolar disorder Hypertension Hypothyroidism Cardiomyopathy with previous EF 40 to 45% possibly tachycardic induced Plan: Continue Eliquis Continue digoxin 250 mcg daily and reduced to 125 mcg on 08/16 Continue metoprolol 25 mg to twice daily Further recommendations to follow based upon clinical course Nurse practitioner note has been reviewed, I agree with documented findings and plan of care. Patient was seen and examined. Objective - Vital Signs Vital signs: Vital Signs Temp 98.0 F 08/13/24 03:53 Pulse 86 08/13/24 03:53 Resp 16 08/13/24 03:53 BP 81/56 08/13/24 06:28 Pulse Ox 96 08/13/24 03:53 FiO2 Intake & Output 08/12/24 08/13/24 08/13/24 18:59 06:59 18:59 Intake Total 195 1700 Output Total 2400 2400 Balance -442 -700 Weight 79 kg Intake: Intake, IV Titration 1700 Amount Sodium Chloride 0.9% 1, 600 000 ml @ 100 mls/hr IV . Q10H [facility], [facility]1983 Rx#:[id number] Sodium Chloride 0.9% 1, 1000 000 ml @ 999 mls/hr IV . Q1H1M ONE Rx#:[id number] cefTRIAXone 2 gm In 100 Dextrose 5% in Water 50 ml @ 100 mls/hr IVPB Q24H [facility] Rx#:[id number] Oral 1957 Output: Urine 400 300 Stool 2000 2100 Other: Voiding Method External Catheter External Catheter - Labs CBC & Chem 7: 08/12/24 05:36 08/13/24 05:49 Labs: Abnormal Lab Results - Last 24 Hours (Table) 08/12/24 08/13/24 Range/Units 17:15 05:49 Potassium 2.8 L (3.5-5.1) mmol/L Chloride 115 H (98-107) mmol/L Carbon Dioxide 8 L* (22-30) mmol/L Urine Protein 1+ H (Negative) Urine Ketones Trace H (Negative) Urine Blood Moderate H (Negative) Urine RBC 36 H (0-5) /hpf Hyaline Casts 4 H (0-2) /lpf Urine Mucus Rare H (None) /hpf Microbiology - Last 24 Hours (Table) 08/10/24 11:03 Stool Culture - Preliminary Stool Aeromonas hydrophila caviae co
--- NOTE | 2024-08-13 13:51 | P.PN ---
Subjective Progress Note Date: 08/13/24 Patient pleasant 69-year-old female came in with complaints of diarrhea multiple episodes a day led to dehydration acute renal failure with creatinine of 1.2 with baseline is within normal limits. Patient also found to be in atrial fibrillation with rapid infiltrate secondary to dehydration patient was started on Cardizem and IV fluids which are presently discontinued. Patient heart rate is presently fairly well-controlled patient had cardiomyopathy EF of around 40 to 45%. Patient received IV fluids with improvement in serum creatinine. IV fluids were discontinued. Patient C. difficile is negative. CT of the abdomen showed complete uncomplicated colitis 08/12/2024 Patient is still having quite a bit of diarrhea patient is a fecal management system in place. Stool studies were ordered including Cryptosporidium Isospora. Patient apparently had Aeromonas in the stool which was treated with Rocephin during her previous hospitalization. Infectious disease was consulted gastroenterology evaluated the patient as well holding off antidiarrheals until we get the stool studies sent Questran was ordered. Patient was started on IV normal saline as patient started having tachycardia again. Patient was started on digoxin by cardiology for heart rate control. 08/13/2024 Evaluated in follow-up in the medical floor. She continues to have significant amounts of diarrhea through the fecal management system. Nursing reports it was changed twice overnight and has about 800 mL in the FMS today. Her stool studies are showing Aeromonas hydrophilia caviae which was the same cultures from back in March. Patient remains on IV ceftriaxone under the care of Dr. Pennington. Potassium has been consistently low despite multiple rounds of IV and oral replacement. This is because of the GI losses. Additionally her CO2 level today is 8 we will add the 2 A of bicarb to the D5 half-normal saline and continue with 40 mg of potassium the IV fluids. Will repeat potassium later on this afternoon. Patient's blood pressure remains marginal she has had multiple fluid boluses. She may tentatively need the intensive care unit but we will monitor closely for now in the stepdown unit. Review of Systems Constitutional: Denied any fatigue denied any fever. Cardio vascular: denied any chest pain, palpitations Gastrointestinal: denied any nausea, vomiting, Reports diarrhea. Pulmonary: Denied any shortness of breath cough Neurologic denied any new focal deficits All inpatient medications were reviewed and appropriate changes in these medications as dictated in the interval history and assessment and plan. PHYSICAL EXAMINATION: GENERAL: The patient is alert and oriented x3, not in any acute distress. Well developed, well nourished. HEENT: Pupils are round and equally reacting to light. EOMI. No scleral icterus. No conjunctival pallor. Normocephalic, atraumatic. No pharyngeal erythema. No thyromegaly. CARDIOVASCULAR: S1 and S2 present. No murmurs, rubs, or gallops. PULMONARY: Chest is clear to auscultation, no wheezing or crackles. ABDOMEN: Soft, nontender, nondistended, normoactive bowel sounds. No palpable organomegaly. FMS in place with copious brown liquid stools. MUSCULOSKELETAL: No joint swelling or deformity. EXTREMITIES: No cyanosis, clubbing, or pedal edema. NEUROLOGICAL: Gross neurological examination did not reveal any focal deficits. SKIN: No rashes. Assessment and plan -Atrial fibrillation with rapid ventricular rate presently rate controlled patient is on oral medications for that atrial fibrillation is secondary to dehydration which improved at this time. 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 ID following closely. Continue FMS. Change IV fluids with added bicarb and continue to monitor electrolytes and juvencio al function closely. Potassium will be repeated this afternoon and will continue to supplement as needed. The impression and plan of care has been dictated by Tereza Maldonado, Nurse Practitioner as directed. Dr. Jamia MD I have performed a history and physical examination and medical decision making of this patient, discussed the same with the dictator, and agree with the dictators assessment and plan as written, documented as a scribe. Based on total visit time, I have performed more than 50% of this visit. Objective - Vital Signs Vital signs: Vital Signs Temp 97.9 F 08/13/24 07:45 Pulse 79 08/13/24 07:45 Resp 15 08/13/24 07:45 BP 84/54 08/13/24 07:45 Pulse Ox 95 08/13/24 07:45 FiO2 Intake & Output 08/12/24 08/13/24 08/13/24 18:59 06:59 18:59 Intake Total 1957 1700 79 Output Total 2400 2400 Balance -442 -700 79 Weight 79 kg Intake: Intake, IV Titration 1700 Amount Sodium Chloride 0.9% 1, 600 000 ml @ 100 mls/hr IV . Q10H [facility] Rx#:[id number] Sodium Chloride 0.9% 1, 1000 000 ml @ 999 mls/hr IV . Q1H1M ONE Rx#:[id number] cefTRIAXone 2 gm In 100 Dextrose 5% in Water 50 ml @ 100 mls/hr IVPB Q24H [facility] Rx#:[id number] Oral 1958 79 Output: Urine 400 300 Stool 2000 2100 Other: Voiding Method External Catheter External Catheter Indwelling Catheter - Labs CBC & Chem 7: 08/12/24 05:36 08/13/24 05:49 Labs: Abnormal Lab Results - Last 24 Hours (Table) 08/12/24 08/13/24 Range/Units 17:15 05:49 Potassium 2.8 L (3.5-5.1) mmol/L Chloride 115 H (98-107) mmol/L Carbon Dioxide 8 L* (22-30) mmol/L Urine Protein 1+ H (Negative) Urine Ketones Trace H (Negative) Urine Blood Moderate H (Negative) Urine RBC 36 H (0-5) /hpf Hyaline Casts 4 H (0-2) /lpf Urine Mucus Rare H (None) /hpf Microbiology - Last 24 Hours (Table) 08/10/24 11:03 Stool Culture - Preliminary Stool Aeromonas hydrophila caviae co Assessment and Plan Time with Patient: Less than 30
[2024-08-13] MEDS ORDERED: SODIUM BICARB IV SCH (14:00)
[2024-08-13] MEDS ORDERED: NACL IV SCH (14:00)
[2024-08-13] MEDS ORDERED: D5 IV SCH (14:00)
[2024-08-13] MEDS ORDERED: KCL IV SCH (14:00)
[2024-08-13] MEDS: KCL IV SCH (15:15)
[2024-08-13] MEDS: SODIUM BICARB IV SCH (15:15)
[2024-08-13] MEDS: NACL IV SCH (15:15)
[2024-08-13] MEDS: D5 IV SCH (15:15)
[2024-08-14 07:57] LABS: Basophils # (A) 0.03 10*3/uL (0.00-0.10); Basophils % (A) 0.5 %; Eosinophils # (A) 0.17 10*3/uL (0.04-0.35); Eosinophils % (A) 2.6 %; HGB 11.7 g/dL (12.0-15.0); Lymphocytes # (A) 1.51 10*3/uL (0.90-5.00); Lymphocytes % (A) 23.1 %; MCH 32.8 pg (27.0-32.0); MCHC 35.5 g/dL (32.0-37.0); MCV 92.4 fL (80.0-97.0); Monocytes # (A) 0.64 10*3/uL (0.20-1.00); Monocytes % (A) 9.8 %; Neutrophils # (A) 4.15 10*3/uL (1.80-7.70); Neutrophils % (A) 63.2 %; Platelet Count 224 10*3/uL (140-440); RBC 3.57 10*6/uL (4.10-5.20); RDW 12.4 % (11.5-14.5); WBC 6.55 10*3/uL (4.50-10.00)
[2024-08-14 08:07] LABS: African American GFR (CKD) 86 (>60 ml/min/1.73 sqM); Anion Gap 8 mmol/L; Blood Urea Nitrogen 11 mg/dL (7-17); Calcium 8.9 mg/dL (8.4-10.2); Carbon Dioxide 16 mmol/L (22-30); Chloride 120 mmol/L (98-107); Glucose 109 mg/dL (74-99); Magnesium 1.6 mg/dL (1.6-2.3); Non-African American GFR(CKD) 74 (>60 ml/min/1.73 sqM); Potassium 3.6 mmol/L (3.5-5.1); Sodium 144 mmol/L (137-145)
[2024-08-14] MEDS: ACETAMINOPHEN TAB 325 MG TAB PO PRN (09:25)
[2024-08-14] MEDS ORDERED: Magnesium Replacement Protocol 1 EACH MISC MISCELLANE PRN (09:41)
[2024-08-14] MEDS: MAGNESIUM SULFATE-D5W PMX 1 GM in DEXTROSE/WATER 1 100ML.BAG IVPB SCH (12:05)
--- NOTE | 2024-08-14 12:46 | P.PN ---
Subjective Progress Note Date: 08/14/24 Principal diagnosis: Diarrhea This a pleasant 69-year-old female with a history of atrial fibrillation on Eliquis, Rosaura-en-Y gastric bypass, SVT and thyroid disorder who presented to the emergency department 2 days ago with complaints of abdominal pain and diarrhea. She had a CT of the abdomen and pelvis with contrast that reported fluid throughout the colon abnormal findings suggesting acute uncomplicated colitis and/or diarrhea. Cannot exclude acute enteritis involving the terminal ileum on current study. Diarrhea started about 4 days ago. She went to see her primary care doctor and he had started her on vancomycin. She took that for 1 to 2 days continued to have diarrhea came into the emergency department for further evaluation. She states that she has been having the diarrhea for 3 to 4 days it is not watery, apparently yesterday when she had a bowel movement there was some pink tinge in the toilet and therefore gastroenterology was consulted for GI bleed. Stool occult was negative, stool C. difficile negative. She denies any previous history of GI bleed. States she had a recent hospitalization in March 2024 for diarrhea and was in the hospital for nearly 30 days diagnosed with Aeromonas hydrophila and seen by infectious disease and treated with Rocephin. She had an EGD and colonoscopy in September 2023, which she states was normal, however cannot tell me where she had endoscopy done. Denies any history of ulcerative colitis or Crohn's disease. Denies any fevers or chills. She currently has a fecal management system in place which is watery light green in color. There is no blood noted. Denies any abdominal pain at this time. No nausea or vomiting. She denies any new medications started recently other than the vancomycin post start of diarrhea. 08/13/2024 Patient is seen and examined today as a follow-up. She continues with the fecal management system and reportedly had 2 full bags of watery diarrhea that is having some gelatin consistency. No blood in the stool. Stool culture resulted and shows same pathogen as previous. Positive culture with Aeromonas hydrophilia caviae. Patient states she has a little nausea but no vomiting. Tolerating full liquid diet. Patient is afebrile. She has been hypotensive throughout the night. Potassium this morning is 2.8. Stool Cryptosporidium and Giardia antigen negative. Patient states she has city water, does not eat unpasteurized eggs or milk. Not around multiple animals. -[phone] Patient seen and examined today as a follow-up. States that she is feeling a little bit better. States that she is having back discomfort and tailbone secondary to being in bed for so long. States diarrhea is improving some. Patient still has some soft blood pressures denies any shortness of breath, chest pain, dizziness. Sodium and potassium improved. Objective - Vital Signs Vital signs: Vital Signs Temp 98.3 F 08/14/24 09:10 Pulse 90 08/14/24 09:10 Resp 16 08/14/24 09:10 BP 107/73 08/14/24 09:10 Pulse Ox 98 08/14/24 09:10 FiO2 Intake & Output 08/13/24 08/14/24 08/14/24 18:59 06:59 18:59 Intake Total 795 Output Total 1000 2100 Balance - Weight 79.3 kg Intake: Oral 795 Output: Urine 300 200 Stool 700 1900 Other: Voiding Method Indwelling Catheter Indwelling Catheter - Exam General appearance: The patient is alert, oriented, appears in no acute distress. HET: Head is normocephalic and atraumatic. Conjunctiva pink. Sclera anicteric. Neck: Supple without lymphadenopathy. Abdomen: Soft, mild tenderness right lower abdomen, nondistended. Extremities: Normal skin color and turgor. No pedal edema Skin: No rashes, no jaundice Neurological: No focal deficits. Alert and oriented. - Labs CBC & Chem 7: 08/14/24 07:24 08/14/24 07:24 Labs: Abnormal Lab Results - Last 24 Hours (Table) 08/14/24 08/14/24 Range/Units 07:24 07:24 RBC 3.57 L (4.10-5.20) 10*6/uL Hgb 11.7 L (12.0-15.0) g/dL Hct 33.0 L (37.2-46.3) % MCH 32.8 H (27.0-32.0) pg Immature Gran # 0.05 H (0.00-0.04) 10*3/uL Chloride 120 H (98-107) mmol/L Carbon Dioxide 16 L (22-30) mmol/L Glucose 109 H (74-99) mg/dL Microbiology - Last 24 Hours (Table) 08/10/24 11:03 Stool Culture - Preliminary Stool Aeromonas hydrophila caviae co Assessment and Plan (1) Acute diarrhea Narrative/Plan: 69-year-old female presenting to the hospital with acute onset diarrhea about 4 to 5 days ago with multiple episodes of watery stool. Apparently patient had reported that there was some pink tinge in her stool yesterday and GI was consulted for GI bleed. However hemoglobin is stable and patient is not had any further bleeding and actually has a fecal management system in place with light- colored green watery stool. Patient was recently hospitalized end of March and April for similar complaints. Stool culture at that time had come back with Aeromonas hydrophilia which was treated by infectious disease with Rocephin. Currently C. difficile is negative, stool cultures are pending. Occult stool is negative. No plans for colonoscopy at this time. Stool cultures resulted with patient stool positive for Aeromonas hydrophila. She continues with diarrhea, IV Rocephin was started yesterday by infectious disease. I will hold off on antidiarrheal, continue with Questran for stool bulking. Replace electrolytes per protocol. Current Visit: Yes Status: Acute Code(s): R19.7 - DIARRHEA, UNSPECIFIED SNOMED Code(s): 669102863 (2) Intestinal infection due to Aeromonas hydrophila Current Visit: No Status: Acute Code(s): A04.8 - OTHER SPECIFIED BACTERIAL INTESTINAL INFECTIONS SNOMED Code(s): 454321805 (3) Atrial fibrillation Current Visit: No Status: Acute Code(s): I48.91 - UNSPECIFIED ATRIAL FIBRILLATION SNOMED Code(s): 19969280 (4) Hypokalemia Current Visit: No Status: Acute Code(s): E87.6 - HYPOKALEMIA SNOMED Code(s): 51536283 (5) Hypotension Current Visit: No Status: Acute Code(s): I95.9 - HYPOTENSION, UNSPECIFIED SNOMED Code(s): 38031992 Plan: 1. Continue symptomatic and supportive care 2. Continue Questran avoid antidiarrheal 3. Continue with antibiotic recommendations from infectious disease 4. Daily electrolytes, replace per protocol 5. Continue full liquid diet for now, advance as tolerated when diarrhea improves 6. Continue with further recommendations from infectious disease secondary to recurrent pathogen/infection 7. No plans on colonoscopy at this time. 8. Rest of medical management per primary medical team Thank you for this consultation, we will continue to follow. Dr. Paramjit Muir I agree with the dictator's note, documented as a scribe by Shirlene Menard.
--- NOTE | 2024-08-14 12:52 | P.PN ---
Subjective Progress Note Date: 08/14/24 Reason for Consult (text): Atrial fibrillation with RVR History of present illness: This is 69-year-old female patient of Dr. Collazo last seen in the office in November 2021 with past medical history of persistent atrial fibrillation, pulmonary embolism, bipolar disorder, hypertension, hypothyroidism. We have been asked to evaluate the patient for A-fib with RVR. Patient states that she came into the hospital because she has had diarrhea for the past 3 days including blood in her stools. Patient was found to be in A-fib with RVR and started on Cardizem and IV fluids. She denies palpitations, no chest pain, no chest pressure. Blood pressure 94/60, heart rate 103, pulse ox 97% on room air. Potassium and magnesium have been replaced. Patient has been started on Cardizem drip currently at 5 mg/h. -EKG: Atrial fibrillation 130 bpm, telemetry is currently running 103 bpm -Chest x-ray: Mild cardiomegaly without acute process. -CT abdomen pelvis revealed fluid throughout the colon suggesting acute uncomplicated colitis or diarrhea. -Laboratory studies: WBC 3.7, hemoglobin 12.3. Sodium 137, potassium 2.5, initial creatinine 1.25 and repeat 0.94. Troponin negative x 1. Magnesium 1.5. Stool for occult blood and C. difficile negative. -Home cardiac medications: Eliquis 5 mg twice daily, also on levothyroxine -Echocardiogram performed at [facility] 04/07/2024 revealed overall normal biventricular systolic function, EF 50 to 55%, normal pulmonary artery systolic pressure, no pericardial effusion, no significant valvular abnormalities. 08/12 Patient seen and examined. Heart rate running in the low 100s, blood pressure 87/58, pulse ox 97% on room air. Patient states that she has been taken off beta-ruben in the past due to low heart rate. Repeat blood work reveals hemoglobin 12.3, potassium 2.9 and admitting physician is managing, BUN 16 creatinine 0.94. Noted that Eliquis was discontinued. Do not know why and discussed with the patient's nurse. She will check with the admitting physician. 08/13 Patient seen and examined. Her heart rates are running in the 80s and atrial fibrillation. She did have a drop in her blood pressure down to 60 systolic last night after she received Lopressor but could be related to the profuse diarrhea that she is still having. Patient has significant electrolyte abnormalities and is being moved into the intensive care unit. At this time blood pressure 81/56, heart rate in the 80s, pulse ox 96% on room air. Yesterday we added digoxin 250 mcg daily and change frequency of metoprolol 25 to twice daily.. 08/14 Patient seen and examined. She is still having significant amount of diarrhea with fecal management system. Blood pressure 88/54, heart rate in the 90s. Patient has been maintained on metoprolol 25 mg twice daily as well as digoxin 250 mcg daily. Heart rates are controlled. No medication changes made today. Physical examination: Gen: This is 69-year-old female in no acute respiratory distress. VS: reviewed HEENT: Head is atraumatic, normocephalic. Pupils equal, round. Sclerae is anicteric. NECK: Supple. No JVD. LUNGS: Clear to auscultation. No wheezes or rhonchi. No intercostal retractions. HEART: Irregular rate and rhythm. No murmur. ABDOMEN: Soft No tenderness. EXTREMITIES: No pedal edema. No calf tenderness. NEUROLOGICAL: Patient is awake, alert and oriented x3. Assessment: Diarrhea Persistent atrial fibrillation with RVR, currently rate controlled Hypokalemia Hypomagnesemia Metabolic acidosis Acute kidney injury History of pulmonary embolism Bipolar disorder Hypertension Hypothyroidism Cardiomyopathy with previous EF 40 to 45% possibly tachycardic induced Plan: Continue Eliquis Continue digoxin 250 mcg daily and reduced to 125 mcg on 08/16 Continue metoprolol 25 mg to twice daily Continue telemetry monitoring further recommendations to follow based upon clinical course Nurse practitioner note has been reviewed, I agree with documented findings and plan of care. Patient was seen and examined. Objective - Vital Signs Vital signs: Vital Signs Temp 98 F 08/13/24 20:00 Pulse 75 08/14/24 03:38 Resp 16 08/14/24 03:38 BP 88/54 08/14/24 03:38 Pulse Ox 95 08/14/24 03:38 FiO2 Intake & Output 08/13/24 08/14/24 08/14/24 18:59 06:59 18:59 Intake Total 795 Output Total 1000 2100 Balance - -2099 Weight 79.3 kg Intake: Oral 795 Output: Urine 300 200 Stool 700 1900 Other: Voiding Method Indwelling Catheter Indwelling Catheter - Labs CBC & Chem 7: 08/14/24 07:24 08/14/24 07:24 Labs: Abnormal Lab Results - Last 24 Hours (Table) 08/14/24 08/14/24 Range/Units 07:24 07:24 RBC 3.57 L (4.10-5.20) 10*6/uL Hgb 11.7 L (12.0-15.0) g/dL Hct 33.0 L (37.2-46.3) % MCH 32.8 H (27.0-32.0) pg Immature Gran # 0.05 H (0.00-0.04) 10*3/uL Chloride 120 H (98-107) mmol/L Carbon Dioxide 16 L (22-30) mmol/L Glucose 109 H (74-99) mg/dL Microbiology - Last 24 Hours (Table) 08/10/24 11:03 Stool Culture - Preliminary Stool Aeromonas hydrophila caviae co
--- NOTE | 2024-08-14 15:47 | P.PN ---
Subjective Progress Note Date: 08/13/24 Principal diagnosis: Reason for follow-up is enteritis/colitis Patient is a 69-year-old female with a past medical history significant for atrial fibrillation SVT thyroid disorder spinal meningitis C. difficile colitis as well as an episode of colitis secondary to Aeromonas hydrophilia back in March 2024 presenting to the hospital for evaluation of abdominal pain and diarrhea patient did have a CT concerning for uncomplicated colitis/enteritis and stool for C. difficile negative culture positive for Aeromonas hydrophila. On today's evaluation the right is 08/13/2024, the patient continues to be afebrile, the patient is on room air and breathing comfortably, the Pt denies having any chest pain or cough, the patient still complaining of nausea abdominal discomfort and still having diarrhea. Patient did have a creatinine 0.93 no CBC was done today Objective - Vital Signs Vital signs: Vital Signs Temp 97.9 F 08/13/24 07:45 Pulse 82 08/13/24 11:16 Resp 17 08/13/24 11:16 BP 86/62 08/13/24 11:16 Pulse Ox 99 08/13/24 11:16 FiO2 Intake & Output 08/12/24 08/13/24 08/13/24 18:59 06:59 18:59 Intake Total 1957 1700 559 Output Total 2400 2400 Balance -442 -700 559 Weight 79 kg Intake: Intake, IV Titration 1700 Amount Sodium Chloride 0.9% 1, 600 000 ml @ 100 mls/hr IV . Q10H [facility] Rx#:[id number] Sodium Chloride 0.9% 1, 1000 000 ml @ 999 mls/hr IV . Q1H1M [facility] Rx#:[id number] cefTRIAXone 2 gm In 100 Dextrose 5% in Water 50 ml @ 100 mls/hr IVPB Q24H [facility] Rx#:[id number] Oral 1958 559 Output: Urine 400 300 Stool 2000 2100 Other: Voiding Method External Catheter External Catheter Indwelling Catheter - Exam GENERAL DESCRIPTION: An elderly female lying in bed in no distress RESPIRATORY SYSTEM: Unlabored breathing , decreased breath sounds at bases HEART: S1 S2 regular rate and rhythm , ABDOMEN: Soft , no tenderness EXTREMITIES: No edema feet - Labs CBC & Chem 7: 08/14/24 07:24 08/14/24 07:24 Labs: Abnormal Lab Results - Last 24 Hours (Table) 08/12/24 08/13/24 Range/Units 17:15 05:49 Potassium 2.8 L (3.5-5.1) mmol/L Chloride 115 H (98-107) mmol/L Carbon Dioxide 8 L* (22-30) mmol/L Urine Protein 1+ H (Negative) Urine Ketones Trace H (Negative) Urine Blood Moderate H (Negative) Urine RBC 36 H (0-5) /hpf Hyaline Casts 4 H (0-2) /lpf Urine Mucus Rare H (None) /hpf Microbiology - Last 24 Hours (Table) 08/10/24 11:03 Stool Culture - Preliminary Stool Aeromonas hydrophila caviae co Assessment and Plan (1) Colitis Current Visit: No Status: Acute Code(s): K52.9 - NONINFECTIVE GASTROENTERITIS AND COLITIS, UNSPECIFIED SNOMED Code(s): 96832094 (2) Intestinal infection due to Aeromonas hydrophila Current Visit: No Status: Acute Code(s): A04.8 - OTHER SPECIFIED BACTERIAL INTESTINAL INFECTIONS SNOMED Code(s): 985925247 Plan: 1patient presents to hospital with abdominal pain and diarrhea that has been going on for about 3 to 4 days before presentation the hospital patient did have a abdominal pelvis CT fluid throughout the colon suggestive of acute uncomplicated colitis and no diarrhea cannot exclude acute enteritis in this patient who did have a similar presentation in the hospital in March and ended up having Aeromonas hydrophilic could be related to the same pathogen 2-stool cultures currently growing Aeromonas hydrophilia 3-patient will be treated with Rocephin 2 g daily along with the Questran for symptomatic relief Dictation was produced using [employer] dictation software. please excuse any grammatical, word or spelling errors. Time with Patient: Less than 30
--- NOTE | 2024-08-14 15:48 | P.PN ---
Subjective Progress Note Date: 08/14/24 Principal diagnosis: Reason for follow-up is enteritis/colitis Patient is a 69-year-old female with a past medical history significant for atrial fibrillation SVT thyroid disorder spinal meningitis C. difficile colitis as well as an episode of colitis secondary to Aeromonas hydrophilia back in March 2024 presenting to the hospital for evaluation of abdominal pain and diarrhea patient did have a CT concerning for uncomplicated colitis/enteritis and stool for C. difficile negative culture positive for Aeromonas hydrophila. On today's evaluation the right is 08/14/2024, Patient is afebrile patient is currently on room air and denies having any shortness of breath, the patient denies any chest pain or cough, the patient denies any nausea vomiting did not have any abdominal pain and resolution of the diarrhea. Patient white count 6.55 creatinine 0.81 Objective - Vital Signs Vital signs: Vital Signs Temp 98.3 F 08/14/24 09:10 Pulse 73 08/14/24 12:08 Resp 16 08/14/24 09:10 BP 96/65 08/14/24 12:08 Pulse Ox 98 08/14/24 09:10 FiO2 Intake & Output 08/13/24 08/14/24 08/14/24 18:59 06:59 18:59 Intake Total 795 Output Total 1000 2100 Balance - -2099 Weight 79.3 kg Intake: Oral 795 Output: Urine 300 200 Stool 700 1900 Other: Voiding Method Indwelling Catheter Indwelling Catheter - Exam GENERAL DESCRIPTION: An elderly female lying in bed in no distress RESPIRATORY SYSTEM: Unlabored breathing , decreased breath sounds at bases HEART: S1 S2 regular rate and rhythm , ABDOMEN: Soft , no tenderness EXTREMITIES: No edema feet - Labs CBC & Chem 7: 08/14/24 07:24 08/14/24 07:24 Labs: Abnormal Lab Results - Last 24 Hours (Table) 08/14/24 08/14/24 Range/Units 07:24 07:24 RBC 3.57 L (4.10-5.20) 10*6/uL Hgb 11.7 L (12.0-15.0) g/dL Hct 33.0 L (37.2-46.3) % MCH 32.8 H (27.0-32.0) pg Immature Gran # 0.05 H (0.00-0.04) 10*3/uL Chloride 120 H (98-107) mmol/L Carbon Dioxide 16 L (22-30) mmol/L Glucose 109 H (74-99) mg/dL Microbiology - Last 24 Hours (Table) 08/10/24 11:03 Stool Culture - Preliminary Stool Aeromonas hydrophila caviae co Assessment and Plan (1) Colitis Current Visit: No Status: Acute Code(s): K52.9 - NONINFECTIVE GASTROENTERITIS AND COLITIS, UNSPECIFIED SNOMED Code(s): 09999652 (2) Intestinal infection due to Aeromonas hydrophila Current Visit: No Status: Acute Code(s): A04.8 - OTHER SPECIFIED BACTERIAL INTESTINAL INFECTIONS SNOMED Code(s): 322220072 Plan: 1patient presents to hospital with abdominal pain and diarrhea that has been going on for about 3 to 4 days before presentation the hospital patient did have a abdominal pelvis CT fluid throughout the colon suggestive of acute unco mplicated colitis and no diarrhea cannot exclude acute enteritis in this patient who did have a similar presentation in the hospital in March and ended up having Aeromonas hydrophilic could be related to the same pathogen 2-stool cultures currently growing Aeromonas hydrophilia 3-patient seem to have clinically responded to Rocephin 2 g daily along with the Questran and plan will be for oral antibiotic on discharge no need for IV Dictation was produced using [employer] dictation software. please excuse any grammatical, word or spelling errors. Time with Patient: Less than 30
--- NOTE | 2024-08-14 21:52 | P.PN ---
Subjective Progress Note Date: 08/14/24 Patient pleasant 69-year-old female came in with complaints of diarrhea multiple episodes a day led to dehydration acute renal failure with creatinine of 1.2 with baseline is within normal limits. Patient also found to be in atrial fibrillation with rapid infiltrate secondary to dehydration patient was started on Cardizem and IV fluids which are presently discontinued. Patient heart rate is presently fairly well-controlled patient had cardiomyopathy EF of around 40 to 45%. Patient received IV fluids with improvement in serum creatinine. IV fluids were discontinued. Patient C. difficile is negative. CT of the abdomen showed complete uncomplicated colitis 08/12/2024 Patient is still having quite a bit of diarrhea patient is a fecal management system in place. Stool studies were ordered including Cryptosporidium Isospora. Patient apparently had Aeromonas in the stool which was treated with Rocephin during her previous hospitalization. Infectious disease was consulted gastroenterology evaluated the patient as well holding off antidiarrheals until we get the stool studies sent Questran was ordered. Patient was started on IV normal saline as patient started having tachycardia again. Patient was started on digoxin by cardiology for heart rate control. 08/13/2024 Evaluated in follow-up in the medical floor. She continues to have significant amounts of diarrhea through the fecal management system. Nursing reports it was changed twice overnight and has about 800 mL in the FMS today. Her stool studies are showing Aeromonas hydrophilia caviae which was the same cultures from back in March. Patient remains on IV ceftriaxone under the care of Dr. Pennington. Potassium has been consistently low despite multiple rounds of IV and oral replacement. This is because of the GI losses. Additionally her CO2 level today is 8 we will add the 2 A of bicarb to the D5 half-normal saline and continue with 40 mg of potassium the IV fluids. Will repeat potassium later on this afternoon. Patient's blood pressure remains marginal she has had multiple fluid boluses. She may tentatively need the intensive care unit but we will monitor closely for now in the stepdown unit. 08/14/2024 Patient evaluated today in follow up. Continues with FMS in place. Abdominal pain slightly improved and diet will be advanced. Potassium 3.6, magnesum 1.6. CO2 16. Patient will continue on bicarb gtt with added potassium. Continue IV ceftriaxone. Review of Systems Constitutional: Denied any fatigue denied any fever. Cardio vascular: denied any chest pain, palpitations Gastrointestinal: denied any nausea, vomiting, Reports diarrhea. Pulmonary: Denied any shortness of breath cough Neurologic denied any new focal deficits All inpatient medications were reviewed and appropriate changes in these medications as dictated in the interval history and assessment and plan. PHYSICAL EXAMINATION: GENERAL: The patient is alert and oriented x3, not in any acute distress. Well developed, well nourished. HEENT: Pupils are round and equally reacting to light. EOMI. No scleral icterus. No conjunctival pallor. Normocephalic, atraumatic. No pharyngeal erythema. No thyromegaly. CARDIOVASCULAR: S1 and S2 present. No murmurs, rubs, or gallops. PULMONARY: Chest is clear to auscultation, no wheezing or crackles. ABDOMEN: Soft, nontender, nondistended, normoactive bowel sounds. No palpable organomegaly. FMS in place with copious brown liquid stools. MUSCULOSKELETAL: No joint swelling or deformity. EXTREMITIES: No cyanosis, clubbing, or pedal edema. NEUROLOGICAL: Gross neurological examination did not reveal any focal deficits. SKIN: No rashes. Assessment and plan -Atrial fibrillation with rapid ventricular rate presently rate controlled patient is on oral medications for that; atrial fibrillation is secondary to dehydration which improved at this time. - Diarrhea from Aeromonas hydrophilia caviae - Acute renal failure resolved at this time creatinine improved - Hypotension from continued diarrrhea - Metabolic acidosis from GI losses - Congestive heart failure chronic systolic function EF of around 40 to 45% presently not in heart failure exacerbation. - History of PE in the past - Hypokalemia secondary to diarrhea and hypomagnesemia secondary to diarrhea both will be replaced - Hypertension - Bipolar disorder - Hypothyroidism DVT prophylaxis: Patient is on Eliquis Full Code Patient will be continue IV ceftriaxone. ID following closely. Continue FMS. Change IV fluids with added bicarb and continue to monitor electrolytes and renal function closely. Electrolyte replacement per protocol. The impression and plan of care has been dictated by Tereza Maldonado, Nurse Practitioner as directed. Dr. Jamia MD I have performed a history and physical examination and medical decision making of this patient, discussed the same with the dictator, and agree with the dictators assessment and plan as written, documented as a scribe. Based on total visit time, I have performed more than 50% of this visit. Objective - Vital Signs Vital signs: Vital Signs Temp 98.5 F 08/14/24 19:47 Pulse 87 08/14/24 19:47 Resp 18 08/14/24 19:47 BP 102/70 08/14/24 19:47 Pulse Ox 99 08/14/24 19:47 FiO2 Intake & Output 08/14/24 08/14/24 08/15/24 06:59 18:59 06:59 Intake Total 118 Output Total 2100 600 Balance -2100 -482 Weight 79.3 kg Intake: Oral 118 Output: Urine 200 600 Stool 1900 Other: Voiding Method Indwelling Catheter Indwelling Catheter - Labs CBC & Chem 7: 08/14/24 07:24 08/14/24 07:24 Labs: Abnormal Lab Results - Last 24 Hours (Table) 08/14/24 08/14/24 Range/Units 07:24 07:24 RBC 3.57 L (4.10-5.20) 10*6/uL Hgb 11.7 L (12.0-15.0) g/dL Hct 33.0 L (37.2-46.3) % MCH 32.8 H (27.0-32.0) pg Immature Gran # 0.05 H (0.00-0.04) 10*3/uL Chloride 120 H (98-107) mmol/L Carbon Dioxide 16 L (22-30) mmol/L Glucose 109 H (74-99) mg/dL Microbiology - Last 24 Hours (Table) 08/10/24 11:03 Stool Culture - Final Stool Aeromonas hydrophila caviae co Assessment and Plan Time with Patient: Less than 30
[2024-08-15 08:02] LABS: Basophils # (A) 0.03 10*3/uL (0.00-0.10); Basophils % (A) 0.4 %; Eosinophils # (A) 0.16 10*3/uL (0.04-0.35); Eosinophils % (A) 2.2 %; HGB 11.5 g/dL (12.0-15.0); Lymphocytes # (A) 1.64 10*3/uL (0.90-5.00); Lymphocytes % (A) 22.3 %; MCH 32.6 pg (27.0-32.0); MCHC 34.8 g/dL (32.0-37.0); MCV 93.5 fL (80.0-97.0); Mean Platelet Volume 9.9 fL (9.5-12.2); Monocytes % (A) 8.2 %; Neutrophils # (A) 4.87 10*3/uL (1.80-7.70); Neutrophils % (A) 66.1 %; Platelet Count 211 10*3/uL (140-440); RBC 3.53 10*6/uL (4.10-5.20); RDW 12.5 % (11.5-14.5); WBC 7.36 10*3/uL (4.50-10.00)
[2024-08-15 08:17] LABS: African American GFR (CKD) >90 (>60 ml/min/1.73 sqM); Anion Gap 4 mmol/L; Blood Urea Nitrogen 9 mg/dL (7-17); Calcium 8.5 mg/dL (8.4-10.2); Carbon Dioxide 23 mmol/L (22-30); Chloride 113 mmol/L (98-107); Glucose 95 mg/dL (74-99); Magnesium 1.6 mg/dL (1.6-2.3); Non-African American GFR(CKD) >90 (>60 ml/min/1.73 sqM); Potassium 4.1 mmol/L (3.5-5.1); Sodium 140 mmol/L (137-145)
[2024-08-15] MEDS: MAGNESIUM SULFATE-D5W PMX 1 GM in DEXTROSE/WATER 1 100ML.BAG IVPB SCH (10:45)
[2024-08-15 11:36] VITALS: BMI 30.2
--- NOTE | 2024-08-15 11:58 | P.PN ---
Subjective Progress Note Date: 08/15/24 Principal diagnosis: Diarrhea This a pleasant 69-year-old female with a history of atrial fibrillation on Eliquis, Rosaura-en-Y gastric bypass, SVT and thyroid disorder who presented to the emergency department 2 days ago with complaints of abdominal pain and diarrhea. She had a CT of the abdomen and pelvis with contrast that reported fluid throughout the colon abnormal findings suggesting acute uncomplicated colitis and/or diarrhea. Cannot exclude acute enteritis involving the terminal ileum on current study. Diarrhea started about 4 days ago. She went to see her primary care doctor and he had started her on vancomycin. She took that for 1 to 2 days continued to have diarrhea came into the emergency department for further evaluation. She states that she has been having the diarrhea for 3 to 4 days it is not watery, apparently yesterday when she had a bowel movement there was some pink tinge in the toilet and therefore gastroenterology was consulted for GI bleed. Stool occult was negative, stool C. difficile negative. She denies any previous history of GI bleed. States she had a recent hospitalization in March 2024 for diarrhea and was in the hospital for nearly 30 days diagnosed with Aeromonas hydrophila and seen by infectious disease and treated with Rocephin. She had an EGD and colonoscopy in September 2023, which she states was normal, however cannot tell me where she had endoscopy done. Denies any history of ulcerative colitis or Crohn's disease. Denies any fevers or chills. She currently has a fecal management system in place which is watery light green in color. There is no blood noted. Denies any abdominal pain at this time. No nausea or vomiting. She denies any new medications started recently other than the vancomycin post start of diarrhea. 08/13/2024 Patient is seen and examined today as a follow-up. She continues with the fecal management system and reportedly had 2 full bags of watery diarrhea that is having some gelatin consistency. No blood in the stool. Stool culture resulted and shows same pathogen as previous. Positive culture with Aeromonas hydrophilia caviae. Patient states she has a little nausea but no vomiting. Tolerating full liquid diet. Patient is afebrile. She has been hypotensive throughout the night. Potassium this morning is 2.8. Stool Cryptosporidium and Giardia antigen negative. Patient states she has city water, does not eat unpasteurized eggs or milk. Not around multiple animals. 08/14/2024 Patient seen and examined today as a follow-up. States that she is feeling a little bit better. States that she is having back discomfort and tailbone secondary to being in bed for so long. States diarrhea is improving some. Patient still has some soft blood pressures denies any shortness of breath, chest pain, dizziness. Sodium and potassium improved. 08/15/2024 Patient is seen and examined today as a follow-up. She states she is feeling better. She is tolerating a regular diet. Diarrhea is improving including amount and consistency. No blood in stool. Denies any abdominal pain, nausea or vomiting. Electrolytes stable. She has been afebrile. Objective - Vital Signs Vital signs: Vital Signs Temp 98.1 F 08/15/24 09:12 Pulse 93 08/15/24 09:12 Resp 16 08/15/24 09:12 BP 93/65 08/15/24 09:12 Pulse Ox 97 08/15/24 09:12 FiO2 Intake & Output 08/14/24 08/15/24 08/15/24 18:59 06:59 18:59 Intake Total 118 1050 10 Output Total 600 525 400 Balance -482 525 -390 Weight 90 kg 90 kg Intake: IV 1050 10 D5-0.45% NaCl with KCl 1000 40Meq/l 1,000 ml @ 125 mls/hr IV .Q8H48M [facility] with Sodium Bicarb (1 Meq /ml) 100 ml Rx#:[id number] Invasive Line 5 10 cefTRIAXone 2 gm In 50 Dextrose 5% in Water 50 ml @ 100 mls/hr IVPB Q24H [facility] Rx#:[id number] Oral 118 Output: Urine 600 425 400 Uretheral (Capellan) 400 Stool 100 Other: Voiding Method Indwelling Catheter Indwelling Catheter - Exam General appearance: The patient is alert, oriented, appears in no acute distress. HET: Head is normocephalic and atraumatic. Conjunctiva pink. Sclera anicteric. Neck: Supple without lymphadenopathy. Abdomen: Soft, mild tenderness right lower abdomen, nondistended. Extremities: Normal skin color and turgor. No pedal edema Skin: No rashes, no jaundice Neurological: No focal deficits. Alert and oriented. - Labs CBC & Chem 7: 08/15/24 07:15 08/15/24 07:15 Labs: Abnormal Lab Results - Last 24 Hours (Table) 08/15/24 08/15/24 Range/Units 07:15 07:15 RBC 3.53 L (4.10-5.20) 10*6/uL Hgb 11.5 L (12.0-15.0) g/dL Hct 33.0 L (37.2-46.3) % MCH 32.6 H (27.0-32.0) pg Immature Gran # 0.06 H (0.00-0.04) 10*3/uL Chloride 113 H (98-107) mmol/L Microbiology - Last 24 Hours (Table) 08/10/24 11:03 Stool Culture - Final Stool Aeromonas hydrophila caviae co Assessment and Plan (1) Acute diarrhea Narrative/Plan: 69-year-old female presenting to the hospital with acute onset diarrhea about 4 to 5 days ago with multiple episodes of watery stool. Apparently patient had reported that there was some pink tinge in her stool yesterday and GI was consulted for GI bleed. However hemoglobin is stable and patient is not had any further bleeding and actually has a fecal management system in place with light- colored green watery stool. Patient was recently hospitalized end of March and April for similar complaints. Stool culture at that time had come back with Aeromonas hydrophilia which was treated by infectious disease with Rocephin. Currently C. difficile is negative, stool cultures are pending. Occult stool is negative. No plans for colonoscopy at this time. Stool cultures resulted with patient stool positive for Aeromonas hydrophila. Diarrhea improving. Continue with recommendations for antibiotics per infectious disease. Discontinue fecal management system. Current Visit: Yes Status: Acute Code(s): R19.7 - DIARRHEA, UNSPECIFIED SNOMED Code(s): 723427177 (2) Intestinal infection due to Aeromonas hydrophila Current Visit: No Status: Acute Code(s): A04.8 - OTHER SPECIFIED BACTERIAL INTESTINAL INFECTIONS SNOMED Code(s): 242408651 (3) Atrial fibrillation Current Visit: No Status: Acute Code(s): I48.91 - UNSPECIFIED ATRIAL FIBRILLATION SNOMED Code(s): 59848129 (4) Hypokalemia Current Visit: No Status: Acute Code(s): E87.6 - HYPOKALEMIA SNOMED Code(s): 81559852 (5) Hypotension Current Visit: No Status: Acute Code(s): I95.9 - HYPOTENSION, UNSPECIFIED SNOMED Code(s): 54146830 Plan: 1. Continue symptomatic and supportive care 2. Discontinue fecal management system. Once stools more formed discontinue Questran. 3. Continue with antibiotic recommendations from infectious disease 4. Diet as tolerated 5. Rest of medical management per primary medical team 6. No plans for colonoscopy at this time Thank you for this consultation, gastroenterology will sign off. Patient can follow-up if diarrhea returns and consider possible outpatient colonoscopy. Dr. Paramjit Muir I agree with the dictator's note, documented as a scribe by Shirlene Menard.
--- NOTE | 2024-08-15 13:06 | P.PN ---
Subjective Progress Note Date: 08/15/24 Reason for Consult (text): Atrial fibrillation with RVR History of present illness: This is 69-year-old female patient of Dr. Collazo last seen in the office in November 2021 with past medical history of persistent atrial fibrillation, pulmonary embolism, bipolar disorder, hypertension, hypothyroidism. We have been asked to evaluate the patient for A-fib with RVR. Patient states that she came into the hospital because she has had diarrhea for the past 3 days including blood in her stools. Patient was found to be in A-fib with RVR and started on Cardizem and IV fluids. She denies palpitations, no chest pain, no chest pressure. Blood pressure 94/60, heart rate 103, pulse ox 97% on room air. Potassium and magnesium have been replaced. Patient has been started on Cardizem drip currently at 5 mg/h. -EKG: Atrial fibrillation 130 bpm, telemetry is currently running 103 bpm -Chest x-ray: Mild cardiomegaly without acute process. -CT abdomen pelvis revealed fluid throughout the colon suggesting acute uncomplicated colitis or diarrhea. -Laboratory studies: WBC 3.7, hemoglobin 12.3. Sodium 137, potassium 2.5, initial creatinine 1.25 and repeat 0.94. Troponin negative x 1. Magnesium 1.5. Stool for occult blood and C. difficile negative. -Home cardiac medications: Eliquis 5 mg twice daily, also on levothyroxine -Echocardiogram performed at [facility] 04/07/2024 revealed overall normal biventricular systolic function, EF 50 to 55%, normal pulmonary artery systolic pressure, no pericardial effusion, no significant valvular abnormalities. 08/12 Patient seen and examined. Heart rate running in the low 100s, blood pressure 87/58, pulse ox 97% on room air. Patient states that she has been taken off beta-ruben in the past due to low heart rate. Repeat blood work reveals hemoglobin 12.3, potassium 2.9 and admitting physician is managing, BUN 16 creatinine 0.94. Noted that Eliquis was discontinued. Do not know why and discussed with the patient's nurse. She will check with the admitting physician. 08/13 Patient seen and examined. Her heart rates are running in the 80s and atrial fibrillation. She did have a drop in her blood pressure down to 60 systolic last night after she received Lopressor but could be related to the profuse diarrhea that she is still having. Patient has significant electrolyte abnormalities and is being moved into the intensive care unit. At this time blood pressure 81/56, heart rate in the 80s, pulse ox 96% on room air. Yesterday we added digoxin 250 mcg daily and change frequency of metoprolol 25 to twice daily.. 08/14 Patient seen and examined. She is still having significant amount of diarrhea with fecal management system. Blood pressure 88/54, heart rate in the 90s. Patient has been maintained on metoprolol 25 mg twice daily as well as digoxin 250 mcg daily. Heart rates are controlled. No medication changes made today. 08/15 Patient seen and examined. Diarrhea seems to be improving. Patient is seen sitting up in a chair. Heart rate is 85. Blood pressure 93/65, pulse ox 97% on room air. No dizziness. Repeat blood work reveals hemoglobin 11.5, creatinine 0.63, CO2 is 23. Physical examination: Gen: This is 69-year-old female in no acute respiratory distress. VS: reviewed HEENT: Head is atraumatic, normocephalic. Pupils equal, round. Sclerae is anicteric. NECK: Supple. No JVD. LUNGS: Clear to auscultation. No wheezes or rhonchi. No intercostal retractions. HEART: Irregular rate and rhythm. No murmur. ABDOMEN: Soft No tenderness. EXTREMITIES: No pedal edema. No calf tenderness. NEUROLOGICAL: Patient is awake, alert and oriented x3. Assessment: Diarrhea Persistent atrial fibrillation with RVR, currently rate controlled Hypokalemia Hypomagnesemia Metabolic acidosis Acute kidney injury History of pulmonary embolism Bipolar disorder Hypertension Hypothyroidism Cardiomyopathy with previous EF 40 to 45% possibly tachycardic induced Plan: Continue Eliquis Continue digoxin 250 mcg daily and reduced to 125 mcg on 08/16 Continue metoprolol 25 mg to twice daily No further cardiac workup planned at this time Cardiology will sign off this case and follow on an as-needed basis. Please reconsult for any new concerns. Patient may follow-up in the office in one to [address] Collazo. Nurse practitioner note has been reviewed, I agree with documented findings and plan of care. Patient was seen and examined. Objective - Vital Signs Vital signs: Vital Signs Temp 98.1 F 08/15/24 09:12 Pulse 93 08/15/24 09:12 Resp 16 08/15/24 09:12 BP 93/65 08/15/24 09:12 Pulse Ox 97 08/15/24 09:12 FiO2 Intake & Output 08/14/24 08/15/24 08/15/24 18:59 06:59 18:59 Intake Total 118 1050 10 Output Total 600 525 Balance -482 525 10 Weight 90 kg Intake: IV 1050 10 D5-0.45% NaCl with KCl 1000 40Meq/l 1,000 ml @ 125 mls/hr IV .Q8H48M CHAD with Sodium Bicarb (1 Meq /ml) 100 ml Rx#:[id number] Invasive Line 5 10 cefTRIAXone 2 gm In 50 Dextrose 5% in Water 50 ml @ 100 mls/hr IVPB Q24H CHAD Rx#:[id number] Oral 118 Output: Urine 600 425 Stool 100 Other: Voiding Method Indwelling Catheter - Labs CBC & Chem 7: 08/15/24 07:15 08/15/24 07:15 Labs: Abnormal Lab Results - Last 24 Hours (Table) 08/15/24 08/15/24 Range/Units 07:15 07:15 RBC 3.53 L (4.10-5.20) 10*6/uL Hgb 11.5 L (12.0-15.0) g/dL Hct 33.0 L (37.2-46.3) % MCH 32.6 H (27.0-32.0) pg Immature Gran # 0.06 H (0.00-0.04) 10*3/uL Chloride 113 H (98-107) mmol/L Microbiology - Last 24 Hours (Table) 08/10/24 11:03 Stool Culture - Final Stool Aeromonas hydrophila caviae co
--- NOTE | 2024-08-15 13:44 | P.PN ---
Subjective Progress Note Date: 08/15/24 Patient pleasant 69-year-old female came in with complaints of diarrhea multiple episodes a day led to dehydration acute renal failure with creatinine of 1.2 with baseline is within normal limits. Patient also found to be in atrial fibrillation with rapid infiltrate secondary to dehydration patient was started on Cardizem and IV fluids which are presently discontinued. Patient heart rate is presently fairly well-controlled patient had cardiomyopathy EF of around 40 to 45%. Patient received IV fluids with improvement in serum creatinine. IV fluids were discontinued. Patient C. difficile is negative. CT of the abdomen showed complete uncomplicated colitis 08/12/2024 Patient is still having quite a bit of diarrhea patient is a fecal management system in place. Stool studies were ordered including Cryptosporidium Isospora. Patient apparently had Aeromonas in the stool which was treated with Rocephin during her previous hospitalization. Infectious disease was consulted gastroenterology evaluated the patient as well holding off antidiarrheals until we get the stool studies sent Questran was ordered. Patient was started on IV normal saline as patient started having tachycardia again. Patient was started on digoxin by cardiology for heart rate control. 08/13/2024 Evaluated in follow-up in the medical floor. She continues to have significant amounts of diarrhea through the fecal management system. Nursing reports it was changed twice overnight and has about 800 mL in the FMS today. Her stool studies are showing Aeromonas hydrophilia caviae which was the same cultures from back in March. Patient remains on IV ceftriaxone under the care of Dr. Pennington. Potassium has been consistently low despite multiple rounds of IV and oral replacement. This is because of the GI losses. Additionally her CO2 level today is 8 we will add the 2 A of bicarb to the D5 half-normal saline and continue with 40 mg of potassium the IV fluids. Will repeat potassium later on this afternoon. Patient's blood pressure remains marginal she has had multiple fluid boluses. She may tentatively need the intensive care unit but we will monitor closely for now in the stepdown unit. 08/14/2024 Patient evaluated today in follow up. Continues with FMS in place. Abdominal pain slightly improved and diet will be advanced. Potassium 3.6, magnesum 1.6. CO2 16. Patient will continue on bicarb gtt with added potassium. Continue IV ceftriaxone. 08/15/2024 Patient is eval today follow-up with the medical floor. His FMS has been removed and she is able to hold in her stools and states that they are softening up. She is on regular diet. Her electrolytes are significantly improved with a sodium level of 140 potassium 4.1, BUN of 9 creatinine 0.6 remains in 1.6. White blood cell count 7.36 hemoglobin 1.5. She continues on IV ceftriaxone. Will transition her fluids to LR at 75. Patient continues to improve she may be able to be discharged home the next 24 to 48 hours. Review of Systems Constitutional: Denied any fatigue denied any fever. Cardio vascular: denied any chest pain, palpitations Gastrointestinal: denied any nausea, vomiting, Reports diarrhea. Pulmonary: Denied any shortness of breath cough Neurologic denied any new focal deficits All inpatient medications were reviewed and appropriate changes in these medications as dictated in the interval history and assessment and plan. PHYSICAL EXAMINATION: GENERAL: The patient is alert and oriented x3, not in any acute distress. Well developed, well nourished. HEENT: Pupils are round and equally reacting to light. EOMI. No scleral icterus. No conjunctival pallor. Normocephalic, atraumatic. No pharyngeal erythema. No thyromegaly. CARDIOVASCULAR: S1 and S2 present. No murmurs, rubs, or gallops. PULMONARY: Chest is clear to auscultation, no wheezing or crackles. ABDOMEN: Soft, nontender, nondistended, normoactive bowel sounds. No palpable organomegaly. FMS in place with copious brown liquid stools. MUSCULOSKELETAL: No joint swelling or deformity. EXTREMITIES: No cyanosis, clubbing, or pedal edema. NEUROLOGICAL: Gross neurological examination did not reveal any focal deficits. SKIN: No rashes. Assessment and plan -Atrial fibrillation with rapid ventricular rate presently rate controlled patient is on oral medications for that; atrial fibrillation is secondary to dehydration which improved at this time. - Diarrhea from Aeromonas hydrophilia caviae - Acute renal failure resolved at this time creatinine improved - Hypotension from continued diarrrhea - Metabolic acidosis from GI losses - Congestive heart failure chronic systolic function EF of around 40 to 45% presently not in heart failure exacerbation. - History of PE in the past - Hypokalemia secondary to diarrhea and hypomagnesemia secondary to diarrhea both will be replaced - Hypertension - Bipolar disorder - Hypothyroidism DVT prophylaxis: Patient is on Eliquis Full Code Patient will be continue IV ceftriaxone. ID following closely. Has been discontinued. Patient is on regular diet and her abdominal pain is gone at this time. Her electrolytes have improved and she will continue on LR at 75 mL/h. PT has evaluated the patient and recommending home with home care. Possible discharge home in the next 24 to 48 hours. The impression and plan of care has been dictated by Tereza Maldonado, Nurse Practitioner as directed. Dr. Jamia MD I have performed a history and physical examination and medical decision making of this patient, discussed the same with the dictator, and agree with the dictators assessment and plan as written, documented as a scribe. Based on total visit time, I have performed more than 50% of this visit. Objective - Vital Signs Vital signs: Vital Signs Temp 97.9 F 08/15/24 12:00 Pulse 90 08/15/24 12:00 Resp 16 08/15/24 12:00 BP 95/61 08/15/24 12:00 Pulse Ox 98 08/15/24 12:00 FiO2 Intake & Output 08/14/24 08/15/24 08/15/24 18:59 06:59 18:59 Intake Total 118 1050 128 Output Total 600 525 400 Balance -482 525 -272 Weight 90 kg 90 kg Intake: IV 1050 10 D5-0.45% NaCl with KCl 1000 40Meq/l 1,000 ml @ 125 mls/hr IV .Q8H48M CHAD with Sodium Bicarb (1 Meq /ml) 100 ml Rx#:[id number] Invasive Line 5 10 cefTRIAXone 2 gm In 50 Dextrose 5% in Water 50 ml @ 100 mls/hr IVPB Q24H CHAD Rx#:[id number] Oral 118 118 Output: Urine 600 425 400 Uretheral (Capellan) 400 Stool 100 Other: Voiding Method Indwelling Catheter Indwelling Catheter - Labs CBC & Chem 7: 08/15/24 07:15 08/15/24 07:15 Labs: Abnormal Lab Results - Last 24 Hours (Table) 08/15/24 08/15/24 Range/Units 07:15 07:15 RBC 3.53 L (4.10-5.20) 10*6/uL Hgb 11.5 L (12.0-15.0) g/dL Hct 33.0 L (37.2-46.3) % MCH 32.6 H (27.0-32.0) pg Immature Gran # 0.06 H (0.00-0.04) 10*3/uL Chloride 113 H (98-107) mmol/L Microbiology - Last 24 Hours (Table) 08/10/24 11:03 Stool Culture - Final Stool Aeromonas hydrophila caviae co
[2024-08-15] MEDS: LACTATED RINGERS 1,000 ML IV SCH (13:59)
[2024-08-16 08:27] VITALS: TEMP 97.7
[2024-08-16] MEDS: DIGOXIN 125 MCG TAB PO SCH (08:45)
[2024-08-16] MEDS ORDERED: DIGOXIN 250 MCG/ML 2 ML AMP IVP SCH (09:00)
[2024-08-16 09:55] LABS: Magnesium 1.6 mg/dL (1.6-2.3)
[2024-08-16 10:01] LABS: African American GFR (CKD) >90 (>60 ml/min/1.73 sqM); Anion Gap 4 mmol/L; Blood Urea Nitrogen 7 mg/dL (7-17); Calcium 8.9 mg/dL (8.4-10.2); Carbon Dioxide 27 mmol/L (22-30); Chloride 109 mmol/L (98-107); Glucose 111 mg/dL (74-99); Non-African American GFR(CKD) 88 (>60 ml/min/1.73 sqM); Potassium 3.8 mmol/L (3.5-5.1); Sodium 140 mmol/L (137-145)
[2024-08-16 11:36] VITALS: BP 106/73; PULSE 83; RESP 17
--- NOTE | 2024-08-17 13:09 | P.PN ---
Subjective Progress Note Date: 08/16/24 Principal diagnosis: Reason for follow-up is enteritis/colitis Patient is a 69-year-old female with a past medical history significant for atrial fibrillation SVT thyroid disorder spinal meningitis C. difficile colitis as well as an episode of colitis secondary to Aeromonas hydrophilia back in March 2024 presenting to the hospital for evaluation of abdominal pain and diarrhea patient did have a CT concerning for uncomplicated colitis/enteritis and stool for C. difficile negative culture positive for Aeromonas hydrophila. On today's evaluation the right is 08/16/2024, Patient is afebrile this morning patient denies having any chest pain shortness of breath or cough, the patient is currently on room air, patient denies any abdominal pain did have resolution of her diarrhea did have soft bowel movement today no nausea vomiting. Patient did have a creatinine 0.70 no CBC was done today Objective - Vital Signs Vital signs: Vital Signs Temp 97.7 F 08/16/24 11:36 Pulse 83 08/16/24 11:36 Resp 17 08/16/24 11:36 BP 106/73 08/16/24 11:36 Pulse Ox 99 08/16/24 11:36 FiO2 Intake & Output 08/16/24 08/16/24 08/17/24 06:59 18:59 06:59 Intake Total 10 190 Output Total 1500 400 Balance -1490 -210 Intake: IV 10 10 Invasive Line 5 10 10 Oral 180 Output: Urine 1500 400 Uretheral (Capellan) 400 Other: Voiding Method Indwelling Catheter Indwelling Catheter # Bowel Movements 1 - Exam GENERAL DESCRIPTION: An elderly female lying in bed in no distress RESPIRATORY SYSTEM: Unlabored breathing , decreased breath sounds at bases HEART: S1 S2 regular rate and rhythm , ABDOMEN: Soft , no tenderness EXTREMITIES: No edema feet - Labs CBC & Chem 7: 08/15/24 07:15 08/16/24 08:54 Labs: Abnormal Lab Results - Last 24 Hours (Table) 08/16/24 Range/Units 08:54 Chloride 109 H (98-107) mmol/L Glucose 111 H (74-99) mg/dL Assessment and Plan (1) Colitis Status: Acute Code(s): K52.9 - NONINFECTIVE GASTROENTERITIS AND COLITIS, UNSPECIFIED SNOMED Code(s): 12804194 (2) Intestinal infection due to Aeromonas hydrophila Status: Acute Code(s): A04.8 - OTHER SPECIFIED BACTERIAL INTESTINAL INFECTIONS SNOMED Code(s): 813891263 Plan: 1patient presents to hospital with abdominal pain and diarrhea that has been going on for about 3 to 4 days before presentation the hospital patient did have a abdominal pelvis CT fluid throughout the colon suggestive of acute uncomplicated colitis and no diarrhea cannot exclude acute enteritis in this patient who did have a similar presentation in the hospital in March and ended up having Aeromonas hydrophilia could be related to the same pathogen 2-stool cultures did grew Aeromonas hydrophilia 3-patient did have clinical improvement to continue Rocephin 2 g daily, plan is to be discharged with oral Ceftin discussed with CASUALTY CLAIM ADJUSTER for admitting team Dictation was produced using [employer] dictation software. please excuse any grammatical, word or spelling errors. Time with Patient: Less than 30
--- NOTE | 2024-08-17 13:09 | P.PN ---
Subjective Progress Note Date: 08/15/24 Principal diagnosis: Reason for follow-up is enteritis/colitis Patient is a 69-year-old female with a past medical history significant for atrial fibrillation SVT thyroid disorder spinal meningitis C. difficile colitis as well as an episode of colitis secondary to Aeromonas hydrophilia back in March 2024 presenting to the hospital for evaluation of abdominal pain and diarrhea patient did have a CT concerning for uncomplicated colitis/enteritis and stool for C. difficile negative culture positive for Aeromonas hydrophila. On today's evaluation the right is 08/15/2024, patient has been afebrile, patient is breathing comfortably and is currently on room air, patient denies having any chest pain and cough, patient denies nausea vomiting or diarrhea and no abdominal pain Patient did have a white count 7.36, creatinine 0.63 Objective - Vital Signs Vital signs: Vital Signs Temp 98.2 F 08/15/24 15:44 Pulse 85 08/15/24 20:00 Resp 16 08/15/24 20:00 BP 100/66 08/15/24 15:44 Pulse Ox 98 08/15/24 15:44 FiO2 Intake & Output 08/15/24 08/15/24 08/16/24 06:59 18:59 06:59 Intake Total 1050 1358 10 Output Total 525 400 Balance 525 958 10 Weight 90 kg 90 kg Intake: IV 1050 790 10 D5-0.45% NaCl with KCl 1000 780 40Meq/l 1,000 ml @ 125 mls/hr IV .Q8H48M CHAD with Sodium Bicarb (1 Meq /ml) 100 ml Rx#:[id number] Invasive Line 5 10 10 cefTRIAXone 2 gm In 50 Dextrose 5% in Water 50 ml @ 100 mls/hr IVPB Q24H CHAD Rx#:[id number] Intake, IV Titration 450 Amount Lactated Ringers 1,000 ml 450 @ 75 mls/hr IV .[id number] CHAD Rx#:[id number] Oral 118 Output: Urine 425 400 Uretheral (Capellan) 400 Stool 100 Other: Voiding Method Indwelling Catheter Indwelling Catheter Indwelling Catheter # Bowel Movements 1 - Exam GENERAL DESCRIPTION: An elderly female lying in bed in no distress RESPIRATORY SYSTEM: Unlabored breathing , decreased breath sounds at bases HEART: S1 S2 regular rate and rhythm , ABDOMEN: Soft , no tenderness EXTREMITIES: No edema feet - Labs CBC & Chem 7: 08/15/24 07:15 08/16/24 08:54 Labs: Abnormal Lab Results - Last 24 Hours (Table) 08/15/24 08/15/24 Range/Units 07:15 07:15 RBC 3.53 L (4.10-5.20) 10*6/uL Hgb 11.5 L (12.0-15.0) g/dL Hct 33.0 L (37.2-46.3) % MCH 32.6 H (27.0-32.0) pg Immature Gran # 0.06 H (0.00-0.04) 10*3/uL Chloride 113 H (98-107) mmol/L Assessment and Plan (1) Colitis Status: Acute Code(s): K52.9 - NONINFECTIVE GASTROENTERITIS AND COLITIS, UNSPECIFIED SNOMED Code(s): 93277041 (2) Intestinal infection due to Aeromonas hydrophila Status: Acute Code(s): A04.8 - OTHER SPECIFIED BACTERIAL INTESTINAL INFECTIONS SNOMED Code(s): 283452258 Plan: 1patient presents to hospital with abdominal pain and diarrhea that has been going on for about 3 to 4 days before presentation the hospital patient did have a abdominal pelvis CT fluid throughout the colon suggestive of acute uncomplicated colitis and no diarrhea cannot exclude acute enteritis in this patient who did have a similar presentation in the hospital in March and ended up having Aeromonas hydrophilic could be related to the same pathogen 2-stool cultures did grew Aeromonas hydrophilia 3-patient did have some clinical improvement to continue Rocephin 2 g daily along with the Questran and monitor clinical course closely Dictation was produced using [employer] dictation software. please excuse any gra mmatical, word or spelling errors. Time with Patient: Less than 30
== END 2024-08-16 14:24 | disposition home or self-care (01) | DRG 372 ==
LOC: EC 09:48 → 3SCARD 15:46
PROVIDERS: ADMIT Internal Medicine; ATTEND Internal Medicine
PROC: 3E033RZ Introduction of Antiarrhythmic into Peripheral Vein, Percutaneous Approach (ICD-10-PCS; principal; 2024-08-10)
DX: A04.8 Other specified bacterial intestinal infections (principal); E87.20 Acidosis, unspecified; I42.9 Cardiomyopathy, unspecified; I48.19 Other persistent atrial fibrillation; N17.9 Acute kidney failure, unspecified; I11.0 Hypertensive heart disease with heart failure; E86.0 Dehydration; F31.9 Bipolar disorder, unspecified; E03.9 Hypothyroidism, unspecified; I50.22 Chronic systolic (congestive) heart failure; E87.6 Hypokalemia; I95.9 Hypotension, unspecified; E83.42 Hypomagnesemia; Z87.891 Personal history of nicotine dependence; Z88.8 Allergy status to other drugs, medicaments and biological substances; Z79.890 Hormone replacement therapy; Z79.01 Long term (current) use of anticoagulants; Z79.899 Other long term (current) drug therapy; Z86.711 Personal history of pulmonary embolism; Z98.84 Bariatric surgery status
CPT/HCPCS: 36415; 71046; 74177; 80048; 80053; 81001; 82272; 83605; 83690; 83735; 84132; 84484; 85025; 85027; 85610; 85730; 87045; 87046; 87077; 87186; 87324; 87328; 87329; 93005; 96365; 96366; 96375; 96376; 99291